=== PATIENT | female | born 1940 | race African-American/Black ===

== ENCOUNTER 2020-01-31 22:36 | Inpatient (IN) | payer MEDICAID, MEDICARE ==
[~2020-01-31] VITALS: Ht 165.1 cm; Wt 97.5 kg
[~2020-01-31 22:36] MED LIST: ACETAMINOPHEN650 M2 GT; ALBUTEROL2.5 MG/3 M INH; ALPRAZOLAM0.5 MG GT; AMBIEN5 MG GT; AMBIEN5 MG ORAL; AMIODARONE HCL400 M1 GT; ASCORBIC ACID500 M4 GT; AZACTAM1 GM IVPB; BACTRIM-DS1 EA ORAL; CATAPRES0.2 MG GT; CYCLOGYL 1% OP S2 ML LEFT EYE; DILAUDID2 MG GT; DOCUSATE SODIU100 M2 GT; DOXAZOSIN MESYLA1 MG GT; DULCOLAX10 MG RC; FLONASE1 SPRAYS NASAL; HEPARIN1000 UNIT/ SUBQ; HUMALOG100 UNIT/3 SUBQ; HYDROCODON-ACE1 EA13 GT; KLONOPIN0.5 MG GT; MORPHINE S20 MG/5 ML GT; MULTIVITAMINS1 EAC8 GT; NORCO 10-325 T1 EACH GT; NORCO 5-325 TA1 EACH GT; NORVASC10 MG GT; NORVASC5 MG ORAL; PANTOPRAZOLE SO40 MG GT; PHOS-NAK PACKE1 EAC1 GT; POLYETHYLENE GL17 GM ORAL; POVIDONE IODINE TP; TYLENOL650 MG/20. GT; VITAMIN C500 M1 GT; ZANTAC150 MG ORAL; ZOFRAN 4 MG4 MG/2 ML IM; ZOFRAN4 M1 GT; ZOFRAN4 MG GT
[2020-01-31 22:40] VITALS: BP 91/54
--- NOTE | 2020-01-31 22:40 | NUR ---
ED Nurse Note: Pt brought into ED from [facility] by [facility] for c/o not eating today and AMS per EMS. Per EMS, SNF staff states pt is more vocal and alert than presenting right now. Pt is awake but lethargic and is nonverbal at this time. Pt does respond to touch. Cough noted upon ED arrival, no fever. Pt is breathing normal and is on 3L oxygen via NC with oxygen saturation of 95%. Pt placed on awake overnight monitor, ERMD and EKG bedside. Will continue to monitor.
--- NOTE | 2020-01-31 22:50 | NUR ---
ED Nurse Note: IV line established and blood drawn by RN and sent to lab along with urine specimen.
--- NOTE | 2020-01-31 22:50 | Emergency Room Report ---
History of Present Illness General Chief Complaint: General Complaint Source: Medical Record, EMS Present Illness HPI Is a 79-year-old female with a history of diabetes, CVA and dementia. She is a senior living patient. She presents with chief complaint of altered mental status. At baseline she is confused and able to say yes and no. She was sent in because she has been not responsive for 1 day. Unknown fever. No cough or congestion. Not eating. He is weak in general. She unable to give any history because of a status. Allergies: Coded Allergies: PENICILLINS (Unverified Allergy, Unknown, 03/16/15) COVID-19 Screening Contact w/high risk pt: No Recent Travel to affected area: No Experienced COVID-19 symptoms?: No Patient History Past Medical History: DM, CVA/TIA, dementia Now: No Nursing Documentation-PMH Hx COPD: No Hx Diabetes: Yes Hx Cancer: No Hx Gastrointestinal Problems: Yes - GERD Hx Neurological Problems: Yes Hx Cerebrovascular Accident: Yes Hx Seizures: Yes Hx Weakness: Yes Review of Systems Constitutional: Reports: malaise, weakness All Other Systems: limited - Secondary to condition Physical Exam Vital Signs Date Time Temp Pulse Resp B/P (MAP) Pulse Ox O2 Delivery O2 Flow Rate FiO2 01/31/20 22:38 83 28 91/54 (66) Vitals with hypotension Sp02 EP Interpretation: reviewed, abnormal General Appearance: lethargic, Chronically Ill Head: normocephalic, atraumatic Eyes: right eye other - Right eye is cloudy; left eye PERRL, left eye EOMI ENT: hearing grossly normal, normal pharynx Neck: full range of motion, supple, no meningismus Respiratory: chest non-tender, rhonchi Cardiovascular #1: regular rate, rhythm, no murmur Gastrointestinal: normal bowel sounds, non tender, no mass, no organomegaly, no bruit, non-distended Musculoskeletal: other - Extremities contracted Neurologic: other - Grimace to painful stimuli Procedures Critical Care Time Critical Care Time Critical care is mandated in this patient who presented with sepsis from UTI and severe anemia requiring blood transfusion. Patient require my urgent intervention to attenuate the risks of metabolic collapse which may lead to cardiovascular collapse and . Critical care time is 35 minutes excluding any reportable procedure. Critical care time included evaluation, multiple reevaluation, looking at old charts, interpreting laboratory and diagnostic data , discussing case with patient and family and consultants, and charting. Medical Decision Making Diagnostic Impression: Primary Impression: Sepsis Qualified Codes: A41.9 - Sepsis, unspecified organism; R65.20 - Severe sepsis without septic shock; N17.9 - Acute kidney failure, unspecified Additional Impressions: UTI (urinary tract infection) Qualified Codes: N30.00 - Acute cystitis without hematuria Acute renal failure Qualified Codes: N17.9 - Acute kidney failure, unspecified Anemia, unspecified Qualified Codes: D64.9 - Anemia, unspecified Thrombocytopenia Leukemia Qualified Codes: C95.90 - Leukemia, unspecified not having achieved remission Hyperkalemia Acute metabolic encephalopathy ER Course This is an elderly female presents with altered mental status. This is probably secondary to infection. She is also very dry and in acute renal failure. 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 Prognosis very poor. Blood transfusion ordered. I discussed the case with Dr. Jimenez who knows the patient well. Antibiotics given. IV fluid given. Patient will be admitted for IV antibiotics and blood transfusion. EKG Diagnostic Results Rate: normal Rhythm: NSR ST Segments: other - LBBB Rhythm Strip Diag. Results EP Interpretation: yes Rate: 85 Rhythm: NSR, no PVC's, no ectopy Chest X-Ray Diagnostic Results Chest X-Ray Diagnostic Results : Chest X-Ray Ordered: Yes # of Views/Limited/Complete: 1 View Indication: Shortness of Breath EP Interpretation: Yes Interpretation: no consolidation, no effusion, no pneumothorax, no acute cardiopulmonary disease Impression: No acute disease Electronically Signed by: Matt Marquez MD CT/MRI/US Diagnostic Results CT/MRI/US Diagnostic Results : Imaging Test Ordered: CT head Impression Read by radiologist. No acute process. Last Vital Signs Date Time Temp Pulse Resp B/P (MAP) Pulse Ox O2 Delivery O2 Flow Rate FiO2 01/31/20 22:38 83 28 91/54 (66) Status: improved Disposition: ADMITTED INPATIENT Condition: Critical Matt Marquez MD Jan 31, 2020 22:50
[2020-01-31 23:17] LABS: HEMATOCRIT 8.1 % (37.0-47.0); MEAN CORPUSCULAR VOLUME 102 FL (80-99); PLATELET COUNT 33 K/UL (150-450); RED BLOOD COUNT 0.79 M/UL (4.20-5.40); RED CELL DISTRIBUTION WIDTH 26.6 % (11.6-14.8)
[2020-01-31 23:28] LABS: BILIRUBIN, URINE NEGATIVE (NEGATIVE); COLOR,URINE PALE YELLOW; GLUCOSE, URINE (UA) NEGATIVE (NEGATIVE); KETONES,URINE NEGATIVE (NEGATIVE); LEUKOCYTE ESTERASE ,URINE 3+ (NEGATIVE); NITRITE,URINE NEGATIVE (NEGATIVE); PH,URINE 5 (4.5-8.0); PROTEIN,URINE 2+ (NEGATIVE); UROBILINOGEN,URINE 1 MG/DL (0.0-1.0)
--- NOTE | 2020-01-31 23:45 | NUR ---
ED Nurse Note: Pt taken to CT.
[2020-01-31 23:46] LABS: ALANINE AMINOTRANSFERASE 9 U/L (12-78); ALBUMIN 2.6 G/DL (3.4-5.0); ALBUMIN/GLOBULIN RATIO 0.4 (1.0-2.7); ALKALINE PHOSPHATASE 119 U/L (46-116); ANION GAP 15 mmol/L (5-15); APPEARANCE,URINE SLIGHTLY CLOUDY; ASPARTATE AMINO TRANSFERASE 14 U/L (15-37); BILIRUBIN,TOTAL 0.3 MG/DL (0.2-1.0); BLOOD UREA NITROGEN 125 mg/dL (7-18); CALCIUM 8.9 MG/DL (8.5-10.1); CARBON DIOXIDE 20 MMOL/L (21-32); CHLORIDE 120 MMOL/L (98-107); CKMB < 0.5 NG/ML (0.0-3.6); CREATINE KINASE 182 U/L (26-308); SODIUM 154 MMOL/L (136-145)
[2020-02-01] VITALS (10 sets, daily range): BP systolic 96–154; BP diastolic 37–86
--- NOTE | 2020-02-01 | NUR ---
ED Nurse Note: Pt returned from CT.
[2020-02-01 00:02] LABS: HEMOGLOBIN 2.8 G/DL (12.0-16.0)
--- NOTE | 2020-02-01 00:20 | NUR ---
ED Nurse Note: ERMD bedside, R EJ IV line inserted by ERMD at this time. No complications noted.
[2020-02-01] MEDS ORDERED: Cefepime HCl 1 GM in D5W 55 ML IVPB ONE (00:30)
--- NOTE | 2020-02-01 00:31 | Diagnostic Imaging Report ---
Indication: Headache Technique: Contiguous 5 mm thick transaxial imaging of the head obtained in a Siemens Sensation [address] scanner. Soft tissue and bone windows generated. Automatic Exposure Control was utilized. Total Dose length Product (DLP): 1285mGycm CT Dose Index Volume (CTDIvol): 53.4 mGy Comparison: 02/15/2016 Findings: There is mild prominence of the ventricles, basal cisterns, and cerebral sulci consistent with atrophy. Mild, nonspecific, white matter hypoattenuation is noted throughout the brain consistent with chronic small vessel disease. There is no midline shift, edema, acute hemorrhage, mass effect, or abnormal extra-axial fluid collections. There is opacification of the left mastoid air cells. Patient's abdomen prior surgery involving both the globes. The left globe is shrunken and deformed. Impression: No acute intracranial bleed, mass effect or edema. Mild atrophy of the brain. Nonspecific white matter hypoattenuation probably due to chronic small vessel disease. The CT scanner at [facility] is accredited by the [employer] and the scans are performed using dose optimization techniques as appropriate to a performed exam including Automatic Exposure control.
--- NOTE | 2020-02-01 00:40 | NUR ---
ED Nurse Note: Pt is resting in bed at this time, no acute distress noted. IV antibx infusing as ordered. Safety measures in place. Vital signs stable for pt, ERMD aware. Will continue to monitor.
--- NOTE | 2020-02-01 01:21 | Emergency Room Report ---
Sepsis Event Note Evaluation Current Stage of Sepsis: Severe Sepsis Possible Source: Genitourinary Focused Exam Allergies: Coded Allergies: PENICILLINS (Unverified Allergy, Unknown, 03/16/15) Date Exam Occurred: Feb 01, 2020 Time Exam Occurred: 01:20 Laboratory Studies Laboratory Tests Test 01/31/20 22:49 White Blood Count 15.0 K/UL (4.8-10.8) H Red Blood Count 0.79 M/UL (4.20-5.40) L Hemoglobin 2.8 G/DL (12.0-16.0) *L Hematocrit 8.1 % (37.0-47.0) L Mean Corpuscular Volume 102 FL (80-99) H Mean Corpuscular Hemoglobin 34.6 PG (27.0-31.0) H Mean Corpuscular Hemoglobin Concent 34.0 G/DL (32.0-36.0) Red Cell Distribution Width 26.6 % (11.6-14.8) H Platelet Count 33 K/UL (150-450) L Mean Platelet Volume 4.6 FL (6.5-10.1) L Neutrophils (%) (Auto) % (45.0-75.0) Lymphocytes (%) (Auto) % (20.0-45.0) Monocytes (%) (Auto) % (1.0-10.0) Eosinophils (%) (Auto) % (0.0-3.0) Basophils (%) (Auto) % (0.0-2.0) Neutrophils % (Manual) Pending Lymphocytes % (Manual) Pending Platelet Estimate Pending Platelet Morphology Pending Urine Color Pale yellow Urine Appearance Slightly cloudy Urine pH 5 (4.5-8.0) Urine Specific [place] 1.010 (1.005-1.035) Urine Protein 2+ (NEGATIVE) H Urine Glucose (UA) Negative (NEGATIVE) Urine Ketones Negative (NEGATIVE) Urine Blood 1+ (NEGATIVE) H Urine Nitrite Negative (NEGATIVE) Urine Bilirubin Negative (NEGATIVE) Urine Urobilinogen 1 MG/DL (0.0-1.0) H Urine Leukocyte Esterase 3+ (NEGATIVE) H Urine RBC 2-4 /HPF (0 - 2) H Urine WBC 40-60 /HPF (0 - 2) H Urine Squamous Epithelial Cells Few /LPF (NONE/OCC) Urine Bacteria Many /HPF (NONE) H Sodium Level 154 MMOL/L (136-145) H Potassium Level 6.0 MMOL/L (3.5-5.1) *H Chloride Level 120 MMOL/L (98-107) H Carbon Dioxide Level 20 MMOL/L (21-32) L Anion Gap 15 mmol/L (5-15) Blood Urea Nitrogen 125 mg/dL (7-18) H Creatinine 3.0 MG/DL (0.55-1.30) H Estimat Glomerular Filtration Rate 18.3 mL/min (>60) Glucose Level 153 MG/DL (74-106) H Lactic Acid Level 4.00 mmol/L (0.4-2.0) H Calcium Level 8.9 MG/DL (8.5-10.1) Total Bilirubin 0.3 MG/DL (0.2-1.0) Aspartate Amino Transf (AST/SGOT) 14 U/L (15-37) L Alanine Aminotransferase (ALT/SGPT) 9 U/L (12-78) L Alkaline Phosphatase 119 U/L (46-116) H Total Creatine Kinase 182 U/L (26-308) Creatine Kinase MB < 0.5 NG/ML (0.0-3.6) Creatine Kinase MB Relative Index 0.2 Troponin I 0.011 ng/mL (0.000-0.056) Total Protein 9.3 G/DL (6.4-8.2) H Albumin 2.6 G/DL (3.4-5.0) L Globulin 6.7 g/dL Albumin/Globulin Ratio 0.4 (1.0-2.7) L Vital Signs Last 24 Hour Vital Signs Date Time Temp Pulse Resp B/P (MAP) Pulse Ox O2 Delivery O2 Flow Rate FiO2 02/01/20 00:40 97.8 82 22 109/37 95 Nasal Cannula 3.0 01/31/20 22:40 83 24 Nasal Cannula 3.0 01/31/20 22:40 97.8 83 24 91/54 95 Nasal Cannula 3.0 01/31/20 22:38 83 28 91/54 (66) Respiratory Exam: Clear Cardiovascular Exam: RRR Capillary Refill: Less Than 2 Seconds Peripheral Pulse: Strong Pulse Location: Radial Skin Exam: Unremarkable Matt Marquez MD Feb 01, 2020 01:20
--- NOTE | 2020-02-01 01:25 | NUR ---
ED Nurse Note: Lactic acid reflex drawn and sent to lab.
--- NOTE | 2020-02-01 02:00 | NUR ---
ED Nurse Note: Blood transfusion started at 0200, no complications/adverse reactions noted within first 15 minutes. ERMD requesting blood to be infused in approximately 1 hour. No acute distress, will continue to monitor pt.
--- NOTE | 2020-02-01 03:20 | NUR ---
ED Nurse Note: First unit of PRBCs infused, no complications. Will carry out order for second unit of PRBCs. VSS.
--- NOTE | 2020-02-01 03:40 | NUR ---
ED Nurse Note: Second unit of PRBCs inititated at this time. ERMD requesting blood to be infused in approx 1 hour. Pt is sleeping, breathing is normal and unlabored. No acute distress noted. Will conintue to monitor, safety measures in place. Vital signs stable as charted.
--- NOTE | 2020-02-01 05:25 | NUR ---
ED Nurse Note: Second unit of PRBCs infused with no complications, VSS. Pt is sleeping at this time, no acute distress noted. Will continue to monitor pt.
--- NOTE | 2020-02-01 05:30 | NUR ---
ED Nurse Note: Repeat CBC/CMP drawn by RN and sent to lab.
[2020-02-01 05:48] LABS: HEMATOCRIT 15.2 % (37.0-47.0); MEAN CORPUSCULAR VOLUME 91 FL (80-99); PLATELET COUNT 30 K/UL (150-450); RED BLOOD COUNT 1.68 M/UL (4.20-5.40); RED CELL DISTRIBUTION WIDTH 18.6 % (11.6-14.8); WHITE BLOOD COUNT 13.3 K/UL (4.8-10.8)
[2020-02-01 05:51] LABS: HEMOGLOBIN 5.3 G/DL (12.0-16.0)
--- NOTE | 2020-02-01 06:35 | NUR ---
ED Nurse Note: Third unit of PRBCs initiated at this time. Pt is sleeping in bed, no acute distress. VSS. Will continue to monitor pt. Safety measures in place.
--- NOTE | 2020-02-01 06:55 | NUR ---
ED Nurse Note: Report given to RETA Guerin.
--- NOTE | 2020-02-01 07:05 | NUR ---
HAND-OFF: Report given to RETA Estrella and endorsed plan of care to continue infusing PRBCs and to transport pt to unit.
--- NOTE | 2020-02-01 08:20 | NUR ---
ED Nurse Note: Pt transported to telemetry unit with ongoing blood transfusion at 125ml/hr and endorsed to Truong MCDUFFIE.
--- NOTE | 2020-02-01 09:09 | NUR ---
NURSE NOTES: Pt arrived to the unit vitals taken and pt was clean due to a scant bowel movement. will call
[2020-02-01] MEDS ORDERED: ALPRAZolam 0.5mg tab GT PRN ×2 (12:00→16:00)
--- NOTE | 2020-02-01 12:06 | Diagnostic Imaging Report ---
Indication: Dyspnea Comparison: 02/15/2016 A single view chest radiograph was obtained. Findings: No definite infiltrate or pulmonary vascular congestion identified. The heart is enlarged. The aorta is mildly enlarged consistent with atherosclerotic vascular disease. The bones are osteopenic. There are thoracic vertebral enthesophytes at multiple levels. Impression: No acute disease
--- NOTE | 2020-02-01 14:20 | NUR ---
CASE MANAGEMENT: INITIAL REVIEW 79YR OLD FEMALE BIBA FROM [facility] CC: GENERAL COMPLAINT; NON-VERBAL AND IS NOT EATING WELL; AMS PMH: CVA. DEMENTIA SI: SEVERE SEPSIS . UTI . SEVERE ANEMIA . THROMBOCYTOPENIA . LEUKOCYTOSIS . ACUTE RENAL FAILURE HYPERKALEMIA . ACUTE METABOLIC ENCEPHALOPATHY 97.8 83 24 91/54 95% ON 3L NC WBC 15.0 RBC 0.79 H/H 2.8/8.1 PLT 33 LACTIC ACID 4.0 NA+ 154 K+6.0 CL-120 CO2-20 BUN 125 CREAT 3.0 BGLU 153 AST/ALT 14/9 UR CULTURE (+) IS:IV NS BOLUS X1 CHEST X-RAY- NO ACUTE DISEASE CT HEAD- Mild atrophy of the brain \: 3E MED SURG UNIT DCP: CVW WHEN STABLE PLAN: BLOOD TRANSFUSE URINE CX BLOOD CX CASE MANAGEMENT: REVIEW 02/01/20 SI: SEVERE SEPSIS . UTI . SEVERE ANEMIA . THROMBOCYTOPENIA . LEUKOCYTOSIS . ACUTE RENAL FAILURE HYPERKALEMIA . ACUTE METABOLIC ENCEPHALOPATHY 97.7 73 24 126/71 98% ON 1L WBC 13.3 RBC 1.68 H/H 5.3/15.2 PLT 30 IS:IV NS BOLUS X1 IV CEFEPIME X1 IV NS@150ML/HR BLOOD TRANSFUSING X3 \: 3E MED SURG UNIT DCP: CVW WHEN STABLE PLAN: DECREASE OXYGEN NEGATIVE FOR INFLUENZA A&B CATH FOR UNINE CX
[2020-02-01] MEDS ORDERED: Miralax 17gm pkt ORAL PRN ×2 (16:00→21:00)
--- NOTE | 2020-02-01 16:00 | NUR ---
NURSE NOTES: Received patient from Truong MCDUFFIE. Patient obtunded, with minimal response to verbal and tactile stimuli. Bedbound. IV lines intact on right external jugular g22 saline locked and left wrist g20 running 1/2 NS 1L at 150ml/hr. Piper catheter intact, draining yellow colored urine. Wound pictures to be taken and uploaded. Consent for blood transfusion in the chart. Spoke to Dr Jimenez, said to try feeding patient with syringe if able to eat. HOB elevated. Bed locked in lowest position. Call light within reach. Will continue plan of care.
[2020-02-01] MEDS: Ascorbic Acid 500mg tab GT SCH (18:00)
[2020-02-01] MEDS ORDERED: Ascorbic Acid 500mg tab GT SCH (18:00)
[2020-02-01] MEDS ORDERED: Docusate 100mg cap ORAL SCH (18:00)
[2020-02-01] MEDS: Docusate 100mg cap ORAL SCH (18:00)
--- NOTE | 2020-02-01 18:15 | History and Physical Report ---
DATE OF ADMISSION: 02/01/2020 CHIEF COMPLAINT AND REASON FOR HOSPITALIZATION: The patient with dehydration and severe anemia. HISTORY OF PRESENT ILLNESS: The patient is a resident of an [facility], has had bilateral strokes, is bedridden, has refractory anemia with blast, preleukemic state or possibly lymphoma has been diagnosed in the past. We discussed with the family. She presents with poor oral intake, lethargy, and hemoglobin of 2.8. PAST MEDICAL HISTORY: Includes diabetes borderline, dementia with agitation, paroxysmal atrial fibrillation. 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 ALLERGIES: None known. MEDICATIONS: From the [facility] are reviewed include the following: amlodipine, amiodarone, MiraLAX p.r.n., Zofran p.r.n., DSS p.r.n., Rita eye drops, Zantac, bisacodyl, [place], and melatonin. REVIEW OF SYSTEMS: The patient is unable. PHYSICAL EXAMINATION: GENERAL: The patient is arousable, but very lethargic. VITAL SIGNS: Temperature 98.4, pulse 75, respirations 22, blood pressure 154/86. HEAD, EYES, EARS, NOSE, AND THROAT: She has a left eye prosthesis and a dense lens opacity in the right eye. Oral mucosa is dry. NECK: No adenopathy. LUNGS: Clear. HEART: Regular rhythm. No murmur. ABDOMEN: Soft without organomegaly or masses. EXTREMITIES: No edema. There are degenerative changes in the knees and contractures of both hands. NEUROLOGIC: She moans and sort of states yes or no, but is not really carrying on a conversation. She is blind. There appears to be bilateral facial weakness. She has weakness in all four extremities. IMPRESSION: 1. Severe anemia, refractory anemia with blast, hemoglobin 2.8 on admission. 2. Thrombocytopenia. 3. Likely preleukemia or leukemia. 4. Dehydration. 5. Anorexia. 6. Hyperkalemia. 7. Failure to thrive. PLAN: I discussed with the family again and they have not been willing to make the patient No Code even though she has a terminal prognosis. We will hydrate her cautiously and transfuse. We will try to make early discharge to the [facility]. She does have white cells in the urine and we will give her urine culture and antibiotics. Bertram Jimenez M.D. DR: MATTY JOB#: [id number] CC:
--- NOTE | 2020-02-01 19:30 | NUR ---
NURSE NOTES: RECEIVED PATIENT FROM RETA PERERA. PATIENT IS ASLEEP, ON ROOM AIR, O2 AT 99%, NO ACUTE DISTRESS NOTED. IV ON RIGHT EJ AND LEFT WRIST INTACT AND PATENT.WOUND DRESSINGS INTACT AND DRY. MORENO CATH IN PLACE, DRAINING WELL, YELLOW URINE NOTED, MORENO ANCHOR IN PLACE. BED IS LOCKED AND LOW, BED ALARMS ACTIVE, SIDE RAILS UPX2 AND CALL LIGHT IS WITHIN REACH. WILL CONTINUE TO MONITOR.
--- NOTE | 2020-02-01 19:33 | NUR ---
HAND-OFF: Report given to rachel.
--- NOTE | 2020-02-01 23:50 | NUR ---
NURSE NOTES: 1 UNIT PRBC TRANSFUSED, NO REACTIONS NOTED. VITAL SIGN STABLE.
[2020-02-02] VITALS (7 sets, daily range): BP systolic 118–150; BP diastolic 67–85
--- NOTE | 2020-02-02 04:00 | NUR ---
NURSE NOTES: ADDITIONAL 1 UNIT PRBC TRANSFUSED, NO REACTIONS NOTED. VITAL SIGN STABLE.
--- NOTE | 2020-02-02 07:50 | NUR ---
NURSE NOTES: Patient seen on rounds, obtunded, non-verbal. On room air tolerating well, sats 100%. Patient is S/P 2 units PRBC from NOC shift. PIV on left wrist, and CV on right EJ patent and intact. Piper secure and draining well. Awaiting repeat labs in AM. Patient is not awake enough to eat and take meds PO. Will inform MD. Bed low and locked, siderails up x 3, frequent rounds done, will continue to monitor.
--- NOTE | 2020-02-02 07:53 | NUR ---
HAND-OFF: Report given to RETA Santiago.
[2020-02-02] MEDS ORDERED: Amiodarone 200mg tab GT SCH (09:00)
[2020-02-02] MEDS: Docusate 100mg cap ORAL SCH ×2 (09:00→18:00)
[2020-02-02] MEDS: Amiodarone 200mg tab GT SCH (09:00)
[2020-02-02] MEDS ORDERED: Cyclopentolate 1% Opth Sol 2ml LEFT EYE SCH (09:00)
[2020-02-02] MEDS: Ascorbic Acid 500mg tab GT SCH ×2 (09:00→18:00)
[2020-02-02 10:36] LABS: HEMATOCRIT 24.1 % (37.0-47.0); HEMOGLOBIN 8.6 G/DL (12.0-16.0); MEAN CORPUSCULAR VOLUME 83 FL (80-99); PLATELET COUNT 18 K/UL (150-450); RED BLOOD COUNT 2.91 M/UL (4.20-5.40); RED CELL DISTRIBUTION WIDTH 14.2 % (11.6-14.8); WHITE BLOOD COUNT 8.2 K/UL (4.8-10.8)
--- NOTE | 2020-02-02 11:00 | NUR ---
NURSE NOTES: Dr. Jimenez saw patient on rounds, made aware that patient is not eating and not able to take PO meds due to altered mental status. MD is aware and would like to encourage PO intake once patient is more awake. Received orders to DC vasquez catheter. Orders noted and carried out.
--- NOTE | 2020-02-02 11:25 | General Progress Note ---
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 ICD Codes: D46.4 - Refractory anemia, unspecified SNOMED: 579240882 (5) Acute renal failure ICD Codes: N17.9 - Acute kidney failure, unspecified SNOMED: 83852451 (6) UTI (urinary tract infection) ICD Codes: N39.0 - UTI (urinary tract infection) SNOMED: 56574356 Qualifiers: Qualified Codes: N30.00 - Acute cystitis without hematuria (7) Anemia, unspecified ICD Codes: D64.9 - Anemia, unspecified SNOMED: 553199844 Qualifiers: Qualified Codes: D64.9 - Anemia, unspecified Assessment/Plan: hb better, continue iv hydration and antibiotics Subjective ROS Limited/Unobtainable: Yes Allergies: Coded Allergies: PENICILLINS (Unverified Allergy, Unknown, 03/16/15) Objective Last 24 Hour Vital Signs Date Time Temp Pulse Resp B/P (MAP) Pulse Ox O2 Delivery O2 Flow Rate FiO2 02/02/20 09:00 Room Air 02/02/20 08:00 98.9 66 18 150/83 (105) 100 02/02/20 04:00 98.5 60 20 140/67 (91) 99 02/02/20 00:00 98.6 62 20 137/71 (93) 98 02/01/20 21:00 Room Air 02/01/20 20:00 98.4 66 20 124/63 (83) 99 02/01/20 16:00 98.5 71 20 123/61 (81) 100 02/01/20 12:00 97.7 73 24 126/71 (89) 98 02/01/20 11:47 66 02/01/20 11:45 Nasal Cannula 1.0 Intake and Output 02/01/20 02/02/20 19:00 07:00 Intake Total 150 ml 1200 ml Output Total 700 ml 1550 ml Balance -550 ml -350 ml Intake IV Total 150 ml 1200 ml Output Urine Total 700 ml 1550 ml # Voids 2 # Bowel Movements 1 Laboratory Tests 02/02/20 10:15: White Blood Count 8.2, Red Blood Count 2.91L, Hemoglobin 8.6#L, Hematocrit 24.1# L, Mean Corpuscular Volume 83#, Mean Corpuscular Hemoglobin 29.7, Mean Corpuscular Hemoglobin Concent 35.9, Red Cell Distribution Width 14.2, Platelet Count 18L, Mean Platelet Volume 5.3L, Neutrophils (%) (Auto) , Lymphocytes (%) ( Auto) , Monocytes (%) (Auto) , Eosinophils (%) (Auto) , Basophils (%) (Auto) , Neutrophils % (Manual) [Pending], Lymphocytes % (Manual) [Pending], Platelet Estimate [Pending], Platelet Morphology [Pending], Sodium Level [Pending], Potassium Level [Pending], Chloride Level [Pending], Carbon Dioxide Level [ Pending], Blood Urea Nitrogen [Pending], Creatinine [Pending], Estimat Glomerular Filtration Rate [Pending], Glucose Level [Pending], Calcium Level [ Pending] Height (Feet): 5 Height (Inches): 5.00 Weight (Pounds): 185 General Appearance: lethargic, confused EENT: other - blind Neck: normal alignment Cardiovascular: normal rate, regular rhythm Respiratory/Chest: lungs clear Abdomen: non tender Edema: no edema noted Arm (L), no edema noted Arm (R), no edema noted Leg (L), no edema noted Leg (R), no edema noted Pedal (L), no edema noted Pedal (R), no edema noted Generalized Neurologic: abnormal emt/dispatcher II-XII, motor weakness Bertram Jimenez MD Feb 02, 2020 11:25
[2020-02-02 11:29] LABS: ANION GAP 8 mmol/L (5-15); BLOOD UREA NITROGEN 73 mg/dL (7-18); CARBON DIOXIDE 21 MMOL/L (21-32); CHLORIDE 129 MMOL/L (98-107); CREATININE 1.3 MG/DL (0.55-1.30); SODIUM 158 MMOL/L (136-145)
--- NOTE | 2020-02-02 11:53 | NUR ---
*-*DISCHARGE PLANNING*-* PATIENT HAS BEEN REFERRED BACK TO: [facility] P: [phone] F: [phone] ~~~~~~~WAITING FOR ACCEPTANCE~~~~~~~~~~~~~
--- NOTE | 2020-02-02 12:08 | NUR ---
CASE MANAGEMENT:REVIEW SI;AC RENAL FAILURE. UTI. ANEMIA. HTN. DEHYDRATION. 98.9 70 20 150/85 98% ON RA H/H 8.6/24.1 NA 158 BUN 73 CA 8.0 IS;AMIODARONE GT QD NORVASC GT QD PROTONIX GT QD IVF NS @ 150 ML/HR MED SURG STATUS DCP;FROM [facility] PLAN;CONTINUE IV FLUIDS DC TO SNF WHEN BED AVAILABLE
--- NOTE | 2020-02-02 13:26 | NUR ---
NURSE NOTES: Notified Dr. Jimenez of abnormal lab results (Na 158). Continue current IVF of 1/2 NS at 150ml/hr. No other new orders at this time. is also aware of low platelet count 18.
--- NOTE | 2020-02-02 14:46 | NUR ---
*-*DISCHARGE PLANNING*-* PATIENT HAS BEEN ACCEPTED AND [facility] 02/03/2020. NURSE TO NURSE REPORT P: [phone] RM# 25.[facility]SP[facility] SET FOR WILL CALL NURSE TO ACTIVATE WILL CALL. Addendum: 02/02/20 at 1510 by SURINDER DUNCAN CM *-*DISCHARGE PLANNING*-* PATIENT HAS BEEN ACCEPTED AND WILL BE DISCHARGED BACK TO, [facility] ON ANTICIPATED DISCHARGE DATE 02/03/2020. NURSE TO NURSE REPORT P: [phone] RM# 25.[facility] SET FOR WILL CALL, S/W SHARONDA [id number] NURSE TO ACTIVATE WILL CALL.
--- NOTE | 2020-02-02 19:29 | NUR ---
HAND-OFF: Report given to Sherman MCDUFFIE. Patient had (+) urine output post removal of vasquez catheter. Vitals stable during shift. Not in distress, no bleeding noted.
--- NOTE | 2020-02-02 19:58 | NUR ---
NURSE NOTES: Patient in bed, awake, unable to make needs known. Respiration is even and unlabored. Bed in low and locked position. NO s/s of pain or discomfort. Iv site noted, iv fluid is infusing. Skin is warm, noted with sacral dressing, heels noted with dressing. Provided safe environment. Call light is at bedside. Frequent visual checks to bed done.
--- NOTE | 2020-02-02 20:00 | NUR ---
NURSE NOTES:re tel# for Daughter, Leyla Desai, , wants MD to call er 02/02 please, requests neurologist.
[2020-02-03 04:00] VITALS: BP 135/61
--- NOTE | 2020-02-03 06:27 | NUR ---
NURSE NOTES: Informed Dr. Jimenez regarding patient positive for MRSA nares. No new order at this time. Charge nurse made aware.
--- NOTE | 2020-02-03 06:45 | NUR ---
NURSE NOTES: Patient transferred to [facility], all belongings with patient.
--- NOTE | 2020-02-03 07:19 | NUR ---
HAND-OFF: Report given to RETA Arciniega.
--- NOTE | 2020-02-03 07:29 | NUR ---
NURSE NOTES: Patient seen on rounds, obtunded, responsive to touch and pain. Not in distress, no outward signs of pain. No signs of bleeding or abnormal bruising. IV on right EF patent and intact. Noted some trace edema on left hand, PIV flushed and patent. Elevated extremity, will reassess IV site. Bed low and locked, siderails up x 3, frequent visual rounds done, bed alarms on zone 1. Will continue to monitor.
[2020-02-03 09:00] VITALS: BP 126/61
[2020-02-03] MEDS: Docusate 100mg cap ORAL SCH ×2 (09:00→17:04)
[2020-02-03] MEDS: Amiodarone 200mg tab GT SCH (09:00)
[2020-02-03] MEDS: Ascorbic Acid 500mg tab GT SCH ×2 (09:00→17:03)
--- NOTE | 2020-02-03 11:06 | NUR ---
CHARGE NURSE NOTE: NA 158, Chl.129. notified, no new orders given. is on his way to the hospital.
[2020-02-03 12:00] VITALS: BP 130/65
--- NOTE | 2020-02-03 13:30 | NUR ---
NURSE NOTES: Dr Jimenez made rounds. Informed him about family's concern regarding change in mental status. Family reports that patient was more verbally responsive at intermediate. Informed MD that family would like neurology consult. MD advised to have family call his office. Clarified if MD would like to order SCD's for DVT prophylaxis. No new orders at this time. Left voicemail with daughter Leyla Desai to update.
--- NOTE | 2020-02-03 13:48 | NUR ---
CHARGE NURSE NOTE: Spoke with . Notified him that pt oral intake is very poor, (she is on Pureed diet, was able to swallow 1 tea spoon with difficulty, risk for aspiration). respond was "Pt is terminally ill, dying, no need Gtube placement".
[2020-02-03] MEDS ORDERED: ceFAZolin sod 1 GM in D5W 55 ML IVPB SCH (14:00)
--- NOTE | 2020-02-03 14:00 | NUR ---
HAND-OFF: Report given to RETA Vaughn.
--- NOTE | 2020-02-03 14:00 | NUR ---
NURSE NOTES: Spoke with daughter Leyla Desai to let her know that I had made Dr. Jimenez aware of their concerns and to call MD's office to speak with him. Daughter verbalized understanding.
[2020-02-03] MEDS: Potassium Chloride 10 MEQ in D5W 1000ml 1,000 ML IV SCH ×2 (14:37→20:52)
--- NOTE | 2020-02-03 14:45 | NUR ---
NURSE NOTES: Report received from Pamela MCDUFFIE. Patient is non verbal and not alert oriented. Endorsed by Pamela that this is not a new status for the patient. Patient is noted to be on room air. Does not appear to be in respiratory distress at this time. Patient noted to have left wrist 20 shasta IV saline lock. Patient noted to have 22 shasta IV in right IJ with fluids running per MD orders. Per Pamela, Doctor Jimenez is aware of the patients current laboratory values and does not want to change or adjust IV fluids. Was endorsed to Roderick MCDUFFIE that patient is not taking/tolerating oral medications. Per Pamela Jimenez is aware and states that it is okay if patient does not take medications. Patient is bed bound and incontinent. Bed locked, in lowest position, and alarmed. Will continue to follow plan of care.
[2020-02-03 16:00] VITALS: BP 117/55
[2020-02-03] MEDS: ceFAZolin sod 1 GM in D5W 55 ML IVPB SCH (16:02)
--- NOTE | 2020-02-03 16:20 | General Progress Note ---
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 ICD Codes: D46.4 - Refractory anemia, unspecified SNOMED: 304893374 (5) Acute renal failure ICD Codes: N17.9 - Acute kidney failure, unspecified SNOMED: 21955440 (6) UTI (urinary tract infection) ICD Codes: N39.0 - UTI (urinary tract infection) SNOMED: 26108427 Qualifiers: Qualified Codes: N30.00 - Acute cystitis without hematuria (7) Anemia, unspecified ICD Codes: D64.9 - Anemia, unspecified SNOMED: 346160624 Qualifiers: Qualified Codes: D64.9 - Anemia, unspecified (8) Vascular dementia ICD Codes: F01.50 - Vascular dementia without behavioral disturbance SNOMED: 126551260 Assessment/Plan: hb better, continue iv hydration and antibiotics, terminal malignancy and sever dementia, avoid invasive procedures Subjective ROS Limited/Unobtainable: Yes Allergies: Coded Allergies: PENICILLINS (Unverified Allergy, Unknown, 03/16/15) Objective Last 24 Hour Vital Signs Date Time Temp Pulse Resp B/P (MAP) Pulse Ox O2 Delivery O2 Flow Rate FiO2 02/03/20 12:00 98.8 79 18 130/65 (86) 99 02/03/20 09:00 Room Air 02/03/20 09:00 98.7 69 19 126/61 (82) 98 02/03/20 04:00 98.7 63 18 135/61 (85) 96 02/02/20 23:50 98.8 69 18 118/67 (84) 98 02/02/20 21:00 Room Air 02/02/20 20:00 98.9 69 18 133/77 (95) 99 Intake and Output 02/02/20 02/03/20 19:00 07:00 Intake Total 1800 ml 1600 ml Output Total 1000 ml Balance 800 ml 1600 ml Intake IV Total 1800 ml 1600 ml Output Urine Total 1000 ml # Voids 2 2 # Bowel Movements 1 Height (Feet): 5 Height (Inches): 5.00 Weight (Pounds): 185 General Appearance: lethargic, confused EENT: other - blind Neck: normal alignment Cardiovascular: normal rate, regular rhythm Respiratory/Chest: lungs clear Abdomen: soft Extremities: other - [id number] Edema: trace edema, other Neurologic: abnormal pipe line repairer II-XII, motor weakness, disoriented Bertram Jimenez MD Feb 03, 2020 16:20
--- NOTE | 2020-02-03 19:50 | NUR ---
HAND-OFF: Report given to Yovani MCDUFFIE.
[2020-02-03 20:00] VITALS: BP 100/70
--- NOTE | 2020-02-03 21:14 | NUR ---
NURSE NOTES: Pt is in bed, awake. Makes grunting sounds time to time. Opens eyes, non-verbal. Pt's daughter called to find out about patient, daughter updated. Phone transferred to the room for the daughter to speak to her mother. Dr. Peoples also called to inform that daughter Leyla ([phone]) has been trying to talk to him. Said the daughter can call the office number. Daughter has office number. Dr. PEOPLES also made aware of pt's labs and the IV fluid D5W with 10mEq KCL at 200ml/hr that's running. said he is aware of the labs and the IV fluid order. No new orders. Pt will be monitored.
[2020-02-04] VITALS: BP 100/47
[2020-02-04] MEDS: ceFAZolin sod 1 GM in D5W 55 ML IVPB SCH ×2 (03:46→15:42)
[2020-02-04] MEDS: Potassium Chloride 10 MEQ in D5W 1000ml 1,000 ML IV SCH ×5 (03:47→22:54)
[2020-02-04 04:00] VITALS: BP 94/37
--- NOTE | 2020-02-04 04:00 | NUR ---
NURSE NOTES: Pt is in bed, awake. No acute distress noted. Pt is cleaned and repositioned.
--- NOTE | 2020-02-04 07:25 | NUR ---
HAND-OFF: Report given to RETA Maya.
--- NOTE | 2020-02-04 07:30 | NUR ---
NURSE NOTES: Received patient in bed. Awake, patient is non-verbal. On room air. No signs of pain at this time. Bed rails upx2, bed at the lowest position, bed locked, call light within reach. IV in Right IJ and Left wrist, site intact running IVF as ordered.
[2020-02-04 08:00] VITALS: BP 104/50
[2020-02-04] MEDS: Docusate 100mg cap ORAL SCH ×2 (08:43→17:40)
[2020-02-04] MEDS: Ascorbic Acid 500mg tab GT SCH ×2 (08:43→17:40)
[2020-02-04] MEDS: Amiodarone 200mg tab GT SCH (08:43)
[2020-02-04 12:00] VITALS: BP 110/53
[2020-02-04] MEDS ORDERED: Potassium Chloride 10 MEQ in D5W 1000ml 1,000 ML IV SCH (15:37)
[2020-02-04 16:00] VITALS: BP 94/43
--- NOTE | 2020-02-04 16:01 | General Progress Note ---
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 ICD Codes: D46.4 - Refractory anemia, unspecified SNOMED: 037049895 (5) Acute renal failure ICD Codes: N17.9 - Acute kidney failure, unspecified SNOMED: 98227478 (6) UTI (urinary tract infection) ICD Codes: N39.0 - UTI (urinary tract infection) SNOMED: 97855885 Qualifiers: Qualified Codes: N30.00 - Acute cystitis without hematuria (7) Anemia, unspecified ICD Codes: D64.9 - Anemia, unspecified SNOMED: 603304415 Qualifiers: Qualified Codes: D64.9 - Anemia, unspecified (8) Vascular dementia ICD Codes: F01.50 - Vascular dementia without behavioral disturbance SNOMED: 385037452 Assessment/Plan: hb better, continue iv hydration and antibiotics, terminal malignancy and severe dementia, avoid invasive procedures as very low platelets, d/w family grave prognosis in view of myelodysplastic dis/leukemia and that I do not feel comfortable with invasive procedures. Called nursing drying and winding supervisor to find another primary MD as family wishes are different than my opinion Subjective ROS Limited/Unobtainable: Yes Allergies: Coded Allergies: PENICILLINS (Unverified Allergy, Unknown, 03/16/15) Objective Last 24 Hour Vital Signs Date Time Temp Pulse Resp B/P (MAP) Pulse Ox O2 Delivery O2 Flow Rate FiO2 02/04/20 12:00 98.9 81 19 110/53 (72) 98 02/04/20 09:00 Room Air 02/04/20 08:43 77 104/50 02/04/20 08:00 97.9 77 19 104/50 (68) 99 02/04/20 04:00 97.8 66 19 94/37 (56) 97 02/04/20 00:00 97.4 70 22 100/47 (64) 99 4/4/20 21:00 Room Air 02/03/20 20:00 97.8 95 20 100/70 (80) 93 02/03/20 16:00 98.9 71 20 117/55 (75) 98 Intake and Output 02/03/20 02/04/20 19:00 07:00 Intake Total 1405 ml 2055 ml Balance 1405 ml 2055 ml IV Total 1405 ml 2055 ml # Voids 1 1 Height (Feet): 5 Height (Inches): 5.00 Weight (Pounds): 185 General Appearance: confused EENT: other - blind Neck: non-tender Cardiovascular: regular rhythm Respiratory/Chest: lungs clear Abdomen: non tender, soft Edema: no edema noted Arm (L), no edema noted Arm (R), no edema noted Leg (L), no edema noted Leg (R), no edema noted Pedal (L), no edema noted Pedal (R), no edema noted Generalized Neurologic: motor weakness, disoriented Bertram Jimenez MD Feb 04, 2020 16:01
--- NOTE | 2020-02-04 19:30 | NUR ---
HAND-OFF: Report given to Darien MCDUFFIE.
[2020-02-04 20:00] VITALS: BP 136/68
--- NOTE | 2020-02-04 21:47 | NUR ---
NURSE NOTES: Received patient awake in bed, no s/s of acute distress. Gave bed bath and full linen change with CREDENTIALS SPECIALIST, patient tolerated well. EJ IV access patent and intact, running IVF maintenance. P200 mattress noted. Bed low and locked.
[2020-02-05] VITALS: BP 120/65
[2020-02-05] MEDS: ceFAZolin sod 1 GM in D5W 55 ML IVPB SCH ×2 (03:20→16:14)
[2020-02-05 04:00] VITALS: BP 111/56
[2020-02-05] MEDS: Potassium Chloride 10 MEQ in D5W 1000ml 1,000 ML IV SCH ×3 (07:00→21:04)
--- NOTE | 2020-02-05 07:09 | NUR ---
HAND-OFF: Report given to RETA Morrissey.
--- NOTE | 2020-02-05 07:10 | NUR ---
NURSE NOTES: Received patient in bed. Awake, Alert x1. Patient on room air. No signs of pain noted. On air matress. IV in the Right EJ and Left wrist noted, sites are intact. IVF running as ordered. Bed rails up x2, bed low and locked. Call light within reach.
[2020-02-05 08:00] VITALS: BP 118/62
[2020-02-05] MEDS: Docusate 100mg cap ORAL SCH ×2 (08:18→18:05)
[2020-02-05] MEDS: Amiodarone 200mg tab GT SCH (08:19)
[2020-02-05] MEDS: Ascorbic Acid 500mg tab GT SCH ×2 (08:19→18:05)
[2020-02-05 08:48] LABS: HEMATOCRIT 16.9 % (37.0-47.0); MEAN CORPUSCULAR VOLUME 86 FL (80-99); PLATELET COUNT 15 K/UL (150-450); RED BLOOD COUNT 1.97 M/UL (4.20-5.40); RED CELL DISTRIBUTION WIDTH 17.4 % (11.6-14.8); WHITE BLOOD COUNT 21.8 K/UL (4.8-10.8)
[2020-02-05 08:54] LABS: HEMOGLOBIN 5.9 G/DL (12.0-16.0)
[2020-02-05 09:05] LABS: ANION GAP 11 mmol/L (5-15); BLOOD UREA NITROGEN 26 mg/dL (7-18); CALCIUM 7.5 MG/DL (8.5-10.1); CARBON DIOXIDE 17 MMOL/L (21-32); CHLORIDE 111 MMOL/L (98-107); CREATININE 0.9 MG/DL (0.55-1.30); SODIUM 139 MMOL/L (136-145)
--- NOTE | 2020-02-05 10:20 | NUR ---
NURSE NOTES: Dr. Jimenez office contacted for WBC and Hgb level. Left message. Waiting for call back.
[2020-02-05 11:51] VITALS: BP 107/71
--- NOTE | 2020-02-05 14:48 | General Progress Note ---
Assessment/Plan Assessment/Plan: 79 y/o F with PMH CVA, schizophrenia, vascular dementia, leukemia who presents from [facility] for AMS, found to have E. coli UTI. #E. coli UTI -cont. in patient medical management -UCx + for E. Coli -cont. cefazolin #3 #Refractory Anemia 2/2 MDS #Leukemia #Lymphoma #thrombocytopenia -Hgb 5.9 today -transfuse 2 U PRBC -cont. to monitor for signs/symptoms of bleeding #FTT #physical deconditioning #Quadriplegia -nutrition consulted -PT/OT #CVA #vascular dementia -minimally verbal at b/l per PCP -no ASA given thrombocytopenia Pt has poor prognosis given terminal conditions noted above. Dispo: will d/c back to [facility] once stable Time spent on encounter: 36 mins, >50% on counseling, coordination of care. Additional 25 mins spent with chart review Additional 35 mins spent d/w pt's daughter, Leyla, , POC, advance life care planning, at this time daughter prefers patient to remain full code Time of note doesn't reflect time of encounter. Subjective ROS Limited/Unobtainable: Yes - Pt aphasic Allergies: Coded Allergies: PENICILLINS (Unverified Allergy, Unknown, 03/16/15) Subjective Asked to take over care of pt due to family requests for second opinion. Pt currently aphasic, minimally communicative, appears comfortable. Unable to obtain ROS 2/2 clinical picture. Objective Last 24 Hour Vital Signs Date Time Temp Pulse Resp B/P (MAP) Pulse Ox O2 Delivery O2 Flow Rate FiO2 02/05/20 11:51 98.2 58 19 107/71 (83) 95 02/05/20 09:00 Room Air 02/05/20 08:19 69 118/62 02/05/20 08:00 97.0 69 18 118/62 (80) 97 02/05/20 04:00 97.9 66 21 111/56 (74) 98 02/05/20 00:00 98.6 66 17 120/65 (83) 98 02/04/20 22:24 Room Air 02/04/20 20:00 98.5 65 17 136/68 (90) 98 02/04/20 16:00 98.2 89 17 94/43 (60) 98 Intake and Output 02/04/20 02/05/20 19:00 07:00 Intake Total 670 ml Balance 670 ml Intake Oral 20 ml IV Total 650 ml # Voids 1 3 Laboratory Tests 02/05/20 08:30: White Blood Count 21.8H, Red Blood Count 1.97L, Hemoglobin 5.9*L, Hematocrit 16.9L, Mean Corpuscular Volume 86, Mean Corpuscular Hemoglobin 30.1, Mean Corpuscular Hemoglobin Concent 35.2, Red Cell Distribution Width 17.4H, Platelet Count 15L, Mean Platelet Volume 7.0, Neutrophils (%) (Auto) , Lymphocytes (%) (Auto) , Monocytes (%) (Auto) , Eosinophils (%) (Auto) , Basophils (%) (Auto) , Differential Total Cells Counted 100, Neutrophils % ( Manual) 4L, Lymphocytes % (Manual) 75H, Monocytes % (Manual) 6, Eosinophils % ( Manual) 0, Basophils % (Manual) 0, Blast Cells % 15*H, Band Neutrophils 0, Platelet Estimate DecreasedL, Platelet Morphology Normal, Polychromasia 1+, Hypochromasia 4+, Anisocytosis 1+, Spherocytes 2+, Sodium Level 139, Potassium Level 4.0, Chloride Level 111H, Carbon Dioxide Level 17L, Anion Gap 11, Blood Urea Nitrogen 26H, Creatinine 0.9, Estimat Glomerular Filtration Rate > 60, Glucose Level 127H, Calcium Level 7.5L Height (Feet): 5 Height (Inches): 5.00 Weight (Pounds): 185 Objective General Appearance: aphasic, otherwise awake, alert, non-communicative HEENT: NCAT, b/l blindness, left prostehsis, dry MM Cardiovascular: regular rhythm Respiratory/Chest: lungs clear, no accessory muscle usage Abdomen: non tender, soft Edema: no edema noted Neurologic: motor weakness, disoriented Anthony Guerra M.D. Feb 05, 2020 14:48
--- NOTE | 2020-02-05 14:51 | NUR ---
CASE MANAGEMENT:REVIEW SI;AC RENAL FAILURE. UTI. ANEMIA. 98.2 58 21 107/71 95% ON RA WBC 21.8 H/H 5.9/16.9 CL 111 CO2 17 BUN 26 CA 7.5 IS;K-CL/D5 @ 150 ML/HR CEFAZOLIN NA Q12 HRS AMIODARONE GT QD PROTONIX GT QD NORVASC GT QD PRBC TRANSFUSION MED SURG STATUS DCP;FROM [facility] WHEN MEDICALLY CLEARED
[2020-02-05 16:00] VITALS: BP 120/45
--- NOTE | 2020-02-05 19:30 | NUR ---
NURSE NOTES: RECEIVED PATIENT FROM RETA COTA. PATIENT IS ASLEEP, ON ROOM AIR, NO ACUTE DISTRESS NOTED. WOUND DRESSINGS INTACT. IV ON RIGHT EJ AND LEFT WRIST INTACT AND PATENT. BLOOD TRANSFUSION IN PROCESS, NO REACTIONS NOTED. BED IS LOCKED AND LOW, BED ALARMS ACTIVE, SIDE RAILS UP X2 AND CALL LIGHT IS WITHIN REACH. WILL CONTINUE TO MONITOR.
--- NOTE | 2020-02-05 19:30 | NUR ---
HAND-OFF: Report given to Antionette RN.
[2020-02-05 20:00] VITALS: BP 127/66
[2020-02-05 22:15] LABS: HEMATOCRIT 24.8 % (37.0-47.0); HEMOGLOBIN 8.9 G/DL (12.0-16.0); MEAN CORPUSCULAR VOLUME 82 FL (80-99); PLATELET COUNT 16 K/UL (150-450); RED BLOOD COUNT 3.05 M/UL (4.20-5.40); RED CELL DISTRIBUTION WIDTH 14.3 % (11.6-14.8)
--- NOTE | 2020-02-05 23:13 | NUR ---
NURSE NOTES: CALLED AND SPOKE TO DR. MARIN REGARDING WBC 23.0 NO NEW ORDERS.
[2020-02-06] VITALS (7 sets, daily range): BP systolic 110–156; BP diastolic 64–75
[2020-02-06] MEDS: ceFAZolin sod 1 GM in D5W 55 ML IVPB SCH ×2 (04:13→17:05)
[2020-02-06] MEDS: Potassium Chloride 10 MEQ in D5W 1000ml 1,000 ML IV SCH ×4 (04:14→21:36)
--- NOTE | 2020-02-06 07:44 | NUR ---
HAND-OFF: Report given to RETA Bone. Patient is in stable condition.
--- NOTE | 2020-02-06 07:45 | NUR ---
NURSE NOTES: Received patient in bed, awake, non-verbal @ this time. Breathing is even and unlabored. No s/s of pain per FLACC pain scale. 2 IV's intact. Pure wick in place. Bed is in lowest position and locked. Will continue plan of care.
--- NOTE | 2020-02-06 08:19 | NUR ---
P.T Note: P.T evaluation completed. Pt is awake, not able to respond to name and not able to physically follow commands. Pt presented multiple joint contractures and rigidity on BUE/BLE. Pt is dependent in all areas of ADL/self care. Pt is already functionally baseline dependent and not a candidate for skilled P.T services. Recommend DC to to prior living arrangement. Thank you for this referral.
[2020-02-06] MEDS: Docusate 100mg cap ORAL SCH ×2 (09:00→17:45)
[2020-02-06] MEDS: Ascorbic Acid 500mg tab GT SCH ×2 (09:07→17:45)
[2020-02-06] MEDS: Amiodarone 200mg tab GT SCH (09:07)
--- NOTE | 2020-02-06 09:20 | NUR ---
NURSE NOTES: PT unable to tolerate with docusate and protonix. RN crushed other scheduled med but patient was not able to consume full amount due to patient's cognition status. Wasted left over properly.
--- NOTE | 2020-02-06 09:45 | NUR ---
*-*DISCHARGE PLANNING*-* PATIENT HAS BEEN REFERRED BACK TO: [facility] P: [phone] F: [phone] ~~~~~~~~~~~WATING FOR ACCEPTANCE~~~~~~~~~~~~~~ Addendum: 02/06/20 at 1522 by SURINDER DUNCAN CM *-*DISCHARGE PLANNING*-* PATIENT HAS BEEN REFERRED BACK TO: PLACED MULTIPLE CALLS TO [facility] P: [phone] NO TEAWER EMG TECHNICIAN NOTIFIED, AND ATMOSPHERIC PHYSICS PROFESSOR WILL CONTINUE TO FOLLOW PATIENT
--- NOTE | 2020-02-06 10:22 | NUR ---
RD ASSESSMENT & RECOMMENDATIONS SEE CARE ACTIVITY FOR COMPLETE ASSESSMENT DAILY ESTIMATED NEEDS: Needs based on wound, bed bound 63.5kg abw 27-32 kcals/kg 7746-6637 total kcals 1.25-1.5 g protein/kg 79-95 g total protein Fluid per MD NUTRITION DIAGNOSIS: Increased kcal and protein needs R/T wound healing sacral full thickness wound, pt is bedbound w/ poor po intake. (CURRENT DIET: CCHO MED puree) PO DIET RECOMMENDATIONS: Liberalized Regular/ Texture per PREVENTIVE MAINTENANCE COORDINATOR + ENSURE TID ENTERAL NUTRITION RECOMMENDATIONS: If part of POC, rec non oral feeds to meet est kcal and pro needs Consult RD as needed. ADDITIONAL RECOMMENDATIONS: 1) Wound care: ASHLI 1 pack BID + Vit C 250mg BID + MVI w/min qd 2) 1:1 feeds w/ all meals Add Ensure TID 3) Pt is Full Code, rec temp non oral feeds if part of POC 4) Rec D5 w/ continued poor po intake
--- NOTE | 2020-02-06 11:27 | General Progress Note ---
Assessment/Plan Assessment/Plan: 79 y/o F with PMH CVA, schizophrenia, vascular dementia, leukemia who presents from [facility] for AMS, found to have E. coli UTI and severe anemia #E. coli UTI -cont. inpatient medical management -UCx + for E. Coli -cont. cefazolin #Severe refractory Anemia 2/2 MDS #Leukemia #Lymphoma #thrombocytopenia -S/p 2 unit PRBC yesterday with improved counts -Repeat CBC today -cont. to monitor for signs/symptoms of bleeding -Hematology eval #FTT #physical deconditioning #Quadriplegia -nutrition consulted -PT/OT #CVA #vascular dementia -minimally verbal at b/l per PCP -no ASA given thrombocytopenia Pt has poor prognosis given terminal conditions noted above. Dispo: will d/c back to [facility] once stable Time spent on encounter: 36 mins, >50% on counseling, coordination of care. I spent an additional 35 minutes on review of medical records including prior records, consult notes, progress notes, procedures, imaging, labs, hemodynamics , and other clinical documentation. Time of note doesn't reflect time of encounter. Subjective Date patient seen: Feb 06, 2020 Time patient seen: 11:22 ROS Limited/Unobtainable: Yes Allergies: Coded Allergies: PENICILLINS (Unverified Allergy, Unknown, 03/16/15) Subjective Follow up for UTI, acute severe anemia No acute issues overnight, s/p 2 unit RBC with improvement in counts, labs pending for today. Objective Last 24 Hour Vital Signs Date Time Temp Pulse Resp B/P (MAP) Pulse Ox O2 Delivery O2 Flow Rate FiO2 02/06/20 09:07 71 134/71 02/06/20 09:00 Room Air 02/06/20 08:00 97.6 71 20 134/71 (92) 96 02/06/20 04:00 98.4 75 20 126/64 (84) 100 02/06/20 00:55 98.2 73 24 130/70 (90) 100 02/06/20 00:00 99.1 76 24 156/75 (102) 96 02/05/20 21:00 Room Air 02/05/20 20:00 98.6 69 18 127/66 (86) 96 02/05/20 16:00 97.2 69 19 120/45 (70) 95 02/05/20 11:51 98.2 58 19 107/71 (83) 95 Intake and Output 02/05/20 02/06/20 19:00 07:00 Intake Total 1350 ml 1910 ml Output Total 1000 ml Balance 350 ml 1910 ml IV Total 1350 ml 1910 ml Output Urine Total 1000 ml # Voids 3 # Bowel Movements 1 Laboratory Tests 02/05/20 21:55: White Blood Count 23.0*H, Red Blood Count 3.05L, Hemoglobin 8.9#L, Hematocrit 24.8#L, Mean Corpuscular Volume 82, Mean Corpuscular Hemoglobin 29.1, Mean Corpuscular Hemoglobin Concent 35.7, Red Cell Distribution Width 14.3, Platelet Count 16L, Mean Platelet Volume 8.7, Neutrophils (%) (Auto) , Lymphocytes (%) ( Auto) , Monocytes (%) (Auto) , Eosinophils (%) (Auto) , Basophils (%) (Auto) , Differential Total Cells Counted 100, Neutrophils % (Manual) 7L, Lymphocytes % ( Manual) 71H, Monocytes % (Manual) 5, Eosinophils % (Manual) 0, Basophils % ( Manual) 0, Blast Cells % 17*H, Band Neutrophils 0, Platelet Estimate DecreasedL , Platelet Morphology Normal, Polychromasia 1+, Hypochromasia 1+, Anisocytosis 1 + Height (Feet): 5 Height (Inches): 5.00 Weight (Pounds): 185 General Appearance: alert, confused Cardiovascular: normal rate, regular rhythm Respiratory/Chest: lungs clear, normal breath sounds Abdomen: non tender, soft Richard Ferreira MD Feb 06, 2020 11:27
--- NOTE | 2020-02-06 11:47 | NUR ---
NURSE NOTES: Patient noted with poor po intake,RN informed Dr. Ramirez and clarified diet order and ST evaluation.
[2020-02-06 12:22] LABS: HEMATOCRIT 17.4 % (37.0-47.0); MEAN CORPUSCULAR VOLUME 82 FL (80-99); PLATELET COUNT 19 K/UL (150-450); RED BLOOD COUNT 2.12 M/UL (4.20-5.40); RED CELL DISTRIBUTION WIDTH 14.4 % (11.6-14.8)
[2020-02-06 12:24] LABS: HEMOGLOBIN 6.3 G/DL (12.0-16.0); WHITE BLOOD COUNT 25.5 K/UL (4.8-10.8)
[2020-02-06 12:28] LABS: ANION GAP 9 mmol/L (5-15); BLOOD UREA NITROGEN 21 mg/dL (7-18); CALCIUM 7.9 MG/DL (8.5-10.1); CARBON DIOXIDE 17 MMOL/L (21-32); CHLORIDE 108 MMOL/L (98-107); CREATININE 0.7 MG/DL (0.55-1.30); POTASSIUM 4.3 MMOL/L (3.5-5.1); SODIUM 134 MMOL/L (136-145)
--- NOTE | 2020-02-06 13:24 | NUR ---
NURSE NOTES: RN notified Dr. Ramirez of WBC of 25.5, hemoglobin of 6.3,HCT -17.[address] 19[address] Ramirez is aware with new order of physician consult with Dr. kerr.
--- NOTE | 2020-02-06 14:56 | NUR ---
NURSE NOTES: RN spoke to Dr. Daniel with new order to transfuse 1 unit of PRBC and do OB stool. order read back and carried out.
--- NOTE | 2020-02-06 16:30 | NUR ---
NURSE NOTES: RN collected stool for OB and sent to lab, patient had light brownish colored stool, no blood noted, patient also urinated yellowish colored urine without blood clots.No s/s of bleeding. Addendum: 02/06/20 at 1636 by RUTH ANN JEFFREY RN Proper skin care rendered.
--- NOTE | 2020-02-06 16:45 | NUR ---
NURSE NOTES: RN placed calls x2 to [facility] to check if blood is ready, no one is answering the phone.Will follow up.
--- NOTE | 2020-02-06 18:57 | NUR ---
NURSE NOTES: RN started blood transfusion. RN verified blood with [facility] and picked up and brought it to the unit without issue and also verified with another RN, Rn inspected blood prior to start,no blood clots seen. v/S stable and IV intact.Will continue to monitor.
--- NOTE | 2020-02-06 19:11 | NUR ---
HAND-OFF: Report given to Antionette and endorsed plan of care.
--- NOTE | 2020-02-06 19:12 | NUR ---
NURSE NOTES: Rechecked V/S, V/S stable,no s/s of adverse reaction. Endorsed to next shift to complete blood transfusion.
--- NOTE | 2020-02-06 19:21 | Consultation ---
History of Present Illness General Chief Complaint: General Complaint Present Illness Allergies: Coded Allergies: PENICILLINS (Unverified Allergy, Unknown, 03/16/15) Medication History Scheduled Amiodarone Hcl* (Amiodarone Hcl*), 200 MG GT DAILY, (Reported) Amlodipine Besylate (Norvasc), 10 MG GT DAILY, (Reported) Amlodipine Besylate (Norvasc), 5 MG ORAL DAILY, (Reported) Ascorbic Acid* (Ascorbic Acid*), 500 MG GT DAILY, (Reported) Ascorbic Acid* (Vitamin C*), 500 MG GT TWICE A DAY, (Reported) Bisacodyl (Dulcolax), 10 MG RC DAILY, (Reported) Docusate Sodium (Docusate Sodium), 100 MG GT TWICE A DAY, (Reported) Doxazosin Mesylate* (Doxazosin Mesylate*), 2 MG GT QHS, (Reported) Multivitamin With Minerals (Multivitamins With Minerals*), 15 ML GT DAILY, ( Reported) Pantoprazole* (Pantoprazole*), 40 MG GT DAILY, (Reported) Ranitidine Hcl* (Zantac*), 150 MG ORAL DAILY, (Reported) Scheduled PRN Acetaminophen (Acetaminophen), 650 MG GT Q6H PRN for Fever/Headache/Mild Pain, ( Reported) Alprazolam* (Xanax*), 0.5 MG GT EVERY 6 HOURS PRN for ALLUCINATION, (Reported) Aztreonam (Azactam), 1 GM IVPB for Q8HR, (Reported) Clonidine Hcl* (Catapres*), 0.2 MG GT Q6HR PRN for For High Blood Pressure, ( Reported) Ondansetron (Zofran), 4 MG GT EVERY 8 HOURS PRN for Nausea & Vomiting, (Reported ) Ondansetron* (Zofran*), 4 MG IM Q4HR PRN for Nausea & Vomiting, (Reported) Polyethylene Glycol 3350* (Polyethylene Glycol 3350*), 17 GM ORAL BEDTIME PRN for Constipation, (Reported) Miscellaneous Medications Insulin Lispro (Humalog), 0 SUBQ, (Reported) Discontinued Medications Clonazepam* (Klonopin*), 0.25 MG GT ONCE, (Reported) Discontinued Reason: MD discontinued med Cyclopentolate HCl (Cyclopentolate HCl), 2 DROP LEFT EYE DAILY, (Reported) Discontinued Reason: Pt stopped taking med Ondansetron (Zofran), 4 MG GT Q8H PRN for Nausea & Vomiting, (Reported) Discontinued Reason: MD discontinued med Patient History Healthcare decision maker family Resuscitation status Full Code Advanced Directive on File No Physical Exam Last 24 Hour Vital Signs Date Time Temp Pulse Resp B/P (MAP) Pulse Ox O2 Delivery O2 Flow Rate FiO2 02/06/20 16:00 98.6 89 20 125/67 (86) 97 02/06/20 12:00 98.6 97 21 110/75 (87) 97 02/06/20 09:07 71 134/71 02/06/20 09:00 Room Air 02/06/20 08:00 97.6 71 20 134/71 (92) 96 02/06/20 04:00 98.4 75 20 126/64 (84) 100 02/06/20 00:55 98.2 73 24 130/70 (90) 100 02/06/20 00:00 99.1 76 24 156/75 (102) 96 02/05/20 21:00 Room Air 02/05/20 20:00 98.6 69 18 127/66 (86) 96 Intake and Output 02/05/20 02/06/20 19:00 07:00 Intake Total 1350 ml 1910 ml Output Total 1000 ml Balance 350 ml 1910 ml IV Total 1350 ml 1910 ml Output Urine Total 1000 ml # Voids 3 # Bowel Movements 1 Laboratory Tests Test 02/05/20 21:55 02/06/20 12:05 02/06/20 15:50 White Blood Count 23.0 K/UL (4.8-10.8) *H 25.5 K/UL (4.8-10.8) *H Red Blood Count 3.05 M/UL (4.20-5.40) L 2.12 M/UL (4.20-5.40) L Hemoglobin 8.9 G/DL (12.0-16.0) #L 6.3 G/DL (12.0-16.0) *L Hematocrit 24.8 % (37.0-47.0) #L 17.4 % (37.0-47.0) L Mean Corpuscular Volume 82 FL (80-99) 82 FL (80-99) Mean Corpuscular Hemoglobin 29.1 PG (27.0-31.0) 29.6 PG (27.0-31.0) Mean Corpuscular Hemoglobin Concent 35.7 G/DL (32.0-36.0) 36.1 G/DL (32.0-36.0) H Red Cell Distribution Width 14.3 % (11.6-14.8) 14.4 % (11.6-14.8) Platelet Count 16 K/UL (150-450) L 19 K/UL (150-450) L Mean Platelet Volume 8.7 FL (6.5-10.1) 8.5 FL (6.5-10.1) Neutrophils (%) (Auto) % (45.0-75.0) % (45.0-75.0) Lymphocytes (%) (Auto) % (20.0-45.0) % (20.0-45.0) Monocytes (%) (Auto) % (1.0-10.0) % (1.0-10.0) Eosinophils (%) (Auto) % (0.0-3.0) % (0.0-3.0) Basophils (%) (Auto) % (0.0-2.0) % (0.0-2.0) Differential Total Cells Counted 100 100 Neutrophils % (Manual) 7 % (45-75) L 1 % (45-75) L Lymphocytes % (Manual) 71 % (20-45) H 47 % (20-45) H Monocytes % (Manual) 5 % (1-10) 7 % (1-10) Eosinophils % (Manual) 0 % (0-3) 0 % (0-3) Basophils % (Manual) 0 % (0-2) 0 % (0-2) Blast Cells % 17 % (0-0) *H 45 % (0-0) *H Band Neutrophils 0 % (0-8) 0 % (0-8) Platelet Estimate Decreased L Decreased L Platelet Morphology Normal Normal Polychromasia 1+ Hypochromasia 1+ 4+ Anisocytosis 1+ 1+ Spherocytes 2+ Sodium Level 134 MMOL/L (136-145) L Potassium Level 4.3 MMOL/L (3.5-5.1) Chloride Level 108 MMOL/L (98-107) H Carbon Dioxide Level 17 MMOL/L (21-32) L Anion Gap 9 mmol/L (5-15) Blood Urea Nitrogen 21 mg/dL (7-18) H Creatinine 0.7 MG/DL (0.55-1.30) Estimat Glomerular Filtration Rate > 60 mL/min (>60) Glucose Level 105 MG/DL (74-106) Calcium Level 7.9 MG/DL (8.5-10.1) L Stool Occult Blood Pending Height (Feet): 5 Height (Inches): 5.00 Weight (Pounds): 185 Medications Current Medications Medications (Trade) Dose Ordered Sig/Javier Route PRN Reason Start Time Stop Time Status Last Admin Dose Admin Acetaminophen (Tylenol) 650 mg Q4H PRN ORAL Mild Pain (Pain Scale 1-3) 02/01/20 16:30 03/02/20 12:19 Acetaminophen (Tylenol) 650 mg Q4H PRN ORAL T>100.4 02/01/20 16:30 03/02/20 12:19 Amiodarone HCl (Cordarone) 200 mg DAILY GT 02/02/20 09:00 05/02/20 08:59 02/06/20 09:07 Amlodipine Besylate (Norvasc) 5 mg DAILY ORAL 02/02/20 09:00 03/03/20 08:59 02/06/20 09:07 Ascorbic Acid (Vitamin C) 500 mg TWICE A DAY GT 02/01/20 18:00 03/02/20 17:59 02/06/20 09:07 Bisacodyl (Dulcolax) 10 mg DAILYPRN PRN RECTAL Constipation 02/01/20 16:00 05/01/20 15:59 Cefazolin Sodium 1 gm/Dextrose 55 ml @ 110 mls/hr Q12H IVPB 02/03/20 16:00 02/10/20 15:59 02/06/20 17:05 Dextrose (Dextrose 50%) 25 ml Q30M PRN IV Hypoglycemia 02/01/20 16:00 05/01/20 11:59 Dextrose (Dextrose 50%) 50 ml Q30M PRN IV Hypoglycemia 02/01/20 16:00 05/01/20 11:59 Docusate Sodium (Colace) 100 mg TWICE A DAY ORAL 02/01/20 18:00 03/02/20 17:59 02/05/20 18:05 Ondansetron HCl (Zofran) 4 mg Q8H PRN GT Nausea & Vomiting 02/01/20 16:00 03/02/20 15:59 Pantoprazole (Protonix) 40 mg DAILY ORAL 02/02/20 09:00 03/03/20 08:59 02/05/20 08:18 Polyethylene Glycol (Miralax) 17 gm HSPRN PRN ORAL Constipation 02/01/20 16:00 03/02/20 15:59 Potassium Chloride 10 meq/ Dextrose 1,005 ml @ 150 mls/hr Q6H42M IV 02/04/20 16:00 03/05/20 15:59 02/06/20 13:59 Assessment/Plan Assessment/Plan: Hematology Consultation Note DOS: 02/06/2020 Chief Complaint: General Complaint REQ MD: Richard Ramirez RFC: Leukemia, severe HPI Is a 79-year-old female with a history of diabetes, CVA and dementia. She is a assisted patient. She presents with chief complaint of altered mental status. At baseline she is confused and able to say yes and no. She was sent in because she has been not responsive for 1 day. Unknown fever. No cough or congestion. Not eating. He is weak in general. She unable to give any history because of a status. Has been here before several times and at this time has a blast count >40% with advanced leukemia, smear is pending, will dw path first and then family Allergies: PENICILLINS (Unverified Allergy, Unknown, 03/16/15) COVID-19 Screening Contact w/high risk pt: No Recent Travel to affected area: No Experienced COVID-19 symptoms?: No Patient History Past Medical History: DM, CVA/TIA, dementia Now: No Nursing Documentation-PMH Hx COPD: No Hx Diabetes: Yes Hx Cancer: No Hx Gastrointestinal Problems: Yes - GERD Hx Neurological Problems: Yes Hx Cerebrovascular Accident: Yes Hx Seizures: Yes Hx Weakness: Yes Review of Systems Constitutional: Reports: malaise, weakness All Other Systems: limited - Secondary to condition Physical Exam Vitals with hypotension General: lethargic, Chronically Ill Heent: nc, at Neck: full range of motion, supple Respiratory: chest non-tender, rhonchi Cardiovascular: regular rate, rhythm, no murmur Gastrointestinal: normal bowel sounds, non tender, no mass, no organomegaly, no bruit, non-distended Musculoskeletal: other - Extremities contracted Neurologic: other - Grimace to painful stimuli Labs: reviewed Imaging: noted # Acute lymphocytic leukemia -- blasts now at 45% which is extraordinarily high with a rapid increase --> may go into DIC/tumor lysis if blasts cells continue to multiply, without rx --> recommedn given age, comorbidites to consider HOSPICE --> will obtain peripheral smear and discuss with pathology --> flow cytometry order as needed --> transfuse on prn basis prbc and plt # Leukocytosis is likely related to leukemia and infection, E. coli UTI --> cont. inpatient medical management --> UCx + for E. Coli --> cont. cefazolin --> smear is noted # FTT likely related to psych disorder --> pt as needed --> nutrition recommendations # Physical deconditioning # Quadriplegia --> nutrition consulted --> PT/OT # CVA # Vascular dementia # Poor prognosis, consider hospice Appreciate consultation and dw Dav García MD Feb 06, 2020 19:21
--- NOTE | 2020-02-06 19:59 | NUR ---
NURSE NOTES: RECEIVED PATIENT FROM RETA YUEN. PATIENT IS ASLEEP, ON ROOM AIR, NO ACUTE DISTRESS NOTED. WOUND DRESSINGS INTACT. IV ON RIGHT EJ AND LEFT WRIST INTACT AND PATENT. BLOOD TRANSFUSION IN PROCESS, NO REACTIONS NOTED. BED IS LOCKED AND LOW, BED ALARMS ACTIVE, SIDE RAILS UP X2 AND CALL LIGHT IS WITHIN REACH. WILL CONTINUE TO MONITOR.
[2020-02-07] VITALS: BP 148/70
[2020-02-07] MEDS: Potassium Chloride 10 MEQ in D5W 1000ml 1,000 ML IV SCH ×4 (02:00→17:42)
[2020-02-07 04:00] VITALS: BP 150/76
[2020-02-07] MEDS: ceFAZolin sod 1 GM in D5W 55 ML IVPB SCH ×2 (04:27→16:00)
--- NOTE | 2020-02-07 07:54 | NUR ---
HAND-OFF: Report given to RETA Fraser.
--- NOTE | 2020-02-07 07:59 | NUR ---
NURSE NOTES: Patient eyes open responds to touch,but non verbal.02 on at 2L N/C,respirations unlabored.IV fluids infusing as ordered. Bed alarm is on.Breakfast at bedside,will assist with meals.
[2020-02-07 08:00] VITALS: BP 121/55
[2020-02-07] MEDS: Docusate 100mg cap ORAL SCH ×2 (09:00→18:00)
[2020-02-07] MEDS: Ascorbic Acid 500mg tab GT SCH ×2 (09:00→18:00)
[2020-02-07] MEDS: Amiodarone 200mg tab GT SCH (09:00)
--- NOTE | 2020-02-07 09:39 | Hematology/Onc Progress Note ---
Assessment/Plan Assessment/Plan # Acute lymphocytic leukemia -- blasts now at 45% which is extraordinarily high with a rapid increase --> may go into DIC/tumor lysis if blasts cells continue to multiply, without rx --> will obtain peripheral smear and discuss with pathology --> flow cytometry order as needed --> transfuse on prn basis prbc and plt --> hgb 8-->6.7 --> recommend given age, comorbidities to consider strongly HOSPICE --> I called and left text sms to daughter Glendy [phone], her vm was full, could not leave a voicemail # Leukocytosis is likely related to leukemia and infection, E. coli UTI as well As ALL --> cont. inpatient medical management --> UCx + for E. Coli --> cont. cefazolin --> smear is noted # FTT likely related to psych disorder --> pt as needed --> nutrition recommendations # Physical deconditioning # Quadriplegia --> nutrition consulted --> PT/OT # CVA # Vascular dementia # Poor prognosis, consider hospice Appreciate consultation and dw Rn Subjective Allergies: Coded Allergies: PENICILLINS (Unverified Allergy, Unknown, 03/16/15) All Systems: reviewed and negative except above Subjective 02/06 nonverbal, no bleeding, labs reviewed, no f/c no bleeding, hgb low Objective Objective Current Medications Medications (Trade) Dose Ordered Sig/Javier Route PRN Reason Start Time Stop Time Status Last Admin Dose Admin Acetaminophen (Tylenol) 650 mg Q4H PRN ORAL Mild Pain (Pain Scale 1-3) 02/01/20 16:30 03/02/20 12:19 Acetaminophen (Tylenol) 650 mg Q4H PRN ORAL T>100.4 02/01/20 16:30 03/02/20 12:19 Amiodarone HCl (Cordarone) 200 mg DAILY GT 02/02/20 09:00 05/02/20 08:59 02/06/20 09:07 Amlodipine Besylate (Norvasc) 5 mg DAILY ORAL 02/02/20 09:00 03/03/20 08:59 02/06/20 09:07 Ascorbic Acid (Vitamin C) 500 mg TWICE A DAY GT 02/01/20 18:00 03/02/20 17:59 02/06/20 09:07 Bisacodyl (Dulcolax) 10 mg DAILYPRN PRN RECTAL Constipation 02/01/20 16:00 05/01/20 15:59 Cefazolin Sodium 1 gm/Dextrose 55 ml @ 110 mls/hr Q12H IVPB 02/03/20 16:00 02/10/20 15:59 02/07/20 04:27 Dextrose (Dextrose 50%) 25 ml Q30M PRN IV Hypoglycemia 02/01/20 16:00 05/01/20 11:59 Dextrose (Dextrose 50%) 50 ml Q30M PRN IV Hypoglycemia 02/01/20 16:00 05/01/20 11:59 Docusate Sodium (Colace) 100 mg TWICE A DAY ORAL 02/01/20 18:00 03/02/20 17:59 02/05/20 18:05 Ondansetron HCl (Zofran) 4 mg Q8H PRN GT Nausea & Vomiting 02/01/20 16:00 03/02/20 15:59 Pantoprazole (Protonix) 40 mg DAILY ORAL 02/02/20 09:00 03/03/20 08:59 02/05/20 08:18 Polyethylene Glycol (Miralax) 17 gm HSPRN PRN ORAL Constipation 02/01/20 16:00 03/02/20 15:59 Potassium Chloride 10 meq/ Dextrose 1,005 ml @ 150 mls/hr Q6H42M IV 02/04/20 16:00 03/05/20 15:59 02/07/20 02:00 Last 24 Hour Vital Signs Date Time Temp Pulse Resp B/P (MAP) Pulse Ox O2 Delivery O2 Flow Rate FiO2 02/07/20 04:00 97.2 80 22 150/76 (100) 99 02/07/20 00:00 99.0 88 23 148/70 (96) 99 02/06/20 21:00 Room Air 02/06/20 20:00 99.9 84 23 151/74 (99) 94 02/06/20 16:00 98.6 89 20 125/67 (86) 97 02/06/20 12:00 98.6 97 21 110/75 (87) 97 02/06/20 09:07 71 134/71 02/06/20 09:00 Room Air 02/06/20 08:00 97.6 71 20 134/71 (92) 96 02/06/20 04:00 98.4 75 20 126/64 (84) 100 02/06/20 00:55 98.2 73 24 130/70 (90) 100 02/06/20 00:00 99.1 76 24 156/75 (102) 96 02/05/20 21:00 Room Air 02/05/20 20:00 98.6 69 18 127/66 (86) 96 02/05/20 16:00 97.2 69 19 120/45 (70) 95 02/05/20 11:51 98.2 58 19 107/71 (83) 95 Intake and Output 02/06/20 02/07/20 19:00 07:00 Intake Total 1255 ml 1580 ml Output Total 1000 ml Balance 1255 ml 580 ml Intake Oral 20 ml IV Total 1255 ml 1310 ml Blood Product 250 ml Output Urine Total 1000 ml # Voids 5 8 # Bowel Movements 1 4 Labs Test 02/05/20 08:30 02/05/20 21:55 02/06/20 12:05 02/06/20 15:50 White Blood Count 21.8 K/UL (4.8-10.8) 23.0 K/UL (4.8-10.8) 25.5 K/UL (4.8-10.8) Red Blood Count 1.97 M/UL (4.20-5.40) 3.05 M/UL (4.20-5.40) 2.12 M/UL (4.20-5.40) Hemoglobin 5.9 G/DL (12.0-16.0) 8.9 G/DL (12.0-16.0) 6.3 G/DL (12.0-16.0) Hematocrit 16.9 % (37.0-47.0) 24.8 % (37.0-47.0) 17.4 % (37.0-47.0) Mean Corpuscular Volume 86 FL (80-99) 82 FL (80-99) 82 FL (80-99) Mean Corpuscular Hemoglobin 30.1 PG (27.0-31.0) 29.1 PG (27.0-31.0) 29.6 PG (27.0-31.0) Mean Corpuscular Hemoglobin Concent 35.2 G/DL (32.0-36.0) 35.7 G/DL (32.0-36.0) 36.1 G/DL (32.0-36.0) Red Cell Distribution Width 17.4 % (11.6-14.8) 14.3 % (11.6-14.8) 14.4 % (11.6-14.8) Platelet Count 15 K/UL (150-450) 16 K/UL (150-450) 19 K/UL (150-450) Mean Platelet Volume 7.0 FL (6.5-10.1) 8.7 FL (6.5-10.1) 8.5 FL (6.5-10.1) Neutrophils (%) (Auto) % (45.0-75.0) % (45.0-75.0) % (45.0-75.0) Lymphocytes (%) (Auto) % (20.0-45.0) % (20.0-45.0) % (20.0-45.0) Monocytes (%) (Auto) % (1.0-10.0) % (1.0-10.0) % (1.0-10.0) Eosinophils (%) (Auto) % (0.0-3.0) % (0.0-3.0) % (0.0-3.0) Basophils (%) (Auto) % (0.0-2.0) % (0.0-2.0) % (0.0-2.0) Differential Total Cells Counted 100 100 100 Neutrophils % (Manual) 4 % (45-75) 7 % (45-75) 1 % (45-75) Lymphocytes % (Manual) 75 % (20-45) 71 % (20-45) 47 % (20-45) Monocytes % (Manual) 6 % (1-10) 5 % (1-10) 7 % (1-10) Eosinophils % (Manual) 0 % (0-3) 0 % (0-3) 0 % (0-3) Basophils % (Manual) 0 % (0-2) 0 % (0-2) 0 % (0-2) Blast Cells % 15 % (0-0) 17 % (0-0) 45 % (0-0) Band Neutrophils 0 % (0-8) 0 % (0-8) 0 % (0-8) Platelet Estimate Decreased Decreased Decreased Platelet Morphology Normal Normal Normal Polychromasia 1+ 1+ Hypochromasia 4+ 1+ 4+ Anisocytosis 1+ 1+ 1+ Spherocytes 2+ 2+ Sodium Level 139 MMOL/L (136-145) 134 MMOL/L (136-145) Potassium Level 4.0 MMOL/L (3.5-5.1) 4.3 MMOL/L (3.5-5.1) Chloride Level 111 MMOL/L (98-107) 108 MMOL/L (98-107) Carbon Dioxide Level 17 MMOL/L (21-32) 17 MMOL/L (21-32) Anion Gap 11 mmol/L (5-15) 9 mmol/L (5-15) Blood Urea Nitrogen 26 mg/dL (7-18) 21 mg/dL (7-18) Creatinine 0.9 MG/DL (0.55-1.30) 0.7 MG/DL (0.55-1.30) Estimat Glomerular Filtration Rate > 60 mL/min (>60) > 60 mL/min (>60) Glucose Level 127 MG/DL (74-106) 105 MG/DL (74-106) Calcium Level 7.5 MG/DL (8.5-10.1) 7.9 MG/DL (8.5-10.1) Uric Acid 4.5 MG/DL (2.6-7.2) Height (Feet): 5 Height (Inches): 5.00 Weight (Pounds): 137 Objective Vitals with hypotension General: lethargic, Chronically Ill Heent: nc, at Neck: full range of motion, supple Respiratory: chest non-tender, rhonchi Cardiovascular: regular rate, rhythm, no murmur Gastrointestinal: normal bowel sounds, non tender, no mass, no organomegaly, no bruit, non-distended Musculoskeletal: other - Extremities contracted Neurologic: other - Grimace to painful stimuli Dav Daniel MD Feb 07, 2020 09:39
--- NOTE | 2020-02-07 10:09 | NUR ---
NURSE NOTES: DR De La Torre aware that patient has poor intake ,DR murcia,patient to be seen by Speech for evaluation.Will follow up.
[2020-02-07 10:28] LABS: HEMATOCRIT 18.6 % (37.0-47.0); MEAN CORPUSCULAR VOLUME 92 FL (80-99); PLATELET COUNT 14 K/UL (150-450); RED BLOOD COUNT 2.03 M/UL (4.20-5.40); RED CELL DISTRIBUTION WIDTH 15.7 % (11.6-14.8); WHITE BLOOD COUNT 11.2 K/UL (4.8-10.8)
[2020-02-07 10:36] LABS: HEMOGLOBIN 5.9 G/DL (12.0-16.0)
--- NOTE | 2020-02-07 10:41 | General Progress Note ---
Assessment/Plan Assessment/Plan: 79 y/o F with PMH CVA, schizophrenia, vascular dementia, leukemia who presents from [facility] for AMS, found to have E. coli UTI and severe anemia #E. coli UTI -cont. inpatient medical management -UCx + for E. Coli -cont. 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 -Will attempt to contact family again to discuss patient's poor prognosis #FTT #physical deconditioning #Quadriplegia -nutrition consulted -PT/OT #CVA #vascular dementia -minimally verbal at b/l per PCP -no ASA given thrombocytopenia Pt has poor prognosis given terminal conditions noted above. Time spent on encounter: 36 mins, >50% on counseling, coordination of care. Time of note doesn't reflect time of encounter. Subjective Date patient seen: Feb 07, 2020 Time patient seen: 09:36 ROS Limited/Unobtainable: Yes Allergies: Coded Allergies: PENICILLINS (Unverified Allergy, Unknown, 03/16/15) Subjective Follow up for UTI, acute severe anemia, concern for acute leukemia/blast crisis Objective Last 24 Hour Vital Signs Date Time Temp Pulse Resp B/P (MAP) Pulse Ox O2 Delivery O2 Flow Rate FiO2 02/07/20 10:33 Room Air 02/07/20 09:00 78 121/55 02/07/20 08:00 99.0 78 20 121/55 (77) 96 02/07/20 04:00 97.2 80 22 150/76 (100) 99 02/07/20 00:00 99.0 88 23 148/70 (96) 99 02/06/20 21:00 Room Air 02/06/20 20:00 99.9 84 23 151/74 (99) 94 02/06/20 16:00 98.6 89 20 125/67 (86) 97 02/06/20 12:00 98.6 97 21 110/75 (87) 97 Intake and Output 02/06/20 02/07/20 19:00 07:00 Intake Total 1255 ml 1580 ml Output Total 1000 ml Balance 1255 ml 580 ml Intake Oral 20 ml IV Total 1255 ml 1310 ml Blood Product 250 ml Output Urine Total 1000 ml # Voids 5 8 # Bowel Movements 1 4 Laboratory Tests 02/06/20 12:05: White Blood Count 25.5*H, Red Blood Count 2.12L, Hemoglobin 6.3*L, Hematocrit 17.4L, Mean Corpuscular Volume 82, Mean Corpuscular Hemoglobin 29.6, Mean Corpuscular Hemoglobin Concent 36.1H, Red Cell Distribution Width 14.4, Platelet Count 19L, Mean Platelet Volume 8.5, Neutrophils (%) (Auto) , Lymphocytes (%) (Auto) , Monocytes (%) (Auto) , Eosinophils (%) (Auto) , Basophils (%) (Auto) , Differential Total Cells Counted 100, Neutrophils % ( Manual) 1L, Lymphocytes % (Manual) 47H, Monocytes % (Manual) 7, Eosinophils % ( Manual) 0, Basophils % (Manual) 0, Blast Cells % 45*H, Band Neutrophils 0, Other Cell Type Pathologist review, Platelet Estimate DecreasedL, Platelet Morphology Normal, Hypochromasia 4+, Anisocytosis 1+, Spherocytes 2+, Sodium Level 134L, Potassium Level 4.3, Chloride Level 108H, Carbon Dioxide Level 17L, Anion Gap 9, Blood Urea Nitrogen 21H, Creatinine 0.7, Estimat Glomerular Filtration Rate > 60, Glucose Level 105, Uric Acid 4.5, Calcium Level 7.9L 02/06/20 15:50: Stool Occult Blood [Pending] 02/07/20 09:55: White Blood Count 11.2#H, Red Blood Count 2.03L, Hemoglobin 5.9*L, Hematocrit 18.6L, Mean Corpuscular Volume 92#, Mean Corpuscular Hemoglobin 28.8, Mean Corpuscular Hemoglobin Concent 31.5L, Red Cell Distribution Width 15.7H, Platelet Count 14L, Mean Platelet Volume 10.3H, Neutrophils (%) (Auto) , Lymphocytes (%) (Auto) , Monocytes (%) (Auto) , Eosinophils (%) (Auto) , Basophils (%) (Auto) , Neutrophils % (Manual) [Pending], Lymphocytes % (Manual) [Pending], Platelet Estimate [Pending], Platelet Morphology [Pending] Height (Feet): 5 Height (Inches): 5.00 Weight (Pounds): 137 General Appearance: no apparent distress Neck: normal alignment, supple Cardiovascular: normal rate, regular rhythm Respiratory/Chest: lungs clear, normal breath sounds Abdomen: non tender, soft Richard Ferreira MD Feb 07, 2020 10:41
--- NOTE | 2020-02-07 11:20 | NUR ---
CASE MANAGEMENT:REVIEW SI;ACUTE LYMPHOCYTIC LEUKEMIA. UTI. FTT. LEUKOCYTOSIS. 99.0 88 23 150/76 96% ON RA WBC 11.2 H/H 5.9-18.6 IS;IVF K-CL @ 150 ML/HR CEFAZOLIN IV Q12 HRS AMIODARONE GT QD PROTONIX GT QD MED SURG STATUS DCP;FROM [facility] PLAN;RECOMMEND FOR HOSPICE DISCUSS PLAN OF CARE WITH FAMILY TRANSFUSE PRBC
[2020-02-07 12:00] VITALS: BP 119/70
--- NOTE | 2020-02-07 12:45 | NUR ---
LEAD SETTER BEDSIDE SWALLOW EVALUATION: (SEE INTERVENTION SECTION FOR DETAILS) REFERRED FOR SWALLOWING EVALUATION BY DR. SALAZAR. PT W/ POOR PO INTAKE, ONGOING SINCE ADMISSION. PER DR. 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 PT IS UNABLE TO CONSISTENTLY FOLLOW DIRECTIONS. PT IS A HIGH ASPIRATION RISK AND IS A HIGH SILENT ASPIRATION RISK. DYSPHAGIA RISK FACTORS FOR THIS 79 YEAR OLD FEMALE: H/O SWALLOWING DIFFICULTIES: PREVIOUS DIET WAS PUREE WITH NECTAR THICK LIQUIDS ACUTE ISSUES: SEPSIS, UTI PER RN, PT WAS UNABLE TO COMPLETE PO MED MNGT VIA CRUSHED MEDS W/ PUREE; NO ATTEMPT TO SWALLOW MEDS AND ORAL CARE COMPLETE AFTER PO ATTEMPT. COGNITIVE STATUS: NONVERBAL, NOT ABLE TO ENGAGE W/ LEAD SETTER, NOT ABLE TO TRACK LEAD SETTER W/ EYES, NO FUNCTIONAL COMMUNICATION (VERBAL OR NONVERBAL) PO TRIALS: PT NOT APPROPRIATE FOR MOHSEN SWALLOW PROTOCOL DUE TO INABILITY TO FOLLOW DIRECTIONS OR SUSTAIN ADEQUATE LABIAL SEAL AROUND CUP OR STRAW. PT GIVEN THIN LIQUIDS VIA TBS, NO ORAL MOTOR RESPONSE TO PO TRIALS AND TRIAL WAS REMOVED FROM ORAL CAVITY. Possible phases of swallowing impairment Oral Phase Pharyngeal Phase Esophageal Phase Cognitive HAS A RISK FOR SILENT ASPIRATION GIVEN G/O CVA, DEMENTIA, AND DYSPHAGIA LEAD SETTER SPOKE TO PTS DAUGHTER WHO STATES OK FOR NGT FOR ALTERNATIVE NUTRITION/HYDRATION; HOWEVER, PER DR. SALAZAR TOO RISKY DUE TO PTS PLATELET 14K. RECOMMENDATIONS: MD TO CONSIDER NPO W/ ALTERNATIVE NUTRITION/HYDRATION. CONSIDER DISCUSSION W/ FAMILY REGARDING GOALS OF CARE. COMPLETE MBSS WHEN READY/ALERT SKILLED DYSPHAGIA TX AND MNGT COGNITIVE-COM EVAL/TX FOR COMMUNICATION TIPS
--- NOTE | 2020-02-07 14:15 | NUR ---
NURSE NOTES DR Mannie issa made aware of patient H and H per Charge Nurse Monk,ordered received:
[2020-02-07] MEDS ORDERED: Tubing Blood Filter IV ONE (14:40)
[2020-02-07 16:00] VITALS: BP 116/56
--- NOTE | 2020-02-07 18:00 | NUR ---
NURSE NOTES: Blood transfusion ongoing,will continue to monitor.
--- NOTE | 2020-02-07 19:20 | NUR ---
NURSE NOTES: RECEIVED PATIENT IN BED, ON ROOM AIR, NO SOB , NO SIGN OF PAIN , AND WOUND DRESSINGS INTACT. BLOOD TRANSFUSION IN PROCESS ON HER RIGHT SIDE IV, NO REACTIONS NOTED. PATIENT IS ON NPO FOR SAFETY. SAFETY PERCUSSIONS ARE PLACED; BED IS IN THE LOWER POSITION , LOCKED AND ALARMS ACTIVE. CALL LIGHT IS WITHIN REACH. WILL CONTINUE TO MONITOR.
--- NOTE | 2020-02-07 19:25 | NUR ---
HAND-OFF: Report given to FLEX MCDUFFIE.
--- NOTE | 2020-02-07 19:55 | NUR ---
HAND-OFF: Report given to Dimple MCDUFFIE.
[2020-02-07 20:00] VITALS: BP 109/63
[2020-02-07] MEDS: Epoetin Alfa-EPBX (NON ESRD)10,000 unit/ml vial SUBQ SCH (21:47)
[2020-02-08] VITALS: BP 117/59
[2020-02-08] MEDS: Potassium Chloride 10 MEQ in D5W 1000ml 1,000 ML IV SCH ×4 (00:36→21:37)
--- NOTE | 2020-02-08 02:10 | NUR ---
NURSE NOTES: Pt is in the bed in a stable condition. All her meds are given and she tolerated well. All needs are met. Pt had a BM; black color and soft. Wound kept dry,clean, and intact. Bed in the lower position, locked and alarm in on . call light within reach. We will keep monitoring.
[2020-02-08 04:00] VITALS: BP 123/58
[2020-02-08] MEDS: ceFAZolin sod 1 GM in D5W 55 ML IVPB SCH ×2 (04:11→16:38)
--- NOTE | 2020-02-08 06:14 | NUR ---
NURSE NOTES: came to visit the pt and he ordered morphine PRN every 4 hour for pain. Order noted and carried on.
--- NOTE | 2020-02-08 07:15 | NUR ---
HAND-OFF: Report given to RETA Fraser.
[2020-02-08 08:00] VITALS: BP 136/71
--- NOTE | 2020-02-08 08:00 | NUR ---
NURSE NOTES: Eyes pen when name called,respirations unlabored.IV fluids infusing as ordered.patient has purwick in place with dark urine noted.oral care given.Bed alarm on.
[2020-02-08] MEDS: Docusate 100mg cap ORAL SCH ×2 (09:00→17:48)
[2020-02-08] MEDS: Amiodarone 200mg tab GT SCH (09:00)
[2020-02-08] MEDS: Ascorbic Acid 500mg tab GT SCH ×2 (09:00→17:48)
--- NOTE | 2020-02-08 09:38 | Hematology/Onc Progress Note ---
Assessment/Plan Assessment/Plan # Acute lymphocytic leukemia -- blasts now at 45% which is extraordinarily high with a rapid increase --> may go into DIC/tumor lysis if blasts cells continue to multiply, without rx --> will obtain peripheral smear and discuss with pathology --> flow cytometry order as needed --> transfuse on prn basis prbc and plt --> hgb 8-->6.7->5.4 --> recommend given age, comorbidities to consider strongly HOSPICE --> I called and left text sms to daughter Glendy [phone], her vm was full, could not leave a voicemail # Leukocytosis is likely related to leukemia and infection, E. coli UTI as well As ALL --> cont. inpatient medical management --> UCx + for E. Coli --> cont. cefazolin --> smear is noted # FTT likely related to psych disorder --> pt as needed --> nutrition recommendations # Physical deconditioning # Quadriplegia --> nutrition consulted --> PT/OT # CVA # Vascular dementia # Poor prognosis, consider hospice Appreciate consultation and dw Rn Subjective Constitutional: Denies: no symptoms, chills, fever, malaise, weakness, other HEENT: Denies: no symptoms, eye pain, blurred vision, tearing, double vision, ear pain, ear discharge, nose pain, nose congestion, throat pain, throat swelling, mouth pain, mouth swelling, other Allergies: Coded Allergies: PENICILLINS (Unverified Allergy, Unknown, 03/16/15) Subjective 02/06 nonverbal, no bleeding, labs reviewed, no f/c no bleeding, hgb low 02/07 i talked to rn this an, Xyrece and apparently daughter called and asked to see how mother is doing,she hasn't yet called me Objective Objective Current Medications Medications (Trade) Dose Ordered Sig/Javier Route PRN Reason Start Time Stop Time Status Last Admin Dose Admin Acetaminophen (Tylenol) 650 mg Q4H PRN ORAL Mild Pain (Pain Scale 1-3) 02/01/20 16:30 03/02/20 12:19 Acetaminophen (Tylenol) 650 mg Q4H PRN ORAL T>100.4 02/01/20 16:30 03/02/20 12:19 Amiodarone HCl (Cordarone) 200 mg DAILY GT 02/02/20 09:00 05/02/20 08:59 02/06/20 09:07 Amlodipine Besylate (Norvasc) 5 mg DAILY ORAL 02/02/20 09:00 03/03/20 08:59 02/06/20 09:07 Ascorbic Acid (Vitamin C) 500 mg TWICE A DAY GT 02/01/20 18:00 03/02/20 17:59 02/06/20 09:07 Bisacodyl (Dulcolax) 10 mg DAILYPRN PRN RECTAL Constipation 02/01/20 16:00 05/01/20 15:59 Cefazolin Sodium 1 gm/Dextrose 55 ml @ 110 mls/hr Q12H IVPB 02/03/20 16:00 02/10/20 15:59 02/08/20 04:11 Dextrose (Dextrose 50%) 25 ml Q30M PRN IV Hypoglycemia 02/01/20 16:00 05/01/20 11:59 Dextrose (Dextrose 50%) 50 ml Q30M PRN IV Hypoglycemia 02/01/20 16:00 05/01/20 11:59 Docusate Sodium (Colace) 100 mg TWICE A DAY ORAL 02/01/20 18:00 03/02/20 17:59 02/05/20 18:05 Epoetin Yaniv (Epoetin Yaniv-EPBX(NON ESRD)) 10,000 unit WED-WED-WED SUBQ 02/07/20 21:00 05/07/20 20:59 02/07/20 21:47 Morphine Sulfate (Morphine Sulfate) 1 mg Q4H PRN IVP pain 02/08/20 06:15 02/15/20 06:14 Ondansetron HCl (Zofran) 4 mg Q8H PRN GT Nausea & Vomiting 02/01/20 16:00 03/02/20 15:59 Pantoprazole (Protonix) 40 mg DAILY ORAL 02/02/20 09:00 03/03/20 08:59 02/05/20 08:18 Polyethylene Glycol (Miralax) 17 gm HSPRN PRN ORAL Constipation 02/01/20 16:00 03/02/20 15:59 Potassium Chloride 10 meq/ Dextrose 1,005 ml @ 150 mls/hr Q6H42M IV 02/04/20 16:00 03/05/20 15:59 02/08/20 06:20 Last 24 Hour Vital Signs Date Time Temp Pulse Resp B/P (MAP) Pulse Ox O2 Delivery O2 Flow Rate FiO2 02/08/20 04:00 98.9 78 22 123/58 (79) 98 02/08/20 00:00 99.7 77 23 117/59 (78) 98 02/07/20 21:00 Room Air 02/07/20 20:00 99.5 75 22 109/63 (78) 96 02/07/20 16:00 98.4 78 20 116/56 (76) 78 02/07/20 12:00 98.8 79 21 119/70 (86) 95 02/07/20 10:33 Room Air 02/07/20 09:00 78 121/55 02/07/20 08:00 99.0 78 20 121/55 (77) 96 02/07/20 04:00 97.2 80 22 150/76 (100) 99 02/07/20 00:00 99.0 88 23 148/70 (96) 99 02/06/20 21:00 Room Air 02/06/20 20:00 99.9 84 23 151/74 (99) 94 02/06/20 16:00 98.6 89 20 125/67 (86) 97 02/06/20 12:00 98.6 97 21 110/75 (87) 97 Intake and Output 02/07/20 02/08/20 19:00 07:00 Intake Total 450 ml 805 ml Output Total 800 ml Balance -350 ml 805 ml IV Total 450 ml 805 ml Output Urine Total 800 ml # Voids 3 # Bowel Movements 1 4 Labs Test 02/05/20 21:55 02/06/20 12:05 02/06/20 15:50 02/07/20 09:55 White Blood Count 23.0 K/UL (4.8-10.8) 25.5 K/UL (4.8-10.8) 11.2 K/UL (4.8-10.8) Red Blood Count 3.05 M/UL (4.20-5.40) 2.12 M/UL (4.20-5.40) 2.03 M/UL (4.20-5.40) Hemoglobin 8.9 G/DL (12.0-16.0) 6.3 G/DL (12.0-16.0) 5.9 G/DL (12.0-16.0) Hematocrit 24.8 % (37.0-47.0) 17.4 % (37.0-47.0) 18.6 % (37.0-47.0) Mean Corpuscular Volume 82 FL (80-99) 82 FL (80-99) 92 FL (80-99) Mean Corpuscular Hemoglobin 29.1 PG (27.0-31.0) 29.6 PG (27.0-31.0) 28.8 PG (27.0-31.0) Mean Corpuscular Hemoglobin Concent 35.7 G/DL (32.0-36.0) 36.1 G/DL (32.0-36.0) 31.5 G/DL (32.0-36.0) Red Cell Distribution Width 14.3 % (11.6-14.8) 14.4 % (11.6-14.8) 15.7 % (11.6-14.8) Platelet Count 16 K/UL (150-450) 19 K/UL (150-450) 14 K/UL (150-450) Mean Platelet Volume 8.7 FL (6.5-10.1) 8.5 FL (6.5-10.1) 10.3 FL (6.5-10.1) Neutrophils (%) (Auto) % (45.0-75.0) % (45.0-75.0) % (45.0-75.0) Lymphocytes (%) (Auto) % (20.0-45.0) % (20.0-45.0) % (20.0-45.0) Monocytes (%) (Auto) % (1.0-10.0) % (1.0-10.0) % (1.0-10.0) Eosinophils (%) (Auto) % (0.0-3.0) % (0.0-3.0) % (0.0-3.0) Basophils (%) (Auto) % (0.0-2.0) % (0.0-2.0) % (0.0-2.0) Differential Total Cells Counted 100 100 100 Neutrophils % (Manual) 7 % (45-75) 1 % (45-75) 3 % (45-75) Lymphocytes % (Manual) 71 % (20-45) 47 % (20-45) 46 % (20-45) Monocytes % (Manual) 5 % (1-10) 7 % (1-10) 3 % (1-10) Eosinophils % (Manual) 0 % (0-3) 0 % (0-3) 0 % (0-3) Basophils % (Manual) 0 % (0-2) 0 % (0-2) 0 % (0-2) Blast Cells % 17 % (0-0) 45 % (0-0) 48 % (0-0) Band Neutrophils 0 % (0-8) 0 % (0-8) 0 % (0-8) Platelet Estimate Decreased Decreased Decreased Platelet Morphology Normal Normal Normal Polychromasia 1+ Hypochromasia 1+ 4+ 4+ Anisocytosis 1+ 1+ 1+ Other Cell Type Pathologist review Spherocytes 2+ 1+ Sodium Level 134 MMOL/L (136-145) Potassium Level 4.3 MMOL/L (3.5-5.1) Chloride Level 108 MMOL/L (98-107) Carbon Dioxide Level 17 MMOL/L (21-32) Anion Gap 9 mmol/L (5-15) Blood Urea Nitrogen 21 mg/dL (7-18) Creatinine 0.7 MG/DL (0.55-1.30) Estimat Glomerular Filtration Rate > 60 mL/min (>60) Glucose Level 105 MG/DL (74-106) Uric Acid 4.5 MG/DL (2.6-7.2) Calcium Level 7.9 MG/DL (8.5-10.1) Stool Occult Blood Negative (NEGATIVE) Height (Feet): 5 Height (Inches): 5.00 Weight (Pounds): 137 Objective Vitals with hypotension General: lethargic, Chronically Ill Heent: nc, at Neck: full range of motion, supple Respiratory: chest non-tender, rhonchi Cardiovascular: regular rate, rhythm, no murmur Gastrointestinal: normal bowel sounds, non tender, no mass, no organomegaly, no bruit, non-distended Musculoskeletal: other - Extremities contracted Neurologic: other - Grimace to painful stimuli Dav Daniel MD Feb 08, 2020 09:38
[2020-02-08 12:00] VITALS: BP 115/54
--- NOTE | 2020-02-08 12:53 | General Progress Note ---
Assessment/Plan Assessment/Plan: 79 y/o F with PMH CVA, schizophrenia, vascular dementia, leukemia who presents from [facility] for AMS, found to have E. coli UTI and severe anemia #E. coli UTI -cont. inpatient medical management -UCx + for E. Coli -cont. 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 -Will follow up with family again #FTT #physical deconditioning #Quadriplegia -nutrition consulted -PT/OT #CVA #vascular dementia -minimally verbal at b/l per PCP -no ASA given thrombocytopenia Pt has poor prognosis given terminal conditions noted above. Time spent on encounter: 36 mins, >50% on counseling, coordination of care. Time of note doesn't reflect time of encounter. Subjective Date patient seen: Feb 08, 2020 Time patient seen: 12:45 ROS Limited/Unobtainable: Yes Allergies: Coded Allergies: PENICILLINS (Unverified Allergy, Unknown, 03/16/15) Subjective Follow up for UTI, acute severe anemia, thrombocytopenia, concern for acute leukemia/blast crisis.Hb down to 5.9, platelets to 13K. Objective Last 24 Hour Vital Signs Date Time Temp Pulse Resp B/P (MAP) Pulse Ox O2 Delivery O2 Flow Rate FiO2 02/08/20 09:00 Room Air 02/08/20 08:00 98.9 18 136/71 (92) 96 02/08/20 04:00 98.9 78 22 123/58 (79) 98 02/08/20 00:00 99.7 77 23 117/59 (78) 98 02/07/20 21:00 Room Air 02/07/20 20:00 99.5 75 22 109/63 (78) 96 02/07/20 16:00 98.4 78 20 116/56 (76) 78 Intake and Output 02/07/20 02/08/20 19:00 07:00 Intake Total 450 ml 805 ml Output Total 800 ml Balance -350 ml 805 ml IV Total 450 ml 805 ml Output Urine Total 800 ml # Voids 3 # Bowel Movements 1 4 Height (Feet): 5 Height (Inches): 5.00 Weight (Pounds): 137 General Appearance: alert, lethargic, confused Cardiovascular: normal rate, regular rhythm Respiratory/Chest: lungs clear, normal breath sounds Richard Ferreira MD Feb 08, 2020 12:53
[2020-02-08 16:00] VITALS: BP 111/57
--- NOTE | 2020-02-08 17:04 | NUR ---
CASE MANAGEMENT:REVIEW SI;ACUTE LYMPHOCYTIC LEUKEMIA. UTI. FTT. LEUKOCYTOSIS. 99.7 78 23 136/71 96% ON RA NO LABS AVAILABLE IS;IVF KCL/D5 @ 150 ML/HR CEFAZOLIN IV Q12 HRS NORVASC PO QD PROTONIX PO QD MED SURG STATUS DCP;PATIENT IS FROM [facility];MD TO FOLLOW UP WITH PATIENTS DAUGHTER IN RE TO HOSPICE DECISION CONTINUE CEFAZOLIN TRANSFUSE PRBC AND PLATELET PRN
--- NOTE | 2020-02-08 19:30 | NUR ---
received patient on bed, asleep but easily arousable. on cannula at 2 lpm.head of bed elevated. with 2 iv lines on the right hand 24g and LFA 24g. d5w + 10 meq at 150 ml/hr running on the LFA. per previous nurse" md is aware regarding the hmg level of 5.9 and she transfused 1 prbc yesterday". per previous nurse" no orders for transfusion today".bed locked and in lowest position. call light and light button within easy reach. will continue plan of care. Addendum: 02/08/20 at 2101 by Varsha De La Cruz RN NURSE NOTES:
--- NOTE | 2020-02-08 19:50 | NUR ---
HAND-OFF: Report given to Vidhya MCDUFFIE.aware of fall risk.
[2020-02-08 20:00] VITALS: BP 116/64
[2020-02-09] VITALS: BP 109/61
[2020-02-09] MEDS: Potassium Chloride 10 MEQ in D5W 1000ml 1,000 ML IV SCH ×4 (03:49→23:28)
[2020-02-09] MEDS: ceFAZolin sod 1 GM in D5W 55 ML IVPB SCH ×2 (03:51→16:04)
[2020-02-09 04:00] VITALS: BP 134/70
[2020-02-09 06:49] LABS: HEMATOCRIT 21.9 % (37.0-47.0); MEAN CORPUSCULAR VOLUME 83 FL (80-99); PLATELET COUNT 14 K/UL (150-450); RED BLOOD COUNT 2.65 M/UL (4.20-5.40); RED CELL DISTRIBUTION WIDTH 14.1 % (11.6-14.8); WHITE BLOOD COUNT 17.7 K/UL (4.8-10.8)
[2020-02-09 07:03] LABS: HEMOGLOBIN 7.8 G/DL (12.0-16.0)
--- NOTE | 2020-02-09 07:32 | NUR ---
NURSE NOTES: Received report from Varsha Kee RN. Patient is nonverbal. On nasal cannula 2L/min, no signs of distress. IV intact, patent, and infusing IV fluids. Bed in lowest position with HOB above 30 degrees. Will continue with monitoring and plan of care.
--- NOTE | 2020-02-09 07:36 | NUR ---
HAND-OFF: Report given to toño zaumdio.
[2020-02-09 08:00] VITALS: BP 119/77
[2020-02-09] MEDS: Docusate 100mg cap ORAL SCH ×2 (09:00→17:39)
[2020-02-09] MEDS: Amiodarone 200mg tab GT SCH (09:00)
[2020-02-09] MEDS: Ascorbic Acid 500mg tab GT SCH ×2 (09:00→17:39)
--- NOTE | 2020-02-09 09:08 | Neurology Progress Note ---
Interim History Interim History ROS Limited/Unobtainable: Yes Interim History Hx bilateral strokes, is bedridden, has refractory anemia with blast, preleukemic state or possibly lymphoma has been diagnosed in the past. We discussed with the family. She presents with poor oral intake, lethargy, and hemoglobin of 2.8. Pt with poor prognosis, remains full code Objective Physical Exam Last Vital Signs Date Time Temp Pulse Resp B/P (MAP) Pulse Ox O2 Delivery O2 Flow Rate FiO2 02/09/20 04:00 98.6 76 20 134/70 (91) 100 02/08/20 21:00 Room Air 02/01/20 11:45 1.0 Laboratory Tests Test 02/09/20 06:00 White Blood Count 17.7 K/UL (4.8-10.8) H Red Blood Count 2.65 M/UL (4.20-5.40) L Hemoglobin 7.8 G/DL (12.0-16.0) L Hematocrit 21.9 % (37.0-47.0) L Mean Corpuscular Volume 83 FL (80-99) Mean Corpuscular Hemoglobin 29.6 PG (27.0-31.0) Mean Corpuscular Hemoglobin Concent 35.8 G/DL (32.0-36.0) Red Cell Distribution Width 14.1 % (11.6-14.8) Platelet Count 14 K/UL (150-450) L Mean Platelet Volume 7.3 FL (6.5-10.1) Neutrophils (%) (Auto) % (45.0-75.0) Lymphocytes (%) (Auto) % (20.0-45.0) Monocytes (%) (Auto) % (1.0-10.0) Eosinophils (%) (Auto) % (0.0-3.0) Basophils (%) (Auto) % (0.0-2.0) Neutrophils % (Manual) Pending Lymphocytes % (Manual) Pending Platelet Estimate Pending Platelet Morphology Pending Neurologic Exam Objective lethargic, withdraws to pain Impression/Recommendations Problems: (1) Hyperkalemia (2) Thrombocytopenia (3) Acute metabolic encephalopathy (4) Acute renal failure (5) Dehydration (6) Acute renal failure (7) UTI (urinary tract infection) (8) Quadriplegia and quadriparesis (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, old, cognitive deficits (11) Anemia, unspecified (12) Vascular dementia (13) Acute respiratory failure (14) Atrial fibrillation (15) Septicemia (16) Dysphagia (17) Leukemia (18) Respiratory failure (19) Iron deficiency anemia (20) Sepsis (21) Altered mental status (22) Cardiomyopathy (23) Pneumonia (24) Alteration consciousness (25) HTN (hypertension) (26) Pain (27) Pain (28) MODS (multiple organ dysfunction syndrome) (29) Cerebral vascular disease (30) Elevated CEA (31) Decubital ulcer (32) Penicillin allergy (33) PEG (percutaneous endoscopic gastrostomy) adjustment/replacement/removal (34) SEPSIS, ABD PAIN (35) AL Diagnostic Impression poor prognosis Corwin Ackerman MD Feb 09, 2020 09:08
--- NOTE | 2020-02-09 09:09 | Consultation ---
History of Present Illness General Date patient seen: Feb 08, 2020 Chief Complaint: General Complaint Reason for Consultation: ams Present Illness HPI Hx bilateral strokes, is bedridden, has refractory anemia with blast, preleukemic state or possibly lymphoma has been diagnosed in the past. We discussed with the family. She presents with poor oral intake, lethargy, and hemoglobin of 2.8. Pt with poor prognosis, remains full code Allergies: Coded Allergies: PENICILLINS (Unverified Allergy, Unknown, 03/16/15) Medication History Scheduled Amiodarone Hcl* (Amiodarone Hcl*), 200 MG GT DAILY, (Reported) Amlodipine Besylate (Norvasc), 10 MG GT DAILY, (Reported) Amlodipine Besylate (Norvasc), 5 MG ORAL DAILY, (Reported) Ascorbic Acid* (Ascorbic Acid*), 500 MG GT DAILY, (Reported) Ascorbic Acid* (Vitamin C*), 500 MG GT TWICE A DAY, (Reported) Bisacodyl (Dulcolax), 10 MG RC DAILY, (Reported) Docusate Sodium (Docusate Sodium), 100 MG GT TWICE A DAY, (Reported) Doxazosin Mesylate* (Doxazosin Mesylate*), 2 MG GT QHS, (Reported) Multivitamin With Minerals (Multivitamins With Minerals*), 15 ML GT DAILY, ( Reported) Pantoprazole* (Pantoprazole*), 40 MG GT DAILY, (Reported) Ranitidine Hcl* (Zantac*), 150 MG ORAL DAILY, (Reported) Scheduled PRN Acetaminophen (Acetaminophen), 650 MG GT Q6H PRN for Fever/Headache/Mild Pain, ( Reported) Alprazolam* (Xanax*), 0.5 MG GT EVERY 6 HOURS PRN for ALLUCINATION, (Reported) Aztreonam (Azactam), 1 GM IVPB for Q8HR, (Reported) Clonidine Hcl* (Catapres*), 0.2 MG GT Q6HR PRN for For High Blood Pressure, ( Reported) Ondansetron (Zofran), 4 MG GT EVERY 8 HOURS PRN for Nausea & Vomiting, (Reported ) Ondansetron* (Zofran*), 4 MG IM Q4HR PRN for Nausea & Vomiting, (Reported) Polyethylene Glycol 3350* (Polyethylene Glycol 3350*), 17 GM ORAL BEDTIME PRN for Constipation, (Reported) Miscellaneous Medications Insulin Lispro (Humalog), 0 SUBQ, (Reported) Patient History Healthcare decision maker family Resuscitation status Full Code Advanced Directive on File No Physical Exam Physical Exam Narrative withdraws to pain, not following Last 24 Hour Vital Signs Date Time Temp Pulse Resp B/P (MAP) Pulse Ox O2 Delivery O2 Flow Rate FiO2 02/09/20 04:00 98.6 76 20 134/70 (91) 100 02/09/20 00:00 98.8 70 18 109/61 (77) 100 02/08/20 21:00 Room Air 02/08/20 20:00 98.2 69 18 116/64 (81) 100 02/08/20 16:00 99.7 18 111/57 (75) 100 02/08/20 12:00 99.8 19 115/54 (74) 100 Intake and Output 02/08/20 02/09/20 19:00 07:00 Intake Total 1350 ml Output Total 300 ml 600 ml Balance 1050 ml -600 ml IV Total 1350 ml Output Urine Total 300 ml 600 ml # Bowel Movements 1 Laboratory Tests Test 02/09/20 06:00 White Blood Count 17.7 K/UL (4.8-10.8) H Red Blood Count 2.65 M/UL (4.20-5.40) L Hemoglobin 7.8 G/DL (12.0-16.0) L Hematocrit 21.9 % (37.0-47.0) L Mean Corpuscular Volume 83 FL (80-99) Mean Corpuscular Hemoglobin 29.6 PG (27.0-31.0) Mean Corpuscular Hemoglobin Concent 35.8 G/DL (32.0-36.0) Red Cell Distribution Width 14.1 % (11.6-14.8) Platelet Count 14 K/UL (150-450) L Mean Platelet Volume 7.3 FL (6.5-10.1) Neutrophils (%) (Auto) % (45.0-75.0) Lymphocytes (%) (Auto) % (20.0-45.0) Monocytes (%) (Auto) % (1.0-10.0) Eosinophils (%) (Auto) % (0.0-3.0) Basophils (%) (Auto) % (0.0-2.0) Neutrophils % (Manual) Pending Lymphocytes % (Manual) Pending Platelet Estimate Pending Platelet Morphology Pending Height (Feet): 5 Height (Inches): 5.00 Weight (Pounds): 137 Medications Current Medications Medications (Trade) Dose Ordered Sig/Javier Route PRN Reason Start Time Stop Time Status Last Admin Dose Admin Acetaminophen (Tylenol) 650 mg Q4H PRN ORAL Mild Pain (Pain Scale 1-3) 02/01/20 16:30 03/02/20 12:19 Acetaminophen (Tylenol) 650 mg Q4H PRN ORAL T>100.4 02/01/20 16:30 03/02/20 12:19 Amiodarone HCl (Cordarone) 200 mg DAILY GT 02/02/20 09:00 05/02/20 08:59 02/06/20 09:07 Amlodipine Besylate (Norvasc) 5 mg DAILY ORAL 02/02/20 09:00 03/03/20 08:59 02/06/20 09:07 Ascorbic Acid (Vitamin C) 500 mg TWICE A DAY GT 02/01/20 18:00 03/02/20 17:59 02/06/20 09:07 Bisacodyl (Dulcolax) 10 mg DAILYPRN PRN RECTAL Constipation 02/01/20 16:00 05/01/20 15:59 Cefazolin Sodium 1 gm/Dextrose 55 ml @ 110 mls/hr Q12H IVPB 02/03/20 16:00 02/10/20 15:59 02/09/20 03:51 Dextrose (Dextrose 50%) 25 ml Q30M PRN IV Hypoglycemia 02/01/20 16:00 05/01/20 11:59 Dextrose (Dextrose 50%) 50 ml Q30M PRN IV Hypoglycemia 02/01/20 16:00 05/01/20 11:59 Docusate Sodium (Colace) 100 mg TWICE A DAY ORAL 02/01/20 18:00 03/02/20 17:59 02/05/20 18:05 Epoetin Yaniv (Epoetin Yaniv-EPBX(NON ESRD)) 10,000 unit WED-WED-WED SUBQ 02/07/20 21:00 05/07/20 20:59 02/07/20 21:47 Morphine Sulfate (Morphine Sulfate) 1 mg Q4H PRN IVP pain 02/08/20 06:15 02/15/20 06:14 Ondansetron HCl (Zofran) 4 mg Q8H PRN GT Nausea & Vomiting 02/01/20 16:00 03/02/20 15:59 Pantoprazole (Protonix) 40 mg DAILY ORAL 02/02/20 09:00 03/03/20 08:59 02/05/20 08:18 Polyethylene Glycol (Miralax) 17 gm HSPRN PRN ORAL Constipation 02/01/20 16:00 03/02/20 15:59 Potassium Chloride 10 meq/ Dextrose 1,005 ml @ 150 mls/hr Q6H42M IV 02/04/20 16:00 03/05/20 15:59 02/09/20 03:49 Assessment/Plan Problem List: (1) Pain ICD Codes: R52 - Pain, unspecified SNOMED: 40642252 (2) Pain ICD Codes: R52 - Pain, unspecified SNOMED: 89304834 (3) MODS (multiple organ dysfunction syndrome) ICD Codes: R69 - Illness, unspecified SNOMED: 283344409 (4) Pneumonia ICD Codes: J18.9 - Pneumonia, unspecified organism SNOMED: 811251108 (5) SEPSIS, ABD PAIN (6) Respiratory failure ICD Codes: J96.90 - Respiratory failure SNOMED: 747908694 (7) Penicillin allergy ICD Codes: Z88.0 - Penicillin allergy SNOMED: 23566212 (8) Septicemia ICD Codes: A41.9 - Septicemia SNOMED: 447499943 (9) AL (10) Alteration consciousness ICD Codes: R40.4 - Transient alteration of awareness SNOMED: 3787646 (11) Altered mental status ICD Codes: R41.82 - Altered mental status, unspecified SNOMED: 840097113 (12) Cardiomyopathy ICD Codes: I42.9 - Cardiomyopathy, unspecified SNOMED: 91457337 (13) Atrial fibrillation ICD Codes: I48.91 - Unspecified atrial fibrillation SNOMED: 75927115 (14) Cerebral vascular disease ICD Codes: I67.9 - Cerebrovascular disease, unspecified SNOMED: 03523038 (15) HTN (hypertension) ICD Codes: I10 - Essential (primary) hypertension SNOMED: 56854436 (16) Dysphagia ICD Codes: R13.10 - Dysphagia SNOMED: 50349415 (17) Iron deficiency anemia ICD Codes: D50.9 - Iron deficiency anemia SNOMED: 89008344 (18) PEG (percutaneous endoscopic gastrostomy) adjustment/replacement/removal ICD Codes: Z43.1 - Encounter for attention to gastrostomy SNOMED: 110857172, 709732718 (19) Acute respiratory failure ICD Codes: J96.00 - Acute respiratory failure, unsp w hypoxia or hypercapnia SNOMED: 46247646 (20) Elevated CEA ICD Codes: R97.0 - Elevated CEA SNOMED: 942558807 (21) Decubital ulcer ICD Codes: L89.90 - Pressure ulcer of unspecified site, unspecified stage SNOMED: 676220534 (22) Hyperkalemia ICD Codes: E87.5 - Hyperkalemia SNOMED: 76814310, 077043175 (23) Thrombocytopenia ICD Codes: D69.6 - Thrombocytopenia, unspecified SNOMED: 357594139 (24) Acute metabolic encephalopathy ICD Codes: G93.41 - Metabolic encephalopathy SNOMED: 04346939, 549752310 (25) Acute renal failure ICD Codes: N17.9 - Acute renal failure SNOMED: 97495847 Qualifiers: Qualified Codes: N17.9 - Acute kidney failure, unspecified (26) Leukemia ICD Codes: C95.90 - Leukemia, unspecified not having achieved remission SNOMED: 48195173 Qualifiers: Qualified Codes: C95.90 - Leukemia, unspecified not having achieved remission (27) Sepsis ICD Codes: A41.9 - Sepsis SNOMED: 43391358 Qualifiers: Qualified Codes: A41.9 - Sepsis, unspecified organism; R65.20 - Severe sepsis without septic shock; N17.9 - Acute kidney failure, unspecified (28) Dehydration ICD Codes: E86.0 - Dehydration SNOMED: 17860068 (29) Acute renal failure ICD Codes: N17.9 - Acute kidney failure, unspecified SNOMED: 56537268 (30) UTI (urinary tract infection) ICD Codes: N39.0 - UTI (urinary tract infection) SNOMED: 23647663 Qualifiers: Qualified Codes: N30.00 - Acute cystitis without hematuria (31) Quadriplegia and quadriparesis ICD Codes: G82.50 - Quadriplegia, unspecified SNOMED: 30882474719747 (32) 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 ICD Codes: D46.4 - Refractory anemia, unspecified SNOMED: 406504098 (33) CVA, old, cognitive deficits ICD Codes: I69.319 - Unspecified symptoms and signs involving cognitive functions following cerebral infarction SNOMED: 35900470, 028029310, 591901976, 925205984 (34) Anemia, unspecified ICD Codes: D64.9 - Anemia, unspecified SNOMED: 472952967 Qualifiers: Qualified Codes: D64.9 - Anemia, unspecified (35) Vascular dementia ICD Codes: F01.50 - Vascular dementia without behavioral disturbance SNOMED: 925773629 Assessment/Plan: acute encephalopathy due to sepsis and blast leukemia, mariela poor baseline with bilateral strokes Prognosis extremely poor Suggest palliative consult Corwin Ackerman MD Feb 09, 2020 09:09
--- NOTE | 2020-02-09 10:59 | Hematology/Onc Progress Note ---
Assessment/Plan Assessment/Plan # Acute myelocytic leukemia -- blasts now at 81% which is extraordinarily high with a rapid increase, this is based on the flow cytometry --> may go into DIC/tumor lysis if blasts cells continue to multiply, without rx --> will obtain peripheral smear and discuss with pathology --> flow cytometry order as needed --> transfuse on prn basis prbc and plt --> hgb 8-->6.7->5.4->5.9-->7.8 --> recommend given age, comorbidities to consider strongly HOSPICE --> I called and left text sms to daughter Glendy [phone], her vm was full, could not leave a voicemail # Leukocytosis is likely related to leukemia and infection, E. coli UTI as well As ALL --> cont. inpatient medical management --> UCx + for E. Coli --> cont. cefazolin --> smear is noted --> wbc 26-->18-->25 # FTT likely related to psych disorder --> pt as needed --> nutrition recommendations # Physical deconditioning # Quadriplegia --> nutrition consulted --> PT/OT # CVA # Vascular dementia # Poor prognosis, consider hospice Appreciate consultation and dw Rn Subjective Constitutional: Denies: no symptoms, chills, fever, malaise, weakness, other HEENT: Denies: no symptoms, eye pain, blurred vision, tearing, double vision, ear pain, ear discharge, nose pain, nose congestion, throat pain, throat swelling, mouth pain, mouth swelling, other Cardiovascular: Denies: no symptoms, chest pain, edema, irregular heart rate, lightheadedness, palpitations, syncope, other Respiratory: Denies: no symptoms, cough, shortness of breath, SOB with excertion, SOB at rest, sputum, wheezing, other Gastrointestinal/Abdominal: Denies: no symptoms, abdomen distended, abdominal pain, black stools, tarry stools, blood in stool, constipated, diarrhea, difficulty swallowing, nausea, poor appetite, poor fluid intake, rectal bleeding , vomiting, other Genitourinary: Denies: no symptoms, burning, discharge, frequency, flank pain, hematuria, incontinence, pain, urgency, other Endocrine: Denies: no symptoms, excessive sweating, flushing, intolerance to cold, intolerance to heat, increased hunger, increased thirst, increased urine, unexplained weight gain, unexplained weight loss, other Allergies: Coded Allergies: PENICILLINS (Unverified Allergy, Unknown, 03/16/15) Subjective 02/06 nonverbal, no bleeding, labs reviewed, no f/c no bleeding, hgb low 02/07 i talked to rn this an, Xyrece and apparently daughter called and asked to see how mother is doing,she hasn't yet called me 02/08 no bleeding, labs reviewed, with blast coiunt of 81%, extremely poor prognosis Objective Objective Current Medications Medications (Trade) Dose Ordered Sig/Javier Route PRN Reason Start Time Stop Time Status Last Admin Dose Admin Acetaminophen (Tylenol) 650 mg Q4H PRN ORAL Mild Pain (Pain Scale 1-3) 02/01/20 16:30 03/02/20 12:19 Acetaminophen (Tylenol) 650 mg Q4H PRN ORAL T>100.4 02/01/20 16:30 03/02/20 12:19 Amiodarone HCl (Cordarone) 200 mg DAILY GT 02/02/20 09:00 05/02/20 08:59 02/06/20 09:07 Amlodipine Besylate (Norvasc) 5 mg DAILY ORAL 02/02/20 09:00 03/03/20 08:59 02/06/20 09:07 Ascorbic Acid (Vitamin C) 500 mg TWICE A DAY GT 02/01/20 18:00 03/02/20 17:59 02/06/20 09:07 Bisacodyl (Dulcolax) 10 mg DAILYPRN PRN RECTAL Constipation 02/01/20 16:00 05/01/20 15:59 Cefazolin Sodium 1 gm/Dextrose 55 ml @ 110 mls/hr Q12H IVPB 02/03/20 16:00 02/10/20 15:59 02/09/20 03:51 Dextrose (Dextrose 50%) 25 ml Q30M PRN IV Hypoglycemia 02/01/20 16:00 05/01/20 11:59 Dextrose (Dextrose 50%) 50 ml Q30M PRN IV Hypoglycemia 02/01/20 16:00 05/01/20 11:59 Docusate Sodium (Colace) 100 mg TWICE A DAY ORAL 02/01/20 18:00 03/02/20 17:59 02/05/20 18:05 Epoetin Yaniv (Epoetin Yaniv-EPBX(NON ESRD)) 10,000 unit WED-WED-WED SUBQ 02/07/20 21:00 05/07/20 20:59 02/07/20 21:47 Morphine Sulfate (Morphine Sulfate) 1 mg Q4H PRN IVP pain 02/08/20 06:15 02/15/20 06:14 Ondansetron HCl (Zofran) 4 mg Q8H PRN GT Nausea & Vomiting 02/01/20 16:00 03/02/20 15:59 Pantoprazole (Protonix) 40 mg DAILY ORAL 02/02/20 09:00 03/03/20 08:59 02/05/20 08:18 Polyethylene Glycol (Miralax) 17 gm HSPRN PRN ORAL Constipation 02/01/20 16:00 03/02/20 15:59 Potassium Chloride 10 meq/ Dextrose 1,005 ml @ 150 mls/hr Q6H42M IV 02/04/20 16:00 03/05/20 15:59 02/09/20 10:24 Last 24 Hour Vital Signs Date Time Temp Pulse Resp B/P (MAP) Pulse Ox O2 Delivery O2 Flow Rate FiO2 02/09/20 09:00 74 119/77 02/09/20 08:00 98.1 74 18 119/77 (91) 100 02/09/20 04:00 98.6 76 20 134/70 (91) 100 02/09/20 00:00 98.8 70 18 109/61 (77) 100 02/08/20 21:00 Room Air 02/08/20 20:00 98.2 69 18 116/64 (81) 100 02/08/20 16:00 99.7 18 111/57 (75) 100 02/08/20 12:00 99.8 19 115/54 (74) 100 02/08/20 09:00 72 136/71 02/08/20 09:00 Room Air 02/08/20 08:00 98.9 18 136/71 (92) 96 02/08/20 04:00 98.9 78 22 123/58 (79) 98 02/08/20 00:00 99.7 77 23 117/59 (78) 98 02/07/20 21:00 Room Air 02/07/20 20:00 99.5 75 22 109/63 (78) 96 02/07/20 16:00 98.4 78 20 116/56 (76) 78 02/07/20 12:00 98.8 79 21 119/70 (86) 95 Intake and Output 02/08/20 02/09/20 19:00 07:00 Intake Total 1350 ml Output Total 300 ml 600 ml Balance 1050 ml -600 ml IV Total 1350 ml Output Urine Total 300 ml 600 ml # Bowel Movements 1 Labs Test 02/06/20 12:05 02/06/20 15:50 02/07/20 09:55 02/09/20 06:00 White Blood Count 25.5 K/UL (4.8-10.8) 11.2 K/UL (4.8-10.8) 17.7 K/UL (4.8-10.8) Red Blood Count 2.12 M/UL (4.20-5.40) 2.03 M/UL (4.20-5.40) 2.65 M/UL (4.20-5.40) Hemoglobin 6.3 G/DL (12.0-16.0) 5.9 G/DL (12.0-16.0) 7.8 G/DL (12.0-16.0) Hematocrit 17.4 % (37.0-47.0) 18.6 % (37.0-47.0) 21.9 % (37.0-47.0) Mean Corpuscular Volume 82 FL (80-99) 92 FL (80-99) 83 FL (80-99) Mean Corpuscular Hemoglobin 29.6 PG (27.0-31.0) 28.8 PG (27.0-31.0) 29.6 PG (27.0-31.0) Mean Corpuscular Hemoglobin Concent 36.1 G/DL (32.0-36.0) 31.5 G/DL (32.0-36.0) 35.8 G/DL (32.0-36.0) Red Cell Distribution Width 14.4 % (11.6-14.8) 15.7 % (11.6-14.8) 14.1 % (11.6-14.8) Platelet Count 19 K/UL (150-450) 14 K/UL (150-450) 14 K/UL (150-450) Mean Platelet Volume 8.5 FL (6.5-10.1) 10.3 FL (6.5-10.1) 7.3 FL (6.5-10.1) Neutrophils (%) (Auto) % (45.0-75.0) % (45.0-75.0) % (45.0-75.0) Lymphocytes (%) (Auto) % (20.0-45.0) % (20.0-45.0) % (20.0-45.0) Monocytes (%) (Auto) % (1.0-10.0) % (1.0-10.0) % (1.0-10.0) Eosinophils (%) (Auto) % (0.0-3.0) % (0.0-3.0) % (0.0-3.0) Basophils (%) (Auto) % (0.0-2.0) % (0.0-2.0) % (0.0-2.0) Differential Total Cells Counted 100 100 Neutrophils % (Manual) 1 % (45-75) 3 % (45-75) Lymphocytes % (Manual) 47 % (20-45) 46 % (20-45) Monocytes % (Manual) 7 % (1-10) 3 % (1-10) Eosinophils % (Manual) 0 % (0-3) 0 % (0-3) Basophils % (Manual) 0 % (0-2) 0 % (0-2) Blast Cells % 45 % (0-0) 48 % (0-0) Band Neutrophils 0 % (0-8) 0 % (0-8) Other Cell Type Pathologist review Platelet Estimate Decreased Decreased Platelet Morphology Normal Normal Hypochromasia 4+ 4+ Anisocytosis 1+ 1+ Spherocytes 2+ 1+ Sodium Level 134 MMOL/L (136-145) Potassium Level 4.3 MMOL/L (3.5-5.1) Chloride Level 108 MMOL/L (98-107) Carbon Dioxide Level 17 MMOL/L (21-32) Anion Gap 9 mmol/L (5-15) Blood Urea Nitrogen 21 mg/dL (7-18) Creatinine 0.7 MG/DL (0.55-1.30) Estimat Glomerular Filtration Rate > 60 mL/min (>60) Glucose Level 105 MG/DL (74-106) Uric Acid 4.5 MG/DL (2.6-7.2) Calcium Level 7.9 MG/DL (8.5-10.1) Stool Occult Blood Negative (NEGATIVE) Height (Feet): 5 Height (Inches): 5.00 Weight (Pounds): 137 Objective Vitals with hypotension General: lethargic, Chronically Ill Heent: nc, at Neck: full range of motion, supple Respiratory: chest non-tender, rhonchi Cardiovascular: regular rate, rhythm, no murmur Gastrointestinal: normal bowel sounds, non tender, no mass, no organomegaly, no bruit, non-distended Musculoskeletal: other - Extremities contracted Neurologic: other - Grimace to painful stimuli Dav Daniel MD Feb 09, 2020 10:59
[2020-02-09 12:00] VITALS: BP 121/63
--- NOTE | 2020-02-09 12:10 | NUR ---
CASE MANAGEMENT:REVIEW SI;ACUTE LYMPHOCYTIC LEUKEMIA. UTI. FTT. LEUKOCYTOSIS. 98.8 76 20 109/61 100% 2L NC WBC 17.7 RBC 2.65 H/H 7.8/21.9 PLT 14 IS;KCL/D5 @ 150 ML/HR CEFAZOLIN IN Q12 HRS AMIODARONE PO QD PROTONIX PO QD MED SURG STATUS DCP;PATIENT IS FROM [facility]; TO CONFIRM HOSPICE DECISION WITH FAMILY
--- NOTE | 2020-02-09 12:39 | General Progress Note ---
Assessment/Plan Assessment/Plan: 79 y/o F with PMH CVA, schizophrenia, vascular dementia, leukemia who presents from [facility] for AMS, found to have E. coli UTI and severe anemia #E. coli UTI -cont. inpatient medical management -UCx + for E. Coli -cont. 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 Asked for more time #FTT #physical deconditioning #Quadriplegia -nutrition consulted -PT/OT #CVA #vascular dementia -minimally verbal at b/l per PCP -no ASA given thrombocytopenia Pt has poor prognosis given terminal conditions noted above. Time spent on encounter: 40 mins, 25 on counseling, coordination of care discussion with RN and Hematology, code status discussion with valdez Time of note doesn't reflect time of encounter. Subjective Date patient seen: Feb 09, 2020 Time patient seen: 12:34 ROS Limited/Unobtainable: Yes Allergies: Coded Allergies: PENICILLINS (Unverified Allergy, Unknown, 03/16/15) Subjective Follow up for UTI, acute severe anemia, thrombocytopenia, concern for acute leukemia/blast crisis.Hb 7.8 today Objective Last 24 Hour Vital Signs Date Time Temp Pulse Resp B/P (MAP) Pulse Ox O2 Delivery O2 Flow Rate FiO2 02/09/20 09:00 Nasal Cannula 2.0 02/09/20 09:00 74 119/77 02/09/20 08:00 98.1 74 18 119/77 (91) 100 02/09/20 04:00 98.6 76 20 134/70 (91) 100 02/09/20 00:00 98.8 70 18 109/61 (77) 100 02/08/20 21:00 Room Air 02/08/20 20:00 98.2 69 18 116/64 (81) 100 02/08/20 16:00 99.7 18 111/57 (75) 100 Intake and Output 02/08/20 02/09/20 19:00 07:00 Intake Total 1350 ml Output Total 300 ml 600 ml Balance 1050 ml -600 ml IV Total 1350 ml Output Urine Total 300 ml 600 ml # Bowel Movements 1 Laboratory Tests 02/09/20 06:00: White Blood Count 17.7H, Red Blood Count 2.65L, Hemoglobin 7.8L, Hematocrit 21.9L, Mean Corpuscular Volume 83, Mean Corpuscular Hemoglobin 29.6, Mean Corpuscular Hemoglobin Concent 35.8, Red Cell Distribution Width 14.1, Platelet Count 14L, Mean Platelet Volume 7.3, Neutrophils (%) (Auto) , Lymphocytes (%) ( Auto) , Monocytes (%) (Auto) , Eosinophils (%) (Auto) , Basophils (%) (Auto) , Differential Total Cells Counted 100, Neutrophils % (Manual) 2L, Lymphocytes % ( Manual) 30, Monocytes % (Manual) 2, Eosinophils % (Manual) 0, Basophils % ( Manual) 0, Blast Cells % 63*H, Band Neutrophils 3, Platelet Estimate DecreasedL , Platelet Morphology Normal, Red Blood Cell Morphology Normal Height (Feet): 5 Height (Inches): 5.00 Weight (Pounds): 137 General Appearance: no apparent distress, lethargic, confused Cardiovascular: normal rate, regular rhythm Respiratory/Chest: lungs clear, normal breath sounds Richard Ferreira MD Feb 09, 2020 12:39
[2020-02-09 16:00] VITALS: BP 118/61
--- NOTE | 2020-02-09 19:20 | NUR ---
NURSE NOTES: received patient on bed, awake. no sob. with iv line on the left forearm running d5W +10 meq of potassium chloride. head of bed elevated. no facial grimacing noted. bed locked and in lowest position. call light and light button within easy reach. will continue plan of care.
--- NOTE | 2020-02-09 19:39 | NUR ---
HAND-OFF: Report given to Varsha Kee RN. Rounds done.
[2020-02-09 20:00] VITALS: BP 111/65
[2020-02-09] MEDS: Epoetin Alfa-EPBX (NON ESRD)10,000 unit/ml vial SUBQ SCH (20:44)
[2020-02-10] VITALS: BP 120/66
[2020-02-10 04:00] VITALS: BP 118/62
[2020-02-10] MEDS: Potassium Chloride 10 MEQ in D5W 1000ml 1,000 ML IV SCH (05:42)
[2020-02-10] MEDS: ceFAZolin sod 1 GM in D5W 55 ML IVPB SCH ×2 (05:42→16:28)
--- NOTE | 2020-02-10 06:25 | NUR ---
RD ASSESSMENT & RECOMMENDATIONS SEE CARE ACTIVITY FOR COMPLETE ASSESSMENT DAILY ESTIMATED NEEDS: Needs based on wound, bed bound 63.5kg abw 25-30 kcals/kg 1570-6773 total kcals 1.25-1.5 g protein/kg 79-95 g total protein 25-30 mL/kg 5290-7114 total fluid mLs NUTRITION DIAGNOSIS: Increased kcal and protein needs R/T wound healing sacral full thickness wound, pt is bedbound w/ poor po intake, pt is lethargic. [facility] pure[facility] PO DIET RECOMMENDATIONS: Liberalized Regular/ Texture per [employer] SUPERVISOR + ENSURE TID ENTERAL NUTRITION RECOMMENDATIONS: IF PART OF POC -> Jevity 1.2 @ 55ml/hr x 24 hrs to provide 1320ml, 1584kcal, 73g prot, 1065ml free water * IF PART OF POC, obtain GI access * Initiate Jevity 1.2 @ 15ml/hr x 6hrs, advance 10ml q 4-6 hrs as tolerated to goal rate. * Once TF well tolerated at goal, add Prosouce 1pkt QD to better meet prot needs * HOB Over 30 degrees/ without IVF, water flush 150ml q 6 hrs * W/ TF, monitor lytes daily, replete as needed- high risk for refeeding syndrome. ADDITIONAL RECOMMENDATIONS: 1) Wound care: Vit C 250mg BID + MVI w/min qd Sang BID if tolerated 2) 1:1 feeds w/ all meals, Ensure TID as tolerated (pt is lethargic) 3) Pt remains Full Code, rec temp non oral feeds if part of POC -> mostly 0% intake since adm (LOS 9 today) 4) Continue D5 w/ continued poor po intake 5) Updated BMP
[2020-02-10 07:05] LABS: HEMATOCRIT 20.8 % (37.0-47.0); HEMOGLOBIN 7.5 G/DL (12.0-16.0); MEAN CORPUSCULAR VOLUME 83 FL (80-99); PLATELET COUNT 17 K/UL (150-450); RED BLOOD COUNT 2.49 M/UL (4.20-5.40); RED CELL DISTRIBUTION WIDTH 14.5 % (11.6-14.8); WHITE BLOOD COUNT 19.8 K/UL (4.8-10.8)
[2020-02-10 07:24] LABS: ANION GAP 11 mmol/L (5-15); BLOOD UREA NITROGEN 14 mg/dL (7-18); CALCIUM 7.9 MG/DL (8.5-10.1); CARBON DIOXIDE 17 MMOL/L (21-32); CHLORIDE 100 MMOL/L (98-107); CREATININE 0.8 MG/DL (0.55-1.30); POTASSIUM 4.2 MMOL/L (3.5-5.1); SODIUM 128 MMOL/L (136-145)
--- NOTE | 2020-02-10 07:43 | NUR ---
Report received from REMA MCDUFFIE. Patient is awake, no acute distress noted. Breathing is even and unlabored on 2L NC. Noted that patient's urine color is dark brown. Right hand IV is patent and asymptomatic running IVF as ordered. Bed is low and locked, side rails up x2, call light is within reach.
[2020-02-10 08:00] VITALS: BP 120/68
[2020-02-10] MEDS: Docusate 100mg cap ORAL SCH ×2 (09:23→17:35)
[2020-02-10] MEDS: Ascorbic Acid 500mg tab GT SCH ×2 (09:23→17:35)
[2020-02-10] MEDS: Amiodarone 200mg tab GT SCH (09:23)
--- NOTE | 2020-02-10 10:20 | NUR ---
NURSE NOTES: Notified Dr. Calix about the patient's drop in Hgb levels, awaiting response.
--- NOTE | 2020-02-10 10:36 | NUR ---
NURSE NOTES: Notified Dr. Guerra about the patient's sodium level of 128. Talked to Deng over the phone, awaiting response.
--- NOTE | 2020-02-10 10:51 | Consultation ---
History of Present Illness General Chief Complaint: General Complaint Reason for Consultation: ams Present Illness HPI This is a 79 year old female with past medical history of Hx bilateral strokes, is bedridden, has refractory anemia with blast, preleukemic state or possibly lymphoma, history of MDS requiring blood transfusions admitted with UTI. I have been consulted for management of hyponatremia. Allergies: Coded Allergies: PENICILLINS (Unverified Allergy, Unknown, 03/16/15) Medication History Scheduled Amiodarone Hcl* (Amiodarone Hcl*), 200 MG GT DAILY, (Reported) Amlodipine Besylate (Norvasc), 10 MG GT DAILY, (Reported) Amlodipine Besylate (Norvasc), 5 MG ORAL DAILY, (Reported) Ascorbic Acid* (Ascorbic Acid*), 500 MG GT DAILY, (Reported) Ascorbic Acid* (Vitamin C*), 500 MG GT TWICE A DAY, (Reported) Bisacodyl (Dulcolax), 10 MG RC DAILY, (Reported) Docusate Sodium (Docusate Sodium), 100 MG GT TWICE A DAY, (Reported) Doxazosin Mesylate* (Doxazosin Mesylate*), 2 MG GT QHS, (Reported) Multivitamin With Minerals (Multivitamins With Minerals*), 15 ML GT DAILY, ( Reported) Pantoprazole* (Pantoprazole*), 40 MG GT DAILY, (Reported) Ranitidine Hcl* (Zantac*), 150 MG ORAL DAILY, (Reported) Scheduled PRN Acetaminophen (Acetaminophen), 650 MG GT Q6H PRN for Fever/Headache/Mild Pain, ( Reported) Alprazolam* (Xanax*), 0.5 MG GT EVERY 6 HOURS PRN for ALLUCINATION, (Reported) Aztreonam (Azactam), 1 GM IVPB for Q8HR, (Reported) Clonidine Hcl* (Catapres*), 0.2 MG GT Q6HR PRN for For High Blood Pressure, ( Reported) Ondansetron (Zofran), 4 MG GT EVERY 8 HOURS PRN for Nausea & Vomiting, (Reported ) Ondansetron* (Zofran*), 4 MG IM Q4HR PRN for Nausea & Vomiting, (Reported) Polyethylene Glycol 3350* (Polyethylene Glycol 3350*), 17 GM ORAL BEDTIME PRN for Constipation, (Reported) Miscellaneous Medications Insulin Lispro (Humalog), 0 SUBQ, (Reported) Patient History Healthcare decision maker family Resuscitation status Full Code Advanced Directive on File No Physical Exam Last 24 Hour Vital Signs Date Time Temp Pulse Resp B/P (MAP) Pulse Ox O2 Delivery O2 Flow Rate FiO2 02/10/20 09:24 75 120/68 02/10/20 08:00 98.8 75 19 120/68 (85) 97 02/10/20 04:00 98.7 72 20 118/62 (80) 100 02/10/20 00:00 97.5 76 21 120/66 (84) 100 02/09/20 21:00 Room Air 02/09/20 20:00 99.3 73 22 111/65 (80) 100 02/09/20 16:00 97.5 69 18 118/61 (80) 100 02/09/20 12:00 98.6 76 20 121/63 (82) 100 Intake and Output 02/09/20 02/10/20 18:59 06:59 Output Total 400 ml Balance -400 ml Output Urine Total 400 ml # Voids 2 # Bowel Movements 1 2 Laboratory Tests Test 02/10/20 06:00 White Blood Count 19.8 K/UL (4.8-10.8) H Red Blood Count 2.49 M/UL (4.20-5.40) L Hemoglobin 7.5 G/DL (12.0-16.0) L Hematocrit 20.8 % (37.0-47.0) L Mean Corpuscular Volume 83 FL (80-99) Mean Corpuscular Hemoglobin 30.1 PG (27.0-31.0) Mean Corpuscular Hemoglobin Concent 36.1 G/DL (32.0-36.0) H Red Cell Distribution Width 14.5 % (11.6-14.8) Platelet Count 17 K/UL (150-450) L Mean Platelet Volume 7.8 FL (6.5-10.1) Neutrophils (%) (Auto) % (45.0-75.0) Lymphocytes (%) (Auto) % (20.0-45.0) Monocytes (%) (Auto) % (1.0-10.0) Eosinophils (%) (Auto) % (0.0-3.0) Basophils (%) (Auto) % (0.0-2.0) Neutrophils % (Manual) Pending Lymphocytes % (Manual) Pending Platelet Estimate Pending Platelet Morphology Pending Sodium Level 128 MMOL/L (136-145) L Potassium Level 4.2 MMOL/L (3.5-5.1) Chloride Level 100 MMOL/L (98-107) Carbon Dioxide Level 17 MMOL/L (21-32) L Anion Gap 11 mmol/L (5-15) Blood Urea Nitrogen 14 mg/dL (7-18) Creatinine 0.8 MG/DL (0.55-1.30) Estimat Glomerular Filtration Rate > 60 mL/min (>60) Glucose Level 103 MG/DL (74-106) Calcium Level 7.9 MG/DL (8.5-10.1) L Height (Feet): 5 Height (Inches): 5.00 Weight (Pounds): 137 Medications Current Medications Medications (Trade) Dose Ordered Sig/Javier Route PRN Reason Start Time Stop Time Status Last Admin Dose Admin Acetaminophen (Tylenol) 650 mg Q4H PRN ORAL Mild Pain (Pain Scale 1-3) 02/01/20 16:30 03/02/20 12:19 Acetaminophen (Tylenol) 650 mg Q4H PRN ORAL T>100.4 02/01/20 16:30 03/02/20 12:19 Amiodarone HCl (Cordarone) 200 mg DAILY GT 02/02/20 09:00 05/02/20 08:59 02/10/20 09:23 Amlodipine Besylate (Norvasc) 5 mg DAILY ORAL 02/02/20 09:00 03/03/20 08:59 02/10/20 09:24 Ascorbic Acid (Vitamin C) 500 mg TWICE A DAY GT 02/01/20 18:00 03/02/20 17:59 02/10/20 09:23 Bisacodyl (Dulcolax) 10 mg DAILYPRN PRN RECTAL Constipation 02/01/20 16:00 05/01/20 15:59 Cefazolin Sodium 1 gm/Dextrose 55 ml @ 110 mls/hr Q12H IVPB 02/03/20 16:00 02/11/20 15:59 02/10/20 05:42 Dextrose (Dextrose 50%) 25 ml Q30M PRN IV Hypoglycemia 02/01/20 16:00 05/01/20 11:59 Dextrose (Dextrose 50%) 50 ml Q30M PRN IV Hypoglycemia 02/01/20 16:00 05/01/20 11:59 Docusate Sodium (Colace) 100 mg TWICE A DAY ORAL 02/01/20 18:00 03/02/20 17:59 02/10/20 09:23 Epoetin Yaniv (Epoetin Yaniv-EPBX(NON ESRD)) 10,000 unit WED-WED-WED SUBQ 02/07/20 21:00 05/07/20 20:59 02/09/20 20:44 Morphine Sulfate (Morphine Sulfate) 1 mg Q4H PRN IVP pain 02/08/20 06:15 02/15/20 06:14 Ondansetron HCl (Zofran) 4 mg Q8H PRN GT Nausea & Vomiting 02/01/20 16:00 03/02/20 15:59 Pantoprazole (Protonix) 40 mg DAILY ORAL 02/02/20 09:00 03/03/20 08:59 02/10/20 09:23 Polyethylene Glycol (Miralax) 17 gm HSPRN PRN ORAL Constipation 02/01/20 16:00 03/02/20 15:59 Potassium Chloride 10 meq/ Dextrose 1,005 ml @ 150 mls/hr Q6H42M IV 02/04/20 16:00 03/05/20 15:59 02/10/20 05:42 Objective Narrative General Appearance: alert, lethargic, confused Cardiovascular: normal rate, regular rhythm Respiratory/Chest: lungs clear, normal breath sounds Assessment/Plan Diagnosis [facility]: #Hyponatremia- due to excess free water #E. 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 cefazolin -Transfuse PRBC for supportive care -Monitor daily CBC -Unable to initiation chemotherapy at this time per Heme/Onc due to poor prognosis -Spoke with daughter on 02/06 and angain 02/08, leaning toward hospice but still unable to decide about making her DNR/DNI. Asked for more time Pirouz,Aslan M.D. Feb 10, 2020 10:51
--- NOTE | 2020-02-10 11:09 | NUR ---
NURSE NOTES: Received callback from Dr. Guerra, she notified Dr. Lamb about the hyponatremia and will see the patient today. Will await any new orders from Dr. Lamb.
--- NOTE | 2020-02-10 11:55 | General Progress Note ---
Assessment/Plan Assessment/Plan: 79 y/o F with PMH CVA, schizophrenia, vascular dementia, leukemia who presents from [facility] for AMS, found to have E. coli UTI and severe anemia #E. coli UTI -cont. inpatient medical management -UCx + for E. Coli -cont. 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 Asked for more time, will reach out again. -plan for 1 U PRBC today #FTT #physical deconditioning #Quadriplegia -nutrition consulted -PT/OT #CVA #vascular dementia -minimally verbal at b/l per PCP -no ASA given thrombocytopenia Pt has poor prognosis given terminal conditions noted above. Time spent on encounter: 35 mins, >50% on counseling, coordination of care discussion with RN and Hematology. Time of note doesn't reflect time of encounter. Subjective ROS Limited/Unobtainable: Yes - Pt non-verbal Allergies: Coded Allergies: PENICILLINS (Unverified Allergy, Unknown, 03/16/15) Subjective Follow up for UTI, acute severe anemia, thrombocytopenia, concern for acute leukemia/blast crisis. Hgb 7.5, 1 U PRBC ordered by Heme. Pt appears comfortable at this time. Objective Last 24 Hour Vital Signs Date Time Temp Pulse Resp B/P (MAP) Pulse Ox O2 Delivery O2 Flow Rate FiO2 02/10/20 09:24 75 120/68 02/10/20 09:00 Room Air 02/10/20 08:00 98.8 75 19 120/68 (85) 97 02/10/20 04:00 98.7 72 20 118/62 (80) 100 02/10/20 00:00 97.5 76 21 120/66 (84) 100 02/09/20 21:00 Room Air 02/09/20 20:00 99.3 73 22 111/65 (80) 100 02/09/20 16:00 97.5 69 18 118/61 (80) 100 02/09/20 12:00 98.6 76 20 121/63 (82) 100 Intake and Output 4/10/20 4/11/20 19:00 07:00 Output Total 400 ml Balance -400 ml Output Urine Total 400 ml # Voids 2 # Bowel Movements 1 2 Laboratory Tests 02/10/20 06:00: White Blood Count 19.8H, Red Blood Count 2.49L, Hemoglobin 7.5L, Hematocrit 20.8L, Mean Corpuscular Volume 83, Mean Corpuscular Hemoglobin 30.1, Mean Corpuscular Hemoglobin Concent 36.1H, Red Cell Distribution Width 14.5, Platelet Count 17L, Mean Platelet Volume 7.8, Neutrophils (%) (Auto) , Lymphocytes (%) (Auto) , Monocytes (%) (Auto) , Eosinophils (%) (Auto) , Basophils (%) (Auto) , Differential Total Cells Counted 100, Neutrophils % ( Manual) 5L, Lymphocytes % (Manual) 33, Monocytes % (Manual) 6, Eosinophils % ( Manual) 0, Basophils % (Manual) 1, Blast Cells % 55*H, Band Neutrophils 0, Platelet Estimate DecreasedL, Platelet Morphology Normal, Hypochromasia 3+, Anisocytosis 1+, Sodium Level 128L, Potassium Level 4.2, Chloride Level 100, Carbon Dioxide Level 17L, Anion Gap 11, Blood Urea Nitrogen 14, Creatinine 0.8, Estimat Glomerular Filtration Rate > 60, Glucose Level 103, Calcium Level 7.9L Height (Feet): 5 Height (Inches): 5.00 Weight (Pounds): 137 Objective General Appearance: aphasic, awake, alert, appears comfortable HEENT: NCAT, b/l blindness, left prostehsis, dry MM Cardiovascular: regular rhythm Respiratory/Chest: lungs clear, no accessory muscle usage Abdomen: non tender, soft Edema: no edema noted Anthony Guerra M.D. Feb 10, 2020 11:55
[2020-02-10 12:00] VITALS: BP 115/55
[2020-02-10 16:00] VITALS: BP 120/63
--- NOTE | 2020-02-10 18:53 | NUR ---
NURSE NOTES: Started blood transfusion 1 unit PRBC at 1835. Pre infusion vitals were 98% RA, 74 bpm, 98.4 F, and 119/67. Rate was 20mls/hr. After 15 mins, there were no s/s of an adverse transfusion reaction. Vitals were 100% RA, 98.8 F, 73 bpm, and 110/61. Rate was increased to 60 mls/hr. Patient is in stable condition.
--- NOTE | 2020-02-10 19:02 | Neurology Progress Note ---
Interim History Interim History ROS Limited/Unobtainable: Yes - Pt non-verbal Interim History no acute events Objective Physical Exam Last Vital Signs Date Time Temp Pulse Resp B/P (MAP) Pulse Ox O2 Delivery O2 Flow Rate FiO2 02/10/20 16:00 98.9 70 20 120/63 (82) 99 02/10/20 09:00 Room Air 02/09/20 09:00 2.0 Laboratory Tests Test 02/10/20 06:00 White Blood Count 19.8 K/UL (4.8-10.8) H Red Blood Count 2.49 M/UL (4.20-5.40) L Hemoglobin 7.5 G/DL (12.0-16.0) L Hematocrit 20.8 % (37.0-47.0) L Mean Corpuscular Volume 83 FL (80-99) Mean Corpuscular Hemoglobin 30.1 PG (27.0-31.0) Mean Corpuscular Hemoglobin Concent 36.1 G/DL (32.0-36.0) H Red Cell Distribution Width 14.5 % (11.6-14.8) Platelet Count 17 K/UL (150-450) L Mean Platelet Volume 7.8 FL (6.5-10.1) Neutrophils (%) (Auto) % (45.0-75.0) Lymphocytes (%) (Auto) % (20.0-45.0) Monocytes (%) (Auto) % (1.0-10.0) Eosinophils (%) (Auto) % (0.0-3.0) Basophils (%) (Auto) % (0.0-2.0) Differential Total Cells Counted 100 Neutrophils % (Manual) 5 % (45-75) L Lymphocytes % (Manual) 33 % (20-45) Monocytes % (Manual) 6 % (1-10) Eosinophils % (Manual) 0 % (0-3) Basophils % (Manual) 1 % (0-2) Blast Cells % 55 % (0-0) *H Band Neutrophils 0 % (0-8) Platelet Estimate Decreased L Platelet Morphology Normal Hypochromasia 3+ Anisocytosis 1+ Sodium Level 128 MMOL/L (136-145) L Potassium Level 4.2 MMOL/L (3.5-5.1) Chloride Level 100 MMOL/L (98-107) Carbon Dioxide Level 17 MMOL/L (21-32) L Anion Gap 11 mmol/L (5-15) Blood Urea Nitrogen 14 mg/dL (7-18) Creatinine 0.8 MG/DL (0.55-1.30) Estimat Glomerular Filtration Rate > 60 mL/min (>60) Glucose Level 103 MG/DL (74-106) Calcium Level 7.9 MG/DL (8.5-10.1) L Neurologic Exam Objective lethargic, withdraws to pain Impression/Recommendations Problems: (1) Hyperkalemia (2) Thrombocytopenia (3) Acute metabolic encephalopathy (4) Acute renal failure (5) Dehydration (6) Acute renal failure (7) UTI (urinary tract infection) (8) Quadriplegia and quadriparesis (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, old, cognitive deficits (11) Anemia, unspecified (12) Vascular dementia (13) Acute respiratory failure (14) Atrial fibrillation (15) Septicemia (16) Dysphagia (17) Leukemia (18) Respiratory failure (19) Iron deficiency anemia (20) Sepsis (21) Altered mental status (22) Cardiomyopathy (23) Pneumonia (24) Alteration consciousness (25) HTN (hypertension) (26) Pain (27) Pain (28) MODS (multiple organ dysfunction syndrome) (29) Cerebral vascular disease (30) Elevated CEA (31) Decubital ulcer (32) Penicillin allergy (33) PEG (percutaneous endoscopic gastrostomy) adjustment/replacement/removal (34) SEPSIS, ABD PAIN (35) AL Diagnostic Impression poor prognosis Corwin Ackerman MD Feb 10, 2020 19:02
--- NOTE | 2020-02-10 19:31 | NUR ---
NURSE NOTES: RECEIVED PATIENT FROM RETA SANTOS AND RETA KEYES. PATIENT IS ASLEEP, ON ROOM AIR, NO ACUTE DISTRESS NOTED. WOUND DRESSINGS INTACT. IV ON RIGHT WRIST INTACT AND PATENT. BLOOD TRANSFUSION IN PROCESS, NO REACTIONS NOTED. BED IS LOCKED AND LOW, BED ALARMS ACTIVE, SIDE RAILS UP X2 AND CALL LIGHT IS WITHIN REACH. WILL CONTINUE TO MONITOR.
--- NOTE | 2020-02-10 19:41 | NUR ---
HAND-OFF: Report given to Antionette RN.
[2020-02-10 20:00] VITALS: BP 117/59
[2020-02-11] VITALS: BP 130/69
[2020-02-11 04:00] VITALS: BP 134/70
[2020-02-11] MEDS: ceFAZolin sod 1 GM in D5W 55 ML IVPB SCH ×2 (05:14→18:15)
--- NOTE | 2020-02-11 07:48 | NUR ---
NURSE NOTES: Patient alert x1, non-verbal; on Nasal Cannula 2 Liters, no sing of distress and shortness of breath; no sing of chest pain; IV Right-Hand NS at 100cc running; wound dressings dry and intact; Purick in place, collect dark brown urine; side rails up x2, breaks engaged, bed at lowest position, head of the bed elevated for aspiration percussion, bed alarm on; call light within reach; will keep monitoring.
[2020-02-11 08:00] VITALS: BP 133/59
--- NOTE | 2020-02-11 08:09 | NUR ---
HAND-OFF: Report given to RETA Menendez. Patient is in stable condition.
[2020-02-11] MEDS: Ascorbic Acid 500mg tab GT SCH ×2 (08:46→17:13)
[2020-02-11] MEDS: Amiodarone 200mg tab GT SCH (08:46)
[2020-02-11] MEDS: Docusate 100mg cap ORAL SCH ×2 (08:46→17:14)
--- NOTE | 2020-02-11 09:59 | General Progress Note ---
Assessment/Plan Assessment/Plan: 79 y/o F with PMH CVA, schizophrenia, vascular dementia, leukemia who presents from [facility] for AMS, found to have E. coli UTI and severe anemia #E. coli UTI -cont. inpatient medical management -UCx + for E. Coli -cont. 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 -Spoke w/daughter Leyla again on 02/10, states she is still unable to decide on hospice at this time but agreeable to consult to discuss POC w/hospice group -s/p 1 U PRBC 02/09 #FTT #physical deconditioning #Quadriplegia -nutrition consulted -PT/OT #CVA #vascular dementia -minimally verbal at b/l per PCP -no ASA given thrombocytopenia Pt has poor prognosis given terminal conditions noted above. Dispo: likely d/c home tomorrow, f/u on hospice consult Time spent on encounter: 35 mins, >50% on counseling, coordination of care discussion with RN, Hematology, ID. Additional 20 mins discussing end of life care w/daughterLeyla. Time of note doesn't reflect time of encounter. Subjective ROS Limited/Unobtainable: Yes - aphasic Allergies: Coded Allergies: PENICILLINS (Unverified Allergy, Unknown, 03/16/15) Subjective Follow up for UTI, acute severe anemia, thrombocytopenia, concern for acute leukemia/blast crisis. s/p 1 U PRBC yesterday. Pt aphasic, appears comfortable. Objective Last 24 Hour Vital Signs Date Time Temp Pulse Resp B/P (MAP) Pulse Ox O2 Delivery O2 Flow Rate FiO2 02/11/20 08:46 83 133/59 02/11/20 08:00 98.6 83 19 133/59 (83) 100 02/11/20 04:00 98.8 69 22 134/70 (91) 100 02/11/20 00:00 99.9 69 26 130/69 (89) 100 02/10/20 21:00 Room Air 02/10/20 20:00 99.9 75 24 117/59 (78) 100 02/10/20 16:00 98.9 70 20 120/63 (82) 99 02/10/20 12:00 99.0 73 20 115/55 (75) 100 Intake and Output 02/10/20 02/11/20 19:00 07:00 Intake Total 1080 ml 785 ml Output Total 300 ml Balance 780 ml 785 ml IV Total 1080 ml 785 ml Output Urine Total 300 ml # Voids 2 # Bowel Movements 2 Height (Feet): 5 Height (Inches): 5.00 Weight (Pounds): 137 Objective General Appearance: aphasic, awake, alert, appears comfortable HEENT: NCAT, b/l blindness, left prostehsis, dry MM Cardiovascular: regular rhythm Respiratory/Chest: lungs clear, no accessory muscle usage Abdomen: non tender, soft Edema: no edema noted Anthony Guerra M.D. Feb 11, 2020 09:59
[2020-02-11 10:55] LABS: HEMATOCRIT 23.1 % (37.0-47.0); HEMOGLOBIN 8.3 G/DL (12.0-16.0); MEAN CORPUSCULAR VOLUME 84 FL (80-99); PLATELET COUNT 17 K/UL (150-450); RED BLOOD COUNT 2.76 M/UL (4.20-5.40); RED CELL DISTRIBUTION WIDTH 13.8 % (11.6-14.8); WHITE BLOOD COUNT 15.6 K/UL (4.8-10.8)
[2020-02-11 10:58] LABS: BLOOD UREA NITROGEN 14 mg/dL (7-18); CALCIUM 7.6 MG/DL (8.5-10.1); CARBON DIOXIDE 16 MMOL/L (21-32); CHLORIDE 107 MMOL/L (98-107); CREATININE 0.9 MG/DL (0.55-1.30); PHOSPHORUS 3.3 MG/DL (2.5-4.9); SODIUM 136 MMOL/L (136-145)
[2020-02-11 12:00] VITALS: BP 127/67
--- NOTE | 2020-02-11 13:35 | Nephrology Progress Note ---
Assessment/Plan Plan #Hyponatremia- due to excess free water #E. 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 cefazolin -Transfuse PRBC for supportive care -Monitor daily CBC -Unable to initiation chemotherapy at this time per Heme/Onc due to poor prognosis Subjective ROS Limited/Unobtainable: Yes Subjective Sodium improved to 136 WBC remains elevated appears comfortable Objective Objective Last 24 Hour Vital Signs Date Time Temp Pulse Resp B/P (MAP) Pulse Ox O2 Delivery O2 Flow Rate FiO2 02/11/20 12:00 97.7 82 18 127/67 (87) 97 02/11/20 09:00 Room Air 02/11/20 08:46 83 133/59 02/11/20 08:00 98.6 83 19 133/59 (83) 100 02/11/20 04:00 98.8 69 22 134/70 (91) 100 02/11/20 00:00 99.9 69 26 130/69 (89) 100 02/10/20 21:00 Room Air 02/10/20 20:00 99.9 75 24 117/59 (78) 100 02/10/20 16:00 98.9 70 20 120/63 (82) 99 Intake and Output 02/10/20 02/11/20 19:00 07:00 Intake Total 1080 ml 785 ml Output Total 300 ml Balance 780 ml 785 ml IV Total 1080 ml 785 ml Output Urine Total 300 ml # Voids 2 # Bowel Movements 2 Laboratory Tests 02/11/20 10:15: White Blood Count 15.6H, Red Blood Count 2.76L, Hemoglobin 8.3L, Hematocrit 23.1L, Mean Corpuscular Volume 84, Mean Corpuscular Hemoglobin 30.2, Mean Corpuscular Hemoglobin Concent 36.0, Red Cell Distribution Width 13.8, Platelet Count 17L, Mean Platelet Volume 12.1H, Neutrophils (%) (Auto) , Lymphocytes (%) (Auto) , Monocytes (%) (Auto) , Eosinophils (%) (Auto) , Basophils (%) (Auto) , Differential Total Cells Counted 100, Neutrophils % (Manual) 12L, Lymphocytes % (Manual) 42, Monocytes % (Manual) 6, Eosinophils % (Manual) 0, Basophils % ( Manual) 0, Blast Cells % 40*H, Band Neutrophils 0, Platelet Estimate DecreasedL , Platelet Morphology Normal, Hypochromasia 1+, Anisocytosis 1+, Sodium Level 136, Potassium Level 4.0, Chloride Level 107, Carbon Dioxide Level 16L, Blood Urea Nitrogen 14, Creatinine 0.9, Estimat Glomerular Filtration Rate > 60, Glucose Level 71L, Calcium Level 7.6L, Phosphorus Level 3.3, Magnesium Level 1.3L Height (Feet): 5 Height (Inches): 5.00 Weight (Pounds): 137 Objective General Appearance: aphasic, awake, alert, appears comfortable HEENT: NCAT, b/l blindness, left prostehsis, dry MM Cardiovascular: regular rhythm Respiratory/Chest: lungs clear, no accessory muscle usage Abdomen: non tender, soft Edema: no edema noted Tristan Morris M.D. Feb 11, 2020 13:35
[2020-02-11 16:00] VITALS: BP 133/66
--- NOTE | 2020-02-11 19:25 | NUR ---
NURSE NOTES: RECEIVED PATIENT FROM RETA KEYES. PATIENT IS ASLEEP, ON NC 2L NO ACUTE DISTRESS NOTED. WOUND DRESSINGS INTACT. IV ON RIGHT WRIST INTACT AND PATENT. BED IS LOCKED AND LOW, BED ALARMS ACTIVE, SIDE RAILS UP X2 AND CALL LIGHT IS WITHIN REACH. WILL CONTINUE TO MONITOR.
--- NOTE | 2020-02-11 19:51 | NUR ---
HAND-OFF: Report given to RETA Mcmanus.
[2020-02-11 20:00] VITALS: BP 107/61
--- NOTE | 2020-02-11 20:41 | Neurology Progress Note ---
Interim History Interim History ROS Limited/Unobtainable: Yes Interim History poor prognosis , fu hospice Objective Physical Exam Last Vital Signs Date Time Temp Pulse Resp B/P (MAP) Pulse Ox O2 Delivery O2 Flow Rate FiO2 02/11/20 16:00 97.3 74 19 133/66 (88) 97 02/11/20 09:00 Room Air 02/09/20 09:00 2.0 Laboratory Tests Test 02/11/20 10:15 White Blood Count 15.6 K/UL (4.8-10.8) H Red Blood Count 2.76 M/UL (4.20-5.40) L Hemoglobin 8.3 G/DL (12.0-16.0) L Hematocrit 23.1 % (37.0-47.0) L Mean Corpuscular Volume 84 FL (80-99) Mean Corpuscular Hemoglobin 30.2 PG (27.0-31.0) Mean Corpuscular Hemoglobin Concent 36.0 G/DL (32.0-36.0) Red Cell Distribution Width 13.8 % (11.6-14.8) Platelet Count 17 K/UL (150-450) L Mean Platelet Volume 12.1 FL (6.5-10.1) H Neutrophils (%) (Auto) % (45.0-75.0) Lymphocytes (%) (Auto) % (20.0-45.0) Monocytes (%) (Auto) % (1.0-10.0) Eosinophils (%) (Auto) % (0.0-3.0) Basophils (%) (Auto) % (0.0-2.0) Differential Total Cells Counted 100 Neutrophils % (Manual) 12 % (45-75) L Lymphocytes % (Manual) 42 % (20-45) Monocytes % (Manual) 6 % (1-10) Eosinophils % (Manual) 0 % (0-3) Basophils % (Manual) 0 % (0-2) Blast Cells % 40 % (0-0) *H Band Neutrophils 0 % (0-8) Platelet Estimate Decreased L Platelet Morphology Normal Hypochromasia 1+ Anisocytosis 1+ Sodium Level 136 MMOL/L (136-145) Potassium Level 4.0 MMOL/L (3.5-5.1) Chloride Level 107 MMOL/L (98-107) Carbon Dioxide Level 16 MMOL/L (21-32) L Blood Urea Nitrogen 14 mg/dL (7-18) Creatinine 0.9 MG/DL (0.55-1.30) Estimat Glomerular Filtration Rate > 60 mL/min (>60) Glucose Level 71 MG/DL (74-106) L Calcium Level 7.6 MG/DL (8.5-10.1) L Phosphorus Level 3.3 MG/DL (2.5-4.9) Magnesium Level 1.3 MG/DL (1.8-2.4) L Neurologic Exam Objective lethargic, withdraws to pain Impression/Recommendations Problems: (1) Hyperkalemia (2) Thrombocytopenia (3) Acute metabolic encephalopathy (4) Acute renal failure (5) Dehydration (6) Acute renal failure (7) UTI (urinary tract infection) (8) Quadriplegia and quadriparesis (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, old, cognitive deficits (11) Anemia, unspecified (12) Vascular dementia (13) Acute respiratory failure (14) Atrial fibrillation (15) Septicemia (16) Dysphagia (17) Leukemia (18) Respiratory failure (19) Iron deficiency anemia (20) Sepsis (21) Altered mental status (22) Cardiomyopathy (23) Pneumonia (24) Alteration consciousness (25) HTN (hypertension) (26) Pain (27) Pain (28) MODS (multiple organ dysfunction syndrome) (29) Cerebral vascular disease (30) Elevated CEA (31) Decubital ulcer (32) Penicillin allergy (33) PEG (percutaneous endoscopic gastrostomy) adjustment/replacement/removal (34) SEPSIS, ABD PAIN (35) AL Diagnostic Impression poor prognosis Corwin Ackerman MD Feb 11, 2020 20:41
--- NOTE | 2020-02-11 21:08 | Infectious Diseases Prog Note ---
Assessment/Plan Assessment/Plan Full consult dictated: A) 1) e.coli uti, sepsis, leukocytosis 2) mrsa colonization 3) pmh noted P) 1) ancef (02/03/20) 2) f/u on chest x-ray and labs 3) thank you Subjective Allergies: Coded Allergies: PENICILLINS (Unverified Allergy, Unknown, 03/16/15) Objective Vital Signs Last 24 Hour Vital Signs Date Time Temp Pulse Resp B/P (MAP) Pulse Ox O2 Delivery O2 Flow Rate FiO2 02/11/20 16:00 97.3 74 19 133/66 (88) 97 02/11/20 12:00 97.7 82 18 127/67 (87) 97 02/11/20 09:00 Room Air 02/11/20 08:46 83 133/59 02/11/20 08:00 98.6 83 19 133/59 (83) 100 02/11/20 04:00 98.8 69 22 134/70 (91) 100 02/11/20 00:00 99.9 69 26 130/69 (89) 100 Height (Feet): 5 Height (Inches): 5.00 Weight (Pounds): 137 Laboratory Tests Test 02/11/20 10:15 White Blood Count 15.6 K/UL (4.8-10.8) H Red Blood Count 2.76 M/UL (4.20-5.40) L Hemoglobin 8.3 G/DL (12.0-16.0) L Hematocrit 23.1 % (37.0-47.0) L Mean Corpuscular Volume 84 FL (80-99) Mean Corpuscular Hemoglobin 30.2 PG (27.0-31.0) Mean Corpuscular Hemoglobin Concent 36.0 G/DL (32.0-36.0) Red Cell Distribution Width 13.8 % (11.6-14.8) Platelet Count 17 K/UL (150-450) L Mean Platelet Volume 12.1 FL (6.5-10.1) H Neutrophils (%) (Auto) % (45.0-75.0) Lymphocytes (%) (Auto) % (20.0-45.0) Monocytes (%) (Auto) % (1.0-10.0) Eosinophils (%) (Auto) % (0.0-3.0) Basophils (%) (Auto) % (0.0-2.0) Differential Total Cells Counted 100 Neutrophils % (Manual) 12 % (45-75) L Lymphocytes % (Manual) 42 % (20-45) Monocytes % (Manual) 6 % (1-10) Eosinophils % (Manual) 0 % (0-3) Basophils % (Manual) 0 % (0-2) Blast Cells % 40 % (0-0) *H Band Neutrophils 0 % (0-8) Platelet Estimate Decreased L Platelet Morphology Normal Hypochromasia 1+ Anisocytosis 1+ Sodium Level 136 MMOL/L (136-145) Potassium Level 4.0 MMOL/L (3.5-5.1) Chloride Level 107 MMOL/L (98-107) Carbon Dioxide Level 16 MMOL/L (21-32) L Blood Urea Nitrogen 14 mg/dL (7-18) Creatinine 0.9 MG/DL (0.55-1.30) Estimat Glomerular Filtration Rate > 60 mL/min (>60) Glucose Level 71 MG/DL (74-106) L Calcium Level 7.6 MG/DL (8.5-10.1) L Phosphorus Level 3.3 MG/DL (2.5-4.9) Magnesium Level 1.3 MG/DL (1.8-2.4) L Current Medications Medications (Trade) Dose Ordered Sig/Javier Route PRN Reason Start Time Stop Time Status Last Admin Dose Admin Acetaminophen (Tylenol) 650 mg Q4H PRN ORAL Mild Pain (Pain Scale 1-3) 02/01/20 16:30 03/02/20 12:19 Acetaminophen (Tylenol) 650 mg Q4H PRN ORAL T>100.4 02/01/20 16:30 03/02/20 12:19 Amiodarone HCl (Cordarone) 200 mg DAILY GT 02/02/20 09:00 05/02/20 08:59 02/11/20 08:46 Amlodipine Besylate (Norvasc) 5 mg DAILY ORAL 02/02/20 09:00 03/03/20 08:59 02/11/20 08:46 Ascorbic Acid (Vitamin C) 500 mg TWICE A DAY GT 02/01/20 18:00 03/02/20 17:59 02/11/20 17:13 Bisacodyl (Dulcolax) 10 mg DAILYPRN PRN RECTAL Constipation 02/01/20 16:00 05/01/20 15:59 Cefazolin Sodium 1 gm/Dextrose 55 ml @ 110 mls/hr Q12H IVPB 02/12/20 04:00 02/22/20 11:59 UNV Dextrose (Dextrose 50%) 25 ml Q30M PRN IV Hypoglycemia 02/01/20 16:00 05/01/20 11:59 Dextrose (Dextrose 50%) 50 ml Q30M PRN IV Hypoglycemia 02/01/20 16:00 05/01/20 11:59 Docusate Sodium (Colace) 100 mg TWICE A DAY ORAL 02/01/20 18:00 03/02/20 17:59 02/11/20 17:14 Epoetin Yaniv (Epoetin Yaniv-EPBX(NON ESRD)) 10,000 unit WED-WED-WED SUBQ 02/07/20 21:00 05/07/20 20:59 02/09/20 20:44 Morphine Sulfate (Morphine Sulfate) 1 mg Q4H PRN IVP pain 02/08/20 06:15 02/15/20 06:14 Ondansetron HCl (Zofran) 4 mg Q8H PRN GT Nausea & Vomiting 02/01/20 16:00 03/02/20 15:59 Pantoprazole (Protonix) 40 mg DAILY ORAL 02/02/20 09:00 03/03/20 08:59 02/11/20 08:46 Polyethylene Glycol (Miralax) 17 gm HSPRN PRN ORAL Constipation 02/01/20 16:00 03/02/20 15:59 Sodium Chloride 1,000 ml @ 75 mls/hr [id number] IV 02/10/20 21:30 03/11/20 21:29 02/11/20 11:24 Shanell Patricia MD Feb 11, 2020 21:08
[2020-02-11] MEDS ORDERED: ceFAZolin sod 1 GM in D5W 55 ML IVPB SCH (22:00)
[2020-02-12] VITALS (10 sets, daily range): BP systolic 82–140; BP diastolic 40–76
[2020-02-12] MEDS: ceFAZolin sod 1 GM in D5W 55 ML IVPB SCH ×3 (01:45→18:00)
--- NOTE | 2020-02-12 02:00 | Consultation ---
DATE OF CONSULTATION: 02/11/2020 INFECTIOUS DISEASES CONSULTATION CONSULTING PHYSICIAN: Shanell Patricia MD. ATTENDING PHYSICIAN: Alma Guerra MD. REFERRING PHYSICIAN: Alma Guerra MD. REASON FOR CONSULTATION: E. coli UTI with sepsis and elevated white count. CHIEF COMPLAINT: The patient's chief complaint coming in to the hospital is UTI with sepsis. HISTORY OF PRESENT ILLNESS: This is a 79-year-old female who comes into [facility] and was noted to be septic. The patient's white count was as high as 25.5. Blood cultures were negative; however, urine culture grew out greater than 100,000 E. coli, sensitive to cefazolin. UA had 40-60 white blood cells. Chest x-ray was negative. Infectious Diseases consultation was requested because of leukocytosis, E. coli UTI with sepsis, and complicated UTI. The patient will be continued on cefazolin at this time. MAR was noted. Orders were noted. Notes and records were reviewed. REVIEW OF SYSTEMS: CONSTITUTIONAL: The patient is nonverbal with generalized weakness and fatigue. She has no fevers. CARDIAC: No pressors. GASTROINTESTINAL: No nausea, vomiting, or diarrhea. GENITOURINARY: No Piper. PULMONARY: No significant shortness of breath. SKIN: No rash. EXTREMITIES: Could not assess. NEUROLOGIC: No seizures. Review of systems is otherwise limited. This patient is poorly responsive overall. Again, no fevers or pressors. PAST MEDICAL HISTORY: The patient has a past medical history of being bedridden with bilateral strokes. Other past medical history includes anemia with blasts. She has possible lymphoma. Other past medical history includes diabetes, dementia, agitation, and paroxysmal atrial fibrillation. She has also history of CVA and deconditioning. In addition, she has history of thrombocytopenia, schizophrenia also, lymphoma, and leukemia with concern for blast crisis. ALLERGIES: Include penicillin. She tolerates cephalosporins. SOCIAL HISTORY: Negative for smoking, alcohol, or drug abuse. FAMILY HISTORY: Noncontributory. Negative for tuberculosis or cancer. MEDICATIONS: Upon reviewing the MAR, she is on the following medications. She is on magnesium sulfate, IV fluids, morphine, cefazolin, potassium, amiodarone, amlodipine, pantoprazole, ascorbic acid, docusate, acetaminophen, Xanax, Dulcolax, and Zofran. Cefepime was given initially, but now she is on cefazolin. Cefazolin was started on February 03, 2020. Outside medications were noted and reconciliated. PHYSICAL EXAMINATION: VITAL SIGNS: Temperature 97.3, pulse rate 74, respiratory rate 19, blood pressure 133/66, saturation 97%. GENERAL: Weak, lethargic. HEAD AND NECK: Oral exam, no thrush. Eye exam, no icterus. Normocephalic. Neck is supple. HEART: Regular. No gallop or murmur. No friction rub. ABDOMEN: Soft. Positive bowel sounds. Cannot assess tenderness. LUNGS: Fairly clear bilaterally. No rhonchi or rales. SKIN: No rash. She has wounds, I reviewed, and they do not look acutely infected. MUSCULOSKELETAL: No effusions. Legs are without cellulitis. PERIPHERAL VASCULAR: No cyanosis or gangrene. GENITOURINARY: She has no Piper. LINE SITES: Without phlebitis. NEUROLOGIC: Generalized weakness and poorly responsive. LABORATORY DATA: Sodium yesterday is 128. Creatinine 0.9. White count 15.6, hemoglobin 8.3. White count on 02/06/2020 was 25.5. Urinalysis had 4-6 white blood cells and 3+ leukocyte esterase. Cultures, MRSA screen is positive, blood cultures negative, urine culture with E. coli sensitive to cefazolin and Rocephin. IMAGING STUDIES: Chest x-ray showed no acute disease. ASSESSMENT AND PLAN: 1. The patient has E. coli UTI with sepsis and leukocytosis. The patient's chest x-ray initially was negative; however, we will get followup chest x-ray because of persistent leukocytosis. Again, the E. coli UTI is complicated with sepsis and leukocytosis; however, she also could have acute blast crisis possibly causing leukocytosis. Continue cefazolin day #8. As the white count is stable and improved, consider transition to oral medications, plan on 10-day to 14-day treatment course with beta-lactam treatment for E. coli UTI and sepsis. Continue cefazolin for now. We will change to 1 g q.8h. 2. MRSA colonization and isolation. 3. Wound care protocol, not a source of sepsis. 4. Diabetes. 5. Atrial fibrillation. 6. Blood sugar treatment per primary care team. 7. Anemia. 8. CVA and weakness. 9. Dementia. 10. Failure to thrive and quadriplegia. 11. Lymphoma. 12. 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 13. Failure to thrive and quadriplegia. 14. CVA, dementia, deconditioning. 15. Continue treatment per primary consultants. 16. Allergy to penicillin. 17. Social history is negative. 18. Family history is noncontributory. 19. MAR was noted. 20. Case discussed with RN. Shanell Patricia M.D. DR: Quinten JOB#: [id number] CC:
[2020-02-12] MEDS ORDERED: ceFAZolin sod 1 GM in D5W 55 ML IVPB SCH (04:00)
[2020-02-12 06:48] LABS: ANION GAP 14 mmol/L (5-15); BLOOD UREA NITROGEN 13 mg/dL (7-18); CALCIUM 7.9 MG/DL (8.5-10.1); CARBON DIOXIDE 16 MMOL/L (21-32); CHLORIDE 108 MMOL/L (98-107); CREATININE 0.9 MG/DL (0.55-1.30); SODIUM 138 MMOL/L (136-145)
[2020-02-12 07:10] LABS: HEMATOCRIT 18.2 % (37.0-47.0); MEAN CORPUSCULAR VOLUME 84 FL (80-99); PLATELET COUNT 15 K/UL (150-450); RED BLOOD COUNT 2.17 M/UL (4.20-5.40); RED CELL DISTRIBUTION WIDTH 15.4 % (11.6-14.8); WHITE BLOOD COUNT 12.7 K/UL (4.8-10.8)
--- NOTE | 2020-02-12 07:27 | NUR ---
HAND-OFF: Report given to RETA Granados. Patient is in stable condition.
--- NOTE | 2020-02-12 08:01 | NUR ---
NURSE NOTES: pt is in the bed asleep. noted with slight labored breathing on o2 @c 2l/min via nc. hob elevated. call light is within reach, will continue to monitor
[2020-02-12 08:14] LABS: HEMOGLOBIN 6.5 G/DL (12.0-16.0)
--- NOTE | 2020-02-12 09:06 | General Progress Note ---
Assessment/Plan Assessment/Plan: 79 y/o F with PMH CVA, schizophrenia, vascular dementia, leukemia who presents from [facility] for AMS, found to have E. coli UTI and severe anemia #E. coli UTI -cont. inpatient medical management -UCx + for E. Coli -cont. 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 -Spoke w/daughter Leyla again on 02/10, states she is still unable to decide on hospice at this time but agreeable to consult to discuss POC w/hospice group -s/p 1 U PRBC 02/09 -Hgb 6.5, transfuse 2 U PRBC -Gen surgery consulted for line placement #FTT #physical deconditioning #Quadriplegia -nutrition consulted -PT/OT #CVA #vascular dementia -minimally verbal at b/l per PCP -no ASA given thrombocytopenia Pt has poor prognosis given terminal conditions noted above. Dispo: f/u on hospice consult Time spent on encounter: 35 mins, >50% on counseling, coordination of care discussion with RN, Hematology, ID, gen surgery. Time of note doesn't reflect time of encounter. Subjective Allergies: Coded Allergies: PENICILLINS (Unverified Allergy, Unknown, 03/16/15) Subjective Follow up for UTI, acute severe anemia, thrombocytopenia, concern for acute leukemia/blast crisis. Hgb 6.5 this AM, nurse unable to get line. Pt appears uncomfortable. Objective Last 24 Hour Vital Signs Date Time Temp Pulse Resp B/P (MAP) Pulse Ox O2 Delivery O2 Flow Rate FiO2 02/12/20 08:00 97.6 80 20 130/71 (90) 98 02/12/20 04:00 98.0 84 22 102/65 (77) 97 02/12/20 00:00 98.7 83 23 107/67 (80) 95 02/11/20 21:00 Room Air 02/11/20 20:00 99.4 78 23 107/61 (76) 96 02/11/20 16:00 97.3 74 19 133/66 (88) 97 02/11/20 12:00 97.7 82 18 127/67 (87) 97 Intake and Output 02/11/20 02/12/20 18:59 06:59 Intake Total 525 ml 1085 ml Balance 525 ml 1085 ml IV Total 525 ml 1085 ml # Voids 2 # Bowel Movements 2 Laboratory Tests 02/11/20 10:15: White Blood Count 15.6H, Red Blood Count 2.76L, Hemoglobin 8.3L, Hematocrit 23.1L, Mean Corpuscular Volume 84, Mean Corpuscular Hemoglobin 30.2, Mean Corpuscular Hemoglobin Concent 36.0, Red Cell Distribution Width 13.8, Platelet Count 17L, Mean Platelet Volume 12.1H, Neutrophils (%) (Auto) , Lymphocytes (%) (Auto) , Monocytes (%) (Auto) , Eosinophils (%) (Auto) , Basophils (%) (Auto) , Differential Total Cells Counted 100, Neutrophils % (Manual) 12L, Lymphocytes % (Manual) 42, Monocytes % (Manual) 6, Eosinophils % (Manual) 0, Basophils % ( Manual) 0, Blast Cells % 40*H, Band Neutrophils 0, Platelet Estimate DecreasedL , Platelet Morphology Normal, Hypochromasia 1+, Anisocytosis 1+, Sodium Level 136, Potassium Level 4.0, Chloride Level 107, Carbon Dioxide Level 16L, Blood Urea Nitrogen 14, Creatinine 0.9, Estimat Glomerular Filtration Rate > 60, Glucose Level 71L, Calcium Level 7.6L, Phosphorus Level 3.3, Magnesium Level 1.3L 02/12/20 05:20: White Blood Count 12.7H, Red Blood Count 2.17L, Hemoglobin 6.5*L, Hematocrit 18.2L, Mean Corpuscular Volume 84, Mean Corpuscular Hemoglobin 30.1, Mean Corpuscular Hemoglobin Concent 35.9, Red Cell Distribution Width 15.4H, Platelet Count 15L, Mean Platelet Volume 8.0, Neutrophils (%) (Auto) , Lymphocytes (%) (Auto) , Monocytes (%) (Auto) , Eosinophils (%) (Auto) , Basophils (%) (Auto) , Neutrophils % (Manual) [Pending], Lymphocytes % (Manual) [Pending], Platelet Estimate [Pending], Platelet Morphology [Pending], Sodium Level 138, Potassium Level 4.0, Chloride Level 108H, Carbon Dioxide Level 16L, Blood Urea Nitrogen 13, Creatinine 0.9, Estimat Glomerular Filtration Rate > 60 , Glucose Level 96, Calcium Level 7.9L, Anion Gap 14 Height (Feet): 5 Height (Inches): 5.00 Weight (Pounds): 137 Objective General Appearance: aphasic, awake, alert, appears comfortable HEENT: NCAT, b/l blindness, left prostehsis, dry MM Cardiovascular: irregular rhythm Respiratory/Chest: coarse rhonchi, no accessory muscle usage Abdomen: non tender, soft Edema: no edema noted Anthony Guerra M.D. Feb 12, 2020 09:06
--- NOTE | 2020-02-12 09:50 | Nephrology Progress Note ---
Assessment/Plan Plan #Hyponatremia- due to excess free water #E. 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 cefazolin -Transfuse PRBC for supportive care -Monitor daily CBC -Unable to initiation chemotherapy at this time per Heme/Onc due to poor prognosis Subjective ROS Limited/Unobtainable: Yes Subjective Sodium improved to 136 WBC remains elevated appears comfortable hemoglobin low Objective Objective Last 24 Hour Vital Signs Date Time Temp Pulse Resp B/P (MAP) Pulse Ox O2 Delivery O2 Flow Rate FiO2 02/12/20 09:00 Room Air 02/12/20 08:00 97.6 80 20 130/71 (90) 98 02/12/20 04:00 98.0 84 22 102/65 (77) 97 02/12/20 00:00 98.7 83 23 107/67 (80) 95 02/11/20 21:00 Room Air 02/11/20 20:00 99.4 78 23 107/61 (76) 96 02/11/20 16:00 97.3 74 19 133/66 (88) 97 02/11/20 12:00 97.7 82 18 127/67 (87) 97 Intake and Output 02/11/20 02/12/20 19:00 07:00 Intake Total 600 ml 1085 ml Balance 600 ml 1085 ml IV Total 600 ml 1085 ml # Voids 2 # Bowel Movements 2 Laboratory Tests 02/11/20 10:15: White Blood Count 15.6H, Red Blood Count 2.76L, Hemoglobin 8.3L, Hematocrit 23.1L, Mean Corpuscular Volume 84, Mean Corpuscular Hemoglobin 30.2, Mean Corpuscular Hemoglobin Concent 36.0, Red Cell Distribution Width 13.8, Platelet Count 17L, Mean Platelet Volume 12.1H, Neutrophils (%) (Auto) , Lymphocytes (%) (Auto) , Monocytes (%) (Auto) , Eosinophils (%) (Auto) , Basophils (%) (Auto) , Differential Total Cells Counted 100, Neutrophils % (Manual) 12L, Lymphocytes % (Manual) 42, Monocytes % (Manual) 6, Eosinophils % (Manual) 0, Basophils % ( Manual) 0, Blast Cells % 40*H, Band Neutrophils 0, Platelet Estimate DecreasedL , Platelet Morphology Normal, Hypochromasia 1+, Anisocytosis 1+, Sodium Level 136, Potassium Level 4.0, Chloride Level 107, Carbon Dioxide Level 16L, Blood Urea Nitrogen 14, Creatinine 0.9, Estimat Glomerular Filtration Rate > 60, Glucose Level 71L, Calcium Level 7.6L, Phosphorus Level 3.3, Magnesium Level 1.3L 02/12/20 05:20: White Blood Count 12.7H, Red Blood Count 2.17L, Hemoglobin 6.5*L, Hematocrit 18.2L, Mean Corpuscular Volume 84, Mean Corpuscular Hemoglobin 30.1, Mean Corpuscular Hemoglobin Concent 35.9, Red Cell Distribution Width 15.4H, Platelet Count 15L, Mean Platelet Volume 8.0, Neutrophils (%) (Auto) , Lymphocytes (%) (Auto) , Monocytes (%) (Auto) , Eosinophils (%) (Auto) , Basophils (%) (Auto) , Neutrophils % (Manual) [Pending], Lymphocytes % (Manual) [Pending], Platelet Estimate [Pending], Platelet Morphology [Pending], Sodium Level 138, Potassium Level 4.0, Chloride Level 108H, Carbon Dioxide Level 16L, Blood Urea Nitrogen 13, Creatinine 0.9, Estimat Glomerular Filtration Rate > 60 , Glucose Level 96, Calcium Level 7.9L, Anion Gap 14 Height (Feet): 5 Height (Inches): 5.00 Weight (Pounds): 137 Objective General Appearance: aphasic, awake, alert, appears comfortable HEENT: NCAT, b/l blindness, left prostehsis, dry MM Cardiovascular: regular rhythm Respiratory/Chest: lungs clear, no accessory muscle usage Abdomen: non tender, soft Edema: no edema noted Tristan Morris M.D. Feb 12, 2020 09:50
[2020-02-12] MEDS: Docusate 100mg cap ORAL SCH ×2 (09:53→18:00)
[2020-02-12] MEDS: Amiodarone 200mg tab GT SCH (09:53)
[2020-02-12] MEDS: Ascorbic Acid 500mg tab GT SCH ×2 (09:53→18:00)
--- NOTE | 2020-02-12 10:25 | NUR ---
*-*DISCHARGE PLANNING*-* PATENT HAS BEEN REFERRED TO: [facility] P: [phone] F: [phone] Addendum: 02/13/20 at 1135 by SURINDER DUNCAN CM *-*DISCHARGE PLANNING*-* PATENT HAS BEEN REFERRED TO: [facility] P: [phone] F: [phone]
--- NOTE | 2020-02-12 11:17 | Diagnostic Imaging Report ---
Indication: Shortness of breath Technique: One view of the chest Comparison: 01/31/2020 Findings: There is bilateral interstitial congestion which is new or increased compared to the prior study. The heart is enlarged. Impression: Cardiomegaly Mild bilateral interstitial congestion
--- NOTE | 2020-02-12 11:53 | Consultation ---
History of Present Illness General Date patient seen: Feb 12, 2020 Chief Complaint: General Complaint Reason for Consultation: ams Present Illness HPI This is a 79-year-old female with multiple medical comorbidities history of lymphoma, anemia who presents to [facility] septic with leukocytosis , anemia, abnormal labs. Patient initially admitted and has been under medical care and management. Her hemoglobin continues to trend down and she requires transfusions. She has no peripheral access currently and continues to be septic requiring aggressive care therefore surgery was called to evaluate and assist with care and management of patient. Patient seen, patient evaluated, chart reviewed. Patient unable to provide meaningful history or cooperate in exam. She is contracted upper and lower extremities to some extent and only verbalizes random moaning. Chart reviewed in detail. Allergies: Coded Allergies: PENICILLINS (Unverified Allergy, Unknown, 03/16/15) Medication History Scheduled Amiodarone Hcl* (Amiodarone Hcl*), 200 MG GT DAILY, (Reported) Amlodipine Besylate (Norvasc), 10 MG GT DAILY, (Reported) Amlodipine Besylate (Norvasc), 5 MG ORAL DAILY, (Reported) Ascorbic Acid* (Ascorbic Acid*), 500 MG GT DAILY, (Reported) Ascorbic Acid* (Vitamin C*), 500 MG GT TWICE A DAY, (Reported) Bisacodyl (Dulcolax), 10 MG RC DAILY, (Reported) Docusate Sodium (Docusate Sodium), 100 MG GT TWICE A DAY, (Reported) Doxazosin Mesylate* (Doxazosin Mesylate*), 2 MG GT QHS, (Reported) Multivitamin With Minerals (Multivitamins With Minerals*), 15 ML GT DAILY, ( Reported) Pantoprazole* (Pantoprazole*), 40 MG GT DAILY, (Reported) Ranitidine Hcl* (Zantac*), 150 MG ORAL DAILY, (Reported) Scheduled PRN Acetaminophen (Acetaminophen), 650 MG GT Q6H PRN for Fever/Headache/Mild Pain, ( Reported) Alprazolam* (Xanax*), 0.5 MG GT EVERY 6 HOURS PRN for ALLUCINATION, (Reported) Aztreonam (Azactam), 1 GM IVPB for Q8HR, (Reported) Clonidine Hcl* (Catapres*), 0.2 MG GT Q6HR PRN for For High Blood Pressure, ( Reported) Ondansetron (Zofran), 4 MG GT EVERY 8 HOURS PRN for Nausea & Vomiting, (Reported ) Ondansetron* (Zofran*), 4 MG IM Q4HR PRN for Nausea & Vomiting, (Reported) Polyethylene Glycol 3350* (Polyethylene Glycol 3350*), 17 GM ORAL BEDTIME PRN for Constipation, (Reported) Miscellaneous Medications Insulin Lispro (Humalog), 0 SUBQ, (Reported) Patient History Limited by: medical condition History Provided By: Medical Record, PMD Healthcare decision maker family Resuscitation status Full Code Advanced Directive on File No Past Medical/Surgical History Past Medical/Surgical History: (1) Hyperkalemia (2) Thrombocytopenia (3) Acute metabolic encephalopathy (4) Acute renal failure (5) Dehydration (6) Acute renal failure (7) UTI (urinary tract infection) (8) Quadriplegia and quadriparesis (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, old, cognitive deficits (11) Anemia, unspecified (12) Vascular dementia (13) Acute respiratory failure (14) Atrial fibrillation (15) Septicemia (16) Dysphagia (17) Leukemia (18) Respiratory failure (19) Iron deficiency anemia (20) Sepsis (21) Altered mental status (22) Cardiomyopathy (23) Pneumonia (24) Alteration consciousness (25) HTN (hypertension) (26) Pain (27) Pain (28) MODS (multiple organ dysfunction syndrome) (29) Cerebral vascular disease (30) Elevated CEA (31) Decubital ulcer (32) Penicillin allergy (33) PEG (percutaneous endoscopic gastrostomy) adjustment/replacement/removal (34) SEPSIS, ABD PAIN (35) AL Review of Systems ROS Narrative Unable to obtain given patient's current medical condition Physical Exam General Appearance: confused, mild distress Lines, tubes and drains: other - No access peripherally currently HEENT: normocephalic, atraumatic Neck: supple, other - Patient does have a goiter on the left neck Respiratory/Chest: decreased breath sounds, crackles/rales Cardiovascular/Chest: normal rate, regular rhythm Abdomen: soft, no organomegaly, no mass Extremities: slow capillary refill, moderate edema Skin Exam: warm/dry Neurologic: unresponsiveness Last 24 Hour Vital Signs Date Time Temp Pulse Resp B/P (MAP) Pulse Ox O2 Delivery O2 Flow Rate FiO2 02/12/20 09:53 80 130/71 02/12/20 09:00 Room Air 02/12/20 08:00 97.6 80 20 130/71 (90) 98 02/12/20 04:00 98.0 84 22 102/65 (77) 97 02/12/20 00:00 98.7 83 23 107/67 (80) 95 02/11/20 21:00 Room Air 02/11/20 20:00 99.4 78 23 107/61 (76) 96 02/11/20 16:00 97.3 74 19 133/66 (88) 97 02/11/20 12:00 97.7 82 18 127/67 (87) 97 Intake and Output 02/11/20 02/12/20 19:00 07:00 Intake Total 600 ml 1085 ml Balance 600 ml 1085 ml IV Total 600 ml 1085 ml # Voids 2 # Bowel Movements 2 Laboratory Tests Test 02/12/20 05:20 White Blood Count 12.7 K/UL (4.8-10.8) H Red Blood Count 2.17 M/UL (4.20-5.40) L Hemoglobin 6.5 G/DL (12.0-16.0) *L Hematocrit 18.2 % (37.0-47.0) L Mean Corpuscular Volume 84 FL (80-99) Mean Corpuscular Hemoglobin 30.1 PG (27.0-31.0) Mean Corpuscular Hemoglobin Concent 35.9 G/DL (32.0-36.0) Red Cell Distribution Width 15.4 % (11.6-14.8) H Platelet Count 15 K/UL (150-450) L Mean Platelet Volume 8.0 FL (6.5-10.1) Neutrophils (%) (Auto) % (45.0-75.0) Lymphocytes (%) (Auto) % (20.0-45.0) Monocytes (%) (Auto) % (1.0-10.0) Eosinophils (%) (Auto) % (0.0-3.0) Basophils (%) (Auto) % (0.0-2.0) Differential Total Cells Counted 100 Neutrophils % (Manual) 18 % (45-75) L Lymphocytes % (Manual) 32 % (20-45) Monocytes % (Manual) 16 % (1-10) H Eosinophils % (Manual) 0 % (0-3) Basophils % (Manual) 0 % (0-2) Blast Cells % 33 % (0-0) *H Band Neutrophils 1 % (0-8) Platelet Estimate Decreased L Platelet Morphology Normal Hypochromasia 4+ Sodium Level 138 MMOL/L (136-145) Potassium Level 4.0 MMOL/L (3.5-5.1) Chloride Level 108 MMOL/L (98-107) H Carbon Dioxide Level 16 MMOL/L (21-32) L Anion Gap 14 mmol/L (5-15) Blood Urea Nitrogen 13 mg/dL (7-18) Creatinine 0.9 MG/DL (0.55-1.30) Estimat Glomerular Filtration Rate > 60 mL/min (>60) Glucose Level 96 MG/DL (74-106) Calcium Level 7.9 MG/DL (8.5-10.1) L Height (Feet): 5 Height (Inches): 5.00 Weight (Pounds): 137 Medications Current Medications Medications (Trade) Dose Ordered Sig/Javier Route PRN Reason Start Time Stop Time Status Last Admin Dose Admin Acetaminophen (Tylenol) 650 mg Q4H PRN ORAL Mild Pain (Pain Scale 1-3) 02/01/20 16:30 03/02/20 12:19 Acetaminophen (Tylenol) 650 mg Q4H PRN ORAL T>100.4 02/01/20 16:30 03/02/20 12:19 Amiodarone HCl (Cordarone) 200 mg DAILY GT 02/02/20 09:00 05/02/20 08:59 02/12/20 09:53 Amlodipine Besylate (Norvasc) 5 mg DAILY ORAL 02/02/20 09:00 03/03/20 08:59 02/12/20 09:53 Ascorbic Acid (Vitamin C) 500 mg TWICE A DAY GT 02/01/20 18:00 03/02/20 17:59 02/12/20 09:53 Bisacodyl (Dulcolax) 10 mg DAILYPRN PRN RECTAL Constipation 02/01/20 16:00 05/01/20 15:59 Cefazolin Sodium 1 gm/Dextrose 55 ml @ 110 mls/hr Q8H IVPB 02/12/20 02:00 02/19/20 01:59 02/12/20 01:45 Dextrose (Dextrose 50%) 25 ml Q30M PRN IV Hypoglycemia 02/01/20 16:00 05/01/20 11:59 Dextrose (Dextrose 50%) 50 ml Q30M PRN IV Hypoglycemia 02/01/20 16:00 05/01/20 11:59 Docusate Sodium (Colace) 100 mg TWICE A DAY ORAL 02/01/20 18:00 03/02/20 17:59 02/12/20 09:53 Epoetin Yaniv (Epoetin Yaniv-EPBX(NON ESRD)) 10,000 unit WED-WED-WED SUBQ 02/07/20 21:00 05/07/20 20:59 02/09/20 20:44 Morphine Sulfate (Morphine Sulfate) 1 mg Q4H PRN IVP pain 02/08/20 06:15 02/15/20 06:14 Ondansetron HCl (Zofran) 4 mg Q8H PRN GT Nausea & Vomiting 02/01/20 16:00 03/02/20 15:59 Pantoprazole (Protonix) 40 mg DAILY ORAL 02/02/20 09:00 03/03/20 08:59 02/12/20 09:53 Polyethylene Glycol (Miralax) 17 gm HSPRN PRN ORAL Constipation 02/01/20 16:00 03/02/20 15:59 Sodium Chloride 1,000 ml @ 75 mls/hr [id number] IV 02/10/20 21:30 03/11/20 21:29 02/12/20 00:22 Assessment/Plan Problem List: (1) Decubital ulcer Assessment & Plan: DAILY ESTIMATED NEEDS: Needs based on wound, bed bound 63.5kg abw 25-30 kcals/kg 0284-8656 total kcals 1.25-1.5 g protein/kg 79-95 g total protein 25-30 mL/kg 4951-0757 total fluid mLs NUTRITION DIAGNOSIS: Increased kcal and protein needs R/T wound healing sacral full thickness wound, pt is bedbound w/ poor po intake, pt is lethargic. CURRENT DIET: CCHO MED puree PO DIET RECOMMENDATIONS: Liberalized Regular/ Texture per LEGAL SECRETARY RECEPTIONIST + ENSURE TID ENTERAL NUTRITION RECOMMENDATIONS: IF PART OF POC -> Jevity 1.2 @ 55ml/hr x 24 hrs to provide 1320ml, 1584kcal, 73g prot, 1065ml free water * IF PART OF POC, obtain GI access * Initiate Jevity 1.2 @ 15ml/hr x 6hrs, advance 10ml q 4-6 hrs as tolerated to goal rate. * Once TF well tolerated at goal, add Prosouce 1pkt QD to better meet prot needs * HOB Over 30 degrees/ without IVF, water flush 150ml q 6 hrs * W/ TF, monitor lytes daily, replete as needed- high risk for refeeding syndrome. ADDITIONAL RECOMMENDATIONS: 1) Wound care: Vit C 250mg BID + MVI w/min qd Sang BID if tolerated 2) 1:1 feeds w/ all meals, Ensure TID as tolerated (pt is lethargic) 3) Pt remains Full Code, rec temp non oral feeds if part of POC -> mostly 0% intake since adm (LOS 9 today) 4) Continue D5 w/ continued poor po intake 5) Updated BMP ICD Codes: L89.90 - Pressure ulcer of unspecified site, unspecified stage SNOMED: 014536204 (2) Hyperkalemia ICD Codes: E87.5 - Hyperkalemia SNOMED: 63547483, 696030376 (3) Thrombocytopenia ICD Codes: D69.6 - Thrombocytopenia, unspecified SNOMED: 534444053 (4) Acute metabolic encephalopathy ICD Codes: G93.41 - Metabolic encephalopathy SNOMED: 83229656, 709715680 (5) Acute renal failure ICD Codes: N17.9 - Acute renal failure SNOMED: 27218061 Qualifiers: Qualified Codes: N17.9 - Acute kidney failure, unspecified (6) Dehydration ICD Codes: E86.0 - Dehydration SNOMED: 40481401 (7) Acute renal failure ICD Codes: N17.9 - Acute kidney failure, unspecified SNOMED: 76999240 (8) UTI (urinary tract infection) ICD Codes: N39.0 - UTI (urinary tract infection) SNOMED: 01589083 Qualifiers: Qualified Codes: N30.00 - Acute cystitis without hematuria (9) Quadriplegia and quadriparesis ICD Codes: G82.50 - Quadriplegia, unspecified SNOMED: 96917444032007 (10) 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 ICD Codes: D46.4 - Refractory anemia, unspecified SNOMED: 868466388 (11) CVA, old, cognitive deficits ICD Codes: I69.319 - Unspecified symptoms and signs involving cognitive functions following cerebral infarction SNOMED: 59383425, 337776270, 952127013, 655739002 (12) Anemia, unspecified ICD Codes: D64.9 - Anemia, unspecified SNOMED: 056674651 Qualifiers: Qualified Codes: D64.9 - Anemia, unspecified (13) Vascular dementia ICD Codes: F01.50 - Vascular dementia without behavioral disturbance SNOMED: 959258272 (14) Acute respiratory failure ICD Codes: J96.00 - Acute respiratory failure, unsp w hypoxia or hypercapnia SNOMED: 36115097 (15) Atrial fibrillation ICD Codes: I48.91 - Unspecified atrial fibrillation SNOMED: 78118250 (16) Septicemia Assessment & Plan: 79-year-old female septic anemic abnormal labs. Patient with leukocytosis on IV antibiotics per infectious disease Microbiology reviewed noted CO VID status Severe anemia trending down hemoglobin requiring transfusion Currently patient does not have access is appropriate for the above central venous catheter indicating recommended consent obtained with family See note procedure Continue IV antibiotics Transfuse as per hematology Trend labs Above nutrition recommendations for patient's overall status We will follow with recommendations thank you for allowing me to participate in patient's care ICD Codes: A41.9 - Septicemia SNOMED: 739477911 (17) Dysphagia ICD Codes: R13.10 - Dysphagia SNOMED: 94209441 (18) Leukemia ICD Codes: C95.90 - Leukemia, unspecified not having achieved remission SNOMED: 52586557 Qualifiers: Qualified Codes: C95.90 - Leukemia, unspecified not having achieved remission (19) Respiratory failure ICD Codes: J96.90 - Respiratory failure SNOMED: 603595628 (20) Iron deficiency anemia ICD Codes: D50.9 - Iron deficiency anemia SNOMED: 12378978 (21) Sepsis ICD Codes: A41.9 - Sepsis SNOMED: 76328437 Qualifiers: Qualified Codes: A41.9 - Sepsis, unspecified organism; R65.20 - Severe sepsis without septic shock; N17.9 - Acute kidney failure, unspecified (22) Altered mental status ICD Codes: R41.82 - Altered mental status, unspecified SNOMED: 190169314 (23) Cardiomyopathy ICD Codes: I42.9 - Cardiomyopathy, unspecified SNOMED: 80208860 (24) Pneumonia ICD Codes: J18.9 - Pneumonia, unspecified organism SNOMED: 323063641 (25) Alteration consciousness ICD Codes: R40.4 - Transient alteration of awareness SNOMED: 4898457 (26) HTN (hypertension) ICD Codes: I10 - Essential (primary) hypertension SNOMED: 36616724 (27) Pain ICD Codes: R52 - Pain, unspecified SNOMED: 46164197 (28) Pain ICD Codes: R52 - Pain, unspecified SNOMED: 37045819 (29) MODS (multiple organ dysfunction syndrome) ICD Codes: R69 - Illness, unspecified SNOMED: 433310614 (30) Cerebral vascular disease ICD Codes: I67.9 - Cerebrovascular disease, unspecified SNOMED: 91283318 (31) Elevated CEA ICD Codes: R97.0 - Elevated CEA SNOMED: 660363669 (32) Penicillin allergy ICD Codes: Z88.0 - Penicillin allergy SNOMED: 21859467 (33) PEG (percutaneous endoscopic gastrostomy) adjustment/replacement/removal ICD Codes: Z43.1 - Encounter for attention to gastrostomy SNOMED: 702286739, 337508280 (34) SEPSIS, ABD PAIN (35) Phil Weinstein Feb 12, 2020 11:52
--- NOTE | 2020-02-12 11:54 | NUR ---
called radiology department because pt has order for stat x-ray to confirm central line placement. x-ray tech said it has to wait no one is here.
--- NOTE | 2020-02-12 11:55 | Operative Note - PDOC ---
Operative Note Operative Note Date of Operation/Procedure: Feb 12, 2020 Pre-op Diagnosis: 1 sepsis 2 anemia 3 abnormal labs Procedure: Right subclavian central venous catheter insertion Post-op Diagnosis: same as pre-op Surgeon: Phil Dangelo MD Anesthesia: local Specimen: none Complications: none Condition: stable Estimated Blood Loss: minimal Drains: none Implant(s) used?: No Indications for Procedure Please see consult report. Septic anemic poor peripheral access upper extremity edema required central venous catheter for fluids meds and transfusions consent obtained from family Description of Procedure Patient was made comfortable at bedside in the supine position Trendelenburg position. The right chest wall was prepped draped in the same surgical fashion. Local anesthetic was infiltrated in proposed tract incision site. Finder needle was used and the right subclavian vein was cannulated on first stick without complication. Good venous flow was identified. Guidewire was placed over the needle needle removed. Guidewire went in gently without resistance. Small skin incision was made around the guidewire following the dilator was used. Once tract was dilated the triple-lumen central venous catheter was inserted over the guidewire and guidewire removed and discarded. All 3 ports flushed and aspirated appropriately. Line sutured in place. Dressings applied. Chest x-ray ordered. Will monitor closely. Phil Dangelo Feb 12, 2020 11:55
--- NOTE | 2020-02-12 12:02 | NUR ---
AESTHETICIAN NOTE CALL MADE TO PATIENTS DAUGHTER/NOK SAMANTHA CLAY IN RE TO ORDER FOR HOSPICE REFERRAL. PER SAMANTHA, STATES SHE RECEIVED A CALL FROM [facility] AND ARE IN THE PROCESS OF DISCUSSING HOSPICE AMONGST THE FAMILY AT THIS TIME. STATES A DECISION HAS NOT YET BEEN MADE ON THEIR PART. REQUESTED TO ALLOW TIME TO CONSIDER AT THIS TIME.
--- NOTE | 2020-02-12 12:47 | NUR ---
CASE MANAGEMENT:REVIEW SI;LEUKEMIA. UTI. FTT. ANEMIA. 98.7 84 23 102/65 95% ON RA WBC 12.7 RBC 2.17 H/H 6.5/18.2 CL 108 CA 7.9 IS;CEFAZOLIN IV Q12 HRS IVF NS @ 75 ML/HR PROTONIX GT QD PROTONIX GT QD MED SURG STATUS DCP;FROM [facility];PRBC TRANSFUSION HOSPICE CONSULT FOLLOW UP
--- NOTE | 2020-02-12 14:13 | NUR ---
RADIOLOGY DEPT., CHEST X-RAY DONE.-P.DYE
--- NOTE | 2020-02-12 14:16 | Hematology/Onc Progress Note ---
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 coli UTI as well As ALL --> cont. inpatient medical management --> UCx + for E. Coli --> cont. cefazolin --> smear is noted --> wbc 26-->18-->25-->13 # FTT likely related to psych disorder --> pt as needed --> nutrition recommendations # Physical deconditioning # Quadriplegia --> nutrition consulted --> PT/OT # CVA # Vascular dementia # Poor prognosis, consider hospice Appreciate consultation and dw Rn Subjective Respiratory: Denies: no symptoms, cough, shortness of breath, SOB with excertion, SOB at rest, sputum, wheezing, other Gastrointestinal/Abdominal: Denies: no symptoms, abdomen distended, abdominal pain, black stools, tarry stools, blood in stool, constipated, diarrhea, difficulty swallowing, nausea, poor appetite, poor fluid intake, rectal bleeding , vomiting, other Genitourinary: Denies: no symptoms, burning, discharge, frequency, flank pain, hematuria, incontinence, pain, urgency, other Neurologic/Psychiatric: Denies: no symptoms, anxiety, depressed, emotional problems, headache, numbness, paresthesia, pre-existing deficit, seizure, tingling, tremors, weakness, other Allergies: Coded Allergies: PENICILLINS (Unverified Allergy, Unknown, 03/16/15) Subjective 02/06 nonverbal, no bleeding, labs reviewed, no f/c no bleeding, hgb low 02/07 i talked to rn this an, Dimple and apparently daughter called and asked to see how mother is doing,she hasn't yet called me 02/08 no bleeding, labs reviewed, with blast coiunt of 81%, extremely poor prognosis 02/11 no major events, remains critically ill, daughter still contemplating hospice Objective Objective Current Medications Medications (Trade) Dose Ordered Sig/Javier Route PRN Reason Start Time Stop Time Status Last Admin Dose Admin Acetaminophen (Tylenol) 650 mg Q4H PRN ORAL Mild Pain (Pain Scale 1-3) 02/01/20 16:30 03/02/20 12:19 Acetaminophen (Tylenol) 650 mg Q4H PRN ORAL T>100.4 02/01/20 16:30 03/02/20 12:19 Amiodarone HCl (Cordarone) 200 mg DAILY GT 02/02/20 09:00 05/02/20 08:59 02/12/20 09:53 Amlodipine Besylate (Norvasc) 5 mg DAILY ORAL 02/02/20 09:00 03/03/20 08:59 02/12/20 09:53 Ascorbic Acid (Vitamin C) 500 mg TWICE A DAY GT 02/01/20 18:00 03/02/20 17:59 02/12/20 09:53 Bisacodyl (Dulcolax) 10 mg DAILYPRN PRN RECTAL Constipation 02/01/20 16:00 05/01/20 15:59 Cefazolin Sodium 1 gm/Dextrose 55 ml @ 110 mls/hr Q8H IVPB 02/12/20 02:00 02/19/20 01:59 02/12/20 01:45 Dextrose (Dextrose 50%) 25 ml Q30M PRN IV Hypoglycemia 02/01/20 16:00 05/01/20 11:59 Dextrose (Dextrose 50%) 50 ml Q30M PRN IV Hypoglycemia 02/01/20 16:00 05/01/20 11:59 Docusate Sodium (Colace) 100 mg TWICE A DAY ORAL 02/01/20 18:00 03/02/20 17:59 02/12/20 09:53 Epoetin Yaniv (Epoetin Yaniv-EPBX(NON ESRD)) 10,000 unit WED-WED-WED SUBQ 02/07/20 21:00 05/07/20 20:59 02/09/20 20:44 Morphine Sulfate (Morphine Sulfate) 1 mg Q4H PRN IVP pain 02/08/20 06:15 02/15/20 06:14 Ondansetron HCl (Zofran) 4 mg Q8H PRN GT Nausea & Vomiting 02/01/20 16:00 03/02/20 15:59 Pantoprazole (Protonix) 40 mg DAILY ORAL 02/02/20 09:00 03/03/20 08:59 02/12/20 09:53 Polyethylene Glycol (Miralax) 17 gm HSPRN PRN ORAL Constipation 02/01/20 16:00 03/02/20 15:59 Sodium Chloride 1,000 ml @ 75 mls/hr [id number] IV 02/10/20 21:30 03/11/20 21:29 02/12/20 00:22 Last 24 Hour Vital Signs Date Time Temp Pulse Resp B/P (MAP) Pulse Ox O2 Delivery O2 Flow Rate FiO2 02/12/20 12:00 97.7 83 20 133/76 (95) 98 02/12/20 09:53 80 130/71 02/12/20 09:00 Room Air 02/12/20 08:00 97.6 80 20 130/71 (90) 98 02/12/20 04:00 98.0 84 22 102/65 (77) 97 02/12/20 00:00 98.7 83 23 107/67 (80) 95 02/11/20 21:00 Room Air 02/11/20 20:00 99.4 78 23 107/61 (76) 96 02/11/20 16:00 97.3 74 19 133/66 (88) 97 02/11/20 12:00 97.7 82 18 127/67 (87) 97 02/11/20 09:00 Room Air 02/11/20 08:46 83 133/59 02/11/20 08:00 98.6 83 19 133/59 (83) 100 02/11/20 04:00 98.8 69 22 134/70 (91) 100 02/11/20 00:00 99.9 69 26 130/69 (89) 100 02/10/20 21:00 Room Air 02/10/20 20:00 99.9 75 24 117/59 (78) 100 02/10/20 16:00 98.9 70 20 120/63 (82) 99 Intake and Output 02/11/20 02/12/20 19:00 07:00 Intake Total 600 ml 1085 ml Balance 600 ml 1085 ml IV Total 600 ml 1085 ml # Voids 2 # Bowel Movements 2 Labs Test 02/10/20 06:00 02/11/20 10:15 02/12/20 05:20 White Blood Count 19.8 K/UL (4.8-10.8) 15.6 K/UL (4.8-10.8) 12.7 K/UL (4.8-10.8) Red Blood Count 2.49 M/UL (4.20-5.40) 2.76 M/UL (4.20-5.40) 2.17 M/UL (4.20-5.40) Hemoglobin 7.5 G/DL (12.0-16.0) 8.3 G/DL (12.0-16.0) 6.5 G/DL (12.0-16.0) Hematocrit 20.8 % (37.0-47.0) 23.1 % (37.0-47.0) 18.2 % (37.0-47.0) Mean Corpuscular Volume 83 FL (80-99) 84 FL (80-99) 84 FL (80-99) Mean Corpuscular Hemoglobin 30.1 PG (27.0-31.0) 30.2 PG (27.0-31.0) 30.1 PG (27.0-31.0) Mean Corpuscular Hemoglobin Concent 36.1 G/DL (32.0-36.0) 36.0 G/DL (32.0-36.0) 35.9 G/DL (32.0-36.0) Red Cell Distribution Width 14.5 % (11.6-14.8) 13.8 % (11.6-14.8) 15.4 % (11.6-14.8) Platelet Count 17 K/UL (150-450) 17 K/UL (150-450) 15 K/UL (150-450) Mean Platelet Volume 7.8 FL (6.5-10.1) 12.1 FL (6.5-10.1) 8.0 FL (6.5-10.1) Neutrophils (%) (Auto) % (45.0-75.0) % (45.0-75.0) % (45.0-75.0) Lymphocytes (%) (Auto) % (20.0-45.0) % (20.0-45.0) % (20.0-45.0) Monocytes (%) (Auto) % (1.0-10.0) % (1.0-10.0) % (1.0-10.0) Eosinophils (%) (Auto) % (0.0-3.0) % (0.0-3.0) % (0.0-3.0) Basophils (%) (Auto) % (0.0-2.0) % (0.0-2.0) % (0.0-2.0) Differential Total Cells Counted 100 100 100 Neutrophils % (Manual) 5 % (45-75) 12 % (45-75) 18 % (45-75) Lymphocytes % (Manual) 33 % (20-45) 42 % (20-45) 32 % (20-45) Monocytes % (Manual) 6 % (1-10) 6 % (1-10) 16 % (1-10) Eosinophils % (Manual) 0 % (0-3) 0 % (0-3) 0 % (0-3) Basophils % (Manual) 1 % (0-2) 0 % (0-2) 0 % (0-2) Blast Cells % 55 % (0-0) 40 % (0-0) 33 % (0-0) Band Neutrophils 0 % (0-8) 0 % (0-8) 1 % (0-8) Platelet Estimate Decreased Decreased Decreased Platelet Morphology Normal Normal Normal Hypochromasia 3+ 1+ 4+ Anisocytosis 1+ 1+ Sodium Level 128 MMOL/L (136-145) 136 MMOL/L (136-145) 138 MMOL/L (136-145) Potassium Level 4.2 MMOL/L (3.5-5.1) 4.0 MMOL/L (3.5-5.1) 4.0 MMOL/L (3.5-5.1) Chloride Level 100 MMOL/L (98-107) 107 MMOL/L (98-107) 108 MMOL/L (98-107) Carbon Dioxide Level 17 MMOL/L (21-32) 16 MMOL/L (21-32) 16 MMOL/L (21-32) Anion Gap 11 mmol/L (5-15) 14 mmol/L (5-15) Blood Urea Nitrogen 14 mg/dL (7-18) 14 mg/dL (7-18) 13 mg/dL (7-18) Creatinine 0.8 MG/DL (0.55-1.30) 0.9 MG/DL (0.55-1.30) 0.9 MG/DL (0.55-1.30) Estimat Glomerular Filtration Rate > 60 mL/min (>60) > 60 mL/min (>60) > 60 mL/min (>60) Glucose Level 103 MG/DL (74-106) 71 MG/DL (74-106) 96 MG/DL (74-106) Calcium Level 7.9 MG/DL (8.5-10.1) 7.6 MG/DL (8.5-10.1) 7.9 MG/DL (8.5-10.1) Phosphorus Level 3.3 MG/DL (2.5-4.9) Magnesium Level 1.3 MG/DL (1.8-2.4) Height (Feet): 5 Height (Inches): 5.00 Weight (Pounds): 137 Objective Vitals with hypotension General: lethargic, Chronically Ill Heent: nc, at Neck: full range of motion, supple Respiratory: chest non-tender, rhonchi Cardiovascular: regular rate, rhythm, no murmur Gastrointestinal: normal bowel sounds, non tender, no mass, no organomegaly, no bruit, non-distended Musculoskeletal: other - Extremities contracted Neurologic: other - Grimace to painful stimuli Dav Daniel MD Feb 12, 2020 14:16
--- NOTE | 2020-02-12 14:21 | NUR ---
CHARGE NURSE NOTE: PT was having a blood transfusion (PRBc). After 20 min of admin.of 1unit PRBc - BP dropped to 84/53, HR 87. T100.0. RR28. Blood transfusion stopped, pt placed on Trendelenburg position. BP went up to 94/50. Nursing Chief Creative Officer Luisana notified. notified. Orders received.
[2020-02-12] MEDS ORDERED: DiphenhydrAMINE 50mg/ml Inj IVP SCH (14:30)
[2020-02-12] MEDS ORDERED: Acetaminophen 650 MG SUPP RECTAL PRN ×2 (14:45→15:00)
[2020-02-12] MEDS ORDERED: DiphenhydrAMINE 50mg/ml Inj IVP ONE (14:45)
--- NOTE | 2020-02-12 15:13 | Diagnostic Imaging Report ---
Indication: Post line placement Technique: One view of the chest Comparison: 02/12/2020 Findings: Interim placement right subclavian central venous catheter, tip which projects at the level of the cavoatrial junction. No pneumothorax. There is increasing infiltrate in the right upper lobe. Background interstitial congestion is stable. The heart is enlarged. Impression: Satisfactory right subclavian central venous catheter placement. No radiographically evident complication Increasing right upper lobe infiltrate
--- NOTE | 2020-02-12 19:44 | NUR ---
HAND-OFF: Report given to cristina and also to follow up and administer 1 unit of prbc .
[2020-02-12] MEDS: Epoetin Alfa-EPBX (NON ESRD)10,000 unit/ml vial SUBQ SCH (20:44)
--- NOTE | 2020-02-12 22:30 | Neurology Progress Note ---
Interim History Interim History ROS Limited/Unobtainable: Yes Interim History no new deficits Objective Physical Exam Last Vital Signs Date Time Temp Pulse Resp B/P (MAP) Pulse Ox O2 Delivery O2 Flow Rate FiO2 02/12/20 21:08 Room Air 02/12/20 20:00 98.4 78 21 109/67 (81) 94 02/09/20 09:00 2.0 Laboratory Tests Test 02/12/20 05:20 White Blood Count 12.7 K/UL (4.8-10.8) H Red Blood Count 2.17 M/UL (4.20-5.40) L Hemoglobin 6.5 G/DL (12.0-16.0) *L Hematocrit 18.2 % (37.0-47.0) L Mean Corpuscular Volume 84 FL (80-99) Mean Corpuscular Hemoglobin 30.1 PG (27.0-31.0) Mean Corpuscular Hemoglobin Concent 35.9 G/DL (32.0-36.0) Red Cell Distribution Width 15.4 % (11.6-14.8) H Platelet Count 15 K/UL (150-450) L Mean Platelet Volume 8.0 FL (6.5-10.1) Neutrophils (%) (Auto) % (45.0-75.0) Lymphocytes (%) (Auto) % (20.0-45.0) Monocytes (%) (Auto) % (1.0-10.0) Eosinophils (%) (Auto) % (0.0-3.0) Basophils (%) (Auto) % (0.0-2.0) Differential Total Cells Counted 100 Neutrophils % (Manual) 18 % (45-75) L Lymphocytes % (Manual) 32 % (20-45) Monocytes % (Manual) 16 % (1-10) H Eosinophils % (Manual) 0 % (0-3) Basophils % (Manual) 0 % (0-2) Blast Cells % 33 % (0-0) *H Band Neutrophils 1 % (0-8) Platelet Estimate Decreased L Platelet Morphology Normal Hypochromasia 4+ Sodium Level 138 MMOL/L (136-145) Potassium Level 4.0 MMOL/L (3.5-5.1) Chloride Level 108 MMOL/L (98-107) H Carbon Dioxide Level 16 MMOL/L (21-32) L Anion Gap 14 mmol/L (5-15) Blood Urea Nitrogen 13 mg/dL (7-18) Creatinine 0.9 MG/DL (0.55-1.30) Estimat Glomerular Filtration Rate > 60 mL/min (>60) Glucose Level 96 MG/DL (74-106) Calcium Level 7.9 MG/DL (8.5-10.1) L Neurologic Exam Objective lethargic, withdraws to pain Impression/Recommendations Problems: (1) Hyperkalemia (2) Thrombocytopenia (3) Acute metabolic encephalopathy (4) Acute renal failure (5) Dehydration (6) Acute renal failure (7) UTI (urinary tract infection) (8) Quadriplegia and quadriparesis (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, old, cognitive deficits (11) Anemia, unspecified (12) Vascular dementia (13) Acute respiratory failure (14) Atrial fibrillation (15) Septicemia (16) Dysphagia (17) Leukemia (18) Respiratory failure (19) Iron deficiency anemia (20) Sepsis (21) Altered mental status (22) Cardiomyopathy (23) Pneumonia (24) Alteration consciousness (25) HTN (hypertension) (26) Pain (27) Pain (28) MODS (multiple organ dysfunction syndrome) (29) Cerebral vascular disease (30) Elevated CEA (31) Decubital ulcer (32) Penicillin allergy (33) PEG (percutaneous endoscopic gastrostomy) adjustment/replacement/removal (34) SEPSIS, ABD PAIN (35) AL Diagnostic Impression poor prognosis Corwin Ackerman MD Feb 12, 2020 22:30
--- NOTE | 2020-02-12 23:54 | NUR ---
NURSE NOTES: Started transfusion 1u of PRBC at 2248. Patient currently stable without reaction. Will continue to monitor.
[2020-02-13] VITALS: BP 97/54
--- NOTE | 2020-02-13 01:02 | NUR ---
NURSE NOTES: 1 u of PRBC transfusion finished without adverse reaction. Before transfusion: Temp 97.7 Pulse 70 BP 103/57 15 minutes after: Temp 97.3 Pulse 70 BP 110/58 After transfusion: Temp 97 Pulse 67 BP 95/47
[2020-02-13] MEDS: ceFAZolin sod 1 GM in D5W 55 ML IVPB SCH ×2 (02:28→09:51)
[2020-02-13 04:00] VITALS: BP 98/54
--- NOTE | 2020-02-13 04:52 | NUR ---
NURSE NOTES: Provided proper incontinence care and sacral dressing change. Will continue to monitor.
[2020-02-13 07:01] LABS: BLOOD UREA NITROGEN 20 mg/dL (7-18); CALCIUM 7.8 MG/DL (8.5-10.1); CHLORIDE 113 MMOL/L (98-107); CREATININE 1.1 MG/DL (0.55-1.30); POTASSIUM 4.4 MMOL/L (3.5-5.1); SODIUM 142 MMOL/L (136-145)
[2020-02-13 07:18] LABS: CARBON DIOXIDE 16 MMOL/L (21-32)
[2020-02-13 07:19] LABS: HEMOGLOBIN 10.1 G/DL (12.0-16.0); MEAN CORPUSCULAR VOLUME 86 FL (80-99); PLATELET COUNT 20 K/UL (150-450); RED BLOOD COUNT 3.37 M/UL (4.20-5.40); WHITE BLOOD COUNT 16.3 K/UL (4.8-10.8)
--- NOTE | 2020-02-13 07:20 | NUR ---
HAND-OFF: Report given to RETA Curran. Plan of care endorsed.
[2020-02-13 08:00] VITALS: BP 100/59
--- NOTE | 2020-02-13 08:29 | NUR ---
NURSE NOTES: pt is in the bed awake, breathing labored, o2 2l inplace, hob elevated. skin is warm and dry to the touch. place call light within reach.
[2020-02-13] MEDS: Amiodarone 200mg tab GT SCH (09:00)
[2020-02-13] MEDS: Docusate 100mg cap ORAL SCH ×2 (09:00→18:00)
[2020-02-13] MEDS: Ascorbic Acid 500mg tab GT SCH ×2 (09:00→18:00)
--- NOTE | 2020-02-13 09:05 | Hematology/Onc Progress Note ---
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 coli UTI as well As ALL --> cont. inpatient medical management --> UCx + for E. Coli --> cont. cefazolin --> smear is noted --> wbc 26-->18-->25-->13 # FTT likely related to psych disorder --> pt as needed --> nutrition recommendations # Physical deconditioning # Quadriplegia --> nutrition consulted --> PT/OT # CVA # Vascular dementia # Poor prognosis, consider hospice Appreciate consultation and dw Rn Subjective HEENT: Denies: no symptoms, eye pain, blurred vision, tearing, double vision, ear pain, ear discharge, nose pain, nose congestion, throat pain, throat swelling, mouth pain, mouth swelling, other Cardiovascular: Denies: no symptoms, chest pain, edema, irregular heart rate, lightheadedness, palpitations, syncope, other Respiratory: Denies: no symptoms, cough, shortness of breath, SOB with excertion, SOB at rest, sputum, wheezing, other Gastrointestinal/Abdominal: Denies: no symptoms, abdomen distended, abdominal pain, black stools, tarry stools, blood in stool, constipated, diarrhea, difficulty swallowing, nausea, poor appetite, poor fluid intake, rectal bleeding , vomiting, other Neurologic/Psychiatric: Denies: no symptoms, anxiety, depressed, emotional problems, headache, numbness, paresthesia, pre-existing deficit, seizure, tingling, tremors, weakness, other Endocrine: Denies: no symptoms, excessive sweating, flushing, intolerance to cold, intolerance to heat, increased hunger, increased thirst, increased urine, unexplained weight gain, unexplained weight loss, other Allergies: Coded Allergies: PENICILLINS (Unverified Allergy, Unknown, 03/16/15) Subjective 02/06 nonverbal, no bleeding, labs reviewed, no f/c no bleeding, hgb low 02/07 i talked to rn this an, Xyrece and apparently daughter called and asked to see how mother is doing,she hasn't yet called me 02/08 no bleeding, labs reviewed, with blast coiunt of 81%, extremely poor prognosis 02/11 no major events, remains critically ill, daughter still contemplating hospice 02/12 labs noted, no bleeding, no f/c, hgb improved s/p transf Objective Objective Current Medications Medications (Trade) Dose Ordered Sig/Javier Route PRN Reason Start Time Stop Time Status Last Admin Dose Admin Acetaminophen (Tylenol) 650 mg Q4H PRN ORAL Mild Pain (Pain Scale 1-3) 02/01/20 16:30 03/02/20 12:19 Acetaminophen (Tylenol) 650 mg Q4H PRN ORAL T>100.4 02/01/20 16:30 03/02/20 12:19 Acetaminophen (Tylenol) 650 mg Q4H PRN RECTAL Mild Pain (Pain Scale 1-3) 02/12/20 15:00 03/13/20 14:44 02/12/20 14:54 Amiodarone HCl (Cordarone) 200 mg DAILY GT 02/02/20 09:00 05/02/20 08:59 02/12/20 09:53 Amlodipine Besylate (Norvasc) 5 mg DAILY ORAL 02/02/20 09:00 03/03/20 08:59 02/12/20 09:53 Ascorbic Acid (Vitamin C) 500 mg TWICE A DAY GT 02/01/20 18:00 03/02/20 17:59 02/12/20 09:53 Bisacodyl (Dulcolax) 10 mg DAILYPRN PRN RECTAL Constipation 02/01/20 16:00 05/01/20 15:59 Cefazolin Sodium 1 gm/Dextrose 55 ml @ 110 mls/hr Q8H IVPB 02/12/20 02:00 02/19/20 01:59 02/13/20 02:28 Dextrose (Dextrose 50%) 25 ml Q30M PRN IV Hypoglycemia 02/01/20 16:00 05/01/20 11:59 Dextrose (Dextrose 50%) 50 ml Q30M PRN IV Hypoglycemia 02/01/20 16:00 05/01/20 11:59 Docusate Sodium (Colace) 100 mg TWICE A DAY ORAL 02/01/20 18:00 03/02/20 17:59 02/12/20 09:53 Epoetin Yaniv (Epoetin Yaniv-EPBX(NON ESRD)) 10,000 unit WED-WED-WED SUBQ 02/07/20 21:00 05/07/20 20:59 02/12/20 20:44 Morphine Sulfate (Morphine Sulfate) 1 mg Q4H PRN IVP pain 02/08/20 06:15 02/15/20 06:14 Ondansetron HCl (Zofran) 4 mg Q8H PRN GT Nausea & Vomiting 02/01/20 16:00 03/02/20 15:59 Pantoprazole (Protonix) 40 mg DAILY ORAL 02/02/20 09:00 03/03/20 08:59 02/12/20 09:53 Polyethylene Glycol (Miralax) 17 gm HSPRN PRN ORAL Constipation 02/01/20 16:00 03/02/20 15:59 Sodium Chloride 1,000 ml @ 75 mls/hr [id number] IV 02/10/20 21:30 03/11/20 21:29 02/13/20 02:51 Last 24 Hour Vital Signs Date Time Temp Pulse Resp B/P (MAP) Pulse Ox O2 Delivery O2 Flow Rate FiO2 02/13/20 08:00 99.0 72 21 100/59 (73) 99 02/13/20 04:00 98.8 67 22 98/54 (69) 99 02/13/20 00:00 98.6 69 22 97/54 (68) 98 02/12/20 21:08 Room Air 02/12/20 20:00 98.4 78 21 109/67 (81) 94 02/12/20 16:27 84 28 93 02/12/20 16:22 98.2 89 28 100/55 (70) 94 02/12/20 15:55 98.2 84 28 82/40 (54) 93 02/12/20 15:24 97.8 02/12/20 15:09 97.4 86 28 92/53 (66) 93 02/12/20 14:15 100.0 87 28 84/53 (63) 92 02/12/20 12:00 97.7 83 20 133/76 (95) 98 02/12/20 09:53 80 130/71 02/12/20 09:00 Room Air 02/12/20 08:00 97.6 80 20 130/71 (90) 98 02/12/20 04:00 98.0 84 22 102/65 (77) 97 02/12/20 00:00 98.7 83 23 107/67 (80) 95 02/11/20 21:00 Room Air 02/11/20 20:00 99.4 78 23 107/61 (76) 96 02/11/20 16:00 97.3 74 19 133/66 (88) 97 02/11/20 12:00 97.7 82 18 127/67 (87) 97 Intake and Output 02/12/20 02/13/20 19:00 07:00 Intake Total 280 ml Balance 280 ml IV Total 280 ml # Voids 8 2 Labs Test 02/11/20 10:15 02/12/20 05:20 02/13/20 06:00 White Blood Count 15.6 K/UL (4.8-10.8) 12.7 K/UL (4.8-10.8) 16.3 K/UL (4.8-10.8) Red Blood Count 2.76 M/UL (4.20-5.40) 2.17 M/UL (4.20-5.40) 3.37 M/UL (4.20-5.40) Hemoglobin 8.3 G/DL (12.0-16.0) 6.5 G/DL (12.0-16.0) 10.1 G/DL (12.0-16.0) Hematocrit 23.1 % (37.0-47.0) 18.2 % (37.0-47.0) 29.0 % (37.0-47.0) Mean Corpuscular Volume 84 FL (80-99) 84 FL (80-99) 86 FL (80-99) Mean Corpuscular Hemoglobin 30.2 PG (27.0-31.0) 30.1 PG (27.0-31.0) 30.0 PG (27.0-31.0) Mean Corpuscular Hemoglobin Concent 36.0 G/DL (32.0-36.0) 35.9 G/DL (32.0-36.0) 34.9 G/DL (32.0-36.0) Red Cell Distribution Width 13.8 % (11.6-14.8) 15.4 % (11.6-14.8) 14.0 % (11.6-14.8) Platelet Count 17 K/UL (150-450) 15 K/UL (150-450) 20 K/UL (150-450) Mean Platelet Volume 12.1 FL (6.5-10.1) 8.0 FL (6.5-10.1) 6.8 FL (6.5-10.1) Neutrophils (%) (Auto) % (45.0-75.0) % (45.0-75.0) % (45.0-75.0) Lymphocytes (%) (Auto) % (20.0-45.0) % (20.0-45.0) % (20.0-45.0) Monocytes (%) (Auto) % (1.0-10.0) % (1.0-10.0) % (1.0-10.0) Eosinophils (%) (Auto) % (0.0-3.0) % (0.0-3.0) % (0.0-3.0) Basophils (%) (Auto) % (0.0-2.0) % (0.0-2.0) % (0.0-2.0) Differential Total Cells Counted 100 100 Neutrophils % (Manual) 12 % (45-75) 18 % (45-75) Lymphocytes % (Manual) 42 % (20-45) 32 % (20-45) Monocytes % (Manual) 6 % (1-10) 16 % (1-10) Eosinophils % (Manual) 0 % (0-3) 0 % (0-3) Basophils % (Manual) 0 % (0-2) 0 % (0-2) Blast Cells % 40 % (0-0) 33 % (0-0) Band Neutrophils 0 % (0-8) 1 % (0-8) Platelet Estimate Decreased Decreased Platelet Morphology Normal Normal Hypochromasia 1+ 4+ Anisocytosis 1+ Sodium Level 136 MMOL/L (136-145) 138 MMOL/L (136-145) 142 MMOL/L (136-145) Potassium Level 4.0 MMOL/L (3.5-5.1) 4.0 MMOL/L (3.5-5.1) 4.4 MMOL/L (3.5-5.1) Chloride Level 107 MMOL/L (98-107) 108 MMOL/L (98-107) 113 MMOL/L (98-107) Carbon Dioxide Level 16 MMOL/L (21-32) 16 MMOL/L (21-32) 16 MMOL/L (21-32) Blood Urea Nitrogen 14 mg/dL (7-18) 13 mg/dL (7-18) 20 mg/dL (7-18) Creatinine 0.9 MG/DL (0.55-1.30) 0.9 MG/DL (0.55-1.30) 1.1 MG/DL (0.55-1.30) Estimat Glomerular Filtration Rate > 60 mL/min (>60) > 60 mL/min (>60) 58.4 mL/min (>60) Glucose Level 71 MG/DL (74-106) 96 MG/DL (74-106) 92 MG/DL (74-106) Calcium Level 7.6 MG/DL (8.5-10.1) 7.9 MG/DL (8.5-10.1) 7.8 MG/DL (8.5-10.1) Phosphorus Level 3.3 MG/DL (2.5-4.9) Magnesium Level 1.3 MG/DL (1.8-2.4) Anion Gap 14 mmol/L (5-15) Height (Feet): 5 Height (Inches): 5.00 Weight (Pounds): 137 Objective Vitals with hypotension General: lethargic, Chronically Ill Heent: nc, at Neck: full range of motion, supple Respiratory: chest non-tender, rhonchi Cardiovascular: regular rate, rhythm, no murmur Gastrointestinal: normal bowel sounds, non tender, no mass, no organomegaly, no bruit, non-distended Musculoskeletal: other - Extremities contracted Neurologic: other - Grimace to painful stimuli Dav Daniel MD Feb 13, 2020 09:05
--- NOTE | 2020-02-13 10:53 | NUR ---
RD ASSESSMENT & RECOMMENDATIONS SEE CARE ACTIVITY FOR COMPLETE ASSESSMENT DAILY ESTIMATED NEEDS: Needs based on wound, bed bound 63.5kg abw 25-30 kcals/kg [id number] total kcals 1.25-1.5 g protein/kg 79-95 g total protein 25-30 mL/kg 9324-1994 total fluid mLs NUTRITION DIAGNOSIS: Increased kcal and protein needs R/T wound healing sacral full thickness wound, pt is bedbound w/ prolonged minimal intake, now unable to tolerate PO intake. CURRENT DIET: CCHO MED puree w/ NTL PO DIET RECOMMENDATIONS: IF ORAL DIET INDICATED -> Liberalized Regular/ Texture per [employer] + ENSURE TID ENTERAL NUTRITION RECOMMENDATIONS: IF PART OF POC -> Jevity 1.2 @ 60ml/hr x 24 hrs to provide 1440ml, 1728kcal, 86g prot, 1159ml free water * IF PART OF POC, obtain GI access * Initiate Jevity 1.2 @ 10ml/hr x 6hrs, advance 10ml q 4-6 hrs as tolerated to goal rate. * HOB Over 30 degrees/ without IVF, water flush 150ml q 6 hrs * TF @ goal will meet 100% est kcal/prot needs * W/ TF, monitor lytes daily, replete as needed- high risk for refeeding syndrome. ADDITIONAL RECOMMENDATIONS: 1) Wound care: Vit C 250mg BID + MVI w/min qd Sang BID if tolerated 2) 1:1 feeds w/ all meals, Ensure TID as tolerated (pt is lethargic) 3) Pt remains Full Code, rec temp non oral feeds if part of POC -> 0-minimal intake since adm (LOS 12 today), unable to tolerated PO -> Monitor POC: FULL CODE VS HOSPICE 4) Rec to add D5 to IVF to prevent hypoglycemia
--- NOTE | 2020-02-13 10:57 | Nephrology Progress Note ---
Assessment/Plan Plan #Hyponatremia- due to excess free water #E. 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 cefazolin -Transfuse PRBC for supportive care -Monitor daily CBC -Unable to initiation chemotherapy at this time per Heme/Onc due to poor prognosis Subjective ROS Limited/Unobtainable: Yes Subjective Sodium improved to 136 WBC remains elevated appears comfortable hemoglobin low Objective Objective Last 24 Hour Vital Signs Date Time Temp Pulse Resp B/P (MAP) Pulse Ox O2 Delivery O2 Flow Rate FiO2 02/13/20 09:00 72 100/59 02/13/20 09:00 Room Air 02/13/20 08:00 99.0 72 21 100/59 (73) 99 02/13/20 04:00 98.8 67 22 98/54 (69) 99 02/13/20 00:00 98.6 69 22 97/54 (68) 98 02/12/20 21:08 Room Air 02/12/20 20:00 98.4 78 21 109/67 (81) 94 02/12/20 16:27 84 28 93 02/12/20 16:22 98.2 89 28 100/55 (70) 94 02/12/20 15:55 98.2 84 28 82/40 (54) 93 02/12/20 15:24 97.8 02/12/20 15:09 97.4 86 28 92/53 (66) 93 02/12/20 14:15 100.0 87 28 84/53 (63) 92 02/12/20 12:00 97.7 83 20 133/76 (95) 98 Intake and Output 02/12/20 02/13/20 19:00 07:00 Intake Total 280 ml Balance 280 ml IV Total 280 ml # Voids 8 2 Laboratory Tests 02/13/20 06:00: White Blood Count 16.3H, Red Blood Count 3.37L, Hemoglobin 10.1#L, Hematocrit 29.0#L, Mean Corpuscular Volume 86, Mean Corpuscular Hemoglobin 30.0, Mean Corpuscular Hemoglobin Concent 34.9, Red Cell Distribution Width 14.0, Platelet Count 20L, Mean Platelet Volume 6.8, Neutrophils (%) (Auto) , Lymphocytes (%) ( Auto) , Monocytes (%) (Auto) , Eosinophils (%) (Auto) , Basophils (%) (Auto) , Differential Total Cells Counted 100, Neutrophils % (Manual) 15L, Lymphocytes % (Manual) 35, Monocytes % (Manual) 7, Eosinophils % (Manual) 0, Basophils % ( Manual) 1, Metamyelocytes % 2H, Myelocytes % 4H, Blast Cells % 28*H, Band Neutrophils 8, Platelet Estimate DecreasedL, Platelet Morphology Normal, Red Blood Cell Morphology Normal, Sodium Level 142, Potassium Level 4.4, Chloride Level 113H, Carbon Dioxide Level 16L, Blood Urea Nitrogen 20H, Creatinine 1.1, Estimat Glomerular Filtration Rate 58.4, Glucose Level 92, Calcium Level 7.8L Height (Feet): 5 Height (Inches): 5.00 Weight (Pounds): 137 Objective General Appearance: aphasic, awake, alert, appears comfortable HEENT: NCAT, b/l blindness, left prostehsis, dry MM Cardiovascular: regular rhythm Respiratory/Chest: lungs clear, no accessory muscle usage Abdomen: non tender, soft Edema: no edema noted Tristan Morris M.D. Feb 13, 2020 10:57
--- NOTE | 2020-02-13 11:15 | General Progress Note ---
Assessment/Plan Assessment/Plan: 79 y/o F with PMH CVA, schizophrenia, vascular dementia, leukemia who presents from [facility] for AMS, found to have E. coli UTI and severe anemia #E. coli UTI #RUL PNA -cont. inpatient medical management -UCx + for E. 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 -Multiple d/w daughter on 02/10 and 02/11, is very hesitant w/hospice at this time -02/11: s/p central line placement by Gen surgery -Transfused on 02/09 1 U PRBC, 02/11 3 U PRBC #Hyponatremia - improved -s/p IV NS -nephro following, recs appreciated #FTT #Severe Protein Calorie Malnutrition #physical deconditioning #Dysphagia #Quadriplegia -nutrition following -PT/OT -pt w/very poor PO intake at this time, unable to swallow -ST: pt with severe dysphagia, unable to tolerate own secretions at this time, pt NPO -Do not recommend PEG tube at this time given low plts, pt is very high risk of bleeding with procedures. Explained to POA this concern multiple times who states she understands -aspiration precautions -will consult GI for input #CVA #vascular dementia -minimally verbal at b/l per PCP -no ASA given thrombocytopenia Pt has very poor prognosis given terminal conditions noted above. Time spent on encounter: 35 mins, >50% on counseling, coordination of care discussion with RN, Hematology, ID, gen surgery. Time of note doesn't reflect time of encounter. Subjective ROS Limited/Unobtainable: Yes - aphasic, non-communicative. Allergies: Coded Allergies: PENICILLINS (Unverified Allergy, Unknown, 03/16/15) Subjective Follow up for UTI, acute severe anemia, thrombocytopenia, concern for acute leukemia/blast crisis. Pt appears uncomfortable. Pt was hypotensive yesterday, concern for acute decompensation. Multiple discussions with POA regarding goals of care, recommend comfort care, stated she will decide after seeing her mother. Per nurse pt remains full code at this time. Objective Last 24 Hour Vital Signs Date Time Temp Pulse Resp B/P (MAP) Pulse Ox O2 Delivery O2 Flow Rate FiO2 02/13/20 09:00 72 100/59 02/13/20 09:00 Room Air 02/13/20 08:00 99.0 72 21 100/59 (73) 99 02/13/20 04:00 98.8 67 22 98/54 (69) 99 02/13/20 00:00 98.6 69 22 97/54 (68) 98 02/12/20 21:08 Room Air 02/12/20 20:00 98.4 78 21 109/67 (81) 94 02/12/20 16:27 84 28 93 02/12/20 16:22 98.2 89 28 100/55 (70) 94 02/12/20 15:55 98.2 84 28 82/40 (54) 93 02/12/20 15:24 97.8 02/12/20 15:09 97.4 86 28 92/53 (66) 93 02/12/20 14:15 100.0 87 28 84/53 (63) 92 02/12/20 12:00 97.7 83 20 133/76 (95) 98 Intake and Output 02/12/20 02/13/20 19:00 07:00 Intake Total 280 ml Balance 280 ml IV Total 280 ml # Voids 8 2 Laboratory Tests 02/13/20 06:00: White Blood Count 16.3H, Red Blood Count 3.37L, Hemoglobin 10.1#L, Hematocrit 29.0#L, Mean Corpuscular Volume 86, Mean Corpuscular Hemoglobin 30.0, Mean Corpuscular Hemoglobin Concent 34.9, Red Cell Distribution Width 14.0, Platelet Count 20L, Mean Platelet Volume 6.8, Neutrophils (%) (Auto) , Lymphocytes (%) ( Auto) , Monocytes (%) (Auto) , Eosinophils (%) (Auto) , Basophils (%) (Auto) , Differential Total Cells Counted 100, Neutrophils % (Manual) 15L, Lymphocytes % (Manual) 35, Monocytes % (Manual) 7, Eosinophils % (Manual) 0, Basophils % ( Manual) 1, Metamyelocytes % 2H, Myelocytes % 4H, Blast Cells % 28*H, Band Neutrophils 8, Platelet Estimate DecreasedL, Platelet Morphology Normal, Red Blood Cell Morphology Normal, Sodium Level 142, Potassium Level 4.4, Chloride Level 113H, Carbon Dioxide Level 16L, Blood Urea Nitrogen 20H, Creatinine 1.1, Estimat Glomerular Filtration Rate 58.4, Glucose Level 92, Calcium Level 7.8L Height (Feet): 5 Height (Inches): 5.00 Weight (Pounds): 137 Objective General Appearance: aphasic, awake, appears uncomfortable, does not respond to name HEENT: NCAT, b/l blindness, left prostehsis, dry MM Cardiovascular: RR Respiratory/Chest: coarse rhonchi, no accessory muscle usage Abdomen: non tender, soft Edema: no edema noted Anthony Guerra M.D. Feb 13, 2020 11:15
[2020-02-13 12:00] VITALS: BP 99/57
--- NOTE | 2020-02-13 13:13 | NUR ---
SWALLOW STATUS: DYSPHAGIA AND ASPIRATION RISK FACTORS FOR THIS ADVANCED-AGED 79 Y.O.F: ACUTE ISSUES: R UL PNA, ADULT FTT (POOR PO PRIOR TO ADMIT), SEVERE ANEMIA, ACUTE LEUKEMIA/BLAST CRISIS AND POSSIBLE LYMPHOMA (UNABLE TO HAVE CHEMO NOW), AMS LETHARGIC AND MOANING (CANNOT SPEAK BASELINE MIN VERBAL) H/O OP DYSPHAGIA, ADULT FTT, BILATERAL CVAS, VASCULAR DEMENTIA, BILAT BLINDNESS, AND SCHIZOPHRENIA. PATIENT IS SEEN FOR DYSPHAGIA. SHE IS NOW MOANING BUT NOT ABLE TO FOLLOW COMMANDS, EXPRESS BASIC NEEDS, NOR TOLERATE ANY PO INTAKE AT THIS TIME. NPO AND NONORAL FEEDINGS RECOMMENDED BY ST YESTERDAY SINCE SHE IS NOT APPROPRIATE FOR PO INTAKE DUE TO DYSPHAGIA WITH HER OWN SECRETIONS. PT IS STILL RECEIVING MEALS BUT IS UNABLE TO CONSUME MEAL AT THIS TIME. PER JOSELINE MCDUFFIE HE NEEDS TO SUCTION OUT MODERATE AMOUNTS OF SECRETIONS FROM THE BACK OF THE PATIENTS THROAT CONSISTENTLY. PER DR PEOPLES AND DR THIBODEAUX (WHO IS NO LONGER FOLLOWING THE PATIENT) SAID THAT THE PATIENT HAS A POOR PX AND IS TERMINALLY ILL. PER DR THIBODEAUX, HE HAS SPOKEN TO THE PATIENT'S DTR MULTIPLE TIMES (02/10 AND 02/11) REGARDING SUPPORTIVE CARE. PER KHUSHI MCDUFFIE, THE PATIENT'S FAMILY DOES NOT WANT COMFORT CARE HOSPICE MEASURES AT THIS TIME. EDUCATED/TRAINED RETA TREVIZO IN POSTED ORAL CARE/SUCTION NEEDS AND NEED FOR NONORAL FEEDINGS ONLY IF THE FAMILY IS RECEPTIVE. SINCE THE PATIENT WILL NOT MEET NUTRITION/HYDRATION NEEDS, FAMILY SHOULD CONSIDER COMFORT CARE IF THEY ARE RECEPTIVE. PLAN: CONSIDER HOLDING ON PO INTAKE AT THIS TIME (KEEP NPO INCLUDES NO PO MEDS) GIVEN THAT PATIENT HAS DYSPHAGIA FOR HER OWN SECRETIONS. D/W RETA TREVIZO TO D/W . ONLY CONSIDER NONORAL NGT FEEDINGS (12 LAO) TEMPORARILY AND IF INDICATED PER FAMILY PREFERENCES. CONTINUE WITH ORAL CARE/SUCTION PRN LEFT MESSAGE WITH DTR TO CALL ST REGARDING ABOVE INFORMATION. Addendum: 02/13/20 at 1317 by RADHARUTH ANN SALDANA PER DR PEOPLES PT IS NOT A CANDIDATE FOR PEG DUE TO TERMINAL ILLNESS.
--- NOTE | 2020-02-13 13:51 | Surgery Progress Note ---
Surgery Progress Note Subjective Procedure Performed Right subclavian central venous catheter insertion Additional Comments ill appearing worsening labs noted line okay discussed with daughter in length yesterday recommend comfort care i expressed this to her she states she will come see her mother anddecide Objective Last 24 Hour Vital Signs Date Time Temp Pulse Resp B/P (MAP) Pulse Ox O2 Delivery O2 Flow Rate FiO2 02/13/20 12:00 99.6 78 20 99/57 (71) 98 02/13/20 09:00 72 100/59 02/13/20 09:00 Room Air 02/13/20 08:00 99.0 72 21 100/59 (73) 99 02/13/20 04:00 98.8 67 22 98/54 (69) 99 02/13/20 00:00 98.6 69 22 97/54 (68) 98 02/12/20 21:08 Room Air 02/12/20 20:00 98.4 78 21 109/67 (81) 94 02/12/20 16:27 84 28 93 02/12/20 16:22 98.2 89 28 100/55 (70) 94 02/12/20 15:55 98.2 84 28 82/40 (54) 93 02/12/20 15:24 97.8 02/12/20 15:09 97.4 86 28 92/53 (66) 93 02/12/20 14:15 100.0 87 28 84/53 (63) 92 I&O Intake and Output 02/12/20 02/13/20 19:00 07:00 Intake Total 280 ml Balance 280 ml IV Total 280 ml # Voids 8 2 Dressing: other Wound: other Drains: other Cardiovascular: RSR Respiratory: decreased breath sounds Abdomen: soft, non-tender, present bowel sounds Extremities: no tenderness, no cyanosis Laboratory Tests Test 02/13/20 06:00 White Blood Count 16.3 K/UL (4.8-10.8) H Red Blood Count 3.37 M/UL (4.20-5.40) L Hemoglobin 10.1 G/DL (12.0-16.0) #L Hematocrit 29.0 % (37.0-47.0) #L Mean Corpuscular Volume 86 FL (80-99) Mean Corpuscular Hemoglobin 30.0 PG (27.0-31.0) Mean Corpuscular Hemoglobin Concent 34.9 G/DL (32.0-36.0) Red Cell Distribution Width 14.0 % (11.6-14.8) Platelet Count 20 K/UL (150-450) L Mean Platelet Volume 6.8 FL (6.5-10.1) Neutrophils (%) (Auto) % (45.0-75.0) Lymphocytes (%) (Auto) % (20.0-45.0) Monocytes (%) (Auto) % (1.0-10.0) Eosinophils (%) (Auto) % (0.0-3.0) Basophils (%) (Auto) % (0.0-2.0) Differential Total Cells Counted 100 Neutrophils % (Manual) 15 % (45-75) L Lymphocytes % (Manual) 35 % (20-45) Monocytes % (Manual) 7 % (1-10) Eosinophils % (Manual) 0 % (0-3) Basophils % (Manual) 1 % (0-2) Metamyelocytes % 2 % (0-0) H Myelocytes % 4 % (0-0) H Blast Cells % 28 % (0-0) *H Band Neutrophils 8 % (0-8) Platelet Estimate Decreased L Platelet Morphology Normal Red Blood Cell Morphology Normal Sodium Level 142 MMOL/L (136-145) Potassium Level 4.4 MMOL/L (3.5-5.1) Chloride Level 113 MMOL/L (98-107) H Carbon Dioxide Level 16 MMOL/L (21-32) L Blood Urea Nitrogen 20 mg/dL (7-18) H Creatinine 1.1 MG/DL (0.55-1.30) Estimat Glomerular Filtration Rate 58.4 mL/min (>60) Glucose Level 92 MG/DL (74-106) Calcium Level 7.8 MG/DL (8.5-10.1) L Plan Problems: (1) Decubital ulcer Assessment & Plan: DAILY ESTIMATED NEEDS: Needs based on wound, bed bound 63.5kg abw 25-30 kcals/kg 3088-4267 total kcals 1.25-1.5 g protein/kg 79-95 g total protein 25-30 mL/kg 9999-1871 total fluid mLs NUTRITION DIAGNOSIS: Increased kcal and protein needs R/T wound healing sacral full thickness wound, pt is bedbound w/ poor po intake, pt is lethargic. CURRENT DIET: CCHO MED puree PO DIET RECOMMENDATIONS: Liberalized Regular/ Texture per SENIOR SPECIALIST + ENSURE TID ENTERAL NUTRITION RECOMMENDATIONS: IF PART OF POC -> Jevity 1.2 @ 55ml/hr x 24 hrs to provide 1320ml, 1584kcal, 73g prot, 1065ml free water * IF PART OF POC, obtain GI access * Initiate Jevity 1.2 @ 15ml/hr x 6hrs, advance 10ml q 4-6 hrs as tolerated to goal rate. * Once TF well tolerated at goal, add Prosouce 1pkt QD to better meet prot needs * HOB Over 30 degrees/ without IVF, water flush 150ml q 6 hrs * W/ TF, monitor lytes daily, replete as needed- high risk for refeeding syndrome. 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 Patient with leukocytosis on IV antibiotics per infectious disease Microbiology reviewed noted CO VID status Severe anemia trending down hemoglobin requiring transfusion Currently patient does not have access is appropriate for the above central venous catheter indicating recommended consent obtained with family See note procedure Continue IV antibiotics Transfuse as per hematology Trend labs Above nutrition recommendations for patient's overall status We will follow with recommendations thank you for allowing me to participate in patient's care discussed with daughter in length recommend comfort care i expressed this to her she states she will come see her mother and decide no decision made currently (17) Dysphagia (18) Leukemia (19) Respiratory failure (20) Iron deficiency anemia (21) Sepsis (22) Altered mental status (23) Cardiomyopathy (24) Pneumonia (25) Alteration consciousness (26) HTN (hypertension) (27) Pain (28) Pain (29) MODS (multiple organ dysfunction syndrome) (30) Cerebral vascular disease (31) Elevated CEA (32) Penicillin allergy (33) PEG (percutaneous endoscopic gastrostomy) adjustment/replacement/removal (34) SEPSIS, ABD PAIN (35) Phil Weinstein Feb 13, 2020 13:51
[2020-02-13 16:00] VITALS: BP 108/57
--- NOTE | 2020-02-13 16:57 | Infectious Diseases Prog Note ---
Assessment/Plan Assessment/Plan ASSESSMENT AND PLAN: 1. e.coli uti, possible aspiration pna/HCAP, chest x-ray worse RUL, sepsis, leukocytosis, fevers - vancomycin, cefepime and flagyl - check cultures, labs and chest x-ray - communicated with Dr. Guerra 2. MRSA colonization and isolation. 3. Wound care protocol, not a source of sepsis. 4. Diabetes. 5. Atrial fibrillation. 6. Blood sugar treatment per primary care team. 7. Anemia. 8. CVA and weakness. 9. Dementia. 10. Failure to thrive and quadriplegia. 11. Lymphoma. 12. 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 13. Failure to thrive and quadriplegia. 14. CVA, dementia, deconditioning. 15. Continue treatment per primary consultants. 16. Allergy to penicillin. 17. Social history is negative. 18. Family history is noncontributory. 19. MAR was noted. 20. Case discussed with RN. Subjective Constitutional: Reports: fever, fatigue Respiratory: Reports: shortness of breath - mild Cardiovascular: Denies: chest pain Gastrointestinal/Abdominal: Denies: nausea, vomiting, diarrhea Genitourinary: Reports: other - no vasquez Neurologic: Reports: weakness, other - lethargic Psychiatric: Reports: other - NA Skin: Denies: rash Hematologic: Denies: bleeding Musculoskeletal: Reports: other - NA Allergies: Coded Allergies: PENICILLINS (Unverified Allergy, Unknown, 03/16/15) Objective Vital Signs Last 24 Hour Vital Signs Date Time Temp Pulse Resp B/P (MAP) Pulse Ox O2 Delivery O2 Flow Rate FiO2 02/13/20 12:00 99.6 78 20 99/57 (71) 98 02/13/20 09:00 72 100/59 02/13/20 09:00 Room Air 02/13/20 08:00 99.0 72 21 100/59 (73) 99 02/13/20 04:00 98.8 67 22 98/54 (69) 99 02/13/20 00:00 98.6 69 22 97/54 (68) 98 02/12/20 21:08 Room Air 02/12/20 20:00 98.4 78 21 109/67 (81) 94 Height (Feet): 5 Height (Inches): 5.00 Weight (Pounds): 137 General Appearance: no acute distress HEENT: normocephalic, atraumatic, anicteric Respiratory/Chest: crackles/rales, rhonchi - bilaterally Cardiovascular: normal rate, regular rhythm, no gallop/murmur, no JVD Abdomen: normal bowel sounds, soft, non tender, no organomegaly, non distended Genitourinary: other - no vasquez Extremities: no cyanosis Skin: no rash Neurologic/Psychiatric: motor weakness, other - lethargic, weak Lymphatic: no neck adenopathy Musculoskeletal: no effusion Objective Procedure: XRAY Chest 1v Indication: Post line placement chest x-ray - 02/12/20 - Technique: One view of the chest Comparison: 02/12/2020 Findings: Interim placement right subclavian central venous catheter, tip which projects at the level of the cavoatrial junction. No pneumothorax. There is increasing infiltrate in the right upper lobe. Background interstitial congestion is stable. The heart is enlarged. Impression: Satisfactory right subclavian central venous catheter placement. No radiographically evident complication Increasing right upper lobe infiltrate Microbiology Date/Time Source Procedure Growth Status 01/31/20 22:49 Blood Blood Culture - Final NO GROWTH AFTER 5 DAYS Complete 01/31/20 23:00 Nasal Nares MRSA Culture - Final Staphylococcus Aureus - Mrsa Complete 01/31/20 22:49 Urine,Clean Catch Urine Culture - Final Escherichia Coli Complete 01/31/20 23:00 Rectum - Final NO CARBAPENEM-RESISTANT ENTEROBACTERI... Complete Laboratory Tests Test 02/13/20 06:00 White Blood Count 16.3 K/UL (4.8-10.8) H Red Blood Count 3.37 M/UL (4.20-5.40) L Hemoglobin 10.1 G/DL (12.0-16.0) #L Hematocrit 29.0 % (37.0-47.0) #L Mean Corpuscular Volume 86 FL (80-99) Mean Corpuscular Hemoglobin 30.0 PG (27.0-31.0) Mean Corpuscular Hemoglobin Concent 34.9 G/DL (32.0-36.0) Red Cell Distribution Width 14.0 % (11.6-14.8) Platelet Count 20 K/UL (150-450) L Mean Platelet Volume 6.8 FL (6.5-10.1) Neutrophils (%) (Auto) % (45.0-75.0) Lymphocytes (%) (Auto) % (20.0-45.0) Monocytes (%) (Auto) % (1.0-10.0) Eosinophils (%) (Auto) % (0.0-3.0) Basophils (%) (Auto) % (0.0-2.0) Differential Total Cells Counted 100 Neutrophils % (Manual) 15 % (45-75) L Lymphocytes % (Manual) 35 % (20-45) Monocytes % (Manual) 7 % (1-10) Eosinophils % (Manual) 0 % (0-3) Basophils % (Manual) 1 % (0-2) Metamyelocytes % 2 % (0-0) H Myelocytes % 4 % (0-0) H Blast Cells % 28 % (0-0) *H Band Neutrophils 8 % (0-8) Platelet Estimate Decreased L Platelet Morphology Normal Red Blood Cell Morphology Normal Sodium Level 142 MMOL/L (136-145) Potassium Level 4.4 MMOL/L (3.5-5.1) Chloride Level 113 MMOL/L (98-107) H Carbon Dioxide Level 16 MMOL/L (21-32) L Blood Urea Nitrogen 20 mg/dL (7-18) H Creatinine 1.1 MG/DL (0.55-1.30) Estimat Glomerular Filtration Rate 58.4 mL/min (>60) Glucose Level 92 MG/DL (74-106) Calcium Level 7.8 MG/DL (8.5-10.1) L Current Medications Medications (Trade) Dose Ordered Sig/Javier Route PRN Reason Start Time Stop Time Status Last Admin Dose Admin Acetaminophen (Tylenol) 650 mg Q4H PRN ORAL Mild Pain (Pain Scale 1-3) 02/01/20 16:30 03/02/20 12:19 Acetaminophen (Tylenol) 650 mg Q4H PRN ORAL T>100.4 02/01/20 16:30 03/02/20 12:19 Acetaminophen (Tylenol) 650 mg Q4H PRN RECTAL Mild Pain (Pain Scale 1-3) 02/12/20 15:00 03/13/20 14:44 02/12/20 14:54 Amiodarone HCl (Cordarone) 200 mg DAILY GT 02/02/20 09:00 05/02/20 08:59 02/12/20 09:53 Amlodipine Besylate (Norvasc) 5 mg DAILY ORAL 02/02/20 09:00 03/03/20 08:59 02/12/20 09:53 Ascorbic Acid (Vitamin C) 500 mg TWICE A DAY GT 02/01/20 18:00 03/02/20 17:59 02/12/20 09:53 Bisacodyl (Dulcolax) 10 mg DAILYPRN PRN RECTAL Constipation 02/01/20 16:00 05/01/20 15:59 Cefazolin Sodium 1 gm/Dextrose 55 ml @ 110 mls/hr Q8H IVPB 02/12/20 02:00 02/19/20 01:59 02/13/20 09:51 Dextrose (Dextrose 50%) 25 ml Q30M PRN IV Hypoglycemia 02/01/20 16:00 05/01/20 11:59 Dextrose (Dextrose 50%) 50 ml Q30M PRN IV Hypoglycemia 02/01/20 16:00 05/01/20 11:59 Docusate Sodium (Colace) 100 mg TWICE A DAY ORAL 02/01/20 18:00 03/02/20 17:59 02/12/20 09:53 Epoetin Yaniv (Epoetin Yaniv-EPBX(NON ESRD)) 10,000 unit SUBQ 02/07/20 21:00 05/07/20 20:59 02/12/20 20:44 Morphine Sulfate (Morphine Sulfate) 1 mg Q4H PRN IVP pain 02/08/20 06:15 02/15/20 06:14 Ondansetron HCl (Zofran) 4 mg Q8H PRN GT Nausea & Vomiting 02/01/20 16:00 03/02/20 15:59 Pantoprazole (Protonix) 40 mg DAILY ORAL 02/02/20 09:00 03/03/20 08:59 02/12/20 09:53 Polyethylene Glycol (Miralax) 17 gm HSPRN PRN ORAL Constipation 02/01/20 16:00 03/02/20 15:59 Shanell Patricia MD Feb 13, 2020 16:57
--- NOTE | 2020-02-13 19:30 | NUR ---
NURSE NOTES: Receive pt in bed non-verbal. No sob, vitals are stable, and no pain. pt is npo and 24hr picc line dressing changed. Bed in the lower position,locked and alarm on. call light within reach. we will keep monitoring
--- NOTE | 2020-02-13 19:36 | NUR ---
HAND-OFF: Report given to cristina.
[2020-02-13 20:00] VITALS: BP 114/70
--- NOTE | 2020-02-13 20:00 | NUR ---
NURSE NOTES: Central line dressing changed, biopatch in place, all lumens patent, flushed with normal saline. Patient tolerated well.
[2020-02-13] MEDS: Vancomycin 500 MG in NS 110 ML IVPB SCH (20:35)
--- NOTE | 2020-02-13 20:42 | Neurology Progress Note ---
Interim History Interim History ROS Limited/Unobtainable: Yes - aphasic, non-communicative. Interim History low BP, no interaction, poor prognosis Objective Physical Exam Last Vital Signs Date Time Temp Pulse Resp B/P (MAP) Pulse Ox O2 Delivery O2 Flow Rate FiO2 02/13/20 16:00 99.6 78 20 108/57 (74) 97 02/13/20 09:00 Room Air 02/09/20 09:00 2.0 Laboratory Tests Test 02/13/20 06:00 White Blood Count 16.3 K/UL (4.8-10.8) H Red Blood Count 3.37 M/UL (4.20-5.40) L Hemoglobin 10.1 G/DL (12.0-16.0) #L Hematocrit 29.0 % (37.0-47.0) #L Mean Corpuscular Volume 86 FL (80-99) Mean Corpuscular Hemoglobin 30.0 PG (27.0-31.0) Mean Corpuscular Hemoglobin Concent 34.9 G/DL (32.0-36.0) Red Cell Distribution Width 14.0 % (11.6-14.8) Platelet Count 20 K/UL (150-450) L Mean Platelet Volume 6.8 FL (6.5-10.1) Neutrophils (%) (Auto) % (45.0-75.0) Lymphocytes (%) (Auto) % (20.0-45.0) Monocytes (%) (Auto) % (1.0-10.0) Eosinophils (%) (Auto) % (0.0-3.0) Basophils (%) (Auto) % (0.0-2.0) Differential Total Cells Counted 100 Neutrophils % (Manual) 15 % (45-75) L Lymphocytes % (Manual) 35 % (20-45) Monocytes % (Manual) 7 % (1-10) Eosinophils % (Manual) 0 % (0-3) Basophils % (Manual) 1 % (0-2) Metamyelocytes % 2 % (0-0) H Myelocytes % 4 % (0-0) H Blast Cells % 28 % (0-0) *H Band Neutrophils 8 % (0-8) Platelet Estimate Decreased L Platelet Morphology Normal Red Blood Cell Morphology Normal Sodium Level 142 MMOL/L (136-145) Potassium Level 4.4 MMOL/L (3.5-5.1) Chloride Level 113 MMOL/L (98-107) H Carbon Dioxide Level 16 MMOL/L (21-32) L Blood Urea Nitrogen 20 mg/dL (7-18) H Creatinine 1.1 MG/DL (0.55-1.30) Estimat Glomerular Filtration Rate 58.4 mL/min (>60) Glucose Level 92 MG/DL (74-106) Calcium Level 7.8 MG/DL (8.5-10.1) L Neurologic Exam Objective lethargic, withdraws to pain Impression/Recommendations Problems: (1) Hyperkalemia (2) Thrombocytopenia (3) Acute metabolic encephalopathy (4) Acute renal failure (5) Dehydration (6) Acute renal failure (7) UTI (urinary tract infection) (8) Quadriplegia and quadriparesis (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, old, cognitive deficits (11) Anemia, unspecified (12) Vascular dementia (13) Acute respiratory failure (14) Atrial fibrillation (15) Septicemia (16) Dysphagia (17) Leukemia (18) Respiratory failure (19) Iron deficiency anemia (20) Sepsis (21) Altered mental status (22) Cardiomyopathy (23) Pneumonia (24) Alteration consciousness (25) HTN (hypertension) (26) Pain (27) Pain (28) MODS (multiple organ dysfunction syndrome) (29) Cerebral vascular disease (30) Elevated CEA (31) Decubital ulcer (32) Penicillin allergy (33) PEG (percutaneous endoscopic gastrostomy) adjustment/replacement/removal (34) SEPSIS, ABD PAIN (35) AL Diagnostic Impression poor prognosis Corwin Ackerman MD Feb 13, 2020 20:41
[2020-02-13] MEDS ORDERED: Cefepime HCl 2 GM in D5W 55 ML IVPB SCH (21:00)
[2020-02-13] MEDS ORDERED: metroNIDAZOLE 500mg tab ORAL SCH (22:00)
[2020-02-13] MEDS: Cefepime HCl 2 GM in D5W 55 ML IVPB SCH (22:09)
[2020-02-13] MEDS: Morphine Sulfate 2mg/ml Inj(IV/IM USE ONLY) IVP PRN (23:11)
[2020-02-14] VITALS: BP 112/89
[2020-02-14] MEDS: Morphine Sulfate 2mg/ml Inj(IV/IM USE ONLY) IVP PRN ×3 (03:16→13:24)
[2020-02-14 04:00] VITALS: BP 90/48
[2020-02-14 06:23] LABS: MEAN CORPUSCULAR VOLUME 87 FL (80-99); PLATELET COUNT 19 K/UL (150-450); RED BLOOD COUNT 3.35 M/UL (4.20-5.40); WHITE BLOOD COUNT 13.4 K/UL (4.8-10.8)
[2020-02-14 06:36] LABS: ANION GAP 16 mmol/L (5-15); BLOOD UREA NITROGEN 26 mg/dL (7-18); CARBON DIOXIDE 15 MMOL/L (21-32); CHLORIDE 115 MMOL/L (98-107); CREATININE 1.1 MG/DL (0.55-1.30); SODIUM 146 MMOL/L (136-145)
--- NOTE | 2020-02-14 07:00 | NUR ---
HAND-OFF: Report given to RETA Menendez. Sputum sample sent to lab.
[2020-02-14 07:20] LABS: CALCIUM 8.3 MG/DL (8.5-10.1)
--- NOTE | 2020-02-14 07:43 | NUR ---
NURSE NOTES: Patient awake,non-verbal, mooning; on Nasal cannula 2 Liters, no sing of distress and shortness of breath; no sing of chest pain; Central line on Right Upper Chest, Triple lumen, dressing dry and intact; TKO; dressing dry and intact on wound; side rails up x2, breaks engaged, bed at lowest position, bed alarm on; head of the bed elevated; will keep monitoring.
[2020-02-14 08:00] VITALS: BP 119/58
[2020-02-14] MEDS: Vancomycin 500 MG in NS 110 ML IVPB SCH ×2 (08:41→20:00)
[2020-02-14] MEDS: Ascorbic Acid 500mg tab GT SCH ×2 (08:46→17:27)
[2020-02-14] MEDS: Amiodarone 200mg tab GT SCH (08:46)
[2020-02-14] MEDS: Docusate 100mg cap ORAL SCH ×2 (08:46→17:27)
--- NOTE | 2020-02-14 09:07 | Nephrology Progress Note ---
Assessment/Plan Plan #Hyponatremia- due to excess free water #E. coli UTI #Severe refractory Anemia 2/2 MDS #Acute Leukemia, concern for blast crisis #Lymphoma #thrombocytopenia #FTT #physical deconditioning #Quadriplegia #CVA #vascular dementia -1/2 NS at 50cc/hour - continue amlodipine 5mg daily -con vanco and cefepime - continue epo 10k TIW -Transfuse PRBC for supportive care -Monitor daily CBC -Unable to initiation chemotherapy at this time per Heme/Onc due to poor prognosis Subjective ROS Limited/Unobtainable: Yes Subjective Sodium 146 will resume 1/2Ns at 50cc/hr WBC remains elevated appears comfortable hemoglobin low Objective Objective Last 24 Hour Vital Signs Date Time Temp Pulse Resp B/P (MAP) Pulse Ox O2 Delivery O2 Flow Rate FiO2 02/14/20 08:00 98.3 93 19 119/58 (78) 98 02/14/20 04:00 97.9 85 24 90/48 (62) 98 02/14/20 00:00 97.7 69 26 112/89 (97) 95 02/13/20 21:00 Room Air 02/13/20 20:00 97.7 75 28 114/70 (85) 99 02/13/20 16:00 99.6 78 20 108/57 (74) 97 02/13/20 12:00 99.6 78 20 99/57 (71) 98 Intake and Output 02/13/20 02/14/20 19:00 07:00 Intake Total 110 ml Balance 110 ml IV Total 110 ml # Voids 4 2 Laboratory Tests 02/14/20 05:20: White Blood Count 13.4H, Red Blood Count 3.35L, Hemoglobin 10.0L, Hematocrit 29.0L, Mean Corpuscular Volume 87, Mean Corpuscular Hemoglobin 29.8, Mean Corpuscular Hemoglobin Concent 34.4, Red Cell Distribution Width 15.0H, Platelet Count 19L, Mean Platelet Volume 8.9, Neutrophils (%) (Auto) , Lymphocytes (%) (Auto) , Monocytes (%) (Auto) , Eosinophils (%) (Auto) , Basophils (%) (Auto) , Neutrophils % (Manual) [Pending], Lymphocytes % (Manual) [Pending], Platelet Estimate [Pending], Platelet Morphology [Pending], Sodium Level 146H, Potassium Level 4.0, Chloride Level 115H, Carbon Dioxide Level 15L, Anion Gap 16H, Blood Urea Nitrogen 26H, Creatinine 1.1, Estimat Glomerular Filtration Rate 58.4, Glucose Level 79, Calcium Level 8.3L Height (Feet): 5 Height (Inches): 5.00 Weight (Pounds): 215 Objective General Appearance: aphasic, awake, alert, appears comfortable HEENT: NCAT, b/l blindness, left prostehsis, dry MM Cardiovascular: regular rhythm Respiratory/Chest: lungs clear, no accessory muscle usage Abdomen: non tender, soft Edema: no edema noted Tristan Morris M.D. Feb 14, 2020 09:07
--- NOTE | 2020-02-14 09:22 | General Progress Note ---
Assessment/Plan Assessment/Plan: 79 y/o F with PMH CVA, schizophrenia, vascular dementia, leukemia who presents from [facility] for [facility]MS, found to have E. coli UTI and severe anemia #E. coli UTI #RUL PNA - Aspiration or HCAP -cont. inpatient medical management -UCx + for E. Coli -WBC remains elevated but downtrending, likely 2/2 to leukemia/blast crisis -CXR w/?RUL infiltrate -d/w ID: Vancomycin, cefepime, Flagyl #Severe refractory Anemia 2/2 MDS #Acute Leukemia, Blast crisis #Lymphoma #thrombocytopenia -Transfuse PRBC for supportive care -Monitor daily CBC -Unable to initiate chemotherapy per Heme/Onc due to poor prognosis -Spoke with daughter on 02/06 and again 02/08, leaning toward hospice but still unable to decide about making her DNR/DNI. -d/w daughter on 02/10 and 02/11, is very hesitant w/hospice at this time -02/11: s/p central line placement by Gen surgery -Transfused on 02/09 1 U PRBC, 02/11 3 U PRBC -hgb stable today #Hyponatremia - improved -s/p IV NS -nephro following, recs appreciated #FTT #Severe Protein Calorie Malnutrition #physical deconditioning #Dysphagia #Quadriplegia -nutrition following -PT/OT -pt w/very poor PO intake at this time, unable to swallow -ST: pt with severe dysphagia, unable to tolerate own secretions at this time, pt NPO, does not recommend NGT -Do not recommend PEG tube at this time given low plts, pt is very high risk of bleeding with procedures. Explained to POA this concern multiple times who states she understands -aspiration precautions -will consult GI for input/nutrition rrecs, recs appreciated #CVA #vascular dementia -minimally verbal at b/l per PCP -no ASA given thrombocytopenia Pt has very poor prognosis given terminal conditions noted above. Time spent on encounter: 60 mins, 40 mins spent on coordination of care, discussed POC with RN, Hematology, I. D/w GI Dr. Ashton need for G-tube and nutrition recommendations. Time of note doesn't reflect time of encounter. Subjective Allergies: Coded Allergies: PENICILLINS (Unverified Allergy, Unknown, 03/16/15) Subjective Follow up for UTI, acute severe anemia, thrombocytopenia, acute leukemia/blast crisis. Pt appears uncomfortable, moaning. Objective Last 24 Hour Vital Signs Date Time Temp Pulse Resp B/P (MAP) Pulse Ox O2 Delivery O2 Flow Rate FiO2 02/14/20 08:00 98.3 93 19 119/58 (78) 98 02/14/20 04:00 97.9 85 24 90/48 (62) 98 02/14/20 00:00 97.7 69 26 112/89 (97) 95 02/13/20 21:00 Room Air 02/13/20 20:00 97.7 75 28 114/70 (85) 99 02/13/20 16:00 99.6 78 20 108/57 (74) 97 02/13/20 12:00 99.6 78 20 99/57 (71) 98 Intake and Output 02/13/20 02/14/20 19:00 07:00 Intake Total 110 ml Balance 110 ml IV Total 110 ml # Voids 4 2 Laboratory Tests 02/14/20 05:20: White Blood Count 13.4H, Red Blood Count 3.35L, Hemoglobin 10.0L, Hematocrit 29.0L, Mean Corpuscular Volume 87, Mean Corpuscular Hemoglobin 29.8, Mean Corpuscular Hemoglobin Concent 34.4, Red Cell Distribution Width 15.0H, Platelet Count 19L, Mean Platelet Volume 8.9, Neutrophils (%) (Auto) , Lymphocytes (%) (Auto) , Monocytes (%) (Auto) , Eosinophils (%) (Auto) , Basophils (%) (Auto) , Differential Total Cells Counted 100, Neutrophils % ( Manual) 25L, Lymphocytes % (Manual) 30, Monocytes % (Manual) 7, Eosinophils % ( Manual) 0, Basophils % (Manual) 0, Blast Cells % 38*H, Band Neutrophils 0, Platelet Estimate DecreasedL, Platelet Morphology [Pending], Hypochromasia 2+, Anisocytosis 1+, Spherocytes 1+, Sodium Level 146H, Potassium Level 4.0, Chloride Level 115H, Carbon Dioxide Level 15L, Anion Gap 16H, Blood Urea Nitrogen 26H, Creatinine 1.1, Estimat Glomerular Filtration Rate 58.4, Glucose Level 79, Calcium Level 8.3L Height (Feet): 5 Height (Inches): 5.00 Weight (Pounds): 215 Objective General Appearance: aphasic, awake, appears uncomfortable and moaning, does not respond to name HEENT: NCAT, b/l blindness, left prosthesis, dry MM Cardiovascular: RR Respiratory/Chest: coarse rhonchi, no accessory muscle usage Abdomen: non tender, soft Edema: no edema noted Anthony Guerra M.D. Feb 14, 2020 09:22
--- NOTE | 2020-02-14 09:58 | Surgery Progress Note ---
Surgery Progress Note Subjective Procedure Performed Right subclavian central venous catheter insertion Additional Comments leukocytosis improved h/h stable no acute events otherwise ill appearing moaning Objective Last 24 Hour Vital Signs Date Time Temp Pulse Resp B/P (MAP) Pulse Ox O2 Delivery O2 Flow Rate FiO2 02/14/20 09:09 98.3 02/14/20 08:00 98.3 93 19 119/58 (78) 98 02/14/20 04:00 97.9 85 24 90/48 (62) 98 02/14/20 00:00 97.7 69 26 112/89 (97) 95 02/13/20 21:00 Room Air 02/13/20 20:00 97.7 75 28 114/70 (85) 99 02/13/20 16:00 99.6 78 20 108/57 (74) 97 02/13/20 12:00 99.6 78 20 99/57 (71) 98 I&O Intake and Output 02/13/20 02/14/20 19:00 07:00 Intake Total 110 ml Balance 110 ml IV Total 110 ml # Voids 4 2 Dressing: other Wound: other Drains: other Cardiovascular: RSR Respiratory: decreased breath sounds Abdomen: soft, non-tender, present bowel sounds Extremities: edema, no tenderness, no cyanosis Laboratory Tests Test 02/14/20 05:20 White Blood Count 13.4 K/UL (4.8-10.8) H Red Blood Count 3.35 M/UL (4.20-5.40) L Hemoglobin 10.0 G/DL (12.0-16.0) L Hematocrit 29.0 % (37.0-47.0) L Mean Corpuscular Volume 87 FL (80-99) Mean Corpuscular Hemoglobin 29.8 PG (27.0-31.0) Mean Corpuscular Hemoglobin Concent 34.4 G/DL (32.0-36.0) Red Cell Distribution Width 15.0 % (11.6-14.8) H Platelet Count 19 K/UL (150-450) L Mean Platelet Volume 8.9 FL (6.5-10.1) Neutrophils (%) (Auto) % (45.0-75.0) Lymphocytes (%) (Auto) % (20.0-45.0) Monocytes (%) (Auto) % (1.0-10.0) Eosinophils (%) (Auto) % (0.0-3.0) Basophils (%) (Auto) % (0.0-2.0) Differential Total Cells Counted 100 Neutrophils % (Manual) 25 % (45-75) L Lymphocytes % (Manual) 30 % (20-45) Monocytes % (Manual) 7 % (1-10) Eosinophils % (Manual) 0 % (0-3) Basophils % (Manual) 0 % (0-2) Blast Cells % 38 % (0-0) *H Band Neutrophils 0 % (0-8) Platelet Estimate Decreased L Platelet Morphology Pending Hypochromasia 2+ Anisocytosis 1+ Spherocytes 1+ Sodium Level 146 MMOL/L (136-145) H Potassium Level 4.0 MMOL/L (3.5-5.1) Chloride Level 115 MMOL/L (98-107) H Carbon Dioxide Level 15 MMOL/L (21-32) L Anion Gap 16 mmol/L (5-15) H Blood Urea Nitrogen 26 mg/dL (7-18) H Creatinine 1.1 MG/DL (0.55-1.30) Estimat Glomerular Filtration Rate 58.4 mL/min (>60) Glucose Level 79 MG/DL (74-106) Calcium Level 8.3 MG/DL (8.5-10.1) L Plan Problems: (1) Decubital ulcer Assessment & Plan: DAILY ESTIMATED NEEDS: Needs based on wound, bed bound 63.5kg abw 25-30 kcals/kg 4054-0987 total kcals 1.25-1.5 g protein/kg 79-95 g total protein 25-30 mL/kg 5501-5015 total fluid mLs NUTRITION DIAGNOSIS: Increased kcal and protein needs R/T wound healing sacral full thickness wound, pt is bedbound w/ poor po intake, pt is lethargic. CURRENT DIET: CCHO MED puree PO DIET RECOMMENDATIONS: Liberalized Regular/ Texture per MUTUEL CASHIER + ENSURE TID ENTERAL NUTRITION RECOMMENDATIONS: IF PART OF POC -> Jevity 1.2 @ 55ml/hr x 24 hrs to provide 1320ml, 1584kcal, 73g prot, 1065ml free water * IF PART OF POC, obtain GI access * Initiate Jevity 1.2 @ 15ml/hr x 6hrs, advance 10ml q 4-6 hrs as tolerated to goal rate. * Once TF well tolerated at goal, add Prosouce 1pkt QD to better meet prot needs * HOB Over 30 degrees/ without IVF, water flush 150ml q 6 hrs * W/ TF, monitor lytes daily, replete as needed- high risk for refeeding syndrome. 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 Patient with leukocytosis on IV antibiotics per infectious disease Microbiology reviewed noted CO VID status Severe anemia trending down hemoglobin requiring transfusion Currently patient does not have access is appropriate for the above central venous catheter indicating recommended consent obtained with family See note procedure Continue IV antibiotics Transfuse as per hematology Trend labs Above nutrition recommendations for patient's overall status We will follow with recommendations thank you for allowing me to participate in patient's care discussed with daughter in length recommend comfort care i expressed this to her she states she will come see her mother and decide no decision made currently (17) Dysphagia (18) Leukemia (19) Respiratory failure (20) Iron deficiency anemia (21) Sepsis (22) Altered mental status (23) Cardiomyopathy (24) Pneumonia (25) Alteration consciousness (26) HTN (hypertension) (27) Pain (28) Pain (29) MODS (multiple organ dysfunction syndrome) (30) Cerebral vascular disease (31) Elevated CEA (32) Penicillin allergy (33) PEG (percutaneous endoscopic gastrostomy) adjustment/replacement/removal (34) SEPSIS, ABD PAIN (35) Phli Weinstein Feb 14, 2020 09:58
--- NOTE | 2020-02-14 11:50 | NUR ---
DISCHARGE SWALLOW/SPEECH THERAPY SUMMARY: PATIENT WAS SEEN FOR DYSPHAGIA, SEE SWALLOWING EVALUATION REPORT. 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 GOALS NOT MET FOR ORAL INTAKE (NPO NOW) BUT GOALS MET FOR NEW STAFF EDUCATED/TRAINED IN POSTED ORAL CARE/SUCTION NEEDS AND ASPIRATION PRECAUTIONS FOR ORAL SECRETIONS IN THE BACK OF HER THROAT. ST SUCTIONED THE BACK OF HER THROAT AND FOUND MILD-MOD AMOUNTS OF YELLOW/WHITISH MILDLY THICK SECRETIONS IN THE BACK OF HER THROAT. THE PATIENT TRIED TO KEEP HER MOUTH CLOSED AND ST WAS ABLE TO GET YANKAUER IN BETWEEN HER TEETH ON THE LEFT SIDE (WHERE SHE HAD MISSING TEETH). THE PT DID NOT FOLLOW COMMANDS TO MOVE HER TONGUE/LIPS NOR OPEN HER MOUTH TO COMMAND. SHE CLENCHES HER JAW CLOSED AND MOANS CONSISTENTLY. HER HEAD IS POSITIONED BACK AND TO THE LEFT. PER HER DTR, HER BASELINE IS NONVERBAL. ST SPOKE WITH DTR (YESTERDAY) ABOUT COMFORT CARE SINCE PT IS NOT SAFE NOR RECEPTIVE TO PO INTAKE. PER DR VUONG, PATIENT NOT A CANDIDATE FOR NGT NOR PEG DUE TO BLEEDING/PLATELET RISK. HE AND DR GALICIA (ONCOLOGIST) WILL TALK TO THE FAMILY ABOUT COMFORT AND HOSPICE CARE. PLAN: CONTINUE WITH NO PO FOR NOW. CONTINUE WITH ORAL CARE/SUCTION WILL D/C FROM [facility] SERVICES AT THIS TIME DR VUONG AND RETA ADDISON TO CONSULT WITH SW REGARDING HOSPICE IF FAMILY AGREES. Addendum: 02/14/20 at 1206 by RADHA TANNER REBAR FABRICATOR PHYLICIA VICK TO CONTACT PATIENT ABOUT D/C PLANS AND HOSPICE. PER FAMILY, THEY SPOKE TO SOMEONE FROM HOSPICE ON WEDNESDAY.
[2020-02-14 12:00] VITALS: BP 127/56
--- NOTE | 2020-02-14 12:13 | NUR ---
OCEAN EXPORT COORDINATOR NOTE PHYLICIA was notified that the family has a concern on pt's placement. PHYLICIA spoke w/ Claritza SALDANA and Cydney GREWAL and obtained information on the current status. Family is still deciding on hospice care. PHYLICIA left a vm to pt's daughter Leyla Desai [phone] for call back.
--- NOTE | 2020-02-14 12:33 | NUR ---
CASE MANAGEMENT:REVIEW SI;LEUKEMIA. UTI. FTT. ANEMIA. 98.8 93 26 90/48 95% ON RA WBC 13.4 NA 146 CO2 15 BUN 26 CA 8.3 IS;IVF NS @ 50 ML/HR FLAGYL IV Q8 HRS CEFEPIME IV Q24 HRS VANCOMYCIN IV QD PER PROTOCOL AMIODARONE NGT QD PROTONIX NGT QD VITAMIN C NGT BID MED SURG STATUS DCP;PATIENT IS FROM [facility];HOSPICE CARE PENDING FAMILY DECISION
--- NOTE | 2020-02-14 13:56 | Hematology/Onc Progress Note ---
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 coli UTI as well As ALL --> cont. inpatient medical management --> UCx + for E. Coli --> cont. cefazolin --> smear is noted --> wbc 26-->18-->25-->13 # FTT likely related to psych disorder --> pt as needed --> nutrition recommendations # Physical deconditioning # Quadriplegia --> nutrition consulted --> PT/OT # CVA # Vascular dementia # Poor prognosis, consider hospice Appreciate consultation and dw Rn Subjective Constitutional: Denies: no symptoms, chills, fever, malaise, weakness, other HEENT: Denies: no symptoms, eye pain, blurred vision, tearing, double vision, ear pain, ear discharge, nose pain, nose congestion, throat pain, throat swelling, mouth pain, mouth swelling, other Cardiovascular: Denies: no symptoms, chest pain, edema, irregular heart rate, lightheadedness, palpitations, syncope, other Respiratory: Denies: no symptoms, cough, shortness of breath, SOB with excertion, SOB at rest, sputum, wheezing, other Gastrointestinal/Abdominal: Denies: no symptoms, abdomen distended, abdominal pain, black stools, tarry stools, blood in stool, constipated, diarrhea, difficulty swallowing, nausea, poor appetite, poor fluid intake, rectal bleeding , vomiting, other Genitourinary: Denies: no symptoms, burning, discharge, frequency, flank pain, hematuria, incontinence, pain, urgency, other Neurologic/Psychiatric: Denies: no symptoms, anxiety, depressed, emotional problems, headache, numbness, paresthesia, pre-existing deficit, seizure, tingling, tremors, weakness, other Endocrine: Denies: no symptoms, excessive sweating, flushing, intolerance to cold, intolerance to heat, increased hunger, increased thirst, increased urine, unexplained weight gain, unexplained weight loss, other Allergies: Coded Allergies: PENICILLINS (Unverified Allergy, Unknown, 03/16/15) Subjective 02/06 nonverbal, no bleeding, labs reviewed, no f/c no bleeding, hgb low 02/07 i talked to rn this an, Xyrece and apparently daughter called and asked to see how mother is doing,she hasn't yet called me 02/08 no bleeding, labs reviewed, with blast coiunt of 81%, extremely poor prognosis 02/11 no major events, remains critically ill, daughter still contemplating hospice 02/12 labs noted, no bleeding, no f/c, hgb improved s/p transf 02/13 remains agitated, increased dose of morphine in am, dw daughter and pcp yesterday Objective Objective Current Medications Medications (Trade) Dose Ordered Sig/Javier Route PRN Reason Start Time Stop Time Status Last Admin Dose Admin Acetaminophen (Tylenol) 650 mg Q4H PRN ORAL Mild Pain (Pain Scale 1-3) 02/01/20 16:30 03/02/20 12:19 Acetaminophen (Tylenol) 650 mg Q4H PRN ORAL T>100.4 02/01/20 16:30 03/02/20 12:19 Acetaminophen (Tylenol) 650 mg Q4H PRN RECTAL Mild Pain (Pain Scale 1-3) 02/12/20 15:00 03/13/20 14:44 02/12/20 14:54 Amiodarone HCl (Cordarone) 200 mg DAILY GT 02/02/20 09:00 05/02/20 08:59 02/12/20 09:53 Amlodipine Besylate (Norvasc) 5 mg DAILY ORAL 02/02/20 09:00 03/03/20 08:59 02/12/20 09:53 Ascorbic Acid (Vitamin C) 500 mg TWICE A DAY GT 02/01/20 18:00 03/02/20 17:59 02/12/20 09:53 Bisacodyl (Dulcolax) 10 mg DAILYPRN PRN RECTAL Constipation 02/01/20 16:00 05/01/20 15:59 Cefepime HCl 2 gm/ Dextrose 55 ml @ 110 mls/hr Q24H IVPB 02/13/20 21:00 02/20/20 20:59 02/13/20 22:09 Chlorhexidine Gluconate (Aida-Hex 2%) 1 applic DAILY@2000 TOPIC 02/14/20 20:00 05/14/20 19:59 Dextrose (Dextrose 50%) 25 ml Q30M PRN IV Hypoglycemia 02/01/20 16:00 05/01/20 11:59 Dextrose (Dextrose 50%) 50 ml Q30M PRN IV Hypoglycemia 02/01/20 16:00 05/01/20 11:59 Docusate Sodium (Colace) 100 mg TWICE A DAY ORAL 02/01/20 18:00 03/02/20 17:59 02/12/20 09:53 Epoetin Yaniv (Epoetin Yaniv-EPBX(NON ESRD)) 10,000 unit WED-WED-WED SUBQ 02/07/20 21:00 05/07/20 20:59 02/12/20 20:44 Metronidazole 100 ml @ 100 mls/hr Q8HR IVPB 02/14/20 14:00 02/21/20 13:59 02/14/20 13:24 Morphine Sulfate (Morphine Sulfate) 2 mg Q4H PRN IVP For Pain 02/14/20 06:00 02/21/20 05:59 02/14/20 13:24 Ondansetron HCl (Zofran) 4 mg Q8H PRN GT Nausea & Vomiting 02/01/20 16:00 03/02/20 15:59 Pantoprazole (Protonix) 40 mg DAILY ORAL 02/02/20 09:00 03/03/20 08:59 02/12/20 09:53 Polyethylene Glycol (Miralax) 17 gm HSPRN PRN ORAL Constipation 02/01/20 16:00 03/02/20 15:59 Sodium Chloride 1,000 ml @ 50 mls/hr Q20H IV 02/14/20 09:15 03/15/20 09:14 02/14/20 09:40 Vancomycin HCl (Vanco rx to dose) 1 ea DAILY PRN MISC Per rx protocol 02/13/20 17:00 03/14/20 16:59 Vancomycin HCl 500 mg/Sodium Chloride 110 ml @ 110 mls/hr Q12HR@0800,2000 IVPB 02/13/20 20:00 02/18/20 19:59 02/14/20 08:41 Last 24 Hour Vital Signs Date Time Temp Pulse Resp B/P (MAP) Pulse Ox O2 Delivery O2 Flow Rate FiO2 02/14/20 12:00 98.8 89 18 127/56 (79) 97 02/14/20 09:09 98.3 02/14/20 09:00 Room Air 02/14/20 08:00 98.3 93 19 119/58 (78) 98 02/14/20 04:00 97.9 85 24 90/48 (62) 98 02/14/20 00:00 97.7 69 26 112/89 (97) 95 02/13/20 21:00 Room Air 02/13/20 20:00 97.7 75 28 114/70 (85) 99 02/13/20 16:00 99.6 78 20 108/57 (74) 97 02/13/20 12:00 99.6 78 20 99/57 (71) 98 02/13/20 09:00 72 100/59 02/13/20 09:00 Room Air 02/13/20 08:00 99.0 72 21 100/59 (73) 99 02/13/20 04:00 98.8 67 22 98/54 (69) 99 02/13/20 00:00 98.6 69 22 97/54 (68) 98 02/12/20 21:08 Room Air 02/12/20 20:00 98.4 78 21 109/67 (81) 94 02/12/20 16:27 84 28 93 02/12/20 16:22 98.2 89 28 100/55 (70) 94 02/12/20 15:55 98.2 84 28 82/40 (54) 93 02/12/20 15:24 97.8 02/12/20 15:09 97.4 86 28 92/53 (66) 93 02/12/20 14:15 100.0 87 28 84/53 (63) 92 Intake and Output 02/13/20 02/14/20 19:00 07:00 Intake Total 110 ml Balance 110 ml IV Total 110 ml # Voids 4 2 Labs Test 02/12/20 05:20 02/13/20 06:00 02/14/20 05:20 White Blood Count 12.7 K/UL (4.8-10.8) 16.3 K/UL (4.8-10.8) 13.4 K/UL (4.8-10.8) Red Blood Count 2.17 M/UL (4.20-5.40) 3.37 M/UL (4.20-5.40) 3.35 M/UL (4.20-5.40) Hemoglobin 6.5 G/DL (12.0-16.0) 10.1 G/DL (12.0-16.0) 10.0 G/DL (12.0-16.0) Hematocrit 18.2 % (37.0-47.0) 29.0 % (37.0-47.0) 29.0 % (37.0-47.0) Mean Corpuscular Volume 84 FL (80-99) 86 FL (80-99) 87 FL (80-99) Mean Corpuscular Hemoglobin 30.1 PG (27.0-31.0) 30.0 PG (27.0-31.0) 29.8 PG (27.0-31.0) Mean Corpuscular Hemoglobin Concent 35.9 G/DL (32.0-36.0) 34.9 G/DL (32.0-36.0) 34.4 G/DL (32.0-36.0) Red Cell Distribution Width 15.4 % (11.6-14.8) 14.0 % (11.6-14.8) 15.0 % (11.6-14.8) Platelet Count 15 K/UL (150-450) 20 K/UL (150-450) 19 K/UL (150-450) Mean Platelet Volume 8.0 FL (6.5-10.1) 6.8 FL (6.5-10.1) 8.9 FL (6.5-10.1) Neutrophils (%) (Auto) % (45.0-75.0) % (45.0-75.0) % (45.0-75.0) Lymphocytes (%) (Auto) % (20.0-45.0) % (20.0-45.0) % (20.0-45.0) Monocytes (%) (Auto) % (1.0-10.0) % (1.0-10.0) % (1.0-10.0) Eosinophils (%) (Auto) % (0.0-3.0) % (0.0-3.0) % (0.0-3.0) Basophils (%) (Auto) % (0.0-2.0) % (0.0-2.0) % (0.0-2.0) Differential Total Cells Counted 100 100 100 Neutrophils % (Manual) 18 % (45-75) 15 % (45-75) 25 % (45-75) Lymphocytes % (Manual) 32 % (20-45) 35 % (20-45) 30 % (20-45) Monocytes % (Manual) 16 % (1-10) 7 % (1-10) 7 % (1-10) Eosinophils % (Manual) 0 % (0-3) 0 % (0-3) 0 % (0-3) Basophils % (Manual) 0 % (0-2) 1 % (0-2) 0 % (0-2) Blast Cells % 33 % (0-0) 28 % (0-0) 38 % (0-0) Band Neutrophils 1 % (0-8) 8 % (0-8) 0 % (0-8) Platelet Estimate Decreased Decreased Decreased Platelet Morphology Normal Normal Normal Hypochromasia 4+ 2+ Sodium Level 138 MMOL/L (136-145) 142 MMOL/L (136-145) 146 MMOL/L (136-145) Potassium Level 4.0 MMOL/L (3.5-5.1) 4.4 MMOL/L (3.5-5.1) 4.0 MMOL/L (3.5-5.1) Chloride Level 108 MMOL/L (98-107) 113 MMOL/L (98-107) 115 MMOL/L (98-107) Carbon Dioxide Level 16 MMOL/L (21-32) 16 MMOL/L (21-32) 15 MMOL/L (21-32) Anion Gap 14 mmol/L (5-15) 16 mmol/L (5-15) Blood Urea Nitrogen 13 mg/dL (7-18) 20 mg/dL (7-18) 26 mg/dL (7-18) Creatinine 0.9 MG/DL (0.55-1.30) 1.1 MG/DL (0.55-1.30) 1.1 MG/DL (0.55-1.30) Estimat Glomerular Filtration Rate > 60 mL/min (>60) 58.4 mL/min (>60) 58.4 mL/min (>60) Glucose Level 96 MG/DL (74-106) 92 MG/DL (74-106) 79 MG/DL (74-106) Calcium Level 7.9 MG/DL (8.5-10.1) 7.8 MG/DL (8.5-10.1) 8.3 MG/DL (8.5-10.1) Metamyelocytes % 2 % (0-0) Myelocytes % 4 % (0-0) Red Blood Cell Morphology Normal Anisocytosis 1+ Spherocytes 1+ Height (Feet): 5 Height (Inches): 5.00 Weight (Pounds): 215 Objective Vitals with hypotension General: lethargic, Chronically Ill Heent: nc, at Neck: full range of motion, supple Respiratory: chest non-tender, rhonchi Cardiovascular: regular rate, rhythm, no murmur Gastrointestinal: normal bowel sounds, non tender, no mass, no organomegaly, no bruit, non-distended Musculoskeletal: other - Extremities contracted Neurologic: other - Grimace to painful stimuli Dav Daniel MD Feb 14, 2020 13:56
--- NOTE | 2020-02-14 15:06 | Diagnostic Imaging Report ---
Indication: Nasogastric intubation Technique: XRAY Abdomen 1v Comparison: None Findings: Weighted tip NG tube has its catheter tip projecting over the region of the stomach is satisfactory in position. Multiple surgical clips noted in the right abdomen. The heart is enlarged and there are opacities at the left base. There are degenerative changes in the spine. Impression: Satisfactory positioning of nasogastric tube.
--- NOTE | 2020-02-14 15:20 | NUR ---
NURSE NOTES: Radiology confirmed placement of NT Tube; MD Ashton is aware.waiting for order.
--- NOTE | 2020-02-14 15:26 | NUR ---
NURSE NOTES: I called MD Brown office to get an order for straight cath to collect urine; waiting for order.
[2020-02-14 16:00] VITALS: BP 98/68
--- NOTE | 2020-02-14 17:03 | NUR ---
NURSE NOTES: Feeding tube started at 10cc/Hr, will advance it as tolerated; goal is 60cc/hr.
--- NOTE | 2020-02-14 17:05 | NUR ---
NURSE NOTES: I received order from MD Gordon; order carried out as order given;
--- NOTE | 2020-02-14 17:50 | NUR ---
NURSE NOTES: Urine collected; waiting for results;
--- NOTE | 2020-02-14 19:30 | NUR ---
HAND-OFF: Report given to RETA Mcmanus.
--- NOTE | 2020-02-14 19:30 | NUR ---
NURSE NOTES: RECEIVED PATIENT FROM RETA KEYES. PATIENT IS ASLEEP, ON ROOM AIR NO ACUTE DISTRESS NOTED. NG TUBE FEEDING NOTED ON RIGHT NARE, RUNNING VITAL AF @10CC/HR. WILL GRADUALLY INCREASE PER GOAL RATE IS 60CC/HR. PATIENT IS TOLERATING FEEDING WELL. WOUND DRESSINGS INTACT. RIGHT UPPER CHEST PICC LINE TRIPLE LUMEN IS INTACT AND PATENT. PICC LINE DRESSING IS DRY AND CLEAN. HOB ELEVATED >30 DEGREE. BED IS LOCKED AND LOW, BED ALARMS ACTIVE, SIDE RAILS UP X2 AND CALL LIGHT IS WITHIN REACH. WILL CONTINUE TO MONITOR.
[2020-02-14 19:59] LABS: APPEARANCE,URINE CLOUDY; BILIRUBIN, URINE 1+ (NEGATIVE); GLUCOSE, URINE (UA) NEGATIVE (NEGATIVE); KETONES,URINE 2+ (NEGATIVE); LEUKOCYTE ESTERASE ,URINE 2+ (NEGATIVE); NITRITE,URINE NEGATIVE (NEGATIVE); PH,URINE 5 (4.5-8.0); PROTEIN,URINE 3+ (NEGATIVE); UROBILINOGEN,URINE 4 MG/DL (0.0-1.0)
[2020-02-14 20:00] VITALS: BP 101/65
--- NOTE | 2020-02-14 20:00 | Consultation ---
DATE OF CONSULTATION: 02/14/2020 CONSULTING PHYSICIAN: Nirav Ashton M.D. CHIEF COMPLAINT: Dysphagia. HISTORY OF PRESENT ILLNESS: Most of history per chart. Patient is unable to give any history. This is a 79-year-old unfortunate patient with past medical history of leukemia came to the hospital. Patient also has history of stroke in the past. Patient is currently bedridden, unable to give any history. GI consult requested for evaluation of possible NG-tube placement. PAST MEDICAL HISTORY: 1. Diabetes. 2. Dementia. 3. Leukemia. 4. Paroxysmal atrial fibrillation. 5. Anemia. 6. Thrombocytopenia. ALLERGIES: To penicillin. MEDICATIONS: Please see medication reconciliation list. SOCIAL HISTORY: There is no recent history of tobacco, alcohol, or drug abuse. FAMILY HISTORY: Noncontributory. REVIEW OF SYSTEMS: Unable to obtain. PHYSICAL EXAMINATION: VITAL SIGNS: Temperature 98.3, pulse 93, respirations 19, blood pressure is 119/58. HEENT: Normocephalic and atraumatic. Mild pale conjunctivae. NECK: Supple. No evidence of obvious lymphadenopathy. CARDIOVASCULAR: Tachy. Regular rate. Plus S1-S2. LUNGS: Decreased breath sounds bilaterally and diffusely. ABDOMEN: Soft and nontender. No rebound. No guarding. No peritoneal sign. EXTREMITIES: No cyanosis. No clubbing. No edema. LABORATORY DATA: White count is 13,000, hemoglobin 10, hematocrit 29, platelet count is 19. Sodium 146, potassium 4.0, BUN 26, creatinine 1.1. ASSESSMENT AND PLAN: This is a 79-year-old female with leukemia, poor prognosis. Per Oncology recommendation, patient would benefit from hospice evaluation. I had a long discussion with the daughter over the phone. I explained to her that the G-tube placement is not an option given the low platelet count. She is going to bleed. I also talked to the Hematology-Oncology regarding placement of the NG-tube, but the problem over the next day, the platelets are going to drop again. There is a chance that she might bleed. Overall, she has a poor prognosis and not a good candidate for PEG. I had another long discussion with the daughter regarding NG tube placement. She really wants her to have an NG tube placed at this time. I explained to her that there is a still risk of bleeding, even with an NG tube placement and if she is risk, I will try and she still was very adamant that she is not on the make her hospice and she wants me to put an NG tube. We will try today to place a Dobhoff tube for her today. Nirav Ashton M.D. DR: TANG JOB#: [id number] CC:
[2020-02-14 20:15] LABS: COLOR,URINE YELLOW
--- NOTE | 2020-02-14 22:04 | Neurology Progress Note ---
Interim History Interim History ROS Limited/Unobtainable: Yes Interim History non verbal in distress, off asa low plt Objective Physical Exam Last Vital Signs Date Time Temp Pulse Resp B/P (MAP) Pulse Ox O2 Delivery O2 Flow Rate FiO2 02/14/20 20:00 97.7 67 18 101/65 (77) 98 02/14/20 09:00 Room Air 02/09/20 09:00 2.0 Laboratory Tests Test 02/14/20 05:20 White Blood Count 13.4 K/UL (4.8-10.8) H Red Blood Count 3.35 M/UL (4.20-5.40) L Hemoglobin 10.0 G/DL (12.0-16.0) L Hematocrit 29.0 % (37.0-47.0) L Mean Corpuscular Volume 87 FL (80-99) Mean Corpuscular Hemoglobin 29.8 PG (27.0-31.0) Mean Corpuscular Hemoglobin Concent 34.4 G/DL (32.0-36.0) Red Cell Distribution Width 15.0 % (11.6-14.8) H Platelet Count 19 K/UL (150-450) L Mean Platelet Volume 8.9 FL (6.5-10.1) Neutrophils (%) (Auto) % (45.0-75.0) Lymphocytes (%) (Auto) % (20.0-45.0) Monocytes (%) (Auto) % (1.0-10.0) Eosinophils (%) (Auto) % (0.0-3.0) Basophils (%) (Auto) % (0.0-2.0) Differential Total Cells Counted 100 Neutrophils % (Manual) 25 % (45-75) L Lymphocytes % (Manual) 30 % (20-45) Monocytes % (Manual) 7 % (1-10) Eosinophils % (Manual) 0 % (0-3) Basophils % (Manual) 0 % (0-2) Blast Cells % 38 % (0-0) *H Band Neutrophils 0 % (0-8) Platelet Estimate Decreased L Platelet Morphology Normal Hypochromasia 2+ Anisocytosis 1+ Spherocytes 1+ Sodium Level 146 MMOL/L (136-145) H Potassium Level 4.0 MMOL/L (3.5-5.1) Chloride Level 115 MMOL/L (98-107) H Carbon Dioxide Level 15 MMOL/L (21-32) L Anion Gap 16 mmol/L (5-15) H Blood Urea Nitrogen 26 mg/dL (7-18) H Creatinine 1.1 MG/DL (0.55-1.30) Estimat Glomerular Filtration Rate 58.4 mL/min (>60) Glucose Level 79 MG/DL (74-106) Calcium Level 8.3 MG/DL (8.5-10.1) L Neurologic Exam Objective lethargic, withdraws to pain Impression/Recommendations Problems: (1) Hyperkalemia (2) Thrombocytopenia (3) Acute metabolic encephalopathy (4) Acute renal failure (5) Dehydration (6) Acute renal failure (7) UTI (urinary tract infection) (8) Quadriplegia and quadriparesis (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, old, cognitive deficits (11) Anemia, unspecified (12) Vascular dementia (13) Acute respiratory failure (14) Atrial fibrillation (15) Septicemia (16) Dysphagia (17) Leukemia (18) Respiratory failure (19) Iron deficiency anemia (20) Sepsis (21) Altered mental status (22) Cardiomyopathy (23) Pneumonia (24) Alteration consciousness (25) HTN (hypertension) (26) Pain (27) Pain (28) MODS (multiple organ dysfunction syndrome) (29) Cerebral vascular disease (30) Elevated CEA (31) Decubital ulcer (32) Penicillin allergy (33) PEG (percutaneous endoscopic gastrostomy) adjustment/replacement/removal (34) SEPSIS, ABD PAIN (35) AL Diagnostic Impression poor prognosis Corwin Ackerman MD Feb 14, 2020 22:04
[2020-02-14] MEDS: Epoetin Alfa-EPBX (NON ESRD)10,000 unit/ml vial SUBQ SCH (22:18)
[2020-02-14] MEDS: Cefepime HCl 2 GM in D5W 55 ML IVPB SCH (22:18)
[2020-02-14] MEDS: Dyna-Hex 2% Top Sol 2oz TOPIC SCH (22:18)
[2020-02-15] VITALS: BP 156/90
[2020-02-15 04:00] VITALS: BP 155/69
--- NOTE | 2020-02-15 07:54 | NUR ---
NURSE NOTES: received report from RETA Adan. patient in bed. non verbal. no respiratory distress on 2L via NC. no facial grimacing. NG tube feeding running vital af 1.2@50/hr at this time. HOB at all times. no residual. IV on ruc midline running 1/2ns@50/hr. p200 mattress for skin management. contact isolation. PPE at all times. bed in the lowest position and locked. call light within reach. alarm on. will continue to provide plan of care.
[2020-02-15 08:00] VITALS: BP 114/61
--- NOTE | 2020-02-15 08:00 | NUR ---
HAND-OFF: Report given to RETA Abel.
[2020-02-15] MEDS: Amiodarone 200mg tab GT SCH (08:32)
[2020-02-15] MEDS: Ascorbic Acid 500mg tab GT SCH ×2 (08:32→17:35)
[2020-02-15] MEDS: Docusate 100mg cap ORAL SCH ×2 (08:32→17:35)
[2020-02-15] MEDS: Vancomycin 500 MG in NS 110 ML IVPB SCH (08:32)
[2020-02-15 08:52] LABS: HEMOGLOBIN 9.2 G/DL (12.0-16.0); MEAN CORPUSCULAR VOLUME 87 FL (80-99); PLATELET COUNT 14 K/UL (150-450); RED BLOOD COUNT 3.11 M/UL (4.20-5.40); RED CELL DISTRIBUTION WIDTH 15.2 % (11.6-14.8); WHITE BLOOD COUNT 11.7 K/UL (4.8-10.8)
[2020-02-15 09:11] LABS: ANION GAP 16 mmol/L (5-15); BLOOD UREA NITROGEN 38 mg/dL (7-18); CALCIUM 7.9 MG/DL (8.5-10.1); CARBON DIOXIDE 14 MMOL/L (21-32); CHLORIDE 116 MMOL/L (98-107); CREATININE 1.5 MG/DL (0.55-1.30); SODIUM 146 MMOL/L (136-145)
--- NOTE | 2020-02-15 09:35 | Nephrology Progress Note ---
Assessment/Plan Plan #Hyponatremia- due to excess free water #E. coli UTI #Severe refractory Anemia 2/2 MDS #Acute Leukemia, concern for blast crisis #Lymphoma #thrombocytopenia #FTT #physical deconditioning #Quadriplegia #CVA #vascular dementia -increase 1/2NS to 75 cc/hour -DC vanco - continue amlodipine 5mg daily - continue epo 10k TIW -Transfuse PRBC for supportive care -Monitor daily CBC -Unable to initiation chemotherapy at this time per Heme/Onc due to poor prognosis Subjective ROS Limited/Unobtainable: Yes Subjective Cr up to 1.5 will increase 1/2Ns to 75cc/hr plan to switch vanco appears comfortable Objective Objective Last 24 Hour Vital Signs Date Time Temp Pulse Resp B/P (MAP) Pulse Ox O2 Delivery O2 Flow Rate FiO2 02/15/20 08:32 77 114/61 02/15/20 08:00 98.1 77 19 114/61 (78) 98 02/15/20 04:00 97.9 68 18 155/69 (97) 98 02/15/20 00:00 97.3 70 22 156/90 (112) 98 02/14/20 21:00 Room Air 02/14/20 20:00 97.7 67 18 101/65 (77) 98 02/14/20 16:00 98.5 88 17 98/68 (78) 98 02/14/20 13:54 98.8 02/14/20 12:00 98.8 89 18 127/56 (79) 97 Intake and Output 02/14/20 02/15/20 19:00 07:00 Intake Total 1060 ml 465 ml Balance 1060 ml 465 ml IV Total 660 ml 465 ml Other 400 ml # Voids 1 Laboratory Tests 02/15/20 07:55: White Blood Count 11.7H, Red Blood Count 3.11L, Hemoglobin 9.2L, Hematocrit 27.0L, Mean Corpuscular Volume 87, Mean Corpuscular Hemoglobin 29.6, Mean Corpuscular Hemoglobin Concent 34.1, Red Cell Distribution Width 15.2H, Platelet Count 14L, Mean Platelet Volume 6.7, Neutrophils (%) (Auto) , Lymphocytes (%) (Auto) , Monocytes (%) (Auto) , Eosinophils (%) (Auto) , Basophils (%) (Auto) , Neutrophils % (Manual) [Pending], Lymphocytes % (Manual) [Pending], Platelet Estimate [Pending], Platelet Morphology [Pending], Sodium Level 146H, Potassium Level 4.0, Chloride Level 116H, Carbon Dioxide Level 14L, Anion Gap 16H, Blood Urea Nitrogen 38H, Creatinine 1.5H, Estimat Glomerular Filtration Rate 40.8, Glucose Level 142H, Calcium Level 7.9L, Vancomycin Level Trough 10.0 Height (Feet): 5 Height (Inches): 5.00 Weight (Pounds): 215 Objective General Appearance: aphasic, awake, alert, appears comfortable HEENT: NCAT, b/l blindness, left prostehsis, dry MM Cardiovascular: regular rhythm Respiratory/Chest: lungs clear, no accessory muscle usage Abdomen: non tender, soft Edema: no edema noted Tristan Morris M.D. Feb 15, 2020 09:35
--- NOTE | 2020-02-15 09:50 | General Progress Note ---
Assessment/Plan Assessment/Plan: 79 y/o F with PMH CVA, schizophrenia, vascular dementia, leukemia who presents from [facility] for AMS, found to have E. coli UTI and severe anemia #E. coli UTI #RUL PNA - Aspiration or HCAP -cont. inpatient medical management -UCx + for E. 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 Daniel as o/p, m [phone] [facility] [address] #AMELIE #Hyponatremia - improved -likely 2/2 Vanco, d/c vanc -d/w nephro, increase IVF -recheck BMP #FTT #Severe Protein Calorie Malnutrition #physical deconditioning #Dysphagia #Quadriplegia -nutrition following -PT/OT -pt w/very poor PO intake at this time, unable to swallow -ST: pt with severe dysphagia, unable to tolerate own secretions at this time, pt NPO, does not recommend NGT -Do not recommend PEG tube at this time given low plts, pt is very high risk of bleeding with procedures. Explained to POA this concern multiple times who states she understands -aspiration precautions -02/13: s/p -eladio by GI, pt to f/u w/GI as o/p for further nutrition/ management -pt can f/u w/GI as o/p #CVA #vascular dementia -minimally verbal at b/l per PCP -no ASA given thrombocytopenia Pt has very poor prognosis given terminal conditions noted above. Time spent on encounter: 36 mins, 26 mins spent on coordination of care, discussed POC/dispo planning with RN, Hematology and GI. Discussed w/nephro AMELIE. Time of note doesn't reflect time of encounter. Subjective Allergies: Coded Allergies: PENICILLINS (Unverified Allergy, Unknown, 03/16/15) Subjective Follow up for UTI, acute severe anemia, thrombocytopenia, acute leukemia/blast crisis. S/p eladio placement, pt is aphasic, moaning less, appears comfortable. Objective Last 24 Hour Vital Signs Date Time Temp Pulse Resp B/P (MAP) Pulse Ox O2 Delivery O2 Flow Rate FiO2 02/15/20 08:32 77 114/61 02/15/20 08:00 98.1 77 19 114/61 (78) 98 02/15/20 04:00 97.9 68 18 155/69 (97) 98 02/15/20 00:00 97.3 70 22 156/90 (112) 98 02/14/20 21:00 Room Air 02/14/20 20:00 97.7 67 18 101/65 (77) 98 02/14/20 16:00 98.5 88 17 98/68 (78) 98 02/14/20 13:54 98.8 02/14/20 12:00 98.8 89 18 127/56 (79) 97 Intake and Output 02/14/20 02/15/20 19:00 07:00 Intake Total 1060 ml 465 ml Balance 1060 ml 465 ml IV Total 660 ml 465 ml Other 400 ml # Voids 1 Laboratory Tests 02/15/20 07:55: White Blood Count 11.7H, Red Blood Count 3.11L, Hemoglobin 9.2L, Hematocrit 27.0L, Mean Corpuscular Volume 87, Mean Corpuscular Hemoglobin 29.6, Mean Corpuscular Hemoglobin Concent 34.1, Red Cell Distribution Width 15.2H, Platelet Count 14L, Mean Platelet Volume 6.7, Neutrophils (%) (Auto) , Lymphocytes (%) (Auto) , Monocytes (%) (Auto) , Eosinophils (%) (Auto) , Basophils (%) (Auto) , Neutrophils % (Manual) [Pending], Lymphocytes % (Manual) [Pending], Platelet Estimate [Pending], Platelet Morphology [Pending], Sodium Level 146H, Potassium Level 4.0, Chloride Level 116H, Carbon Dioxide Level 14L, Anion Gap 16H, Blood Urea Nitrogen 38H, Creatinine 1.5H, Estimat Glomerular Filtration Rate 40.8, Glucose Level 142H, Calcium Level 7.9L, Vancomycin Level Trough 10.0 Height (Feet): 5 Height (Inches): 5.00 Weight (Pounds): 215 Objective General Appearance: aphasic, awake, appears uncomfortable and moaning, does not respond to name HEENT: NCAT, b/l blindness, left prosthesis, dry MM, eladio in place w/tube feeds running Cardiovascular: RR Respiratory/Chest: coarse rhonchi, no accessory muscle usage Abdomen: non tender, soft Edema: no edema noted Anthony Guerra M.D. Feb 15, 2020 09:50
--- NOTE | 2020-02-15 09:57 | NUR ---
DISCHARGE PLANNING PATIENT HAS BEEN REFERRED BACK TO [facility] P: [phone] F: [phone] Addendum: 02/15/20 at 1055 by CHALINO AKBAR LVN LVN PER DR THIBODEAUX, LIKELY TO DC TOMORROW 02/16/2020
--- NOTE | 2020-02-15 10:00 | General Progress Note ---
Assessment/Plan Assessment/Plan: 1. Diabetes. 2. Dementia. 3. Leukemia. 4. Paroxysmal atrial fibrillation. 5. Anemia. 6. Thrombocytopenia. 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 fu Subjective ROS Limited/Unobtainable: No Allergies: Coded Allergies: PENICILLINS (Unverified Allergy, Unknown, 03/16/15) Objective Last 24 Hour Vital Signs Date Time Temp Pulse Resp B/P (MAP) Pulse Ox O2 Delivery O2 Flow Rate FiO2 02/15/20 08:32 77 114/61 02/15/20 08:00 98.1 77 19 114/61 (78) 98 02/15/20 04:00 97.9 68 18 155/69 (97) 98 02/15/20 00:00 97.3 70 22 156/90 (112) 98 02/14/20 21:00 Room Air 02/14/20 20:00 97.7 67 18 101/65 (77) 98 02/14/20 16:00 98.5 88 17 98/68 (78) 98 02/14/20 13:54 98.8 02/14/20 12:00 98.8 89 18 127/56 (79) 97 Intake and Output 02/14/20 02/15/20 19:00 07:00 Intake Total 1060 ml 465 ml Balance 1060 ml 465 ml IV Total 660 ml 465 ml Other 400 ml # Voids 1 Laboratory Tests 02/15/20 07:55: White Blood Count 11.7H, Red Blood Count 3.11L, Hemoglobin 9.2L, Hematocrit 27.0L, Mean Corpuscular Volume 87, Mean Corpuscular Hemoglobin 29.6, Mean Corpuscular Hemoglobin Concent 34.1, Red Cell Distribution Width 15.2H, Platelet Count 14L, Mean Platelet Volume 6.7, Neutrophils (%) (Auto) , Lymphocytes (%) (Auto) , Monocytes (%) (Auto) , Eosinophils (%) (Auto) , Basophils (%) (Auto) , Neutrophils % (Manual) [Pending], Lymphocytes % (Manual) [Pending], Platelet Estimate [Pending], Platelet Morphology [Pending], Sodium Level 146H, Potassium Level 4.0, Chloride Level 116H, Carbon Dioxide Level 14L, Anion Gap 16H, Blood Urea Nitrogen 38H, Creatinine 1.5H, Estimat Glomerular Filtration Rate 40.8, Glucose Level 142H, Calcium Level 7.9L, Vancomycin Level Trough 10.0 Height (Feet): 5 Height (Inches): 5.00 Weight (Pounds): 215 General Appearance: no apparent distress EENT: normal ENT inspection Neck: supple Cardiovascular: normal rate Respiratory/Chest: decreased breath sounds Abdomen: normal bowel sounds, non tender, soft Extremities: non-tender Nirav Ashton MD Feb 15, 2020 10:00
--- NOTE | 2020-02-15 11:37 | Hematology/Onc Progress Note ---
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 coli UTI as well As ALL --> cont. inpatient medical management --> UCx + for E. Coli --> cont. cefazolin --> smear is noted --> wbc 26-->18-->25-->13 # FTT likely related to psych disorder --> pt as needed --> nutrition recommendations # Physical deconditioning # Quadriplegia --> nutrition consulted --> PT/OT # CVA # Vascular dementia # Poor prognosis, consider hospice Appreciate consultation and dw Rn Subjective Constitutional: Denies: no symptoms, chills, fever, malaise, weakness, other HEENT: Denies: no symptoms, eye pain, blurred vision, tearing, double vision, ear pain, ear discharge, nose pain, nose congestion, throat pain, throat swelling, mouth pain, mouth swelling, other Respiratory: Denies: no symptoms, cough, shortness of breath, SOB with excertion, SOB at rest, sputum, wheezing, other Endocrine: Denies: no symptoms, excessive sweating, flushing, intolerance to cold, intolerance to heat, increased hunger, increased thirst, increased urine, unexplained weight gain, unexplained weight loss, other Hematologic/Lymphatic: Denies: no symptoms, anemia, easy bleeding, easy bruising, adenopathy, other Allergies: Coded Allergies: PENICILLINS (Unverified Allergy, Unknown, 03/16/15) Subjective 8 nonverbal, no bleeding, labs reviewed, no f/c no bleeding, hgb low 02/07 i talked to rn this an, Xyrece and apparently daughter called and asked to see how mother is doing,she hasn't yet called me 02/08 no bleeding, labs reviewed, with blast coiunt of 81%, extremely poor prognosis 02/11 no major events, remains critically ill, daughter still contemplating hospice 02/12 labs noted, no bleeding, no f/c, hgb improved s/p transf 02/13 remains agitated, increased dose of morphine in am, dw daughter and pcp yesterday 02/14 potential dc as per pcp, will need followup, to be arranged Objective Objective Current Medications Medications (Trade) Dose Ordered Sig/Javier Route PRN Reason Start Time Stop Time Status Last Admin Dose Admin Acetaminophen (Tylenol) 650 mg Q4H PRN ORAL Mild Pain (Pain Scale 1-3) 02/01/20 16:30 03/02/20 12:19 Acetaminophen (Tylenol) 650 mg Q4H PRN ORAL T>100.4 02/01/20 16:30 03/02/20 12:19 Acetaminophen (Tylenol) 650 mg Q4H PRN RECTAL Mild Pain (Pain Scale 1-3) 02/12/20 15:00 03/13/20 14:44 02/12/20 14:54 Amiodarone HCl (Cordarone) 200 mg DAILY GT 02/02/20 09:00 05/02/20 08:59 02/15/20 08:32 Amlodipine Besylate (Norvasc) 5 mg DAILY ORAL 02/02/20 09:00 03/03/20 08:59 02/15/20 08:32 Ascorbic Acid (Vitamin C) 500 mg TWICE A DAY GT 02/01/20 18:00 03/02/20 17:59 02/15/20 08:32 Bisacodyl (Dulcolax) 10 mg DAILYPRN PRN RECTAL Constipation 02/01/20 16:00 05/01/20 15:59 Ceftriaxone Sodium (Rocephin) 1 gm DAILY IM 02/16/20 09:00 02/23/20 08:59 Chlorhexidine Gluconate (Aida-Hex 2%) 1 applic DAILY@1999 TOPIC 02/14/20 20:00 05/14/20 19:59 02/14/20 22:18 Dextrose (Dextrose 50%) 25 ml Q30M PRN IV Hypoglycemia 02/01/20 16:00 05/01/20 11:59 Dextrose (Dextrose 50%) 50 ml Q30M PRN IV Hypoglycemia 02/01/20 16:00 05/01/20 11:59 Docusate Sodium (Colace) 100 mg TWICE A DAY ORAL 02/01/20 18:00 03/02/20 17:59 02/15/20 08:32 Epoetin Yaniv (Epoetin Yaniv-EPBX(NON ESRD)) 10,000 unit WED-WED-WED SUBQ 02/07/20 21:00 05/07/20 20:59 02/14/20 22:18 Metronidazole (Flagyl) 500 mg Q8HR ORAL 02/15/20 14:00 02/20/20 13:59 Morphine Sulfate (Morphine Sulfate) 2 mg Q4H PRN IVP For Pain 02/14/20 06:00 02/21/20 05:59 02/14/20 13:24 Ondansetron HCl (Zofran) 4 mg Q8H PRN GT Nausea & Vomiting 02/01/20 16:00 03/02/20 15:59 Pantoprazole (Protonix) 40 mg DAILY ORAL 02/02/20 09:00 03/03/20 08:59 02/15/20 08:32 Polyethylene Glycol (Miralax) 17 gm HSPRN PRN ORAL Constipation 02/01/20 16:00 03/02/20 15:59 Sodium Chloride 1,000 ml @ 75 mls/hr [id number] IV 02/15/20 09:37 03/16/20 09:36 02/15/20 09:37 Vancomycin HCl (Vanco rx to dose) 1 ea DAILY PRN MISC Per rx protocol 02/13/20 17:00 03/14/20 16:59 Last 24 Hour Vital Signs Date Time Temp Pulse Resp B/P (MAP) Pulse Ox O2 Delivery O2 Flow Rate FiO2 02/15/20 09:00 Room Air 02/15/20 08:32 77 114/61 02/15/20 08:00 98.1 77 19 114/61 (78) 98 02/15/20 04:00 97.9 68 18 155/69 (97) 98 02/15/20 00:00 97.3 70 22 156/90 (112) 98 02/14/20 21:00 Room Air 02/14/20 20:00 97.7 67 18 101/65 (77) 98 02/14/20 16:00 98.5 88 17 98/68 (78) 98 02/14/20 13:54 98.8 02/14/20 12:00 98.8 89 18 127/56 (79) 97 02/14/20 09:00 Room Air 02/14/20 08:00 98.3 93 19 119/58 (78) 98 02/14/20 04:00 97.9 85 24 90/48 (62) 98 02/14/20 00:00 97.7 69 26 112/89 (97) 95 02/13/20 21:00 Room Air 02/13/20 20:00 97.7 75 28 114/70 (85) 99 02/13/20 16:00 99.6 78 20 108/57 (74) 97 02/13/20 12:00 99.6 78 20 99/57 (71) 98 Intake and Output 02/14/20 02/15/20 19:00 07:00 Intake Total 1060 ml 465 ml Balance 1060 ml 465 ml IV Total 660 ml 465 ml Other 400 ml # Voids 1 Labs Test 02/13/20 06:00 02/13/20 17:45 02/14/20 05:20 02/15/20 07:55 White Blood Count 16.3 K/UL (4.8-10.8) 13.4 K/UL (4.8-10.8) 11.7 K/UL (4.8-10.8) Red Blood Count 3.37 M/UL (4.20-5.40) 3.35 M/UL (4.20-5.40) 3.11 M/UL (4.20-5.40) Hemoglobin 10.1 G/DL (12.0-16.0) 10.0 G/DL (12.0-16.0) 9.2 G/DL (12.0-16.0) Hematocrit 29.0 % (37.0-47.0) 29.0 % (37.0-47.0) 27.0 % (37.0-47.0) Mean Corpuscular Volume 86 FL (80-99) 87 FL (80-99) 87 FL (80-99) Mean Corpuscular Hemoglobin 30.0 PG (27.0-31.0) 29.8 PG (27.0-31.0) 29.6 PG (27.0-31.0) Mean Corpuscular Hemoglobin Concent 34.9 G/DL (32.0-36.0) 34.4 G/DL (32.0-36.0) 34.1 G/DL (32.0-36.0) Red Cell Distribution Width 14.0 % (11.6-14.8) 15.0 % (11.6-14.8) 15.2 % (11.6-14.8) Platelet Count 20 K/UL (150-450) 19 K/UL (150-450) 14 K/UL (150-450) Mean Platelet Volume 6.8 FL (6.5-10.1) 8.9 FL (6.5-10.1) 6.7 FL (6.5-10.1) Neutrophils (%) (Auto) % (45.0-75.0) % (45.0-75.0) % (45.0-75.0) Lymphocytes (%) (Auto) % (20.0-45.0) % (20.0-45.0) % (20.0-45.0) Monocytes (%) (Auto) % (1.0-10.0) % (1.0-10.0) % (1.0-10.0) Eosinophils (%) (Auto) % (0.0-3.0) % (0.0-3.0) % (0.0-3.0) Basophils (%) (Auto) % (0.0-2.0) % (0.0-2.0) % (0.0-2.0) Differential Total Cells Counted 100 100 100 Neutrophils % (Manual) 15 % (45-75) 25 % (45-75) 27 % (45-75) Lymphocytes % (Manual) 35 % (20-45) 30 % (20-45) 39 % (20-45) Monocytes % (Manual) 7 % (1-10) 7 % (1-10) 11 % (1-10) Eosinophils % (Manual) 0 % (0-3) 0 % (0-3) 0 % (0-3) Basophils % (Manual) 1 % (0-2) 0 % (0-2) 0 % (0-2) Metamyelocytes % 2 % (0-0) Myelocytes % 4 % (0-0) Blast Cells % 28 % (0-0) 38 % (0-0) 23 % (0-0) Band Neutrophils 8 % (0-8) 0 % (0-8) 0 % (0-8) Platelet Estimate Decreased Decreased Decreased Platelet Morphology Normal Normal Normal Red Blood Cell Morphology Normal Sodium Level 142 MMOL/L (136-145) 146 MMOL/L (136-145) 146 MMOL/L (136-145) Potassium Level 4.4 MMOL/L (3.5-5.1) 4.0 MMOL/L (3.5-5.1) 4.0 MMOL/L (3.5-5.1) Chloride Level 113 MMOL/L (98-107) 115 MMOL/L (98-107) 116 MMOL/L (98-107) Carbon Dioxide Level 16 MMOL/L (21-32) 15 MMOL/L (21-32) 14 MMOL/L (21-32) Blood Urea Nitrogen 20 mg/dL (7-18) 26 mg/dL (7-18) 38 mg/dL (7-18) Creatinine 1.1 MG/DL (0.55-1.30) 1.1 MG/DL (0.55-1.30) 1.5 MG/DL (0.55-1.30) Estimat Glomerular Filtration Rate 58.4 mL/min (>60) 58.4 mL/min (>60) 40.8 mL/min (>60) Glucose Level 92 MG/DL (74-106) 79 MG/DL (74-106) 142 MG/DL (74-106) Calcium Level 7.8 MG/DL (8.5-10.1) 8.3 MG/DL (8.5-10.1) 7.9 MG/DL (8.5-10.1) Urine Color Yellow Urine Appearance Cloudy Urine pH 5 (4.5-8.0) Urine Specific [place] 1.020 (1.005-1.035) Urine Protein 3+ (NEGATIVE) Urine Glucose (UA) Negative (NEGATIVE) Urine Ketones 2+ (NEGATIVE) Urine Blood 2+ (NEGATIVE) Urine Nitrite Negative (NEGATIVE) Urine Bilirubin 1+ (NEGATIVE) Urine Ictotest Negative (NEGATIVE) Urine Urobilinogen 4 MG/DL (0.0-1.0) Urine Leukocyte Esterase 2+ (NEGATIVE) Urine RBC 5-10 /HPF (0 - 2) Urine WBC 20-30 /HPF (0 - 2) Urine Squamous Epithelial Cells Few /LPF (NONE/OCC) Urine Bacteria Many /HPF (NONE) Hypochromasia 2+ 2+ Anisocytosis 1+ 1+ Spherocytes 1+ Anion Gap 16 mmol/L (5-15) 16 mmol/L (5-15) Vancomycin Level Trough 10.0 ug/mL (5.0-12.0) Height (Feet): 5 Height (Inches): 5.00 Weight (Pounds): 215 Objective Vitals with hypotension General: lethargic, Chronically Ill Heent: nc, at Neck: full range of motion, supple Respiratory: chest non-tender, rhonchi Cardiovascular: regular rate, rhythm, no murmur Gastrointestinal: normal bowel sounds, non tender, no mass, no organomegaly, no bruit, non-distended Musculoskeletal: other - Extremities contracted Neurologic: other - Grimace to painful stimuli Dav Daniel MD Feb 15, 2020 11:36
[2020-02-15] MEDS ORDERED: FLAGYL500 MG ORAL (11:44)
[2020-02-15] MEDS ORDERED: EPOGEN10000 UNIT SUBQ (11:44)
[2020-02-15] MEDS ORDERED: CEFTRIAXONE1 G1 IM (11:44)
[2020-02-15 12:00] VITALS: BP 121/71
[2020-02-15] MEDS: metroNIDAZOLE 500mg tab ORAL SCH ×2 (13:35→22:14)
--- NOTE | 2020-02-15 14:28 | Surgery Progress Note ---
Surgery Progress Note Subjective Procedure Performed Right subclavian central venous catheter insertion Additional Comments labs noted exam stable feeding tube in right nares tolerating feeds Objective Last 24 Hour Vital Signs Date Time Temp Pulse Resp B/P (MAP) Pulse Ox O2 Delivery O2 Flow Rate FiO2 02/15/20 12:00 98.0 79 18 121/71 (88) 97 02/15/20 09:00 Room Air 02/15/20 08:32 77 114/61 02/15/20 08:00 98.1 77 19 114/61 (78) 98 02/15/20 04:00 97.9 68 18 155/69 (97) 98 02/15/20 00:00 97.3 70 22 156/90 (112) 98 02/14/20 21:00 Room Air 02/14/20 20:00 97.7 67 18 101/65 (77) 98 02/14/20 16:00 98.5 88 17 98/68 (78) 98 I&O Intake and Output 02/14/20 02/15/20 19:00 07:00 Intake Total 1060 ml 465 ml Balance 1060 ml 465 ml IV Total 660 ml 465 ml Other 400 ml # Voids 1 Dressing: dry Wound: clean Cardiovascular: RSR Respiratory: decreased breath sounds Abdomen: soft, non-tender, present bowel sounds Extremities: no tenderness, no cyanosis Laboratory Tests Test 02/15/20 07:55 White Blood Count 11.7 K/UL (4.8-10.8) H Red Blood Count 3.11 M/UL (4.20-5.40) L Hemoglobin 9.2 G/DL (12.0-16.0) L Hematocrit 27.0 % (37.0-47.0) L Mean Corpuscular Volume 87 FL (80-99) Mean Corpuscular Hemoglobin 29.6 PG (27.0-31.0) Mean Corpuscular Hemoglobin Concent 34.1 G/DL (32.0-36.0) Red Cell Distribution Width 15.2 % (11.6-14.8) H Platelet Count 14 K/UL (150-450) L Mean Platelet Volume 6.7 FL (6.5-10.1) Neutrophils (%) (Auto) % (45.0-75.0) Lymphocytes (%) (Auto) % (20.0-45.0) Monocytes (%) (Auto) % (1.0-10.0) Eosinophils (%) (Auto) % (0.0-3.0) Basophils (%) (Auto) % (0.0-2.0) Differential Total Cells Counted 100 Neutrophils % (Manual) 27 % (45-75) L Lymphocytes % (Manual) 39 % (20-45) Monocytes % (Manual) 11 % (1-10) H Eosinophils % (Manual) 0 % (0-3) Basophils % (Manual) 0 % (0-2) Blast Cells % 23 % (0-0) *H Band Neutrophils 0 % (0-8) Platelet Estimate Decreased L Platelet Morphology Normal Hypochromasia 2+ Anisocytosis 1+ Sodium Level 146 MMOL/L (136-145) H Potassium Level 4.0 MMOL/L (3.5-5.1) Chloride Level 116 MMOL/L (98-107) H Carbon Dioxide Level 14 MMOL/L (21-32) L Anion Gap 16 mmol/L (5-15) H Blood Urea Nitrogen 38 mg/dL (7-18) H Creatinine 1.5 MG/DL (0.55-1.30) H Estimat Glomerular Filtration Rate 40.8 mL/min (>60) Glucose Level 142 MG/DL (74-106) H Calcium Level 7.9 MG/DL (8.5-10.1) L Vancomycin Level Trough 10.0 ug/mL (5.0-12.0) Plan Problems: (1) Decubital ulcer Assessment & Plan: DAILY ESTIMATED NEEDS: Needs based on wound, bed bound 63.5kg abw 25-30 kcals/kg 5355-6107 total kcals 1.25-1.5 g protein/kg 79-95 g total protein 25-30 mL/kg 2570-1008 total fluid mLs NUTRITION DIAGNOSIS: Increased kcal and protein needs R/T wound healing sacral full thickness wound, pt is bedbound w/ poor po intake, pt is lethargic. CURRENT DIET: CCHO MED puree PO DIET RECOMMENDATIONS: Liberalized Regular/ Texture per VACCINE MANAGER + ENSURE TID ENTERAL NUTRITION RECOMMENDATIONS: IF PART OF POC -> Jevity 1.2 @ 55ml/hr x 24 hrs to provide 1320ml, 1584kcal, 73g prot, 1065ml free water * IF PART OF POC, obtain GI access * Initiate Jevity 1.2 @ 15ml/hr x 6hrs, advance 10ml q 4-6 hrs as tolerated to goal rate. * Once TF well tolerated at goal, add Prosouce 1pkt QD to better meet prot needs * HOB Over 30 degrees/ without IVF, water flush 150ml q 6 hrs * W/ TF, monitor lytes daily, replete as needed- high risk for refeeding syndrome. 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 Patient with leukocytosis on IV antibiotics per infectious disease Microbiology reviewed noted CO VID status Severe anemia trending down hemoglobin requiring transfusion Currently patient does not have access is appropriate for the above central venous catheter indicating recommended consent obtained with family See note procedure Continue IV antibiotics Transfuse as per hematology Trend labs Above nutrition recommendations for patient's overall status We will follow with recommendations thank you for allowing me to participate in patient's care discussed with daughter in length recommend comfort care i expressed this to her she states she will come see her mother and decide no decision made currently (17) Dysphagia (18) Leukemia (19) Respiratory failure (20) Iron deficiency anemia (21) Sepsis (22) Altered mental status (23) Cardiomyopathy (24) Pneumonia (25) Alteration consciousness (26) HTN (hypertension) (27) Pain (28) Pain (29) MODS (multiple organ dysfunction syndrome) (30) Cerebral vascular disease (31) Elevated CEA (32) Penicillin allergy (33) PEG (percutaneous endoscopic gastrostomy) adjustment/replacement/removal (34) SEPSIS, ABD PAIN (35) Phil Weinstein Feb 15, 2020 14:28
--- NOTE | 2020-02-15 14:29 | NUR ---
NURSE NOTES:WOUND CARE NOTES:Pt presented on admission with Surgical sacral scar with small scabbed area along incision line (L)0.5cm x (W)0.5cm. No erythema or exudate noted. DTPI R heel (L)6cm x (W)8.4cm. Intact blood filled blister noted. Periwound is boggy but blanchable. L heel is boggy but blanchable. Bilat foot drop noted. Tx.plan: Apply Moisture Barrier Paste to Sacrum. Cover with Optifoam drsg. Change every 3 days and prn. Apply Betadine to R heel. Cover with Optifoam Drsg. Change every 3 days and prn. Apply Cavilon Skin Barrier to L heel. Cover with Optifoam drsg. Change every 7 days and prn. Reposition at least every 2hours or as tolerated. Off-load heels with pillow. APM/LYNETTE Mattress overlay.
[2020-02-15 15:11] LABS: ANION GAP 13 mmol/L (5-15); BLOOD UREA NITROGEN 40 mg/dL (7-18); CALCIUM 8.2 MG/DL (8.5-10.1); CARBON DIOXIDE 15 MMOL/L (21-32); CHLORIDE 115 MMOL/L (98-107); CREATININE 1.5 MG/DL (0.55-1.30); POTASSIUM 3.7 MMOL/L (3.5-5.1); SODIUM 143 MMOL/L (136-145)
--- NOTE | 2020-02-15 15:11 | NUR ---
RADIOLOGY DEPT., CHEST X-RAY DONE.-P.DYE
--- NOTE | 2020-02-15 15:19 | Diagnostic Imaging Report ---
Indication: Cough Technique: One view of the chest Comparison: 02/12/2020 Findings: Interim placement of a weighted nasogastric feeding tube, tip projected at the level gastric antrum body. Right subclavian central venous catheter is again demonstrated. Interim considerable improvement in bilateral infiltrates, with only minimal if any residual. There is some persistent atelectasis at the left lung base. The heart remains borderline enlarged Impression: Over 3 days, interim marked improvement of previously demonstrated bilateral infiltrates versus edema Other findings as noted
[2020-02-15 16:00] VITALS: BP 129/79
[2020-02-15] MEDS ORDERED: Vancomycin 1.25gm/NS Premix q24h IVPB SCH (17:00)
--- NOTE | 2020-02-15 19:04 | Infectious Diseases Prog Note ---
Assessment/Plan Assessment/Plan ASSESSMENT AND PLAN: 1. e.coli uti, possible aspiration pna/HCAP, chest x-ray worse RUL, sepsis, leukocytosis, fevers - rocephin and flayl x 5 days - f/u on labs, sc, chest x-ray - communicated with Dr. Guerra - clinically improved - leukocytosis and fevers better - chest x-ray - improved 2. MRSA colonization and isolation. 3. Wound care protocol, not a source of sepsis. 4. Diabetes. 5. Atrial fibrillation. 6. Blood sugar treatment per primary care team. 7. Anemia. 8. CVA and weakness. 9. Dementia. 10. Failure to thrive and quadriplegia. 11. Lymphoma. 12. 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 13. Failure to thrive and quadriplegia. 14. CVA, dementia, deconditioning. 15. Continue treatment per primary consultants. 16. Allergy to penicillin. 17. Social history is negative. 18. Family history is noncontributory. 19. MAR was noted. 20. Case discussed with RN. Subjective Constitutional: Denies: fever HEENT: Reports: congestion - mild Respiratory: Reports: shortness of breath - mild Cardiovascular: Denies: chest pain Gastrointestinal/Abdominal: Denies: nausea, vomiting, diarrhea Genitourinary: Reports: other - no vasquez Neurologic: Reports: weakness, other - lethargic Psychiatric: Denies: depression Skin: Denies: rash Hematologic: Denies: bleeding Musculoskeletal: Denies: pain Allergies: Coded Allergies: PENICILLINS (Unverified Allergy, Unknown, 03/16/15) Objective Vital Signs Last 24 Hour Vital Signs Date Time Temp Pulse Resp B/P (MAP) Pulse Ox O2 Delivery O2 Flow Rate FiO2 02/15/20 16:00 98.7 81 19 129/79 (96) 96 02/15/20 12:00 98.0 79 18 121/71 (88) 97 02/15/20 09:00 Room Air 02/15/20 08:32 77 114/61 02/15/20 08:00 98.1 77 19 114/61 (78) 98 02/15/20 04:00 97.9 68 18 155/69 (97) 98 02/15/20 00:00 97.3 70 22 156/90 (112) 98 02/14/20 21:00 Room Air 02/14/20 20:00 97.7 67 18 101/65 (93) 98 Height (Feet): 5 Height (Inches): 5.00 Weight (Pounds): 215 General Appearance: no acute distress HEENT: normocephalic, atraumatic, anicteric, mucous membranes moist Respiratory/Chest: crackles/rales, rhonchi - bilaterally Cardiovascular: normal rate, regular rhythm, no gallop/murmur, no JVD Abdomen: normal bowel sounds, soft, non tender, no organomegaly, non distended Genitourinary: other - no vasquez Extremities: no cyanosis Skin: no rash 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 No pneumothorax. There is increasing infiltrate in the right upper lobe. Background interstitial congestion is stable. The heart is enlarged. Impression: Satisfactory right subclavian central venous catheter placement. No radiographically evident complication Increasing right upper lobe infiltrate Chest x-ray - 02/15/20 - Procedure: XRAY Chest 1v Indication: Cough Technique: One view of the chest Comparison: 02/12/2020 Findings: Interim placement of a weighted nasogastric feeding tube, tip projected at the level gastric antrum body. Right subclavian central venous catheter is again demonstrated. Interim considerable improvement in bilateral infiltrates, with only minimal if any residual. There is some persistent atelectasis at the left lung base. The heart remains borderline enlarged Impression: Over 3 days, interim marked improvement of previously demonstrated bilateral infiltrates versus edema Other findings as noted Microbiology Date/Time Source Procedure Growth Status 02/13/20 17:40 Blood Blood Culture - Preliminary NO GROWTH AFTER 24 HOURS Resulted 02/14/20 07:00 Sputum Induced Gram Stain - Final Resulted 02/14/20 07:00 Sputum Induced Sputum Culture Pending Resulted 02/13/20 17:45 Urine,Clean Catch Urine Culture - Preliminary NO GROWTH Resulted 01/31/20 23:00 Rectum - Final NO CARBAPENEM-RESISTANT ENTEROBACTERI... Complete Microbiology Date/Time Source Procedure Growth Status 02/13/20 17:40 Blood Blood Culture - Preliminary NO GROWTH AFTER 24 HOURS Resulted 02/13/20 17:30 Blood Blood Culture - Preliminary NO GROWTH AFTER 24 HOURS Resulted 02/14/20 07:00 Sputum Induced Gram Stain - Final Resulted 02/14/20 07:00 Sputum Induced Sputum Culture Pending Resulted 02/13/20 17:45 Urine,Clean Catch Urine Culture - Preliminary NO GROWTH Resulted initial urine culture with e.coli Laboratory Tests Test 02/15/20 07:55 02/15/20 14:25 White Blood Count 11.7 K/UL (4.8-10.8) H Red Blood Count 3.11 M/UL (4.20-5.40) L Hemoglobin 9.2 G/DL (12.0-16.0) L Hematocrit 27.0 % (37.0-47.0) L Mean Corpuscular Volume 87 FL (80-99) Mean Corpuscular Hemoglobin 29.6 PG (27.0-31.0) Mean Corpuscular Hemoglobin Concent 34.1 G/DL (32.0-36.0) Red Cell Distribution Width 15.2 % (11.6-14.8) H Platelet Count 14 K/UL (150-450) L Mean Platelet Volume 6.7 FL (6.5-10.1) Neutrophils (%) (Auto) % (45.0-75.0) Lymphocytes (%) (Auto) % (20.0-45.0) Monocytes (%) (Auto) % (1.0-10.0) Eosinophils (%) (Auto) % (0.0-3.0) Basophils (%) (Auto) % (0.0-2.0) Differential Total Cells Counted 100 Neutrophils % (Manual) 27 % (45-75) L Lymphocytes % (Manual) 39 % (20-45) Monocytes % (Manual) 11 % (1-10) H Eosinophils % (Manual) 0 % (0-3) Basophils % (Manual) 0 % (0-2) Blast Cells % 23 % (0-0) *H Band Neutrophils 0 % (0-8) Platelet Estimate Decreased L Platelet Morphology Normal Hypochromasia 2+ Anisocytosis 1+ Sodium Level 146 MMOL/L (136-145) H 143 MMOL/L (136-145) Potassium Level 4.0 MMOL/L (3.5-5.1) 3.7 MMOL/L (3.5-5.1) Chloride Level 116 MMOL/L (98-107) H 115 MMOL/L (98-107) H Carbon Dioxide Level 14 MMOL/L (21-32) L 15 MMOL/L (21-32) L Anion Gap 16 mmol/L (5-15) H 13 mmol/L (5-15) Blood Urea Nitrogen 38 mg/dL (7-18) H 40 mg/dL (7-18) H Creatinine 1.5 MG/DL (0.55-1.30) H 1.5 MG/DL (0.55-1.30) H Estimat Glomerular Filtration Rate 40.8 mL/min (>60) 40.8 mL/min (>60) Glucose Level 142 MG/DL (74-106) H 155 MG/DL (74-106) H Calcium Level 7.9 MG/DL (8.5-10.1) L 8.2 MG/DL (8.5-10.1) L Vancomycin Level Trough 10.0 ug/mL (5.0-12.0) Current Medications Medications (Trade) Dose Ordered Sig/Javier Route PRN Reason Start Time Stop Time Status Last Admin Dose Admin Acetaminophen (Tylenol) 650 mg Q4H PRN ORAL Mild Pain (Pain Scale 1-3) 02/01/20 16:30 03/02/20 12:19 Acetaminophen (Tylenol) 650 mg Q4H PRN ORAL T>100.4 02/01/20 16:30 03/02/20 12:19 Acetaminophen (Tylenol) 650 mg Q4H PRN RECTAL Mild Pain (Pain Scale 1-3) 02/12/20 15:00 03/13/20 14:44 02/12/20 14:54 Amiodarone HCl (Cordarone) 200 mg DAILY GT 02/02/20 09:00 05/02/20 08:59 02/15/20 08:32 Amlodipine Besylate (Norvasc) 5 mg DAILY ORAL 02/02/20 09:00 03/03/20 08:59 02/15/20 08:32 Ascorbic Acid (Vitamin C) 500 mg TWICE A DAY GT 02/01/20 18:00 03/02/20 17:59 02/15/20 17:35 Bisacodyl (Dulcolax) 10 mg DAILYPRN PRN RECTAL Constipation 02/01/20 16:00 05/01/20 15:59 Ceftriaxone Sodium (Rocephin) 1 gm DAILY IM 02/16/20 09:00 02/23/20 08:59 Chlorhexidine Gluconate (Aida-Hex 2%) 1 applic DAILY@2000 TOPIC 02/14/20 20:00 05/14/20 19:59 02/14/20 22:18 Dextrose (Dextrose 50%) 25 ml Q30M PRN IV Hypoglycemia 02/01/20 16:00 05/01/20 11:59 Dextrose (Dextrose 50%) 50 ml Q30M PRN IV Hypoglycemia 02/01/20 16:00 05/01/20 11:59 Docusate Sodium (Colace) 100 mg TWICE A DAY ORAL 02/01/20 18:00 03/02/20 17:59 02/15/20 17:35 Epoetin Yaniv (Epoetin Yaniv-EPBX(NON ESRD)) 10,000 unit WED-WED-WED SUBQ 02/07/20 21:00 05/07/20 20:59 02/14/20 22:18 Metronidazole (Flagyl) 500 mg Q8HR ORAL 02/15/20 14:00 02/20/20 13:59 02/15/20 13:35 Morphine Sulfate (Morphine Sulfate) 2 mg Q4H PRN IVP For Pain 02/14/20 06:00 02/21/20 05:59 02/14/20 13:24 Ondansetron HCl (Zofran) 4 mg Q8H PRN GT Nausea & Vomiting 02/01/20 16:00 03/02/20 15:59 Pantoprazole (Protonix) 40 mg DAILY ORAL 02/02/20 09:00 03/03/20 08:59 02/15/20 08:32 Polyethylene Glycol (Miralax) 17 gm HSPRN PRN ORAL Constipation 02/01/20 16:00 03/02/20 15:59 Sodium Chloride 1,000 ml @ 75 mls/hr [id number] IV 02/15/20 09:37 03/16/20 09:36 02/15/20 09:37 Shanell Patricia MD Feb 15, 2020 19:04
--- NOTE | 2020-02-15 19:28 | NUR ---
HAND-OFF: Report given to RETA Ewing.
--- NOTE | 2020-02-15 19:30 | NUR ---
NURSE NOTES: Patient non-verbal, no respiratory distress on 2L O2 via NC. Quadriplegic. Has NG-tube on right nare running feeding as ordered. No s/s of pain noted at this time. IV noted on right wrist intact and saline locked. Has right subclavian central line intact with clean dressing running IVF 1/2 NS @ 75ml/hr. On P200 mattress. Bed placed at lowest with HOB elevated for aspiration precaution. Bed alarm on, brakes on, siderails up for patient safety. Call light placed within reach. Patient placed near the nursing station. Will continue to monitor frequently and provide care as ordered.
[2020-02-15 20:00] VITALS: BP 98/53
[2020-02-15] MEDS: Dyna-Hex 2% Top Sol 2oz TOPIC SCH (20:02)
--- NOTE | 2020-02-15 22:36 | Neurology Progress Note ---
Interim History Interim History ROS Limited/Unobtainable: Yes Interim History no improvement in neuro prognosis Objective Physical Exam Last Vital Signs Date Time Temp Pulse Resp B/P (MAP) Pulse Ox O2 Delivery O2 Flow Rate FiO2 02/15/20 16:00 98.7 81 19 129/79 (96) 96 02/15/20 09:00 Room Air 02/09/20 09:00 2.0 Laboratory Tests Test 02/15/20 07:55 02/15/20 14:25 White Blood Count 11.7 K/UL (4.8-10.8) H Red Blood Count 3.11 M/UL (4.20-5.40) L Hemoglobin 9.2 G/DL (12.0-16.0) L Hematocrit 27.0 % (37.0-47.0) L Mean Corpuscular Volume 87 FL (80-99) Mean Corpuscular Hemoglobin 29.6 PG (27.0-31.0) Mean Corpuscular Hemoglobin Concent 34.1 G/DL (32.0-36.0) Red Cell Distribution Width 15.2 % (11.6-14.8) H Platelet Count 14 K/UL (150-450) L Mean Platelet Volume 6.7 FL (6.5-10.1) Neutrophils (%) (Auto) % (45.0-75.0) Lymphocytes (%) (Auto) % (20.0-45.0) Monocytes (%) (Auto) % (1.0-10.0) Eosinophils (%) (Auto) % (0.0-3.0) Basophils (%) (Auto) % (0.0-2.0) Differential Total Cells Counted 100 Neutrophils % (Manual) 27 % (45-75) L Lymphocytes % (Manual) 39 % (20-45) Monocytes % (Manual) 11 % (1-10) H Eosinophils % (Manual) 0 % (0-3) Basophils % (Manual) 0 % (0-2) Blast Cells % 23 % (0-0) *H Band Neutrophils 0 % (0-8) Platelet Estimate Decreased L Platelet Morphology Normal Hypochromasia 2+ Anisocytosis 1+ Sodium Level 146 MMOL/L (136-145) H 143 MMOL/L (136-145) Potassium Level 4.0 MMOL/L (3.5-5.1) 3.7 MMOL/L (3.5-5.1) Chloride Level 116 MMOL/L (98-107) H 115 MMOL/L (98-107) H Carbon Dioxide Level 14 MMOL/L (21-32) L 15 MMOL/L (21-32) L Anion Gap 16 mmol/L (5-15) H 13 mmol/L (5-15) Blood Urea Nitrogen 38 mg/dL (7-18) H 40 mg/dL (7-18) H Creatinine 1.5 MG/DL (0.55-1.30) H 1.5 MG/DL (0.55-1.30) H Estimat Glomerular Filtration Rate 40.8 mL/min (>60) 40.8 mL/min (>60) Glucose Level 142 MG/DL (74-106) H 155 MG/DL (74-106) H Calcium Level 7.9 MG/DL (8.5-10.1) L 8.2 MG/DL (8.5-10.1) L Vancomycin Level Trough 10.0 ug/mL (5.0-12.0) Neurologic Exam Objective lethargic, withdraws to pain Impression/Recommendations Problems: (1) Hyperkalemia (2) Thrombocytopenia (3) Acute metabolic encephalopathy (4) Acute renal failure (5) Dehydration (6) Acute renal failure (7) UTI (urinary tract infection) (8) Quadriplegia and quadriparesis (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, old, cognitive deficits (11) Anemia, unspecified (12) Vascular dementia (13) Acute respiratory failure (14) Atrial fibrillation (15) Septicemia (16) Dysphagia (17) Leukemia (18) Respiratory failure (19) Iron deficiency anemia (20) Sepsis (21) Altered mental status (22) Cardiomyopathy (23) Pneumonia (24) Alteration consciousness (25) HTN (hypertension) (26) Pain (27) Pain (28) MODS (multiple organ dysfunction syndrome) (29) Cerebral vascular disease (30) Elevated CEA (31) Decubital ulcer (32) Penicillin allergy (33) PEG (percutaneous endoscopic gastrostomy) adjustment/replacement/removal (34) SEPSIS, ABD PAIN (35) AL Diagnostic Impression poor prognosis Corwin Ackerman MD Feb 15, 2020 22:36
[2020-02-16] VITALS: BP 99/53
--- NOTE | 2020-02-16 01:59 | NUR ---
NURSE NOTES: Collected urine sample through purewick and sent to lab.
[2020-02-16 02:55] LABS: APPEARANCE,URINE CLEAR; BILIRUBIN, URINE NEGATIVE (NEGATIVE); GLUCOSE, URINE (UA) NEGATIVE (NEGATIVE); KETONES,URINE NEGATIVE (NEGATIVE); NITRITE,URINE NEGATIVE (NEGATIVE); PH,URINE 5 (4.5-8.0); PROTEIN,URINE 2+ (NEGATIVE); UROBILINOGEN,URINE NORMAL MG/DL (0.0-1.0)
[2020-02-16 03:50] LABS: COLOR,URINE YELLOW
[2020-02-16 03:51] LABS: LEUKOCYTE ESTERASE ,URINE 1+ (NEGATIVE)
[2020-02-16 04:00] VITALS: BP 102/58
--- NOTE | 2020-02-16 05:06 | NUR ---
NURSE NOTES: Provided proper incontinence care and changed sacral dressing. Patient tolerated well.
[2020-02-16] MEDS: metroNIDAZOLE 500mg tab ORAL SCH (05:19)
[2020-02-16 06:52] LABS: HEMATOCRIT 26.7 % (37.0-47.0); HEMOGLOBIN 9.2 G/DL (12.0-16.0); MEAN CORPUSCULAR VOLUME 87 FL (80-99); PLATELET COUNT 17 K/UL (150-450); RED BLOOD COUNT 3.07 M/UL (4.20-5.40); RED CELL DISTRIBUTION WIDTH 15.1 % (11.6-14.8)
[2020-02-16 07:39] LABS: ANION GAP 13 mmol/L (5-15); BLOOD UREA NITROGEN 43 mg/dL (7-18); CARBON DIOXIDE 15 MMOL/L (21-32); CHLORIDE 118 MMOL/L (98-107); CREATININE 1.3 MG/DL (0.55-1.30); POTASSIUM 3.7 MMOL/L (3.5-5.1); SODIUM 146 MMOL/L (136-145)
[2020-02-16 07:45] LABS: CALCIUM 7.5 MG/DL (8.5-10.1)
--- NOTE | 2020-02-16 07:47 | NUR ---
NURSE NOTES: Received report from Kaylin, RN. Patient nonverbal. On nasal cannula 2L/min. Central line dry, intact, and infusing fluids. NG tube in place, in right nare, infusing feeding. Bed in lowest position with HOB above 30 degrees. Will continue with plan of care.
--- NOTE | 2020-02-16 07:53 | General Progress Note ---
Assessment/Plan Assessment/Plan: 1. Diabetes. 2. Dementia. 3. Leukemia. 4. Paroxysmal atrial fibrillation. 5. Anemia. 6. Thrombocytopenia. 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1 77 19 114/61 (78) 98 Intake and Output 02/15/20 02/16/20 19:00 07:00 Intake Total 1425 ml 1350 ml Balance 1425 ml 1350 ml IV Total 825 ml 750 ml Tube Feeding 600 ml 600 ml Laboratory Tests 02/15/20 07:55: White Blood Count 11.7H, Red Blood Count 3.11L, Hemoglobin 9.2L, Hematocrit 27.0L, Mean Corpuscular Volume 87, Mean Corpuscular Hemoglobin 29.6, Mean Corpuscular Hemoglobin Concent 34.1, Red Cell Distribution Width 15.2H, Platelet Count 14L, Mean Platelet Volume 6.7, Neutrophils (%) (Auto) , Lymphocytes (%) (Auto) , Monocytes (%) (Auto) , Eosinophils (%) (Auto) , Basophils (%) (Auto) , Differential Total Cells Counted 100, Neutrophils % ( Manual) 27L, Lymphocytes % (Manual) 39, Monocytes % (Manual) 11H, Eosinophils % (Manual) 0, Basophils % (Manual) 0, Blast Cells % 23*H, Band Neutrophils 0, Platelet Estimate DecreasedL, Platelet Morphology Normal, Hypochromasia 2+, Anisocytosis 1+, Sodium Level 146H, Potassium Level 4.0, Chloride Level 116H, Carbon Dioxide Level 14L, Anion Gap 16H, Blood Urea Nitrogen 38H, Creatinine 1.5H, Estimat Glomerular Filtration Rate 40.8, Glucose Level 142H, Calcium Level 7.9L, Vancomycin Level Trough 10.0 02/15/20 14:25: Sodium Level 143, Potassium Level 3.7, Chloride Level 115H, Carbon Dioxide Level 15L, Anion Gap 13, Blood Urea Nitrogen 40H, Creatinine 1.5H, Estimat Glomerular Filtration Rate 40.8, Glucose Level 155H, Calcium Level 8.2L 02/16/20 01:57: Urine Color Yellow, Urine Appearance Clear, Urine pH 5, Urine Specific Milburn 1.015, Urine Protein 2+H, Urine Glucose (UA) Negative, Urine Ketones Negative, Urine Blood 1+H, Urine Nitrite Negative, Urine Bilirubin Negative, Urine Urobilinogen Normal, Urine Leukocyte Esterase 1+H, Urine RBC 2-4H, Urine WBC 0-2 , Urine Squamous Epithelial Cells Few, Urine Amorphous Sediment ModerateH, Urine Bacteria Few 02/16/20 05:30: White Blood Count 17.0H, Red Blood Count 3.07L, Hemoglobin 9.2L, Hematocrit 26.7L, Mean Corpuscular Volume 87, Mean Corpuscular Hemoglobin 29.9, Mean Corpuscular Hemoglobin Concent 34.4, Red Cell Distribution Width 15.1H, Platelet Count 17L, Mean Platelet Volume 6.6, Neutrophils (%) (Auto) , Lymphocytes (%) (Auto) , Monocytes (%) (Auto) , Eosinophils (%) (Auto) , Basophils (%) (Auto) , Neutrophils % (Manual) [Pending], Lymphocytes % (Manual) [Pending], Platelet Estimate [Pending], Platelet Morphology [Pending], Sodium Level 146H, Potassium Level 3.7, Chloride Level 118H, Carbon Dioxide Level 15L, Anion Gap 13, Blood Urea Nitrogen 43H, Creatinine 1.3, Estimat Glomerular Filtration Rate 48.1, Glucose Level 194H, Calcium Level 7.5L, Random Vancomycin Level 12.0 Height (Feet): 5 Height (Inches): 5.00 Weight (Pounds): 215 General Appearance: lethargic EENT: normal ENT inspection Neck: supple Cardiovascular: normal rate Respiratory/Chest: decreased breath sounds Abdomen: normal bowel sounds, non tender, soft Extremities: non-tender Nirav sAhton MD Feb 16, 2020 07:53
--- NOTE | 2020-02-16 07:55 | NUR ---
HAND-OFF: Report given to RETA Carroll. Plan of care endorsed.
[2020-02-16 08:00] VITALS: BP 115/67
--- NOTE | 2020-02-16 08:10 | NUR ---
NURSE NOTES: Spoke to regarding patient and change status to inpatient. Order noted and carried out. Addendum: 02/16/20 at 0817 by LISBETH BOOTH RN NURSE NOTES: Wrong nursing note
[2020-02-16] MEDS: Amiodarone 200mg tab GT SCH (09:00)
--- NOTE | 2020-02-16 09:30 | Discharge Summary ---
Discharge Summary Hospital Course Date of Admission Feb 01, 2020 at 00:54 Date of Discharge Admitting Diagnosis sepsis, uti, anemia HPI Sobia Hatfield is a 79 year old female who was admitted on Feb 01, 2020 at 00: 54 for Sepsis/Urinary Tract Infection/Anemia S: f/u for UTI, anemia, s/p eladio placement on 02/13. Tolerating TF, aphasic, appears more comfortable today. PE: General Appearance: aphasic, awake, appears uncomfortable and moaning, does not respond to name HEENT: NCAT, b/l blindness, left prosthesis, dry MM, eladio in place w/tube feeds running Cardiovascular: RR Respiratory/Chest: b/l coarse rhonchi, no accessory muscle usage Abdomen: non tender, soft Edema: no edema noted Hospital Course 79 y/o F with PMH CVA, schizophrenia, vascular dementia, leukemia who presents from [facility] for AMS, found to have E. coli UTI and severe anemia.Pt was being followed by Dr. Jimenez and our group was consulted by family for a second opion. Pt found to have E. coli UTI and possible RUL PNA/aspiration PNA. ID consulted and pt treated with abx. Pt with longstanding history of MDS, thronbocytopenia, acute leukemia with blast crisis and severe refractory anemia 2/2 MDS. Pt underwent multiple PRBC transfusions, hgb now stable. Heme/Onc, Dr. Daniel, consulted who stated unable to initiate chemotherapy due to poor prognosis. Multiple discussions with pt's POA, Leyla, regarding POC, code status , and possible hospice however at this time POA does not want pt under hospice care. GI consulted for nutrition recs, pros' and cons of NGT/ eladio was discussed w/POA by GI, stated that there is still risk of bleeding given pt's clinical conditon. POA stated she wanted the dobhoff placed and understands the risk of bleeding and tube is not a permanent means of nutrition. Dobhoff was placed on 02/13 without any issues by GI, and pt is tolerating TFs. Pt noted with AMELIE which resolved after IVFs. Elevated WBCs likely 2/2 MDS/leukemia. Pt in stable condition, transfer back to SNF for further. Diagnosis: #E. coli UTI #RUL PNA - Aspiration or HCAP #Severe refractory Anemia 2/2 MDS #Acute Leukemia, Blast crisis #Lymphoma #thrombocytopenia #AMELIE #Hyponatremia - improved #FTT #Severe Protein Calorie Malnutrition #physical deconditioning #Dysphagia #Quadriplegia #CVA #vascular dementia D/c planning >30 mins, 20 mins spent d/w CM, Nephro, ID, Heme Onc regarding d/c planning. Time of note doesn't reflect time of encounter. Discharge Discharge Vital Signs Last Vital Signs Date Time Temp Pulse Resp B/P (MAP) Pulse Ox O2 Delivery O2 Flow Rate FiO2 02/16/20 08:00 98.8 76 18 115/67 (83) 97 02/15/20 21:00 Nasal Cannula 2.0 Discharge Disposition Patient was discharged to Anthony Guerra M.D. Feb 16, 2020 09:30
--- NOTE | 2020-02-16 09:34 | Discharge Instructions ---
Discharge Instructions Discharge Instructions Follow up with: oncology, GI and PCP as o/p. Special Instructions repeat CBC, BMP in 2-3 days. F/u w/Oncology, Dr. Daniel m [address] [facility] [address] or your choice of oncology. F/u with Dr. Ashton or your choice GI. For Congestive Heart Failure Reminder Report to your physician any weight gain of 5 pounds or more in one week. Anthony Guerra M.D. Feb 16, 2020 09:34
--- NOTE | 2020-02-16 09:41 | NUR ---
DISCHARGE PLANNING CALL MADE TO DAVID URIBE. S/W ANNIE IN ADMISSIONS IN RE TO PATIENTS DISCHARGE TODAY. STATES SHE WILL OBTAIN CONFIRMATION FROM DON AND CALL THIS CM WITH BED ASSIGNMENT.
[2020-02-16] MEDS ORDERED: Lidocaine 1% MPF 10mg/ml 5ml INJ SCH (10:00)
[2020-02-16] MEDS: Docusate 100mg cap ORAL SCH (10:05)
[2020-02-16] MEDS: Ascorbic Acid 500mg tab GT SCH (10:06)
--- NOTE | 2020-02-16 10:58 | NUR ---
*-*DISCHARGE PLANNED*-* PATIENT HAS BEEN ACCEPTED AND WILL BE DISCHARGED BACK TO: [facility] FOR NURSE TO NURSE REPORT P:[phone] ROOM# 27.A [facility] TRANSPORTATION SET FOR 12:30PM S/W TAMANNA [id number] S/W DAUGHTER, [place], WHO IS IN AGREEMENT WITH DISCHARGE PLAN.
--- NOTE | 2020-02-16 11:42 | Surgery Progress Note ---
Surgery Progress Note Subjective Procedure Performed Right subclavian central venous catheter insertion Additional Comments wbc 17k discussed with pcp plan for d/c today will remove line as should not go with central access temp Objective Last 24 Hour Vital Signs Date Time Temp Pulse Resp B/P (MAP) Pulse Ox O2 Delivery O2 Flow Rate FiO2 02/16/20 09:00 76 115/67 02/16/20 08:00 98.8 76 18 115/67 (83) 97 02/16/20 04:00 98.2 89 23 102/58 (73) 100 02/16/20 00:00 99.0 92 22 99/53 (68) 96 02/15/20 21:00 Nasal Cannula 2.0 02/15/20 20:00 99.3 83 22 98/53 (68) 96 02/15/20 16:00 98.7 81 19 129/79 (96) 96 02/15/20 12:00 98.0 79 18 121/71 (88) 97 I&O Intake and Output 02/15/20 02/16/20 19:00 07:00 Intake Total 1425 ml 1470 ml Balance 1425 ml 1470 ml IV Total 825 ml 750 ml Tube Feeding 600 ml 720 ml # Voids 3 Dressing: other Wound: other Drains: other Cardiovascular: RSR Respiratory: decreased breath sounds Abdomen: soft, non-tender, present bowel sounds Extremities: edema, no tenderness, no cyanosis Laboratory Tests Test 02/15/20 14:25 02/16/20 01:57 02/16/20 05:30 Sodium Level 143 MMOL/L (136-145) 146 MMOL/L (136-145) H Potassium Level 3.7 MMOL/L (3.5-5.1) 3.7 MMOL/L (3.5-5.1) Chloride Level 115 MMOL/L (98-107) H 118 MMOL/L (98-107) H Carbon Dioxide Level 15 MMOL/L (21-32) L 15 MMOL/L (21-32) L Anion Gap 13 mmol/L (5-15) 13 mmol/L (5-15) Blood Urea Nitrogen 40 mg/dL (7-18) H 43 mg/dL (7-18) H Creatinine 1.5 MG/DL (0.55-1.30) H 1.3 MG/DL (0.55-1.30) Estimat Glomerular Filtration Rate 40.8 mL/min (>60) 48.1 mL/min (>60) Glucose Level 155 MG/DL (74-106) H 194 MG/DL (74-106) H Calcium Level 8.2 MG/DL (8.5-10.1) L 7.5 MG/DL (8.5-10.1) L Urine Color Yellow Urine Appearance Clear Urine pH 5 (4.5-8.0) Urine Specific [place] 1.015 (1.005-1.035) Urine Protein 2+ (NEGATIVE) H Urine Glucose (UA) Negative (NEGATIVE) Urine Ketones Negative (NEGATIVE) Urine Blood 1+ (NEGATIVE) H Urine Nitrite Negative (NEGATIVE) Urine Bilirubin Negative (NEGATIVE) Urine Urobilinogen Normal MG/DL (0.0-1.0) Urine Leukocyte Esterase 1+ (NEGATIVE) H Urine RBC 2-4 /HPF (0 - 2) H Urine WBC 0-2 /HPF (0 - 2) Urine Squamous Epithelial Cells Few /LPF (NONE/OCC) Urine Amorphous Sediment Moderate /LPF (NONE) H Urine Bacteria Few /HPF (NONE) White Blood Count 17.0 K/UL (4.8-10.8) H Red Blood Count 3.07 M/UL (4.20-5.40) L Hemoglobin 9.2 G/DL (12.0-16.0) L Hematocrit 26.7 % (37.0-47.0) L Mean Corpuscular Volume 87 FL (80-99) Mean Corpuscular Hemoglobin 29.9 PG (27.0-31.0) Mean Corpuscular Hemoglobin Concent 34.4 G/DL (32.0-36.0) Red Cell Distribution Width 15.1 % (11.6-14.8) H Platelet Count 17 K/UL (150-450) L Mean Platelet Volume 6.6 FL (6.5-10.1) Neutrophils (%) (Auto) % (45.0-75.0) Lymphocytes (%) (Auto) % (20.0-45.0) Monocytes (%) (Auto) % (1.0-10.0) Eosinophils (%) (Auto) % (0.0-3.0) Basophils (%) (Auto) % (0.0-2.0) Neutrophils % (Manual) Pending Lymphocytes % (Manual) Pending Platelet Estimate Pending Platelet Morphology Pending Random Vancomycin Level 12.0 ug/mL Plan Problems: (1) Decubital ulcer Assessment & Plan: DAILY ESTIMATED NEEDS: Needs based on wound, bed bound 63.5kg abw 25-30 kcals/kg 2155-9713 total kcals 1.25-1.5 g protein/kg 79-95 g total protein 25-30 mL/kg 1266-2299 total fluid mLs NUTRITION DIAGNOSIS: Increased kcal and protein needs R/T wound healing sacral full thickness wound, pt is bedbound w/ poor po intake, pt is lethargic. [facility]ET: [facility] pure[facility] PO DIET RECOMMENDATIONS: Liberalized Regular/ Texture per PASTEURIZER + ENSURE TID ENTERAL NUTRITION RECOMMENDATIONS: IF PART OF POC -> Jevity 1.2 @ 55ml/hr x 24 hrs to provide 1320ml, 1584kcal, 73g prot, 1065ml free water * IF PART OF POC, obtain GI access * Initiate Jevity 1.2 @ 15ml/hr x 6hrs, advance 10ml q 4-6 hrs as tolerated to goal rate. * Once TF well tolerated at goal, add Prosouce 1pkt QD to better meet prot needs * HOB Over 30 degrees/ without IVF, water flush 150ml q 6 hrs * W/ TF, monitor lytes daily, replete as needed- high risk for refeeding syndrome. 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 Patient with leukocytosis on IV antibiotics per infectious disease Microbiology reviewed noted CO VID status Severe anemia trending down hemoglobin requiring transfusion Currently patient does not have access is appropriate for the above central venous catheter indicating recommended consent obtained with family See note procedure Continue IV antibiotics Transfuse as per hematology Trend labs Above nutrition recommendations for patient's overall status We will follow with recommendations thank you for allowing me to participate in patient's care discussed with daughter in length recommend comfort care i expressed this to her she states she will come see her mother and decide no decision made currently (17) Dysphagia (18) Leukemia (19) Respiratory failure (20) Iron deficiency anemia (21) Sepsis (22) Altered mental status (23) Cardiomyopathy (24) Pneumonia (25) Alteration consciousness (26) HTN (hypertension) (27) Pain (28) Pain (29) MODS (multiple organ dysfunction syndrome) (30) Cerebral vascular disease (31) Elevated CEA (32) Penicillin allergy (33) PEG (percutaneous endoscopic gastrostomy) adjustment/replacement/removal (34) SEPSIS, ABD PAIN (35) Phil Weinstein Feb 16, 2020 11:42
[2020-02-16 12:00] VITALS: BP 121/67
[2020-02-16] MEDS ORDERED: MUCINEX600 MG ORAL (12:04)
--- NOTE | 2020-02-16 12:30 | NUR ---
NURSE NOTES: Gave report to RETA Eid of [facility].
[2020-02-16] MEDS ORDERED: guaiFENesin ER 600mg tab ORAL SCH (13:00)
--- NOTE | 2020-02-16 13:00 | Nephrology Progress Note ---
Assessment/Plan Plan #Hyponatremia- due to excess free water #E. coli UTI #Severe refractory Anemia 2/2 MDS #Acute Leukemia, concern for blast crisis #Lymphoma #thrombocytopenia #FTT #physical deconditioning #Quadriplegia #CVA #vascular dementia -continue 1/2NS to 75 cc/hour - increase FWF 200 q6hr - ok to DC from renal standpoint -DC vanco - continue amlodipine 5mg daily - continue epo 10k TIW -Transfuse PRBC for supportive care -Monitor daily CBC -Unable to initiation chemotherapy at this time per Heme/Onc due to poor prognosis Subjective ROS Limited/Unobtainable: No Subjective Cr improved to 1.3 sodium 146 appears comfortable Objective Objective Last 24 Hour Vital Signs Date Time Temp Pulse Resp B/P (MAP) Pulse Ox O2 Delivery O2 Flow Rate FiO2 02/16/20 12:00 Nasal Cannula 2.0 02/16/20 09:00 76 115/67 02/16/20 08:00 98.8 76 18 115/67 (83) 97 02/16/20 04:00 98.2 89 23 102/58 (73) 100 02/16/20 00:00 99.0 92 22 99/53 (68) 96 02/15/20 21:00 Nasal Cannula 2.0 02/15/20 20:00 99.3 83 22 98/53 (68) 96 02/15/20 16:00 98.7 81 19 129/79 (96) 96 Intake and Output 02/15/20 02/16/20 19:00 07:00 Intake Total 1425 ml 1470 ml Balance 1425 ml 1470 ml IV Total 825 ml 750 ml Tube Feeding 600 ml 720 ml # Voids 3 Laboratory Tests 02/15/20 14:25: Sodium Level 143, Potassium Level 3.7, Chloride Level 115H, Carbon Dioxide Level 15L, Anion Gap 13, Blood Urea Nitrogen 40H, Creatinine 1.5H, Estimat Glomerular Filtration Rate 40.8, Glucose Level 155H, Calcium Level 8.2L 02/16/20 01:57: Urine Color Yellow, Urine Appearance Clear, Urine pH 5, Urine Specific [place] 1.015, Urine Protein 2+H, Urine Glucose (UA) Negative, Urine Ketones Negative, Urine Blood 1+H, Urine Nitrite Negative, Urine Bilirubin Negative, Urine Urobilinogen Normal, Urine Leukocyte Esterase 1+H, Urine RBC 2-4H, Urine WBC 0-2 , Urine Squamous Epithelial Cells Few, Urine Amorphous Sediment ModerateH, Urine Bacteria Few 02/16/20 05:30: Sodium Level 146H, Potassium Level 3.7, Chloride Level 118H, Carbon Dioxide Level 15L, Anion Gap 13, Blood Urea Nitrogen 43H, Creatinine 1.3, Estimat Glomerular Filtration Rate 48.1, Glucose Level 194H, Calcium Level 7.5L, White Blood Count 17.0H, Red Blood Count 3.07L, Hemoglobin 9.2L, Hematocrit 26.7L, Mean Corpuscular Volume 87, Mean Corpuscular Hemoglobin 29.9, Mean Corpuscular Hemoglobin Concent 34.4, Red Cell Distribution Width 15.1H, Platelet Count 17L, Mean Platelet Volume 6.6, Neutrophils (%) (Auto) , Lymphocytes (%) (Auto) , Monocytes (%) (Auto) , Eosinophils (%) (Auto) , Basophils (%) (Auto) , Neutrophils % (Manual) [Pending], Lymphocytes % (Manual) [Pending], Platelet Estimate [Pending], Platelet Morphology [Pending], Random Vancomycin Level 12.0 Height (Feet): 5 Height (Inches): 5.00 Weight (Pounds): 215 Objective General Appearance: aphasic, awake, alert, appears comfortable HEENT: NCAT, b/l blindness, left prostehsis, dry MM Cardiovascular: regular rhythm Respiratory/Chest: lungs clear, no accessory muscle usage Abdomen: non tender, soft Edema: no edema noted Tristan Morris M.D. Feb 16, 2020 13:00
--- NOTE | 2020-02-16 13:30 | NUR ---
NURSE NOTES: Gave report to general utility maintenance repairer Priya Briceño and Hannah Aceves of [facility]. Patient discharged to [facility].
[2020-02-16] MEDS ORDERED: Sterile Water Irrig 1000ml IRRIG ONE (13:35)
[2020-02-16] MEDS ORDERED: Tubing IV Secondary IV ONE (13:35)
--- NOTE | 2020-02-16 17:43 | Hematology/Onc Progress Note ---
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 coli UTI as well As ALL --> cont. inpatient medical management --> UCx + for E. Coli --> cont. cefazolin --> smear is noted --> wbc 26-->18-->25-->13 # FTT likely related to psych disorder --> pt as needed --> nutrition recommendations # Physical deconditioning # Quadriplegia --> nutrition consulted --> PT/OT # CVA # Vascular dementia # Poor prognosis, consider hospice Appreciate consultation and dw Rn Subjective Allergies: Coded Allergies: PENICILLINS (Unverified Allergy, Unknown, 03/16/15) Subjective 02/06 nonverbal, no bleeding, labs reviewed, no f/c no bleeding, hgb low 02/07 i talked to rn this an, Xyrece and apparently daughter called and asked to see how mother is doing,she hasn't yet called me 02/08 no bleeding, labs reviewed, with blast coiunt of 81%, extremely poor prognosis 02/11 no major events, remains critically ill, daughter still contemplating hospice 02/12 labs noted, no bleeding, no f/c, hgb improved s/p transf 02/13 remains agitated, increased dose of morphine in am, dw daughter and pcp yesterday 02/14 potential dc as per pcp, will need followup, to be arranged 02/15 awake and alert, no overnight events, stable for dc Objective Objective Last 24 Hour Vital Signs Date Time Temp Pulse Resp B/P (MAP) Pulse Ox O2 Delivery O2 Flow Rate FiO2 02/16/20 12:00 98.7 79 18 121/67 (85) 98 02/16/20 12:00 Nasal Cannula 2.0 02/16/20 09:00 76 115/67 02/16/20 08:00 98.8 76 18 115/67 (83) 97 02/16/20 04:00 98.2 89 23 102/58 (73) 100 02/16/20 00:00 99.0 92 22 99/53 (68) 96 02/15/20 21:00 Nasal Cannula 2.0 02/15/20 20:00 99.3 83 22 98/53 (68) 96 02/15/20 16:00 98.7 81 19 129/79 (96) 96 02/15/20 12:00 98.0 79 18 121/71 (88) 97 02/15/20 09:00 Room Air 02/15/20 08:32 77 114/61 02/15/20 08:00 98.1 77 19 114/61 (78) 98 02/15/20 04:00 97.9 68 18 155/69 (97) 98 02/15/20 00:00 97.3 70 22 156/90 (112) 98 02/14/20 21:00 Room Air 02/14/20 20:00 97.7 67 18 101/65 (77) 98 Intake and Output 02/15/20 02/16/20 19:00 07:00 Intake Total 1425 ml 1470 ml Balance 1425 ml 1470 ml IV Total 825 ml 750 ml Tube Feeding 600 ml 720 ml # Voids 3 Labs Test 02/13/20 17:45 02/14/20 05:20 02/15/20 07:55 02/15/20 14:25 Urine Color Yellow Urine Appearance Cloudy Urine pH 5 (4.5-8.0) Urine Specific [place] 1.020 (1.005-1.035) Urine Protein 3+ (NEGATIVE) Urine Glucose (UA) Negative (NEGATIVE) Urine Ketones 2+ (NEGATIVE) Urine Blood 2+ (NEGATIVE) Urine Nitrite Negative (NEGATIVE) Urine Bilirubin 1+ (NEGATIVE) Urine Ictotest Negative (NEGATIVE) Urine Urobilinogen 4 MG/DL (0.0-1.0) Urine Leukocyte Esterase 2+ (NEGATIVE) Urine RBC 5-10 /HPF (0 - 2) Urine WBC 20-30 /HPF (0 - 2) Urine Squamous Epithelial Cells Few /LPF (NONE/OCC) Urine Bacteria Many /HPF (NONE) White Blood Count 13.4 K/UL (4.8-10.8) 11.7 K/UL (4.8-10.8) Red Blood Count 3.35 M/UL (4.20-5.40) 3.11 M/UL (4.20-5.40) Hemoglobin 10.0 G/DL (12.0-16.0) 9.2 G/DL (12.0-16.0) Hematocrit 29.0 % (37.0-47.0) 27.0 % (37.0-47.0) Mean Corpuscular Volume 87 FL (80-99) 87 FL (80-99) Mean Corpuscular Hemoglobin 29.8 PG (27.0-31.0) 29.6 PG (27.0-31.0) Mean Corpuscular Hemoglobin Concent 34.4 G/DL (32.0-36.0) 34.1 G/DL (32.0-36.0) Red Cell Distribution Width 15.0 % (11.6-14.8) 15.2 % (11.6-14.8) Platelet Count 19 K/UL (150-450) 14 K/UL (150-450) Mean Platelet Volume 8.9 FL (6.5-10.1) 6.7 FL (6.5-10.1) Neutrophils (%) (Auto) % (45.0-75.0) % (45.0-75.0) Lymphocytes (%) (Auto) % (20.0-45.0) % (20.0-45.0) Monocytes (%) (Auto) % (1.0-10.0) % (1.0-10.0) Eosinophils (%) (Auto) % (0.0-3.0) % (0.0-3.0) Basophils (%) (Auto) % (0.0-2.0) % (0.0-2.0) Differential Total Cells Counted 100 100 Neutrophils % (Manual) 25 % (45-75) 27 % (45-75) Lymphocytes % (Manual) 30 % (20-45) 39 % (20-45) Monocytes % (Manual) 7 % (1-10) 11 % (1-10) Eosinophils % (Manual) 0 % (0-3) 0 % (0-3) Basophils % (Manual) 0 % (0-2) 0 % (0-2) Blast Cells % 38 % (0-0) 23 % (0-0) Band Neutrophils 0 % (0-8) 0 % (0-8) Platelet Estimate Decreased Decreased Platelet Morphology Normal Normal Hypochromasia 2+ 2+ Anisocytosis 1+ 1+ Spherocytes 1+ Sodium Level 146 MMOL/L (136-145) 146 MMOL/L (136-145) 143 MMOL/L (136-145) Potassium Level 4.0 MMOL/L (3.5-5.1) 4.0 MMOL/L (3.5-5.1) 3.7 MMOL/L (3.5-5.1) Chloride Level 115 MMOL/L (98-107) 116 MMOL/L (98-107) 115 MMOL/L (98-107) Carbon Dioxide Level 15 MMOL/L (21-32) 14 MMOL/L (21-32) 15 MMOL/L (21-32) Anion Gap 16 mmol/L (5-15) 16 mmol/L (5-15) 13 mmol/L (5-15) Blood Urea Nitrogen 26 mg/dL (7-18) 38 mg/dL (7-18) 40 mg/dL (7-18) Creatinine 1.1 MG/DL (0.55-1.30) 1.5 MG/DL (0.55-1.30) 1.5 MG/DL (0.55-1.30) Estimat Glomerular Filtration Rate 58.4 mL/min (>60) 40.8 mL/min (>60) 40.8 mL/min (>60) Glucose Level 79 MG/DL (74-106) 142 MG/DL (74-106) 155 MG/DL (74-106) Calcium Level 8.3 MG/DL (8.5-10.1) 7.9 MG/DL (8.5-10.1) 8.2 MG/DL (8.5-10.1) Vancomycin Level Trough 10.0 ug/mL (5.0-12.0) Test 4/17/20 01:57 02/16/20 05:30 Urine Color Yellow Urine Appearance Clear Urine pH 5 (4.5-8.0) Urine Specific [place] 1.015 (1.005-1.035) Urine Protein 2+ (NEGATIVE) Urine Glucose (UA) Negative (NEGATIVE) Urine Ketones Negative (NEGATIVE) Urine Blood 1+ (NEGATIVE) Urine Nitrite Negative (NEGATIVE) Urine Bilirubin Negative (NEGATIVE) Urine Urobilinogen Normal MG/DL (0.0-1.0) Urine Leukocyte Esterase 1+ (NEGATIVE) Urine RBC 2-4 /HPF (0 - 2) Urine WBC 0-2 /HPF (0 - 2) Urine Squamous Epithelial Cells Few /LPF (NONE/OCC) Urine Amorphous Sediment Moderate /LPF (NONE) Urine Bacteria Few /HPF (NONE) White Blood Count 17.0 K/UL (4.8-10.8) Red Blood Count 3.07 M/UL (4.20-5.40) Hemoglobin 9.2 G/DL (12.0-16.0) Hematocrit 26.7 % (37.0-47.0) Mean Corpuscular Volume 87 FL (80-99) Mean Corpuscular Hemoglobin 29.9 PG (27.0-31.0) Mean Corpuscular Hemoglobin Concent 34.4 G/DL (32.0-36.0) Red Cell Distribution Width 15.1 % (11.6-14.8) Platelet Count 17 K/UL (150-450) Mean Platelet Volume 6.6 FL (6.5-10.1) Neutrophils (%) (Auto) % (45.0-75.0) Lymphocytes (%) (Auto) % (20.0-45.0) Monocytes (%) (Auto) % (1.0-10.0) Eosinophils (%) (Auto) % (0.0-3.0) Basophils (%) (Auto) % (0.0-2.0) Differential Total Cells Counted 100 Neutrophils % (Manual) 10 % (45-75) Lymphocytes % (Manual) 29 % (20-45) Monocytes % (Manual) 10 % (1-10) Eosinophils % (Manual) 0 % (0-3) Basophils % (Manual) 0 % (0-2) Metamyelocytes % 3 % (0-0) Myelocytes % 5 % (0-0) Blast Cells % 41 % (0-0) Band Neutrophils 2 % (0-8) Nucleated Red Blood Cells 2 /100 WBC Platelet Estimate Decreased Platelet Morphology Normal Red Blood Cell Morphology Normal Sodium Level 146 MMOL/L (136-145) Potassium Level 3.7 MMOL/L (3.5-5.1) Chloride Level 118 MMOL/L (98-107) Carbon Dioxide Level 15 MMOL/L (21-32) Anion Gap 13 mmol/L (5-15) Blood Urea Nitrogen 43 mg/dL (7-18) Creatinine 1.3 MG/DL (0.55-1.30) Estimat Glomerular Filtration Rate 48.1 mL/min (>60) Glucose Level 194 MG/DL (74-106) Calcium Level 7.5 MG/DL (8.5-10.1) Random Vancomycin Level 12.0 ug/mL Height (Feet): 5 Height (Inches): 5.00 Weight (Pounds): 215 Objective Vitals with hypotension General: lethargic, Chronically Ill Heent: nc, at Neck: full range of motion, supple Respiratory: chest non-tender, rhonchi Cardiovascular: regular rate, rhythm, no murmur Gastrointestinal: normal bowel sounds, non tender, no mass, no organomegaly, no bruit, non-distended Musculoskeletal: other - Extremities contracted Neurologic: other - Grimace to painful stimuli Dav Daniel MD Feb 16, 2020 17:43
--- NOTE | 2020-02-16 21:10 | Operative Note - PDOC ---
Operative Note Operative Note Pre-op Diagnosis: 1 sepsis 2 anemia 3 abnormal labs Procedure: Right subclavian central venous catheter removal Post-op Diagnosis: same as pre-op Surgeon: Phil Dangelo MD Specimen: none Complications: none Condition: stable Estimated Blood Loss: minimal Drains: none Implant(s) used?: No Indications for Procedure see notes Description of Procedure plan for d/c today. line to be removed prior patient made comfortable at bedside dressings removed sutures removed line removed and pressures held hemostasis noted dressings applied okay for d/c Phil Dangelo Feb 16, 2020 21:10
== END 2020-02-16 13:36 | DRG 871 ==
LOC: EDBD 22:36 → EDUNIT# 22:36 → EMR 23:07 → 2E 02-01 00:54 → EDBEDREQ 02-01 05:46 → 4E 02-01 15:52
PROC: 30233N1 Transfusion of Nonautologous Red Blood Cells into Peripheral Vein, Percutaneous Approach (ICD-10-PCS; principal; 2020-02-01)
PROC: 05H533Z Insertion of Infusion Device into Right Subclavian Vein, Percutaneous Approach (ICD-10-PCS; 2020-02-12)
PROC: 05PY33Z Removal of Infusion Device from Upper Vein, Percutaneous Approach (ICD-10-PCS; 2020-02-16)
DX: A41.9 Sepsis, unspecified organism (principal); G82.50 Quadriplegia, unspecified; G93.41 Metabolic encephalopathy; J18.9 Pneumonia, unspecified organism; E43 Unspecified severe protein-calorie malnutrition; J96.00 Acute respiratory failure, unspecified whether with hypoxia or hypercapnia; N39.0 Urinary tract infection, site not specified; N17.9 Acute kidney failure, unspecified; C91.00 Acute lymphoblastic leukemia not having achieved remission; E87.1 Hypo-osmolality and hyponatremia; Z43.1 Encounter for attention to gastrostomy; R65.20 Severe sepsis without septic shock; E86.0 Dehydration; R63.0 Anorexia; Z68.30 Body mass index [BMI] 30.0-30.9, adult; E87.5 Hyperkalemia; R62.7 Adult failure to thrive; F01.50 Vascular dementia, unspecified severity, without behavioral disturbance, psychotic disturbance, mood disturbance, and anxiety; Z88.0 Allergy status to penicillin; D69.6 Thrombocytopenia, unspecified; B96.20 Unspecified Escherichia coli [E. coli] as the cause of diseases classified elsewhere; D46.4 Refractory anemia, unspecified; R13.10 Dysphagia, unspecified; E11.9 Type 2 diabetes mellitus without complications; K21.9 Gastro-esophageal reflux disease without esophagitis; I10 Essential (primary) hypertension; R97.0 Elevated carcinoembryonic antigen [CEA]; L89.90 Pressure ulcer of unspecified site, unspecified stage; I69.319 Unspecified symptoms and signs involving cognitive functions following cerebral infarction; Z22.322 Carrier or suspected carrier of Methicillin resistant Staphylococcus aureus; D50.9 Iron deficiency anemia, unspecified
CPT/HCPCS: 36415; 70450; 71045; 74018; 80048; 80053; 80202; 81001; 81003; 82270; 82550; 82553; 83605; 83735; 84100; 84484; 84550; 85007; 85025; 85060; 86710; 86850; 86900; 86901; 86920; 87040; 87070; 87081; 87086; 87181; 87205; 93005; 96361; 96365; 99291; J7030